=== PATIENT | female | born 1960 | race Caucasian/White ===

== ENCOUNTER 2023-06-15 08:54 | Day surgery (SDC) | payer BC, SELFPAY ==
[2023-06-15] VITALS (7 sets, daily range): BP systolic 131–166; BP diastolic 68–108; PULSE 77–81; RESP 16–18; TEMP 36.8–36.9; O2SAT 99–100; BMI 26.9
[2023-06-15] MEDS: Lactated Ringers 1,000 ML 15 ML IV ×2 (10:00→12:01)
[2023-06-15] MEDS: Vancomycin IV 1,000 MG/200 ML BAG 200 MG IV (10:01)
--- NOTE | 2023-06-15 11:00 | RAD_ITS ---
STUDY: X-RAY - PELVIS REASON FOR EXAM: Female, 62 years old. Placement of right sacral epidural stimulator. TECHNIQUE: 5 intraoperative digital documentation views COMPARISON: None. FINDINGS: 5 intraoperative digital documentation views show placement of right sacral catheter. Left sacral catheter is also noted. RAD/Pelvis 1 or 2 Views IMPRESSION: Intraoperative digital documentation images. Electronically Signed: Brian Teixeira MD at 15:04 EDT ,
[2023-06-15] MEDS: Lidocaine 1% /Epi 1:100 (20ml) 20 ML Vial (11:06)
--- NOTE | 2023-06-15 12:04 | EX.PCM.DISCH ---
Discharge Instructions Diet Discharge Diet: No restrictions Activity Discharge Activity: May Not Shower May resume sexual activity in: 3 weeks Dressing / Incision Call your doctor if your incision/area has: Continuous Slow Oozing, Sudden Increased Bleeding, Increased Pain/ Swelling, Increased Redness and Foul Smelling Discharge Call your doctor if you observe: Fever of 101 or Higher, Inability to urinate and Inability to have a bowel movement Suture Line Care: Avoid Pulling/Pushing and Avoid Pinching/Bending Change Dressing in: leave in place till F/U Remove Dressing in: do not remove dressing Cleanse incision/area with: Do not get Incision Wet and Keep Dressing Clean & Dry Follow Up Care Please Follow Up With: Jacqueline Duong MD When: Next week as scheduled Test Results: Test results from this visit will be discussed in further detail at your follow-up appointment, if applicable. Discharge Plan Admission Attending Provider: Jacqueline Duong Primary Care Provider: Rose Finnegan NP Discharge Orders/Prescriptions Prescriptions: New hydrocodone-acetaminophen [hydrocodone-acetaminophen] 5-325 mg tablet 1 tab PO Q8H PRN PRN (Reason: Pain) 3 Days Qty: 10 0RF cephalexin [cephalexin] 500 mg capsule 500 mg PO Q12 3 Days Qty: 6 0RF Referrals / Follow Up: Rose Finnegan NP, LINK TRAINER MAINTENANCE MAN-C [Primary Care Provider] - Disposition Disposition (needs filled in before D/C Order can be placed): Home, Self Care
--- NOTE | 2023-06-15 13:33 | OP.PCM_ITS ---
Report of Operation Date of Procedure: 06/15/23 Pre-Operative Diagnosis: Fecal incontinence Post-Operative Diagnosis: Same Surgery/Procedure Performed:: Axonics stage I Surgeon: Jacqueline Duong Type of Anesthesia: MAC Description of Procedure: The patient is a 62-year-old female with fecal incontinence that has failed conservative management. She now presents for a trial of Axonics sacral millicent romodulation. Informed consent has been obtained. The patient was taken to the operating room and placed in a prone position on the operating room table. She was appropriately padded and secured to the table. Anesthesia monitored the head, neck, airway, IV access and vital signs throughout the case. Once anesthesia was appropriately administered, the patient was prepped and draped in usual sterile fashion. The skin overlying the S3 foramen bilaterally was infiltrated with local anesthetic. The needle was unable to be inserted into the S3 foramen on the left side however it was inserted on the right side. Stimulation revealed good arthur response and toe flexion. A small incision was made surrounding the guidewire and the dilator was then placed. The lead was inserted through the dilator into the S3 foramen. Testing was performed on all 4 leads with lead to 0 receiving the least amount of stimulation identified. The decision was made to leave the lead indwelling in this location. A pocket site was selected on the patient's left side and the skin was infiltrated with local anesthetic and an incision was made using the knife. Bovie cautery was used for hemostasis. The lead was then tunneled into this position. It was then dried and inserted into the lead extension and secured using the torque wrench. The lead extension was then tunneled to the contralateral side where it was secured using a suture and Steri-Strips. The pocket site was closed using 3-0 interrupted Vicryl suture followed by 4-0 Monocryl used in a subcuticular closure. The same closure was performed on the lead insertion site. Dermabond was then placed. The battery was then attached and once again secured using Steri-Strips. The lead extension and battery were then placed over a drain s ponge and secured using an OpSite followed by cloth tape. The patient was then awakened and taken to the recovery room in good condition. There were no complications during this procedure. Grafts/Implants Used: Axonics lead and lead extension Complications None Admit VTE Documentation VTE Present on Admission: No VTE Mechan Device Prophylaxis: None VTE Pharm Prophylaxis ordered?: No Reason prophylaxis not ordered:: Treatment Not Indicated
== END 2023-06-15 13:04 | disposition home or self-care (01) ==
LOC: SDC 09:03 → AC 09:06
PROVIDERS: PCP Nurse Practitioner Family; Referring Provider Urology; Visit Provider Urology
PROC: (CPT 64561; principal; 2023-06-15 10:40)
DX: R15.9 Full incontinence of feces (principal); Z87.891 Personal history of nicotine dependence; N39.46 Mixed incontinence; R35.1 Nocturia
CPT/HCPCS: 64561; 00300; 72170; 76000; J7120; J2405

== ENCOUNTER 2023-07-06 09:21 | Day surgery (SDC) | payer BC, SELFPAY ==
[2023-07-06] VITALS (9 sets, daily range): BP systolic 121–161; BP diastolic 72–91; PULSE 71–89; RESP 14–16; TEMP 36.3–36.9; O2SAT 97–99; BMI 26.6
[2023-07-06] MEDS: Lactated Ringers 1,000 ML 15 ML IV (09:48)
[2023-07-06] MEDS: Vancomycin IV 1,000 MG/200 ML BAG 200 MG IV (09:50)
--- NOTE | 2023-07-06 11:40 | DCINST_ITS ---
Discharge Instructions Diet Discharge Diet: No restrictions Activity Discharge Activity: Return to Normal Activity Dressing / Incision Call your doctor if your incision/area has: Continuous Slow Oozing, Sudden Increased Bleeding, Increased Pain/ Swelling, Increased Redness, Foul Smelling Discharge and Swelling at the incision site Call your doctor if you observe: Fever of 101 or Higher, Inability to urinate and Inability to have a bowel movement Additional Dressing/Incision Instructions:: leave glue in place until it falls off Follow Up Care Please Follow Up With: Jacqueline Duong MD When: the office will call her for follow up instructions Test Results: Test results from this visit will be discussed in further detail at your follow- up appointment, if applicable. Discharge Plan Admission Attending Provider: Jacqueline Duong Primary Care Provider: Rose Finnegan NP Discharge Orders/Prescriptions Prescriptions: New oxycodone-acetaminophen [Percocet] 5-325 mg tablet 1 tab PO Q8H PRN (Reason: pain) 3 Days Qty: 10 0RF cephalexin [cephalexin] 500 mg capsule 500 mg PO Q12 3 Days Qty: 6 0RF No Action NK Referrals / Follow Up: Rose Finnegan NP, SUPERVISOR ACCOUNTS RECEIVABLE-C [Primary Care Provider] - Disposition Disposition (needs filled in before D/C Order can be placed): Home, Self Care
[2023-07-06] MEDS: Cefazolin 2 GM in 0.9% Normal Saline 100 ML IV (11:43)
--- NOTE | 2023-07-06 11:43 | PCM.OPRPT ---
Problems Associated Problem List Diagnoses (1) Fecal incontinence: Report of Operation Date of Procedure: 07/06/23 Pre-Operative Diagnosis: Fecal Incontinence Post-Operative Diagnosis: same Surgery/Procedure Performed:: Axonics Stage 2 Surgeon: Jacqueline Duong Type of Anesthesia: MAC Description of Procedure: The patient is a 62-year-old female who has undergone a successful stage I Axonics trial and now presents for stage II battery implant. Informed consent was obtained. The patient was taken to the operating room and placed in a prone position on the operating room table. She was appropriately supported and secured to the table. Anesthesia monitored the head, neck, airway, IV access and vital signs throughout the case. Once anesthesia was appropriately ministered, the patient was prepped and draped in usual sterile fashion. The pocket incision was infiltrated with 1% lidocaine with epinephrine. The incision was opened using hemostats and Metzenbaums. Care was taken to avoid injury to the lead. The torque wrench was used to remove the lead from the lead extension which was then removed from the operative field. The pocket site was enlarged using a knife and Bovie cautery as well as blunt dissection. After hemostasis was obtained, the lead was dried and inserted into the battery and secured using the torque wrench. The battery was inserted into the pocket site and no impedances were identified. The pocket was closed in 2 layers first with 3-0 interrupted Vicryl girl followed by 4-0 Monocryl subcuticular closure. Skin glue was then applied to the incision and allowed to dry completely. She was then awakened and taken to the recovery room in good condition. There were no complications during this procedure. Grafts/Implants Used: Axonics battery Complications none Admit VTE Documentation VTE Present on Admission: No VTE Mechan Device Prophylaxis: None VTE Pharm Prophylaxis ordered?: No Reason prophylaxis not ordered:: Treatment Not Indicated
[2023-07-06] MEDS: Lidocaine 1% /Epi 1:100 (20ml) 20 ML Vial (12:15)
--- NOTE | 2023-07-06 13:33 | DCINST_ITS ---
Discharge Instructions Diet Discharge Diet: No restrictions Dressing / Incision Call your doctor if your incision/area has: Continuous Slow Oozing, Sudden Increased Bleeding, Increased Pain/ Swelling, Increased Redness, Foul Smelling Discharge and Swelling at the incision site Call your doctor if you observe: Fever of 101 or Higher, Inability to urinate and Inability to have a bowel movement Additional Dressing/Incision Instructions:: leave glue in place until it falls off Follow Up Care Please Follow Up With: Jacqueline Duong MD Test Results: Test results from this visit will be discussed in further detail at your follow- up appointment, if applicable. Discharge Plan Admission Attending Provider: Jacqueline Duong Primary Care Provider: Rose Finnegan NP Discharge Orders/Prescriptions Prescriptions: New oxycodone-acetaminophen [Percocet] 5-325 mg tablet 1 tab PO Q8H PRN (Reason: pain) 3 Days Qty: 10 0RF cephalexin [cephalexin] 500 mg capsule 500 mg PO Q12 3 Days Qty: 6 0RF hydrocodone-acetaminophen [hydrocodone-acetaminophen] 5-325 mg tablet 1 tab PO Q8H PRN PRN (Reason: Pain) 3 Days Qty: 10 0RF No Action NK Referrals / Follow Up: Rose Finnegan NP, SOLIDS CONTROL TECHNICIAN-C [Primary Care Provider] - Disposition Disposition (needs filled in before D/C Order can be placed): Home, Self Care
--- NOTE | 2023-07-06 13:57 | SUR.PHASEII ---
CALLED INTO PATIENT ROOM FOR BLEEDING FROM RIGHT BATTERY SITE. THE SITE HAD A SLOW OOZE/DRIP. THIS NURSE APPLIED PRESSURE TO THE SITE AND THEN APPLIED A PRESSURE DRESSING. DR. KANG CALLED TO LOOK AT THE PATIENT. NO BLEEDING NOTED ON THE DRSG I PLACED SO SHE SAID TO JUST WATCH IT. SHE WANTS TO SEE THE PATIENT ON MONDAY AND CALL IF BLEEDING STARTS AND DOESN'T STOP AFTER APPLYING PRESSURE. THIS NURSE GAVE SOME DRESSING SUPPLIES AND SHOWED FAMILY HOW TO APPLY A PRESSURE DRSG IF NEEDED.
--- NOTE | 2023-07-06 14:00 | SUR.PHASEII ---
THIS NURSE CALLED [facility] TO GET THE PERCOCET DISCONTINUED SO THAT THEY COULD FILL HER [place]. WE JUST GOT THE ORDER CHANGED ABOUT 15 MINUTES AGO SO THE PATIENT HAS BEEN WAITING TO GO HOME. PATIENT MADE AWARE OF [facility] PHONE CALL AND THIS NURSE THEN WALKED WITH HER TO DISCHARGE ENTRANCE.
== END 2023-07-06 14:18 | disposition home or self-care (01) ==
LOC: SDC 09:30 → AC 09:30
PROVIDERS: PCP Nurse Practitioner Family; Referring Provider Urology; Visit Provider Urology
PROC: (CPT 64590; principal; 2023-07-06 10:50)
DX: R15.9 Full incontinence of feces (principal); Z87.891 Personal history of nicotine dependence; N39.46 Mixed incontinence; R35.1 Nocturia
CPT/HCPCS: 64590; 00300; J7120; J2405

== ENCOUNTER 2023-07-25 12:30 | Outpatient (RCR) | payer BC, SELFPAY ==
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
--- NOTE | 2023-07-25 12:52 | HP.PTDCSUM_ITS ---
Discharge Summary D/C summary: It has been my pleasure to treat FELIX VAN referred by Dr. Jacqueline Duong MD, with the diagnosis of MIXED INCONTINENCE for a total of 9 visit(s). Discharge Date: 07/25/23 Please see the following information for a summary of their discharge status. Subjective Subjective: PATIENT CONTINUES TO REPORT SHE IS DOING GOOD AND NO LONGER HAVING UI. STATES SHE THINKS HER FECAL INCONT IS GETTING BETTER TOO. DOING HEP. Pain BACK: Pain Intensity (Out of 10): 1 Overall Improvement % Improvement: 100 Objective Objective/Function: ALL GOALS MET. FUNCTIONAL SCREEN: Incontinence Impact Questionnaire Score: 1 Urogenital Distress Inventory Score: 1 Goals Goal 1:: DECREASE URINARY LEAKAGE EPISODES TO ONE OR LESS PER DAY Goal Progress: Goal Met Goal 2:: PATIENT WILL consistently SUCCESSFULLY DELAY VOIDING FOR 30 MINUTES WHEN URGENCY OCCURS Goal Progress: Goal Met Goal 3:: PATIENT WILL DEMONSTRATE/COMMUNICATE 10 CONSISTENT AND CONSECUTIVE 10 SECOND PELVIC FLOOR MUSCLE CONTRACTIONS TO DEMONSTRATE IMPROVED PELVIC FLOOR ENDURANCE. Goal Progress: Goal Met Goal 4:: DEVELOP HEALTHY FLUID INTAKE HABITS WITH FLUID INTAKE OF ? BODY WEIGHT IN OUNCES PER DAY AND 2/3 BEING WATER. Goal Progress: Goal Met Goal 5:: NORMALIZE VOIDING FREQUENCEY TO EVERY 3-4 HOURS. Goal Progress: Goal Met Goal 6:: PATIENT WILL BE INDEP WITH A HEP/HOME INSTRUCTIONS FOR CONTINUED IM PROVEMENT ONCE FORMAL PHYSICAL THERAPY CONCLUDES. Goal Progress: Goal Met Plan Plan: D/C. PATIENT AGREEABLE. D/C Information d/c sentence: If there are questions or concerns regarding this patient's physical therapy, please feel free to call me at [phone]. Thank you for the referral of this patient. Sincerely, Niurka Mccollum, PT, Cert MDT Balance/Gait/Functional tests Improvement % Improvement: 100
== END 2023-07-25 19:00 | disposition home or self-care (01) ==
LOC: PT 12:30
PROVIDERS: Referring Provider Urology; Visit Provider Urology
DX: N39.46 Mixed incontinence (principal); R15.9 Full incontinence of feces
CPT/HCPCS: 97162; 97530

== ENCOUNTER 2025-06-16 11:00 | Outpatient (RCR) | payer MEDICARE, OTHER, SELFPAY ==
--- NOTE | 2025-05-22 14:41 | HP.PTEVAL ---
Patient's Visit Information Visit Information Visit Information: FELIX VAN (SUSAN) is a 64 year old F referred to Physical Therapy by BESSY Tellez with a diagnosis of L SCIATICA. Date of Evaluation: 05/22/25 Physical Therapist: Niurka Mccollum PT, Cert MDT Visit Plan Frequency: 2-3x /Week Duration: 4-6 Weeks Plan: POSTURE CORRECTION/STRENGTHENING, INSTRUCTION IN APPROPRIATE BODY MECHANICS AND ACTIVITY MODIFICATIONS. DLS STARTING WITH A NEUTRAL SPINE PROGRESSING ROM TOLERATED. ZORAIDA LE ROM, STRETCHING AND STRENGTHENING. AQUATIC THERAPY NEEDED FOR A REDUCED WEIGHT BEARING ENVIRONMENT. (PATIENT REPORTS SHE HAS EASY ACCESS TO LOCAL [facility] AND IS INTERESTED IN LAND AND WATER EX). HEP INSTRUCTION. Subjective Subjective: Work/Leisure: RETIRED. 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 Present symptoms: L LOW BACK PAIN, L BUTTOCK, HIP, GROIN AND THIGH PAIN TO THE KNEE. INTERMITTENT LOCKING UP OF L BACK/HIP WITH BENDING. INTERMITTENT SHOOTING ELECTRICAL SHOCK RADIATING PAIN DOWN L THIGH TO KNEE. Present since: ABOUT A MONTH AGO Pain Scale: WORST 5/10, LEAST 0/10 Currently: 1/10 Is it getting better, worse or staying the same: GETTING BETTER Commenced as a result of: BENDING AND LIFTING TO GET READY FOR FLOOR REPLACEMENT. Symptoms at onset: L LATERAL HIP PAIN. Worse: BENDING > 90 DEG, STANDING TOO LONG, TWISTING TO THE LEFT, GETTING IN BED. FEELS GOOD WHEN WAKES UP THEN PAIN STARTS. Better: BACK EXTENSION IN STANDING WITH WALL LEAN AND CALF STRETCH. SITTING DOWN. ICY HOT, THERMA CARE WRAP. BETTER IN THE MORNING. VIBRATING HEATING PAD. Disturbed sleep: NOT THE LAST FEW NIGHTS. Previous history/Previous treatment: UNREMARKABLE. Treatment this episode: MEDROL DOSE PACK - PRESCRIBED BY ANGELICA MAE NP - NO EFFECT, CURRENTLY TAKING MELOXICAM PRESCRIBED 05/09/25. MASSAGE ABOUT 3 WEEKS AGO WITH TEMPORARY BENEFIT. Coughing/sneezing/straining: NEGATIVE Gait: IMPROVING BUT STILL CAN'T ALWAYS WALK ALL THE WAY STRAIGHT UP WITHOUT SHOOTING PAINS DOWN THIGH. AT THOSE TIMES IF SHE BENDS FORWARD A LITTLE BIT SHE CAN WALK WITHOUT PAIN. Bowel or Bladder Dysfunction: YES - SEE PMH BELOW. Unexplained weight loss: NO Imaging: NO PMH/Recent major surgery: ZORAIDA FOOT SX'S. Fecal incontinence - HAS IMPLANTED AXONIC DEVICE FOR INCONTINENCE AND TENS IS CONTRAINDICATED. CATARACT SX JAN 16 2025 R AND L 05/19/25. Objective Objective: Sitting/Standing Posture: FAIR. ZORAIDA ILIAC CREST GROSSLY SYMMETRICAL. DECREASED LORDOSIS. NO RELEVANT LATERAL LUMBAR SHIFT. Active Correction of posture: INCREASES C/O LBP Other Observations: INDEP GAIT INTO PT WITH DECREASED ZORAIDA STRIDE LENGTH AND MILD INCREASED TRUNK FLEXION. Sensory deficit: ZORAIDA LE LIGHT TOUCH SENSATION GROSSLY INTACT AND SYMMETRICAL ROM deficit: MILD HIP FLEXOR AND HS TIGHTNESS. ZORAIDA HIP IR TIGHTNESS L >R AND C/O L HIP PAIN AND CRAMPING SENSATION WITH L HIP IR TESTING. ALSO C/O L LATERAL HIP PAIN WITH L HIP ER TESTING BUT MORE SO WITH IR TESTING. PATIENT DENIED GROIN PAIN WITH TESTING OF LE'S THROUGHOUT. Motor deficit: R HIP 4/5, KNEE 5/5, ANKLE 5/5. L HIP FLEX 4-/5, EXT 4-/5, ABD 4-/5, ADD 4/5, IR 3-/5, ER 3-/5, KNEE 4/5, ANKLE 5/5. Reflexes: ZORAIDA QUADS 2+, ZORAIDA ACHILLES 1+ Dural Signs: POSITIVE L LE Lumbar mvmt loss: flex - MOD - INCREASES L LUMBAR AND P L BUTTOCK. - NW ext - MOD - INCREASES L LUMBAR - NW R SG - MOD - INCREASES L LUMBAR - W L SG - MIN - INCREASES L LUMBAR - NW Core strength: FAIR Palpation: NO ACUTE LUMBAR, SACRAL OR HIP TENDERNESS. TREATMENT: NEUROMUSCULAR REEDUCATION - RETRAINING OF MVMT AND POSTURE FOR SITTING, LYING AND STANDING ACTIVITIES. Balance/Special Test Scores Oswestry Low Back Score: 15 Goals Goal 1:: DECREASE C/O BACK AND L LE SYMPTOMS BY AT LEAST 50% TO EASE ADL'S. Goal Time Frame: 4-6 Weeks Goal 2:: IMPROVE PERSONAL CARE, LIFTING, WALKING, STANDING, SLEEP, SOCIAL LIFE, TRAVEL AND WORK/HOMEMAKING FUNCTION WITH AT LEAST 5 POINT IMPROVEMENT IN BACK OSWESTRY SCORE. Goal Time Frame: 4-6 Weeks Goal 3:: INSTRUCT IN PROPHYLAXIS Goal Time Frame: 4-6 Weeks Rehabilitation Potential Physical Therapy Diagnosis: CORE AND LE WEAKNESS AND STIFFNESS WITH LLE PAIN LIMITING MOBILITY AND ADL'S. Rehabilitation Potential: Good Anticipated Interventions Patient/Client Instruction: Educate patient on: Condition, Plan of Care and Risk Factors For the Purpose of:: To improve self management Therapeutic Exercise to Include: Strength training, Body mechanics, Postural training, Flexibilty training, Neuromotor development, In an aquatic setting and Dynamic Lumbar Stabilization For the Purpose of:: To decrease pain, To improve muscle performance and motor function, To increase tolerance to activity/condition/position, To improve ability of physical actions for home/community/work/leisure and To increase flexibility/ROM Ultrasound (thermal/non thermal): Yes For the Purpose of:: To decrease pain and To improve nutrient delivery to tissue Text: Thank you for the opportunity to evaluate your patient. For Medicare and Medicare HMO plans, please review the plan of care and approve it. It will need to be FAXED BACK to us at [phone] for Medicare purposes. For Medicare only, by signing this I certify the plan of care. Please let me know if there are questions or concerns regarding this plan of care. Physician Signature: Date:
--- NOTE | 2025-06-16 11:53 | HP.PTDCSUM ---
Discharge Summary D/C summary: It has been my pleasure to treat FELIX VAN referred by BESSY Tellez, with the diagnosis of L SCIATICA for a total of 8 visit(s). Discharge Date: 06/16/25 Please see the following information for a summary of their discharge status. Subjective Subjective: PATIENT REPORTS HER BACK IS STILL DOING A LOT BETTER. I THINK AT THIS POINT IF I WATCH HOW I SIT AND CONTINUE TO DO THE EX'S IT WILL BE GOOD. PATIENT REPORTS GETTING STUNG BY 6 YELLOW JACKETS YESTERDAY AFTERNOON BUT NOT ALLERGIC. SURGERY STILL A GO PLANNED FOR R HAND. PATIENT REPORTS NEW EX'S LAST VISIT DEFINATELY HELPED. STATES THE PAIN HAS MOVED CLOSER TO HER SPINE AND IT IS DEFINATELY NO LONGER OUT INTO HER L HIP, LOCKING UP OR GOING DOWN HER L LEG AND FEELS EVEN A LITTLE BETTER THAN LAST VISIT. I WISH I WOULD HAVE KNOWN THESE EX'S THE FIRST TIME THIS HAPPENED. PATIENT STATES I FEEL MUCH STRONGER AND I DON'T FEEL LIKE I LIMP OR LIKE I HAVE TO BABY IT AT ALL. Pain L LB: Pain Intensity (Out of 10): 1 Overall Improvement % Improvement: 97 Objective Objective/Function: PATIENT WAS SEEN TODAY FOR RE-ASSESSMENT OF PROGRESS TOWARD THE SET PT GOALS AND THE NEED FOR FURTHER PHYSICAL THERAPY VS READINESS FOR DISCHARGE. THIS PATIENT HAS RESPONDED REALLY WELL TO PT AND IS APPROPRIATE FOR AND AGREEABLE TO DISCHAREGE. UPON EXAM TODAY: Motor deficit: 5/5 ZORAIDA LE'S. Dural Signs: NEGATIVE ZORAIDA LE'S. Lumbar mvmt loss: flex - MIN ext - MIN TO MOD R SG - NIL L SG - NIL - PRODUCES CENTRAL LBP - NW Goals Goal 1:: DECREASE C/O BACK AND L LE SYMPTOMS BY AT LEAST 50% TO EASE ADL'S. Goal Progress: Goal Met Goal 2:: IMPROVE PERSONAL CARE, LIFTING, WALKING, STANDING, SLEEP, SOCIAL LIFE, TRAVEL AND WORK/HOMEMAKING FUNCTION WITH AT LEAST 5 POINT IMPROVEMENT IN BACK OSWESTRY SCORE. Goal Progress: Goal Met Goal 3:: INSTRUCT IN PROPHYLAXIS Goal Progress: Goal Met Plan Plan: D/C TO [facility]NA[facility]EMENT. PATIENT AGREEABLE. D/C Information d/c sentence: If there are questions or concerns regarding this patient's physical therapy, please feel free to call me at [phone]. Thank you for the referral of this patient. Sincerely, Niurka Mccollum, PT, Cert MDT Balance/Gait/Functional tests Balance/Special Test Scores Oswestry Low Back Score: 2 Improvement % Improvement: 97
== END 2025-06-16 19:00 | disposition home or self-care (01) ==
LOC: PT 11:00
PROVIDERS: PCP Nurse Practitioner Family; Referring Provider Nurse Practitioner Family; Visit Provider Nurse Practitioner Family
DX: M54.32 Sciatica, left side (principal)
CPT/HCPCS: 97112; 97113; 97162; 97530

== ENCOUNTER 2025-06-17 05:41 | Day surgery (SDC) | payer MEDICARE, OTHER, SELFPAY ==
--- NOTE | 2025-06-11 21:14 | PAT.ANE_ITS ---
Pre-Assessment Diagnosis/Proposed Procedure Planned Operative Procedure(s): (R) Right ring finger A1 kathy release Anesthesia History Anesthesia History - plaster helper: Anesthesia History - plaster helper Hx Hospitalization No 06/11/25 15:19 Any Problems With Anesthesia No 06/11/25 15:19 Cholinesterase deficiency No 06/11/25 15:19 You/Your Family Experience No 06/11/25 15:19 fever (hyperthermia) with Relationship Recent Exposure to Contagious No 07/06/23 09:41 Disease Does patient have nerve Yes: AXONIC STAGE IMPLANT 06/11/25 15:19 stimulator Patient instructed to have device shut off --Does patient have Pacemaker or ICD? When Was Last Pacemaker Check QUESTION #4 FULL TEXT: You/Your Family Experience fever (hyperthermia) with Anesthesia Last Oral Intake Last Oral intake: Last Oral Intake NPO since Meds taken in AM with sips of water? Meds patient instructed to take am of surgery PONV PONV - plaster helper: PONV - plaster helper Female Yes 06/11/25 15:19 HX of Motion Sickness No 06/11/25 15:19 HX of N/V After Surgery No 06/11/25 15:19 Non-Smoker Yes 06/11/25 15:19 Duration of Surgery greater No 06/11/25 15:19 than 60 minutes Number of Risk Factors 2 06/11/25 15:19 PONV Score Moderate Risk 06/11/25 15:19 Height & Weight Height & Weight: Anesthesia: Height & Weight Height 5 ft 1 in 09/23/24 08:51 Respiratory Assessment Respiratory Assessment - plaster helper: Respiratory Tract Infection Hx - plaster helper Hx Respiratory Tract Infection No 06/11/25 15:19 STOP Sleep Apnea STOP Sleep Apnea - plaster helper: STOP Sleep Apnea - plaster helper Hx Hypertension No 06/11/25 15:19 Hx Sleep Apnea No 06/11/25 15:19 CPAP BIPAP Do you snore loudly (louder No 06/11/25 15:19 than talking or can be heard Do you often feel tired/ No 06/11/25 15:19 fatigued/ sleepy during daytime? Has anyone observed you stop No 06/11/25 15:19 breathing during sleep? STOP Results Negative 06/11/25 15:19 QUESTION #5 FULL TEXT : Do you snore loudly (louder than talking or can be heard through closed doors)? Tobacco Use History Tobacco Use History - plaster helper: Tobacco Use History - plaster helper Tobacco Use Smoking Status Former smoker 06/11/25 15:19 Hx Tobacco Use No 06/11/25 15:19 Years Smoking Packs Smoked per Day Smoking Cessation Date was Yes - quit smoking within 15 06/11/25 15:19 within the last 15 years years Hx Smoking Cessation Date 08/27/11 06/11/25 15:19 Hx Smoking Cessation Counseling Hematologic Medial History Hematologic Hx - plaster helper: Hematologic Medical Hx - treatment counselor Hx of Blood Transfusion No 06/11/25 15:19 Hx of Transfusion in last 3 No 06/11/25 15:19 Months Date of Last Transfusion (if within last 3 months) Ever experience any problems No 06/11/25 15:19 with transfusion(s)? Specify any problems Hx of Preganancy in last 3 No 06/11/25 15:19 Months Nurse Filling Out Transfusion [email or web address] 06/11/25 15:19 & Questions: Date: 06/11/25 06/11/25 15:19 Time: 15:29 06/11/25 15:19 Patient unable to answer at this time (ie. confused, unrespo /Reproduction History /Reproductive History - plaster helper: /Reproductive Hx- plaster helper Hx Now No 06/11/25 15:19 Gestational Age (in weeks): EDC: Hx Hx Para Hx Section SAB No 06/11/25 15:19 PFSH Medical History (Updated 06/11/25 @ 15:29 by Dana Dugan) Bladder disease High cholesterol COPD (chronic obstructive pulmonary disease) Cardiology follow-up encounter Fecal incontinence Wears glasses Post-menopausal Alcohol use Easy bruising Former smoker [facility] Medications ?Medication ?Instructions ?Recorded ?Last Taken ?Type rrfamafq-[id number]-pngm 8 mg-folic 400 1 tab PO QDAY Unknown History mcg-K 50 mcg-lutein 300 mcg tablet (Centrum Silver Women) krill 1 cap PO DAILY 06/11/25 Unkn own History [id number]-hb4-bcp-qsb-[id number]-lwu-astax 1,500 mg-165 mg-67.5 mg capsule (Krill Oil ([place] 3 and 6)) Allergy/AdvReac Type Severity Reaction Status Date / Time vancomycin Allergy Mild Itching Verified 06/11/25 15:17 Sulfa (Sulfonamide Allergy Hives Verified 06/11/25 15:17 Antibiotics) acetaminophen (From Percocet) AdvReac Intermediate Vomiting Verified 06/11/25 15:17 oxycodone (From Percocet) AdvReac Intermediate Vomiting Verified 06/11/25 15:17 ciprofloxacin AdvReac Mild Diarrhea Verified 06/11/25 15:17 Surgical History (Updated 06/11/25 @ 15:19 by Dana Dugan) History of bilateral cataract extraction Status post right foot surgery S/P foot surgery, left Hx of surgical procedure Hx of tonsillectomy H/O tubal ligation H/O hand surgery Social History Smoking Status: Former smoker Audit: Pertinent Findings HISTORY of Pertinent Findings History of Pertinent Findings: Patient was seen by per diem clerk due to coronary calcifications seen on a CT scan of the chest. Per the note patient has no history of cardiac issues and she denies chest pain, chest pressure, dizziness, diaphoresis and syncope. At this visit they discuss lifestyle changes and given that she was asymptomatic no further workup was necessary. Recommendation Anesthesia Recommendation Anesthesia recommendation: OPTIMIZED for anesthesia
[2025-06-17] VITALS (7 sets, daily range): BP systolic 126–157; BP diastolic 64–97; PULSE 80–87; RESP 16; TEMP 36.4–36.6; O2SAT 98–100; BMI 27.8
--- OUTSIDE RECORDS SUMMARY | 2025-06-17 05:44 | XMS RPT_ITS | CCD ---
Author Organization [facility] Inform ion Partnership [facility] Care Team Providers Care Optometric Technician Name Role Phone ROSE WESTON Primary Care Physician ROSE FINNEGAN Primary Care Unavailable JUAN COOPER MD Attending Unavailable ROSE FINNEGAN Primary Care Unavailable MAG LARSEN MD Attending Unavailable Unavailable Primary Care Provider Unavailabl e MINIACI-COXHEAD, LUCILLE IGNACIO Attending Unavai lable MINIACI-COXHEAD, LUCILLE IGNACIO Admitting Unavai lable MINIACI-COXHEAD, LUCILLE IGNACIO Attending Unavai lable MINIACI-COXHEAD, LUCILLE IGNACIO Admitting Unavai lable Unavailable Primary Care Provider Unavailabl e MINIACI-COXHEAD, LUCILLE IGNACIO Referring Unavai lable THOENNES, MCKENA Attending Unavailable LAO, ELODIA Referring Unavailable THOENNES, VINAY Attending Unavailable LAO, ELODIA Referring Unavailable THOENNES, VINAY Attending Unavailable LAO, ELODIA Referring Unavailable THOENNES, VINAY Attending Unavailable LAO, ELODIA Referring Unavailable THOENNES, MCKENA Attending Unavailable LAO, ELODIA Referring Unavailable LAO, ELODIA Attending Unavailable LAO, ELODIA Referring Unavailable LAO, ELODIA Referring Unavailable MINIACI-COXHEAD, LUCILLE IGNACIO Attending Unavai lable MINIACI-COXHEAD, LUCILLE IGNACIO Attending Unavai lable LAO, ELODIA Attending Unavailable LAO, ELODIA Referring Unavailable MINIACI-COXHEAD, LUCILLE IGNACIO Referring Unavai lable MINIACI-COXHEAD, LUCILLE IGNACIO Attending Unavai lable ROSE WESTON Primary Care Physician FISH SKILLED NURSING CASE MANAGER-NAIL STICKER, ELI Attending Unavailab le FINNEGAN SKILLED NURSING CASE MANAGER-NAIL STICKER, ROSE Bernstein Primary Care Unavai lable FINNEGAN SKILLED NURSING CASE MANAGER-NAIL STICKER, ROSE L Attending Unavai lable FINNEGAN SKILLED NURSING CASE MANAGER-NAIL STICKER, ROSE L Primary Care Unavai lable FINNEGAN SKILLED NURSING CASE MANAGER-NAIL STICKER, ROSE L Attending Unavai lable FINNEGAN SKILLED NURSING CASE MANAGER-NAIL STICKER, ROSE L Primary Care Unavai lable Finnegan ELECTRICAL AND INSTRUMENT MECHANIC-C, Rose Primary Care Provider Kain ELECTRICAL AND INSTRUMENT MECHANIC-C, Rose Attending Provider [phone] Kain ELECTRICAL AND INSTRUMENT MECHANIC-C, Rose Referring Provider [phone] Dr. Dougie Thomas DO Attending Provider Dougie Thomas Attending Unavailable Finnegan, Rose Primary Care Unavailable Finnegan, Rose Referring Unavailable Dougie Thomas Attending Unavailable Dougie Thomas Referring Unavailable Finnegan, Rose Primary Care Unavailable Kain, Rose Attending Unavailable Finnegan, Rose Referring Unavailable Finnegan, Rose Primary Care Unavailable Finnegan, Rose Primary Care Unavailable Dougie Thomas Attending Unavailable Finnegan, Rose Referring Unavailable Finnegan, Rose Primary Care Unavailable Dougie Thomas Attending Unavailable Finnegan, Rose Referring Unavailable Dougie Thomas Attending Unavailable Finnegan, Rose Referring Unavailable Finnegan, Rose Primary Care Unavailable Allergies Allergy Classification Reported Allergen(s) Allergy Type Date of Onset Reaction(s) Facility (20 sources) Ciprofloxacin; Translations: [CIPROFLOXACIN] Drug Allergy 4 [facility] (20 sources) Sulfonamides (Antibiotic); Translations: [SULFA (SULFONAMIDE ANTIBIOTICS)] Drug Allergy 4 [facility] (2 sources) Acetaminophen / oxyCODONE Drug Allergy 3 Vomiting [facility] (4 sources) Sulfonamides (Antibiotic) Allergy to substance 3 [facility] (3 sources) Vancomycin Drug Allergy 3 Itching [facility] Comment on above: head itching (20 sources) Acetaminophen / oxyCODONE; Translations: [OXYCODONE-ACETAM INOPHEN] Drug Allergy 3 Vomiting [facility] (2 sources) Acetaminophen Drug Allergy 3 Vomiting [facility] (2 sources) oxyCODONE Drug Allergy 3 Vomiting [facility] (2 sources) Sulfonamide; Translations: [sulfa drugs] Drug allergy [facility] (disorder) [facility] (1 source) Acetaminophen Drug Allergy 5 [facility] (1 source) Ciprofloxacin Drug Allergy 5 [facility] (1 source) oxyCODONE Drug Allergy 5 [facility] (1 source) Sulfonamides (Antibiotic) Drug allergy (disorder) 5 [facility] (1 source) Vancomycin Drug Allergy 5 [facility] Medications Current Medications Medication Drug Class(es) Dates Sig (Normalized) Sig (Original) aspirin 325 mg oral tablet (17 sources) Platelet Aggregation Inhibitor, Nonsteroidal Anti-inflammatory Drug Start: 11-22-2023 take 1 tablet by mouth twice daily aspirin 325 mg tablet Take 1 tablet by mouth two times a day for 28 days. 56 tablet 11/22/2023 Active Start: 07-26-2023 take 1 tablet by jayson twice daily aspirin 325 mg tablet Take 1 tablet by mouth twice daily. 84 tablet 0 07/26/2023 Active Comment on above: Take 1 tablet by jayson twice daily. Take 1 tablet by jayson two times a day for 28 days. docosahexaenoic acid/epa (FI SH OIL ORAL) (20 sources) docosahexaenoic acid/epa (FISH OIL ORAL) Take by mouth. Active docosahexaenoic acid/epa (FISH OIL ORAL) Take by mouth. 0 Active Comment on above: Take by mouth. doxycycline hyclate 100 mg oral capsule (1 source) Tetracycline-class Drug Start: 07-28-2022 End: 08-07-2022 doxycycline hyclate 100 mg oral capsule Dose : 100 mg = 1 cap(s), Oral, BID, # 20 cap(s), 0 Refill(s), Cellulitis, 60.5 Start Date: 07/28/22 Stop Date: 08/07/22 Status: Ordered folic acid/multivit-min/lutein (CENTRUM SILVER ORAL) (20 sources) folic acid/multivit-min/lutein (CENTRUM SILVER ORAL) Take by mouth. Active folic acid/multi vit-min/lutein (CENTRUM SILVER ORAL) Take by mouth. 0 Active Comment on above: Take by mouth. Arfbexkx-Nxt-Uwcn-Fa-Vi t K-Lut (Centrum Silver Women) 8 mg iron-400 mcg-50 mcg tablet (1 source) Start: 09-23-20 take 1 tablet by mouth once daily Stuuitvp-Ygr-Mqsd-Fa-V it K-Lut (Centrum Silver Women) 8 mg iron-400 mcg-50 mcg tablet Active 1 {tbl} PO daily September 23, 2024 12:00am [place] (Nk) (2 sources) Start: 07-05-20 [place] (Nk) Active July 05, 2023 12:00am ondansetron 4 mg disintegrating oral tablet (14 sources) Serotonin-3 Receptor Antagonist Start: 11-22-20 take 1 tablet by mouth every eight hours as needed ondansetron orally disintegrating (ZOFRAN ODT) 4 mg disintegrating tablet Take 1 tablet by mouth every 8 hours as needed for nausea/vomiting. 30 tablet 11/22/2023 Active Start: 07-26-2023 End: 08-05-2023 take 1 tablet by mouth every eight hours as needed ondansetron orally disintegrating (ZOFRAN ODT) 4 mg disintegrating tablet Take 1 tablet by mouth every 8 hours as needed for nausea/vomiting for up to 10 days. 30 tablet 0 07/26/2023 08/05/2023 Active Comment on above: Take 1 tablet by jayson th every 8 hours as needed for nausea/vomiting for up to 10 days. Take 1 tablet by jayson th every 8 hours as needed for nausea/vomiting. Completed/Discontinued Medications Medication Drug Class(es) Dates Sig (Normalized) Sig (Original) acetaminophen 325 mg / HYDROcodone bitartrate 5 mg oral tablet (10 sources) Opioid Agonist Start: 11-22-2023 End: 11-29-2023 take 1 tablet by mouth every four hours as needed for pain HYDROcodone-acetami nophen (NORCO) 5-325 mg per tablet Indications: Valgus deformity of both great toes , Metatarsus adductus of both feet Take 1 tablet by mouth every 4 hours as needed for pain for up to 7 days. 42 tablet 11/22/2023 11/29/2023 Discontinued Start: 08-17-2023 End: 08-24-2023 take 1 tablet by mouth every six hours as needed for pain HYDROcodone-acetaminophen (NORCO) 5-325 mg per tablet Indications: Valgus deformity of both great toes , Post-op pain Take 1 tablet by mouth every 6 hours as needed for pain for up to 7 days. 28 tablet 0 08/17/2023 08/24/2023 Active Start: 07-26-2023 End: 08-17-2023 take 1 tablet by mouth every four hours as needed for pain HYDROcodone-acetaminophen (NORCO) 5-325 mg per tablet Indications: Post-op pain Take 1 tablet by mouth every 4 hours as needed for pain. 42 tablet 0 08/03/2023 08/17/2023 Discontinued Start: 07-06-2023 End: 09-23-2024 Hydrocodone-Acetaminophen 5- 325 mg tablet Discontinued 1 {tbl} PO EVERY 8 HOURS NEEDED as needed for Pain 10 3 0 July 06, 2023 September 23, 2024 8:54am Incontinence of feces Full incontinence of feces Start: 07-06-2023 take 1 tablet by jayson th every eight hours as needed Hydrocodone-Acetaminophen Active 1 TABLE T PO EVERY 8 HOURS NEEDED 10 July 06, 2023 Start: 06-15-2023 take 1 tablet by jayson th every eight hours as needed Hydrocodone-Acetaminophen Active 1 TABLE T PO EVERY 8 HOURS NEEDED 10 June 15, 2023 Comment on above: Take 1 tablet by jayson th every 4 hours as needed for pain. Take 1 tablet by jayson th every 6 hours as needed for pain for up to 7 days. acetaminophen 325 mg / oxyCODONE hydrochloride 5 mg oral tablet (3 sources) Opioid Agonist Start: 07-06-20 End: 09-23-20 Oxycodone-Acetaminop hen (Percocet) 5-325 mg tablet Discontinued 1 {tbl} PO Q8H as needed for pain 10 3 0 July 06, 2023 September 23, 2024 8:54am Incontinence of feces Full incontinence of feces cephalexin 500 mg oral capsule (4 sources) Cephalosporin Antibacterial Start: 07-06-20 End: 09-23-20 take 1 capsule by mouth every twelve hours Cephalexin 500 mg capsule Discontinued 500 mg PO EVERY 12 HOURS 6 3 0 July 06, 2023 12:00am September 23, 2024 8:54am post-operative Start: 06-15-2023 take 500 mg by mouth every twelve hours Cephalexin Active 500 MG PO EVERY 12 HOURS 6 3 June 15, 2023 12:00am docusate sodium 100 mg oral capsule (5 sources) Start: 07-26-2023 take 1 capsule by mouth twice daily docusate sodium (COLACE) 100 mg capsule Take 1 capsule by mouth twice daily. 30 capsule 0 07/26/2023 Active Comment on above: Take 1 capsule by mouth twice daily. docusate sodium 50 mg / sennosides, senior care 8.6 mg oral tablet (1 source) Start: 11-22-2023 End: 12-22-2023 take 1 tablet by mouth once daily as needed for constipation senna-docusate (SENNA-S) 8.6-50 mg per tablet Take 1 tablet by mouth once daily as needed for constipation. 30 tablet 11/22/2023 12/22/2023 Problems Active Problems Problem Classification Problem Date Documented Da te Episodic/Chronic Acquired foot deformities (20 sources) Acquired left hallux valgus; Translations: [Hallux valgus (acquired), left foot] Onset: 07-14-2023 Chronic Acquired foot deformities (20 sources) Acquired right hallux valgus; Translations: [Hallux valgus (acquired), right foot] Onset: 07-14-2023 Chronic Acquired foot deformities (1 source) Bunion; Translations: [Bunion of unspecified foot] 04-25-2023 Episodic Melanomas of skin (20 sources) Malignant melanoma; Translations: [Malignant melanoma of skin, unspecified] Onset: 07-18-2023 07-18-2023 Chronic Other aftercare (14 sources) Postoperative visit; Translations: [Encounter for other specified surgical aftercare] Onset: 01-08-2024 01-03-2024 Episodic Other bone disease and musculoskeletal deformities (1 source) Disorder of bone; Translations: [Disorder of bone, unspecified] 10-27-2023 Episodic Other congenital anomalies (20 sources) Bilateral metatarsus varus; Translations: [Congenital metatarsus adductus, right foot] Onset: 07-14-2023 Chronic Other connective tissue disease (2 sources) Triggering of digit; Translations: [Trigger finger, right ring finger] 01-27-2025 Episodic Other gastrointestinal disorders (20 sources) Incontinence of feces; Translations: [Full incontinence of feces] Onset: 06-15-2023 06-15-2023 Episodic Other gastrointestinal disorders (2 sources) Full incontinence of feces; Translations: [Full incontinence of feces] 07-06-2023 Episodic Other nervous system disorders (3 sources) Postoperative pain ; Translations: [Other acute postprocedural pain] 08-03-2023 Episodic Other screening for suspected conditions (not mental disorders or infectious disease) (2 sources) Encounter for screening mammogram for malignant neoplasm of breast; Translations: [Encounter for screening mammogram for malignant neoplasm of breast] Onset: 01-14-2025 Episodic Other skin disorders (1 source) Foot callus; Translations: [Corns and callosities] Episodic Skin and subcutaneous tissue infections (1 source) Cellulitis; Translations: [Cellulitis, unspecified] Onset: 07-28-2022 Episodic Unclassified (2 sources) Congenital metatarsus adductus, right foot; Translations: [Metatarsus adductus of both feet] Onset: 07-14-2023 Unclassified (2 sources) Congenital metatarsus adductus, left foot; Translations: [Metatarsus adductus of both feet] Onset: 07-14-2023 Past or Other Problems Problem Classification Problem Date Documented Date Episodic/Chronic Other aftercare (1 source) Encounter for other specified surgical aftercare; Translations: [Postoperative visit] Onset: 01-08-2024 Episodic Other connective tissue disease (1 source) Trigger finger, left middle finger; Translations: [Trigger finger, left middle finger] Onset: 11-06-2024 Episodic Other connective tissue disease (1 source) Trigger finger, right ring finger; Translations: [Trigger finger, right ring finger] Onset: 10-07-2024 Episodic Other nervous system disorders (1 source) Other acute postprocedural pain; Translations: [Post-op pain] Onset: 07-26-2023 Episodic Other nervous system disorders (11 sources) Abnormal gait; Translations: [Unspecified abnormalities of gait and mobility] Onset: 01-08-2024 Resolved: 02-06-2024 01-08-2024 Episodic Screening and history of mental health and substance abuse codes (20 sources) Ex-smoker; Translations: [Personal history of nicotine dependence] Onset: 07-18-2023 07-18-2023 Episodic Results Test Name Value Interpretation Reference Range Facility MR/PATCasie 06-11-2025 MR/PAT.[facility] Medical Records Department [address] [place] [address] PAT - Anesthesia 06/11/252113 MR#: [id number] Acct: [id number] Name: FELIX DOE Rep #: [id number] : 1960 64 From: Bridger Marc MD PCP: Rose Finnegan, ELECTRICAL AND INSTRUMENT MECHANIC-C Status:PRE SDC Y Race: C Location: [facility] Pre-Assessment Diagnosis/Proposed Procedure Planned Operative Procedure(s): (R) Right ring finger A1 kathy release Anesthesia History 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 When Was Last Pacemaker Check QUESTION #4 FULL TEXT: You/Your Family Experience fever (hyperthermia) with Anesthesia Last Oral Intake Last Oral intake: Last Oral Intake NPO since Meds taken in AM with sips of water? 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 Female Yes 06/11/25 15:19 HX of Motion Sickness No 06/11/25 15:19 HX of N/V After Surgery No 06/11/25 15:19 Non-Smoker Yes 06/11/25 15:19 Duration of Surgery greater No 06/11/25 15:19 than 60 minutes Number of Risk Factors 2 06/11/25 15:19 PONV Score Moderate Risk 06/11/25 15:19 Height Weight Height Weight: Anesthesia: Height Weight Height 5 ft 1 in 09/23/24 08:51 Respiratory Assessment Respiratory Assessment - material handling crew supervisor: Respiratory Tract Infection Hx - material handling crew supervisor Hx Respiratory Tract Infection No 06/11/25 15:19 STOP Sleep Apnea STOP Sleep Apnea - material handling crew supervisor: STOP Sleep Apnea - material handling crew supervisor Hx Hypertension No 06/11/25 15:19 Hx Sleep Apnea No 06/11/25 15:19 CPAP BIPAP Do you snore loudly (louder No 06/11/25 15:19 than talking or can be heard Do you often feel tired/ No 06/11/25 15:19 fatigued/ sleepy during daytime? Has anyone observed you stop No 06/11/25 15:19 breathing during sleep? STOP Results Negative 06/11/25 15:19 QUESTION #5 FULL TEXT : Do you snore loudly (louder than talking or can be heard through closed doors)? 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 Specify any problems Hx of Preganancy in last 3 No 06/11/25 15:19 Months Nurse Filling Out Transfusion [facility] 06/11/25 15:19 Questions: Date: 06/11/25 06/11/25 15:19 Time: 15:29 06/11/25 15:19 Patient unable to answer at this time (ie. confused, unrespo /Reproductio n History /Reproductiv e History - material handling crew supervisor: /Reproductiv e Hx- material handling crew supervisor Hx Now No 06/11/25 15:19 Gestational Age (in weeks): EDC: Hx Hx Para Hx Section SAB No 06/11/25 15:19 PFSH Medical History (Updated 06/11/25 @ 15:29 by Dana Dugan) Bladder disease High cholesterol COPD (chronic obstructive pulmonary disease) Cardiology follow-up encounter Fecal incontinence Wears glasses Post-menopausal Alcohol use Easy bruising Former smoker Bunion Home Medications ???Medication ???Instructions ???Recorded ???Last Taken ???Type ahxuttmy-bdcs-pwvv 8 mg-folic 400 1 tab PO QDAY 09/23/24 Unknown Hi story mcg-K 50 mcg-lutein 300 mcg tablet (Centrum Silver Women) krill 1 cap PO DAILY 06/11/25 Unknown Hi story mwg-sj2-zmp-epa-om6-l ip-astax 1,500 mg-165 mg-67.5 mg capsule (Krill Oil (Stella 3 and 6)) Allergy/AdvReac Type Severity Reaction Status Date / Time vancomycin Allergy Mild Itching Verified 06/11/25 15:17 Sulfa (Sulfonamide Allergy Hives Verified 06/11/25 15:17 Antib (more content not included)... Normal [facility] Orthopedic Visit Reporton Orthopedic Visit Report [facility] [address] [place] [address] OFFICE VISIT Date of Service: 06/04/25 MR#: [id number] Acct: [id number] Name: FELIX DOE Rep #: [id number] : 1960 Provider: Dr. Dougie christine DO Age/Sex: 64/F Location: [facility] [place] Status: Signed Intake Vital Signs 09/23/24 08:51 Height 5 ft 1 in Weight: 150 lb BMI 28.3 Intake Visit Reasons: RIGHT HAND Chief Complaint: right ring finger trigger finger Allergies vancomycin Allergy (Mild, Verified 06/04/25 13:40) Itching Sulfa (Sulfonamide Antibiotics) Allergy (Verified 06/04/25 13:40) Hives acetaminophen (From Percocet) Adverse Reaction (Intermediate, Verified 06/04/25 13:40) Vomiting oxycodone (From Percocet) Adverse Reaction (Intermediate, Verified 06/04/25 13:40) Vomiting ciprofloxacin Adverse Reaction (Mild, Verified 06/04/25 13:40) Diarrhea Medications ???Medication ???Instructions ???Recorded ???Confirmed ???Type orvqdlpy-ojkz-zbfg 8 mg-folic 400 1 tab PO QDAY 09/23/24 06/04/25 H istory mcg-K 50 mcg-lutein 300 mcg tablet (Centrum Silver Women) Have you fallen in the past year?: No PFSH Medical History Fecal incontinence Wears glasses Post-menopausal Alcohol use Easy bruising Former smoker Bunion Surgical History Status post right foot surgery S/P foot surgery, left Hx of surgical procedure Hx of tonsillectomy H/O tubal ligation H/O hand surgery Social History Smoking Status: Former smoker HPI RIGHT HAND Details: This documentation accurately reflects the service provided and the decisions made by me, Dr. Dougie Thomas, DO 06/04/25 0751. Part of today???s visit was documented by Leticia SALAS, acting as scribe. FELIX DOE is a 64 year old F here today for right ring finger trigger finger. She states that she is ready to proceed with surgery and would like to discuss today. She continues to have painful severe triggering of the right ring finger 01/27/2025 visit:here today for right ring finger trigger finger. She states the last injection she has gave her relief for 3 months but now it is locking up on her and painful. She would like to have another injection today and possibly proceed with surgery in February or March this is her second ever injection in this finger. Plan:Patient is here today for right ring finger trigger finger. I did give patient an injection back in September which gave her 3 months of relief but she does have palpable triggering on exam today. She would like to proceed with surgery later in the year so I advised patient to call the office and let us know when she would like to proceed with surgery. We did inject the finger again today upon her request. Risks again reviewed including risk of tendon rupture dimpling and fat atrophy. 11/06/2024: Patient is here today trigger finger on the left hand of the middle finger. She states that her middle finger is more stiff in the mornings and seems to catch and when it does she gets pain down into her wrist. The finger has been triggering for a few month but noticed in June/July. She states that it isn't as bad as the right hand but wants to catch it before it does. She denies any injury or trauma to the hand or finger. She take Ibuprofen or Aleve if the pain get severe enough. She would like an injection today. Plan:Patient is here today for left middle finger trigger finger. She does have palpable triggering on exam. She has been having the triggering for a few months now. She is here today requesting an injection, the one she had in her right hand resolved her symptoms. 09/23/2024 office visit: new patient here today for evaluation of trigger finger on the right hand ring finger. this has been going on for a few months and progressively worsening. reports the finger locks up multiple times per day and is interfering with some of her daily activities. She has tried sleeping in a finger brace with no relief. She has more stiffness in the morning when she braces at night. She is right hand dominant. Denies any injury. Denies any autoimmune or inflammatory conditions. She has done NSAIDs Plan: Spoke with the patient about having a trigger finger and her options- steroid injection or an A1 kathy release. She would like to proceed with a steroid injection as she hasnt tried any conservative treatment. Patient tolerated injection well. Explained that it may take 3-4 weeks to have full effect. Ortho Exam General General: Yes no acute distress and Yes well groomed Neurologic: Yes alert and Yes oriented x3 Psychologic: Yes reasonable and appropriate Right Wrist/Hand (more content not included)... Normal [facility] Inital Evaluation (1) - PTon 05-22-2025 Inital Evaluation (1) - PT [facility] Physical Therapy [facility] [address] [place] [address]. [address] [place] [address] / REHABILITATION SERVICES INITIAL EVALUATION MR#: [id number] Acct: [id number] Name: FELIX DOE) Rep #: [id number] : 1960 64 From: Niurka Mccollum PT, Cert. MDT Referring DrGael: Rose Finnegan, ELECTRICAL AND INSTRUMENT MECHANIC-C Status: REG RCR Insurance: MEDICARE PART A B [employer]IONS Patient's Visit Information Visit Information Visit Information: FELIX DOE (SUSAN) is a 64 year old F referred to Physical Therapy by BESSY Tellez with a diagnosis of L SCIATICA. Date of Evaluation: 05/22/25 Physical Therapist: Niurka Mccollum PT, Cert MDT Visit Plan Frequency: 2-3x /Week Duration: 4-6 Weeks Plan: POSTURE CORRECTION/STRENGTHEN ING, INSTRUCTION IN APPROPRIATE BODY MECHANICS AND ACTIVITY MODIFICATIONS. DLS STARTING WITH A NEUTRAL SPINE PROGRESSING ROM TOLERATED. ZORAIDA LE ROM, STRETCHING AND STRENGTHENING. AQUATIC THERAPY NEEDED FOR A REDUCED WEIGHT BEARING ENVIRONMENT. (PATIENT REPORTS SHE HAS EASY ACCESS TO LOCAL [employer] AND IS INTERESTED IN LAND AND WATER EX). HEP INSTRUCTION. Subjective Subjective: Work/Leisure: RETIRED. 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 Present symptoms: L LOW BACK PAIN, L BUTTOCK, HIP, GROIN AND THIGH PAIN TO THE KNEE. INTERMITTENT LOCKING UP OF L BACK/HIP WITH BENDING. INTERMITTENT SHOOTING ELECTRICAL SHOCK RADIATING PAIN DOWN L THIGH TO KNEE. Present since: ABOUT A MONTH AGO Pain Scale: WORST 5/10, LEAST 0/10 Currently: 1/10 Is it getting better, worse or staying the same: GETTING BETTER Commenced as a result of: BENDING AND LIFTING TO GET READY FOR FLOOR REPLACEMENT. Symptoms at onset: L LATERAL HIP PAIN. Worse: BENDING > 90 DEG, STANDING TOO LONG, TWISTING TO THE LEFT, GETTING IN BED. FEELS GOOD WHEN WAKES UP THEN PAIN STARTS. Better: BACK EXTENSION IN STANDING WITH WALL LEAN AND CALF STRETCH. SITTING DOWN. ICY HOT, THERMA CARE WRAP. BETTER IN THE MORNING. VIBRATING HEATING PAD. Disturbed sleep: NOT THE LAST FEW NIGHTS. Previous history/Previous treatment: UNREMARKABLE. Treatment this episode: MEDROL DOSE PACK - PRESCRIBED BY ROSE FINNEGAN NP - NO EFFECT, CURRENTLY TAKING MELOXICAM PRESCRIBED 05/09/25. MASSAGE ABOUT 3 WEEKS AGO WITH TEMPORARY BENEFIT. Coughing/sneezing/str aining: NEGATIVE Gait: IMPROVING BUT STILL CAN'T ALWAYS WALK ALL THE WAY STRAIGHT UP WITHOUT SHOOTING PAINS DOWN THIGH. AT THOSE TIMES IF SHE BENDS FORWARD A LITTLE BIT SHE CAN WALK WITHOUT PAIN. Bowel or Bladder Dysfunction: YES - SEE PMH BELOW. Unexplained weight loss: NO Imaging: NO PMH/Recent major surgery: ZORAIDA FOOT SX'S. Fecal incontinence - HAS IMPLANTED AXONIC DEVICE FOR INCONTINENCE AND TENS IS CONTRAINDICATED. CATARACT SX JAN 16 2025 R AND L 05/19/25. Objective Objective: Sitting/Standing Posture: FAIR. ZORAIDA ILIAC CREST GROSSLY SYMMETRICAL. DECREASED LORDOSIS. NO RELEVANT LATERAL LUMBAR SHIFT. Active Correction of posture: INCREASES C/O LBP Other Observations: INDEP GAIT INTO PT WITH DECREASED ZORAIDA STRIDE LENGTH AND MILD INCREASED TRUNK FLEXION. Sensory deficit: ZORAIDA LE LIGHT TOUCH SENSATION GROSSLY INTACT AND SYMMETRICAL ROM deficit: MILD HIP FLEXOR AND HS TIGHTNESS. ZORAIDA HIP IR TIGHTNESS L >R AND C/O L HIP PAIN AND CRAMPING SENSATION WITH L HIP IR TESTING. ALSO C/O L LATERAL HIP PAIN WITH L HIP ER TESTING BUT MORE SO WITH IR TESTING. PATIENT DENIED GROIN PAIN WITH TESTING OF LE'S THROUGHOUT. Motor deficit: R HIP 4/5, KNEE 5/5, ANKLE 5/5. L HIP FLEX 4-/5, EXT 4-/5, ABD 4-/5, ADD 4/5, IR 3- /5, ER 3-/5, KNEE 4/5, ANKLE 5/5. Reflexes: ZORAIDA QUADS 2+, ZORAIDA ACHILLES 1+ Dural Signs: POSITIVE L LE Lumbar mvmt loss: flex - MOD - INCREASES L LUMBAR AND P L BUTTOCK. - NW ext - MOD - INCREASES L LUMBAR - NW R SG - MOD - INCREASES L LUMBAR - W L SG - MIN - INCREASES L LUMBAR - NW Core strength: FAIR Palpation: NO ACUTE LUMBAR, SACRAL OR HIP TENDERNESS. TREATMENT: NEUROMUSCULAR REEDUCATION - RETRAINING OF MVMT AND POSTURE FOR SITTING, LYING AND STANDING ACTIVITIES. Balance/Special Test Scores Oswestry Low Back Score: 15 Goals Goal 1:: DECREASE C/O BACK AND L LE SYMPTOMS BY AT LEAST 50% TO EASE ADL'S. Goal Time Frame: 4-6 Weeks Goal 2:: IMPROVE PERSONAL CARE, LIFTING, WALKING, STANDING, SLEEP, SOCIAL LIFE, TRAVEL AND WORK/HOMEMAKING FUNCTION WITH AT LEAST 5 POINT IMPROVEMENT IN BACK OSWESTRY SCORE. Goal Time Frame: 4-6 Weeks Goal 3:: INSTRUCT IN PROPHYLAXIS Goal Time Frame: 4-6 Weeks Rehabilitation Potential Physical Therapy Diagnosis: CORE AND LE WEAKNESS AND STIFFNESS WITH LLE PAIN LIMITING MOBILITY AND ADL'S. Rehabilitation Potential: Good Anticipated Interventions Patient/Client Instruction: Educate patient on: Condition, Plan of Care and Risk Factors For the Purpos (more content not included)... Normal [facility] APOBon 02-08-2025 Apolipoprotein B [Mass/Vol] 91 mg/dL High <90 [facility] Comment on above: Result Comment: Maude fernandez < 90 Borderline High 90 - 99 High 100 - 130 Very High >130 ASCVD RISK THERAPEUTIC TARGET CATEGORY APO B (mg/dL) Very High Risk <80 (if extreme risk <70) High Risk <90 Moderate Risk <90 Performed At: [facility] [address] [id number] Bin Sepulveda MD Ph:[phone] Performed By: #### 1 , [id number] ####[facility] [place], [place] [address] LIPOAon 02-06-2025 Lipoprotein a [Moles/Vol] 26.3 nmol/L Normal <75.0 [facility] Comment on above: Result Comment: Note : Values greater than or equal to 75.0 nmol/L may indicate an independent risk factor for CHD, but must be evaluated with caution when applied to non- populations due to the influence of genetic factors on Lp(a) across ethnicities. Performed At: [facility] [place] [address] [place], [place] [id number] Carlos Carter PhD Ph:[phone] Performed By: #### 1 , [id number] #### [address] [address] Orthopedic Visit Reporton Orthopedic Visit Report [facility] [address] [facility] [address] [place] [id number] OFFICE VISIT Date of Service: 01/27/25 MR#: [id number] Acct: [id number] Name: FELIX DOE (NELSY) Rep #: [id number] : 1960 Provider: Dr. Dougie christine, DO Age/Sex: 64/F Location: [facility] Status: Signed Intake Vital Signs 09/23/24 08:51 Height 5 ft 1 in Weight: 150 lb BMI 28.3 Intake Visit Reasons: RIGHT HAND Allergies vancomycin Allergy (Mild, Verified 01/27/25 10:49) Itching Sulfa (Sulfonamide Antibiotics) Allergy (Verified 01/27/25 10:49) Hives acetaminophen (From Percocet) Adverse Reaction (Intermediate, Verified 01/27/25 10:49) Vomiting oxycodone (From Percocet) Adverse Reaction (Intermediate, Verified 01/27/25 10:49) Vomiting ciprofloxacin Adverse Reaction (Mild, Verified 01/27/25 10:49) Diarrhea Medications ???Medication ???Instructions ???Recorded ???Confirmed ???Type eozaushp-htgh-fhuc 8 mg-folic 400 1 tab PO QDAY 09/23/24 01/27/25 H istory mcg-K 50 mcg-lutein 300 mcg tablet (Centrum Silver Women) Have you fallen in the past year?: No PFSH Medical History Fecal incontinence Wears glasses Post-menopausal Alcohol use Easy bruising Former smoker Bunion Surgical History Status post right foot surgery S/P foot surgery, left Hx of surgical procedure Hx of tonsillectomy H/O tubal ligation H/O hand surgery Social History Smoking Status: Former smoker HPI RIGHT HAND Details: This documentation accurately reflects the service provided and the decisions made by me, Dr. Dougie Thomas, DO 01/27/25 0750. Part of today???s visit was documented by Leticia SALAS, acting as scribe. FELIX DOE (SUSAN) is a 64 year old F here today for right ring finger trigger finger. She states the last injection she has gave her relief for 3 months but now it is locking up on her and painful. She would like to have another injection today and possibly proceed with surgery in February or March this is her second ever injection in this finger. 11/06/2024: Patient is here today trigger finger on the left hand of the middle finger. She states that her middle finger is more stiff in the mornings and seems to catch and when it does she gets pain down into her wrist. The finger has been triggering for a few month but noticed in June/July. She states that it isn't as bad as the right hand but wants to catch it before it does. She denies any injury or trauma to the hand or finger. She take Ibuprofen or Aleve if the pain get severe enough. She would like an injection today. Plan:Patient is here today for left middle finger trigger finger. She does have palpable triggering on exam. She has been having the triggering for a few months now. She is here today requesting an injection, the one she had in her right hand resolved her symptoms. 09/23/2024 office visit: new patient here today for evaluation of trigger finger on the right hand ring finger. this has been going on for a few months and progressively worsening. reports the finger locks up multiple times per day and is interfering with some of her daily activities. She has tried sleeping in a finger brace with no relief. She has more stiffness in the morning when she braces at night. She is right hand dominant. Denies any injury. Denies any autoimmune or inflammatory conditions. She has done NSAIDs Plan: Spoke with the patient about having a trigger finger and her options- steroid injection or an A1 kathy release. She would like to proceed with a steroid injection as she hasnt tried any conservative treatment. Patient tolerated injection well. Explained that it may take 3-4 weeks to have full effect. Ortho Exam General General: Yes no acute distress Neurologic: Yes alert and Yes oriented x3 Psychologic: Yes reasonable and appropriate Right Wrist/Hand Skin/Wound: Yes capillary refill normal WRIST: palpable triggering ring finger with hypertrophied and tender A1 kathy there is a small cyst associated no signs of infection intact flexor and extensor tendons intact sensation light touch brisk capillary fill Coding Level of Care Code Off vis,est,level 3 Diagnoses Trigger finger, right ring finger M65.341 Assessment and Plan Assessment and Plan (1) Trigger finger, right ring finger: Status: Acute Plan Patient is here today for right ring finger trigger finger. I did give patient an injection back in September which gave her 3 months of relief but she does have palpable triggering on exam today. She would like to proceed with surgery later in the year so I advised patient to call the office and let u (more content not included)... Normal [facility] MAMMOGRAM SCREENING BILAT ERAL W/TOMOon 01-21-2025 MA MAMMOGRAM SCREENING BILATERAL W/GUILLE ORIGINAL FROM: [place] [address] [place], [place] [address] PROCEDURE FOR: FELIX DOE [address] [place] [address] Home: PID#: [id number] Exam#: [id number] : 1960 Age: 64 TO: ROSE FINNEGAN NP [place], [place] [address] EXAMINATION: SCREENING DIGITAL BILATERAL MAMMOGRAM WITH TOMOSYNTHESIS, 01/14/2025 2:42 pm TECHNIQUE: Screening mammography of the bilateral breasts was performed with tomosynthesis. 2D standard and 3D tomosynthesis combination imaging performed through both breasts in the MLO and CC projection. Computer aided detection was utilized in the interpretation of this exam. COMPARISON: 05/16/2023, 05/18/2022 HISTORY: Breast cancer screening. FINDINGS: BREAST DENSITY: The breasts are heterogeneously dense, which may obscure small masses. There are benign appearing calcifications in both breasts. There are no significant masses or calcifications. IMPRESSION: No mammographic evidence of malignancy. Continued screening with annual mammograms is recommended. Osvaldo Thomasck risk calculations, generated with the history provided, report this patient's 10 year risk and lifetime risk for developing breast cancer at 7.6% and 14.7%, respectively. Based on this assessment tool, if the patient's calculated lifetime risk is below 20%, then the patient is considered at average risk for developing breast cancer. If the patient's calculated lifetime risk is at or above 20%, then the patient is considered high risk for developing breast cancer and may be a candidate for supplemental breast MRI screening in addition to annual mammographic screening per the [place] [employer]. BIRADS: BI-RADS: 2: Benign RECALL: 1 year screening RECALL TYPE: mammo LETTER SENT: Normal BI-RADS 1 and 2 Interpreted by: Vince Santana MD Preliminary Report By: Vince Santana MD Electronically signed By Vince Santana MD Dictated Date: 01/21/2025 4:37:07 PM Prelim Date: 01/21/2025 4:38:58 PM Sign Date: 01/21/2025 4:38:58 PM Ordering Provider: ROSE FINNEGAN Public Policy Analyst: MARINA JONES RT (R)(M) letter sent: Normal BI-RADS 1 and 2 Mammogram BI-RADS: 2 Benign Normal [facility] CT THORAX SCREENING W/O CONT Bruna 01-17-2025 CT THORAX SCREENING W/O CONTRAST ORIGINAL EXAMINATION: LOW DOSE SCREENING CT OF THE CHEST WITHOUT CONTRAST01/14/2025 4:02 pm TECHNIQUE: Low dose lung cancer screening CT of the chest was performed without the administration of intravenous contrast. Multiplanar reformatted images are provided for review. Automated exposure control, iterative reconstruction, and/or weight based adjustment of the mA/kV was utilized to reduce the radiation dose to as low as reasonably achievable. COMPARISON: None. HISTORY: ORDERING SYSTEM PROVIDED HISTORY: Reason for Exam: Lung Cancer Screening FINDINGS: The heart is normal in size. No pericardial effusion. There are coronary artery calcifications and atherosclerosis in the aorta. No evidence of a thoracic aortic aneurysm. No lymphadenopathy by size criteria. The central tracheobronchial tree is patent. No pneumothorax or pleural effusion. No focal consolidation. There is a juxtapleural 5 mm solid noncalcified nodule in the right lower lobe which demonstrates smooth margins and an oval shape (axial image 78). There are a few scattered sub 4 mm pulmonary nodules, to include example nodules such as: 3 mm ground-glass nodule in the left lung apex (axial image 14) and a 3 mm ground-glass nodule mid left upper lobe (axial image 40). There are a few small calcified pulmonary nodules, sequela of prior granulomatous disease. There is mild emphysema and mild biapical pleuroparenchymal scarring. Limited low-dose noncontrast evaluation of the upper abdomen demonstrates a subcentimeter hypodensity in the superior right hepatic lobe, too small to further characterize but likely represents a cyst. There is a small hiatal hernia. No evidence of acute fracture. There are degenerative changes. The soft tissues are grossly unremarkable. IMPRESSION: 1. Small lung nodules. Lung-RADS 2 - Benign (v2022). Management recommendation: 12 month screening low-dose lung cancer screening CT chest. 2. Mild emphysema. 3. Coronary artery calcifications. Interpreted by: Bib Chowdary Preliminary Report By: Bib Chowdary Electronically signed By Bib Chowdary Dictated Date: 01/17/2025 11:11:56 AM Prelim Date: 01/17/2025 11:20:27 AM Sign Date: 01/17/2025 11:20:27 AM Ordering Provider: ROSE Daniel [facility] BD BONE DENSITY DEXA AXIAL S Pablo 01-14-2025 BD BONE DENSITY DEXA AXIAL SKELETON ORIGINAL EXAMINATION: BONE DENSITOMETRY01/14/2025 3:36 pm TECHNIQUE: Dual energy bone densitometry lumbar spine and right hip. COMPARISON: None HISTORY: Reason for Exam: Osteoporosis Screening FINDINGS: L1-L4: BMD= 0.970 g/cm2 T score= -0.7 Right femoral neck: BMD= 0.661 g/cm2 T score= -1.7 Right hip: BMD= 0.796 g/cm2 T score= -1.2 FRAX score: 10 year risk major osteoporotic fracture 16 %. 10 year risk hip fracture 1.9 %. The BHOF f/k/a NOF recommends that FDA-approved medical therapies be considered in post-menopausal women and men age >/= 50 years with a: * Hip or vertebral fracture, or * T-score of /= 20% for major osteoporotic fractures or * >/= 3% for hip fractures All treatment decisions require clinical judgement and consideration of individual patient factors, including patient preferences, comorbidities, previous drug use, risk factors not captured in the FRAX registered model (e.g., frailty, falls, vitamin D deficiency, increased bone turnover, interval significant decline in bone density) and possible under- or over-estimation of fracture risk by FRAX. IMPRESSION: Osteopenia. Interpreted by: Guille Yang MD Preliminary Report By: Guille Yang MD Electronically signed By Guille Yang MD Dictated Date: 01/14/2025 3:45:00 PM Prelim Date: 01/14/2025 3:46:30 PM Sign Date: 01/14/2025 3:46:30 PM Ordering Provider: ROSE Daniel [facility] .Auto Diffon 01-07-2025 Basophil, Absolute 0.1 10 3/mcL Normal 0.0-0.2 [facility] Comment on above: Performed By: #### A AB, CMP, LIPID, ADIFF, GFR, CBC #### [address] [address] Basophils/100 WBC (Bld) 1.8 % Normal 0.0-2.5 [facility] Comment on above: Performed By: #### A AB, CMP, LIPID, ADIFF, GFR, CBC #### [address] [address] Eosinophil, Absolute 0.3 10 3/mcL Normal 0.0-0.7 [facility] Comment on above: Performed By: #### A AB, CMP, LIPID, ADIFF, GFR, CBC #### [address] [address] Eosinophils/100 WBC (Bld) 6.6 % Normal 0.0-7.0 [facility] Comment on above: Performed By: #### A AB, CMP, LIPID, ADIFF, GFR, CBC #### [address] [address] Lymphocyte, Absolute 1.1 10 3/mcL Normal 0.9-4.3 [facility] Comment on above: Performed By: #### A AB, CMP, LIPID, ADIFF, GFR, CBC #### [address] [address] Lymphocytes/100 WBC (Bld) 23.6 % Normal 20.0-40.0 [facility] Comment on above: Performed By: #### A AB, CMP, LIPID, ADIFF, GFR, CBC #### [address] [address] Monocyte, Absolute 0.4 10 3/mcL Normal 0.1-1.4 [facility] Comment on above: Performed By: #### A AB, CMP, LIPID, ADIFF, GFR, CBC #### [address] [address] Monocytes/100 WBC (Bld) 8.3 % Normal 2.0-13.0 [facility] Comment on above: Performed By: #### A AB, CMP, LIPID, ADIFF, GFR, CBC #### [address] [address] Neutrophils/100 WBC (Bld) 59.7 % Normal 50.0-75.0 [facility] Comment on above: Performed By: #### A AB, CMP, LIPID, ADIFF, GFR, CBC #### [address] [address] .GFRon 01-07-2025 Estimated Glomerular Filtration Rate 67 ml/min/1.73sqm Normal [facility] Comment on above: Result Comment: Stages of Chronic Kidney Disease (CKD) Stage Description eGFR(ml/min/1.73 sq.m.) CKD 1 Normal kidney function or >=90 normal kindney function with possible kidney damage (ex. Proteinuria) CKD 2 Kidney damage with mild loss 60-89 of kidney function CKD 3a Mild to moderate loss of kidney 45-59 function CKD 3b Moderate to severe loss of 30-44 of kindey function CKD 4 Severe loss of kidney function 15-29 CKD 5 Kidney failure <15 Note: (go live 2024) the eGFR calculation was updated to the 2020 CKD-EPI creatinine equation without a race factor to calculate the eGFR results. Performed By: #### A AB, CMP, LIPID, ADIFF, GFR, CBC #### [address] [address] .NEUABSon 01-07-2025 Neutrophil, Absolute 2.7 10 3/mcL Normal 2.3-8.1 [facility] Comment on above: Performed By: #### A AB, CMP, LIPID, ADIFF, GFR, CBC #### [address] [address] CBCon 01-07-2025 Erythrocyte distribution width (RBC) [Ratio] 13.6 % Normal 11.5-15.5 [facility] Comment on above: Performed By: #### A AB, CMP, LIPID, ADIFF, GFR, CBC #### [address] [address] Hematocrit (Bld) [Volume fraction] 42.5 % Normal 34.0-46.0 [facility] Comment on above: Performed By: #### A AB, CMP, LIPID, ADIFF, GFR, CBC #### [place] [address] Hgb 14.3 G/dL Normal 12.0-16.0 [facility] Comment on above: Performed By: #### A AB, CMP, LIPID, ADIFF, GFR, CBC #### [place] [address] MCH (RBC) [Entitic mass] 30.2 pg Normal 27.0-33.0 [facility] Comment on above: Performed By: #### A AB, CMP, LIPID, ADIFF, GFR, CBC #### [place] [address] MCHC 33.6 G/dL Normal 32.0-36.0 [facility] Comment on above: Performed By: #### A AB, CMP, LIPID, ADIFF, GFR, CBC #### [place] [address] MCV (RBC) [Entitic vol] 89.9 fL Normal 80.0-99.0 [facility] Comment on above: Performed By: #### A AB, CMP, LIPID, ADIFF, GFR, CBC #### [place] [address] Platelet 223 10 3/mcL Normal 150-450 [facility] Comment on above: Performed By: #### A AB, CMP, LIPID, ADIFF, GFR, CBC #### [place] [address] Platelet mean volume (Bld) [Entitic vol] 8.3 fL Normal 6.6-10.5 [facility] Comment on above: Performed By: #### A AB, CMP, LIPID, ADIFF, GFR, CBC #### [place] [address] RBC 4.72 10 6/mcL Normal 4.10-5.30 [facility] Comment on above: Performed By: #### A AB, CMP, LIPID, ADIFF, GFR, CBC #### [address] [address] WBC 4.5 10 3/mcL Normal 4.5-10.8 [facility] Comment on above: Performed By: #### A AB, CMP, LIPID, ADIFF, GFR, CBC #### [address] [address] CMPon 01-07-2025 Albumin Level 4.0 G/dL Normal 3.4-4.8 [facility] Comment on above: Performed By: #### A AB, CMP, LIPID, ADIFF, GFR, CBC #### [address] [address] Albumin/Globulin [Mass ratio] 1.1 {ratio} Normal 1.1-2.5 [facility] Comment on above: Performed By: #### A AB, CMP, LIPID, ADIFF, GFR, CBC #### [address] [address] ALP [Catalytic activity/Vol] 56 U/L Normal 40-135 [facility] Comment on above: Performed By: #### A AB, CMP, LIPID, ADIFF, GFR, CBC #### [address] [address] ALT [Catalytic activity/Vol] 44 U/L Normal 14-59 [facility] Comment on above: Performed By: #### A AB, CMP, LIPID, ADIFF, GFR, CBC #### [address] [address] AST [Catalytic activity/Vol] 22 U/L Normal 10-40 [facility] Comment on above: Performed By: #### A AB, CMP, LIPID, ADIFF, GFR, CBC #### [address] [address] Bili Total 0.5 mg/dL Normal 0.2-1.0 [facility] Comment on above: Result Comment: Use of this assay is not recommended for patients undergoing treatment with eltrombopag due to the potential for falsely elevated results. Performed By: #### A AB, CMP, LIPID, ADIFF, GFR, CBC #### [address] [address] BUN/Creatinine Ratio 24 ratio Normal 7-27 [facility] Comment on above: Performed By: #### A AB, CMP, LIPID, ADIFF, GFR, CBC #### [address] [address] Calcium [Mass/Vol] 9.4 mg/dL Normal 8.4-10.2 [facility] Comment on above: Performed By: #### A AB, CMP, LIPID, ADIFF, GFR, CBC #### [place] [address] Chloride [Moles/Vol] 103 mmol/L Normal 98-107 [facility] Comment on above: Performed By: #### A AB, CMP, LIPID, ADIFF, GFR, CBC #### [place] [address] CO2 [Moles/Vol] 30 mmol/L Normal 23-31 [facility] Comment on above: Performed By: #### A AB, CMP, LIPID, ADIFF, GFR, CBC #### [place] [address] Creatinine [Mass/Vol] 0.94 mg/dL Normal 0.55-1.02 [facility] Comment on above: Result Comment: Test ing performed on Siemens Dimension EXL analyzer using a modified kinetic Hudson technique. Performed By: #### A AB, CMP, LIPID, ADIFF, GFR, CBC #### [address] [address] Electrolyte Balance 5.0 mEq/L Normal 4.0-15.0 [facility] Comment on above: Performed By: #### A AB, CMP, LIPID, ADIFF, GFR, CBC #### [address] [address] Globulin 3.8 G/dL Normal 1.5-3.8 [facility] Comment on above: Performed By: #### A AB, CMP, LIPID, ADIFF, GFR, CBC #### [address] [address] Glucose [Mass/Vol] 106 mg/dL Normal 80-115 [facility] Comment on above: Performed By: #### A AB, CMP, LIPID, ADIFF, GFR, CBC #### [address] [address] Potassium [Moles/Vol] 4.9 mmol/L Normal 3.5-5.1 [facility] Comment on above: Performed By: #### A AB, CMP, LIPID, ADIFF, GFR, CBC #### [address] [address] Sodium [Moles/Vol] 138 mmol/L Normal 136-145 [facility] Comment on above: Performed By: #### A AB, CMP, LIPID, ADIFF, GFR, CBC #### [address] [address] Total Protein 7.8 G/dL Normal 6.4-8.2 [facility] Comment on above: Performed By: #### A AB, CMP, LIPID, ADIFF, GFR, CBC #### [address] [address] Urea nitrogen [Mass/Vol] 23 mg/dL High 7-18 [facility] Comment on above: Performed By: #### A AB, CMP, LIPID, ADIFF, GFR, CBC #### [address] [address] LABORATORYOrdered By: SYSTEM SYSTEM on 01-07-2025 Albumin BCP dye [Mass/Vol] 4.0 G/dL Normal 3.4 - 4.8 G/dL AO ADM SS Albumin/Globulin [Mass ratio] 1.1 {ratio} Normal 1.1 - 2.5 ratio AO ADM SS ALP [Catalytic activity/Vol] 56 U/L Normal 40 - 135 U/L AO ADM SS ALT With P-5'-P [Catalytic activity/Vol] 44 U/L Normal 14 - 59 U/L AO ADM SS AST With P-5'-P [Catalytic activity/Vol] 22 U/L Normal 10 - 40 U/L AO ADM SS Basophils (Bld) [#/Vol] 0.1 103/mcL Normal 0.0 - 0.2 10^3/mcL AO Workflow SS Basophils/100 WBC (Bld) 1.8 % Normal 0.0 - 2.5 % AO Workflow SS Bilirubin [Mass/Vol] 0.5 mg/dL Normal 0.2 - 1 .0 mg/dL AO ADM SS Comment on above: Interpretive Data: U se of this assay is not recommended for patients undergoing treatment with eltrombopag due to the potential for falsely elevated results. Calcium [Mass/Vol] 9.4 mg/dL Normal 8.4 - 10. 2 mg/dL AO ADM SS Chloride [Moles/Vol] 103 mmol/L Normal 98 - 10 7 mmol/L AO ADM SS CO2 [Moles/Vol] 30 mmol/L Normal 23 - 31 mmol/L AO ADM SS Creatinine [Mass/Vol] 0.94 mg/dL Normal 0.55 - 1.02 mg/dL AO ADM SS Comment on above: Interpretive Data: T esting performed on Siemens Dimension EXL analyzer using a modified kinetic Hudson technique. Electrolyte Balance 5.0 mEq/L Normal 4.0 - 15 .0 mEq/L AO ADM SS Eosinophil, Absolute 0.3 103/mcL Normal 0.0 - 0 .7 10^3/mcL AO Workflow SS Eosinophils/100 WBC (Bld) 6.6 % Normal 0.0 - 7.0 % AO Workflow SS Erythrocyte distribution width (RBC) [Ratio] 13.6 % Normal 11.5 - 15.5 % AO Workflow SS Estimated Glomerular Filtration Rate 67 ml/min/1.73sqm Invalid Interpretation Code AO Chemistry S Comment on above: Interpretive Data: Stages of Chronic Kidney Disease (CKD) Stage Description eGFR(ml/min/1.73 sq.m.) CKD 1 Normal kidney function or >=90 normal kindney function with possible kidney damage (ex. Proteinuria) CKD 2 Kidney damage with mild loss 60-89 of kidney function CKD 3a Mild to moderate loss of kidney 45-59 function CKD 3b Moderate to severe loss of 30-44 of kindey function CKD 4 Severe loss of kidney function 15-29 CKD 5 Kidney failure <15 Note: (go live 2024) the eGFR calculation was updated to the 2020 CKD-EPI creatinine equation without a race factor to calculate the eGFR results. Globulin 3.8 G/dL Normal 1.5 - 3.8 G/dL AO ADM SS Glucose [Mass/Vol] 106 mg/dL Normal 80 - 115 mg/dL AO ADM SS Hematocrit (Bld) [Volume fraction] 42.5 % Normal 34.0 - 46.0 % AO Workflow SS Hemoglobin (Bld) [Mass/Vol] 14.3 G/dL Normal 12.0 - 16.0 G/dL AO Workflow SS Lymphocytes (Bld) [#/Vol] 1.1 103/mcL Normal 0.9 - 4.3 10^3/mcL AO Workflow SS Lymphocytes/100 WBC (Bld) 23.6 % Normal 20.0 - 40.0 % AO Workflow SS MCH (RBC) [Entitic mass] 30.2 pg Normal 27.0 - 33.0 pg AO Workflow SS MCHC 33.6 G/dL Normal 32.0 - 36.0 G/dL AO Workflow SS MCV (RBC) [Entitic vol] 89.9 fL Normal 80.0 - 99.0 fL AO Workflow SS Monocytes (Bld) [#/Vol] 0.4 103/mcL Normal 0.1 - 1.4 10^3/mcL AO Workflow SS Monocytes/100 WBC (Bld) 8.3 % Normal 2.0 - 13.0 % AO Workflow SS Neutrophils (Bld) [#/Vol] 2.7 103/mcL Normal 2.3 - 8.1 10^3/mcL AO Workflow SS Neutrophils/100 WBC (Bld) 59.7 % Normal 50.0 - 75.0 % AO Workflow SS Platelet mean volume (Bld) [Entitic vol] 8.3 fL Normal 6.6 - 10.5 fL AO Workflow SS Platelets (Bld) [#/Vol] 223 103/mcL Normal 150 - 450 10^3/mcL AO Workflow SS Potassium [Moles/Vol] 4.9 mmol/L Normal 3.5 - 5.1 mmol/L AO ADM SS Protein [Mass/Vol] 7.8 G/dL Normal 6.4 - 8.2 G/dL AO ADM SS RBC (Bld) [#/Vol] 4.72 106/mcL Normal 4.10 - 5.3 0 10^6/mcL AO Workflow SS Sodium [Moles/Vol] 138 mmol/L Normal 136 - 145 mmol/L AO ADM SS Urea nitrogen [Mass/Vol] 23 mg/dL High 7 - 18 mg/dL AO ADM SS Urea nitrogen/Creatinine [Mass ratio] 24 ratio Normal 7 - 27 ratio AO ADM SS WBC (Bld) [#/Vol] 4.5 103/mcL Normal 4.5 - 10.8 10^3/mcL AO Workflow SS LABORATORYOrdered By: Juana Pérez on 01-07-2025 Cholesterol [Mass/Vol] 215 mg/dL High 0 - 200 mg/dL AO ADM SS Comment on above: Interpretive Data: C holesterol Reference Interval: Less than 200 Desirable 200-239 Borderline high risk 240 and above High risk Cholesterol in HDL [Mass/Vol] 87 mg/dL High 40 - 60 mg/dL AO ADM SS Cholesterol in LDL [Mass/Vol] 112 mg/dL Normal 0 - 130 mg/dL AO ADM SS Triglyceride [Mass/Vol] 81 mg/dL Normal 0 - 150 mg/dL AO ADM SS Comment on above: Interpretive Data: T riglyceride Reference Interval: Less than 150 Normal 150-199 Borderline high risk 200-499 High risk 500 or higher Very high risk LIPIDon 01-07-2025 Cholesterol [Mass/Vol] 215 mg/dL High 0-200 [facility] Comment on above: Result Comment: Chol esterol Reference Interval: Less than 200 Desirable 200-239 Borderline high risk 240 and above High risk Performed By: #### A AB, CMP, LIPID, ADIFF, GFR, CBC #### [address] [address] Cholesterol in HDL [Mass/Vol] 87 mg/dL High 40-60 [facility] Comment on above: Performed By: #### A AB, CMP, LIPID, ADIFF, GFR, CBC #### [address] [place], [place] [address] Cholesterol in LDL [Mass/Vol] 112 mg/dL Normal 0-130 [facility] Comment on above: Performed By: #### A AB, CMP, LIPID, ADIFF, GFR, CBC #### [address] [place], [place] [address] Triglyceride [Mass/Vol] 81 mg/dL Normal 0-150 [facility] Comment on above: Result Comment: Trig lyceride Reference Interval: Less than 150 Normal 150-199 Borderline high risk 200-499 High risk 500 or higher Very high risk Performed By: #### A AB, CMP, LIPID, ADIFF, GFR, CBC #### [address] [place], [place] [address] CNOVon 11-21-2024 CNOV Office Visit (ORTHIN ) Rico DOE ([id number]) 1960 F Date Time Provider Department 11/21/24 9:45 AM LUCILLE PATINO During your visit today, we recorded the following information about you: Lucille Patino MD 11/21/2024 12:45 PM Signed Rico Doe Surgery Date: 11/22/2023 Right lapidus for bunion (CPT 41834) Right 2nd and 3rd metatarsal osteotomies Right 2nd hammertoe correction 07/26/2023 Left lapidus for bunion (CPT 06828) Left 2nd and 3rd metatarsal osteotomies Interval History: She returns today for follow up of the above surgeries. Overall doing well. Some pain under the R second metatarsal, with callous ASSESSMENT/PLAN: 1. Hallux valgus of left foot - ICD9: 735.0, ICD10: M20.12 (primary diagnosis) - BL foot XR ordered and reviewed 2. Hallux valgus of right foot - ICD9: 735.0, ICD10: M20.11 - BL foot XR ordered and reviewed Overall doing well. She will try a metatarsal pad. Discussed 2nd MT shortening osteotomy if pain does not improve. Follow up as needed Physical Exam: Well appearing female in no acute distress; Alert and oriented. Bilateral Leg: Incision is clean dry and intact. There is no erythema warmth or drainage. She has palpable pulses, sensation is intact. She is able to flex and extend their toes and ankles without difficulty Radiographs: Final results and radiologist's interpretation, available in the [facility] health record. Images were reviewed with the patient/family members in the office today. My personal interpretation of the performed imaging is healed lapiplasty, metatarsal adductus correction Medication, History, and Allergies were reviewed and updated in the medical record. Lucille Patino MD Orthopaedic Medical Decision Making (MDM) Complexity of problems: Stable chronic illness, Complexity of data: 1 unique test results reviewed, 1 unique tests ordered, Level of MDM: Low (3) Allergies As of Date: 11/21/2024 Noted Allergy Reaction CIPROFLOXACIN 07/18/2014 6 - Diarrhea PERCOCET (OXYCODONE-ACETAMINOP HEN)07/17/2023 11 - Vomiting Comments: Dry heaves SULFA (SULFONAMIDE ANTIBIOTICS) 07/18/2014 4 - Hives Date Reviewed: 11/21/2024 Reviewed by: Dana Regalado MA - Fully Assessed Reason for Visit: Established Patient [175] Cmt: Follow up valgus deformity ZORAIDA great toes Primary Visit Diagnosis:Hallux valgus of left foot [M20.12] Other Visit Diagnosis:Hallux valgus of right foot [M20.11] Prescriptions as of 11/21/2024 - aspirin 325 mg tablet Take 1 tablet by mouth two times a day for 28 days. - ondansetron orally disintegrating (ZOFRAN ODT) 4 mg disintegrating tablet Take 1 tablet by mouth every 8 hours as needed for nausea/vomiting. - docosahexaenoic acid/epa (FISH OIL ORAL) Take by mouth. - folic acid/multivit-min/lut ein (CENTRUM SILVER ORAL) Take by mouth. 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, Q66.*07/14/2023 Incontinence of feces [R15.9] 06/15/2023 Diagnosed: 07/18/2023 Former smoker [Z87.891] 07/18/2023 Melanoma (HCC) [C43.9] 07/18/2023 Hammertoe of right foot [M20.41] 01/08/2024 Postoperative visit [Z48.89] 01/08/2024 Gait abnormality [R26.9] 01/08/2024 02/06/2024 Level of Service: OFFICE/OUTPATIENT ESTABLISHED LOW [facility] 20 MIN [68626] Encounter Status:Closed by SUKUMAR LUCILLE MATEUS on 11/21/24 Normal [facility] XR FOOT 3V AP/LAT/OBL BILon 11-21-2024 XR FOOT 3V AP/LAT/OBL ZORAIDA * * *Final Report* * * DATE OF EXAM: Nov 21 2024 9:14AM CCX 5555 - XR FOOT 3V AP/LAT/OBL ZORAIDA / PROCEDURE REASON: multiple diagnoses * * * * Physician Interpretation * * * * EXAMINATION / TECHNIQUE: XR FOOT 3V AP/LAT/OBL ZORAIDA HISTORY: post op f/u Postoperative visit Hallux valgus of left foot Hallux valgus of right foot COMPARISON: 05/23/2024 RESULT: Postoperative changes of bilateral first through third TMT arthrodeses. Hardware is intact with similar mild lucency surrounding the screws on the right transfixing the third tarsometatarsal joint. There is solid osseous fusion at both first TMT and left second TMT joints. Portions of the right second and bilateral third tarsometatarsal joint lines remain visible. Bony alignment is unchanged. 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 Bilateral pes planus. Trace bilateral calcaneal enthesophytes. IMPRESSION: Postoperative and degenerative changes as described. Telecommunications Project Manager: YOVANY Transcribe Date/Time: Nov 21 2024 9:53A Dictated by : TIAN ORTEGA MD This examination was interpreted and the report reviewed and electronically signed by: TIAN ORTEGA MD on Nov 21 2024 9:59AM EST [id number] Normal [facility] XR Foot - bilateral AP and L ateral and obliqueon 11-21-2024 IMPRESSION: Postoperative and degenerative changes as described. Telecommunications Project Manager: PSCB Transcribe Date/Time: Nov 21 2024 9:53A Dictated by : TIAN ORTEGA MD This examination was interpreted and the report reviewed and electronically signed by: TIAN ORTEGA MD on Nov 21 2024 9:59AM EST DIVISION OF RADIOLOGY * * *Final Report* * * DATE OF EXAM: Nov 21 2024 9:14AM CCX 5555 - XR FOOT 3V AP/LAT/OBL ZORAIDA / PROCEDURE REASON: multiple diagnoses * * * * Physician Interpretation * * * * EXAMINATION / TECHNIQUE: XR FOOT 3V AP/LAT/OBL ZORAIDA HISTORY: post op f/u Postoperative visit Hallux valgus of left foot Hallux valgus of right foot COMPARISON: 05/23/2024 RESULT: Postoperative changes of bilateral first through third TMT arthrodeses. Hardware is intact with similar mild lucency surrounding the screws on the right transfixing the third tarsometatarsal joint. There is solid osseous fusion at both first TMT and left second TMT joints. Portions of the right second and bilateral third tarsometatarsal joint lines remain visible. Bony alignment is unchanged. 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 Bilateral pes planus. Trace bilateral calcaneal enthesophytes. DIVISION OF RADIOLOGY Provider, [facility] - 11/21/2024 * * *Final Report* * * DATE OF EXAM: Nov 21 2024 9:14AM CCX 5555 - XR FOOT 3V AP/LAT/OBL ZORAIDA / PROCEDURE REASON: multiple diagnoses * * * * Physician Interpretation * * * * EXAMINATION / TECHNIQUE: XR FOOT 3V AP/LAT/OBL ZORAIDA HISTORY: post op f/u Postoperative visit Hallux valgus of left foot Hallux valgus of right foot COMPARISON: 05/23/2024 RESULT: Postoperative changes of bilateral first through third TMT arthrodeses. Hardware is intact with similar mild lucency surrounding the screws on the right transfixing the third tarsometatarsal joint. There is solid osseous fusion at both first TMT and left second TMT joints. Portions of the right second and bilateral third tarsometatarsal joint lines remain visible. Bony alignment is unchanged. 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 Bilateral pes planus. Trace bilateral calcaneal enthesophytes. IMPRESSION IMPRESSION: Postoperative and degenerative changes as described. Telecommunications Project Manager: YOVANY Transcribe Date/Time: Nov 21 2024 9:53A Dictated by : TIAN ORTEGA MD This examination was interpreted and the report reviewed and electronically signed by: TIAN ORTEGA MD on Nov 21 2024 9:59AM EST [facility] Radiology Study observation (narrative) [facility] XR Foot - bilateral AP and L ateral and obliqueOrdered By: Ccf Provider on 11-21-2024 [facility] Orthopedic Visit Reporton Orthopedic Visit Report [facility] [address] [place] [address] [address] [place] [address] OFFICE VISIT Date of Service: 11/06/24 MR#: [id number] Acct: [id number] Name: FELIX DOE) Rep #: [id number] : 1960 Provider: Dr. Dougie Goff so, DO Age/Sex: 64/F Location: [facility] Status: Signed Intake Vital Signs 09/23/24 08:51 Height 5 ft 1 in Weight: 150 lb BMI 28.3 Intake Visit Reasons: LEFT HAND Chief Complaint: left hand middle finger trigger finger Allergies vancomycin Allergy (Mild, Verified 11/06/24 13:24) Itching Sulfa (Sulfonamide Antibiotics) Allergy (Verified 11/06/24 13:24) Hives acetaminophen (From Percocet) Adverse Reaction (Intermediate, Verified 11/06/24 13:24) Vomiting oxycodone (From Percocet) Adverse Reaction (Intermediate, Verified 11/06/24 13:24) Vomiting ciprofloxacin Adverse Reaction (Mild, Verified 11/06/24 13:24) Diarrhea Medications ???Medication ???Instructions ???Recorded ???Confirmed ???Type [id number] 8 mg-folic 400 1 tab PO QDAY 09/23/24 11/06/24 History mcg-K 50 mcg-lutein 300 mcg tablet (Centrum Silver Women) Have you fallen in the past year?: No PFSH Medical History Fecal incontinence Wears glasses Post-menopausal Alcohol use Easy bruising Former smoker Bunion Surgical History Status post right foot surgery S/P foot surgery, left Hx of surgical procedure Hx of tonsillectomy H/O tubal ligation H/O hand surgery Social History Smoking Status: Former smoker HPI LEFT HAND Details: This documentation accurately reflects the service provided and the decisions made by me, Dr. Dougie Thomas, DO 11/06/24 09. Part of today???s visit was documented by Leticia SALAS, acting as scribe. FELIX DOE (SUSAN) is a 64 year old F here today for 11/06/2024: Patient is here today trigger finger on the left hand of the middle finger. She states that her middle finger is more stiff in the mornings and seems to catch and when it does she gets pain down into her wrist. The finger has been triggering for a few month but noticed in June/July. She states that it isn't as bad as the right hand but wants to catch it before it does. She denies any injury or trauma to the hand or finger. She take Ibuprofen or Aleve if the pain get severe enough. She would like an injection today. 09/23/2024 office visit: new patient here today for evaluation of trigger finger on the right hand ring finger. this has been going on for a few months and progressively worsening. reports the finger locks up multiple times per day and is interfering with some of her daily activities. She has tried sleeping in a finger brace with no relief. She has more stiffness in the morning when she braces at night. She is right hand dominant. Denies any injury. Denies any autoimmune or inflammatory conditions. She has done NSAIDs Plan: Spoke with the patient about having a trigger finger and her options- steroid injection or an A1 kathy release. She would like to proceed with a steroid injection as she hasnt tried any conservative treatment. Patient tolerated injection well. Explained that it may take 3-4 weeks to have full effect. Ortho Exam General General: Yes no acute distress Neurologic: Yes alert and Yes oriented x3 Psychologic: Yes reasonable and appropriate Left Wrist/Hand Sensation: Radial: I, Ulnar: I and Median: I WRIST: mild triggering of the middle finger there is tenderness over the A1 kathy there is intact flexor and extensor tendons there is no sign of infection or swelling. Office Procedures Ortho Injections Injections Yes Trigger Finger Injection Left (middle finger) Is this a patient provided medication?: No Details: Obtained consent for injection. Under sterile conditions, injected the patients left middle finger with .5cc bupivacaine .5cc depo medrol. The patient tolerated the injection well without any noted complication. Patient should call our office if redness develops, pain worsens or if they have any concerns. 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 Normal [facility] Orthopedic Visit Reporton Orthopedic Visit Report [facility] [address] [place] [address] OFFICE VISIT Date of Service: 09/23/24 MR#: [id number] Acct: [id number] Name: FELIX DOE (NELSY) Rep #: [id number] : 1960 Provider: Dr. Dougie christine DO Age/Sex: 64/F Location: [facility] Status: Signed Intake Vital Signs 07/06/23 09:41 09/23/24 08:51 Height 5 ft 1 in 5 ft 1 in Weight: 150 lb BMI 28.3 Intake Visit Reasons: RIGHT HAND Chief Complaint: Right hand ring finger trigger finger Is patient in pain?: Yes (Right ring finger) Pain scale (1-10): 2 Allergies vancomycin Allergy (Mild, Verified 09/23/24 08:53) Itching Sulfa (Sulfonamide Antibiotics) Allergy (Verified 09/23/24 08:53) Hives acetaminophen (From Percocet) Adverse Reaction (Intermediate, Verified 09/23/24 08:53) Vomiting oxycodone (From Percocet) Adverse Reaction (Intermediate, Verified 09/23/24 08:53) Vomiting ciprofloxacin Adverse Reaction (Mild, Verified 09/23/24 08:53) Diarrhea Have you fallen in the past year?: No [facility] Medical History Fecal incontinence Wears glasses Post-menopausal Alcohol use Easy bruising Former smoker Bunion Surgical History (Updated 09/23/24 @ 08:57 by Nury Bowers) Status post right foot surgery S/P foot surgery, left Hx of surgical procedure Hx of tonsillectomy H/O tubal ligation H/O hand surgery Social History Smoking Status: Former smoker HPI RIGHT HAND Details: This documentation accurately reflects the service provided and the decisions made by me, Dr. Dougie Thomas, 09/23/24 5549. Part of today???s visit was documented by Nury Bowers, acting as scribe. FELIX DOE is a 64 year old F new patient here today for evaluation of trigger finger on the right hand ring finger. this has been going on for a few months and progressively worsening. reports the finger locks up multiple times per day and is interfering with some of her daily activities. She has tried sleeping in a finger brace with no relief. She has more stiffness in the morning when she braces at night. She is right hand dominant. Denies any injury. Denies any autoimmune or inflammatory conditions. She has done NSAIDs Ortho Exam General General: Yes no acute distress Neurologic: Yes alert and Yes oriented x3 Psychologic: Yes reasonable and appropriate Right Wrist/Hand Skin/Wound: No Ecchymosis, Yes nail intact and Yes capillary refill normal Sensation: Radial: I, Ulnar: I and Median: I WRIST: [place] and Joy nodes present however not tender or symptomatic, ttp A1 kathy ring digit with palpable triggering. Full finger flexion and extension Left Wrist/Hand Skin/Wound: No Ecchymosis Office Procedures Ortho Injections Injections Yes Trigger Finger Injection Right Is this a patient provided medication?: No Details: Obtained consent for injection. Under sterile conditions, injected the patients right ring A1 kathy with 1/2cc bupivacaine and 1/2cc depomedrol. The patient tolerated the injection well without any noted complication. Patient should call our office if redness develops, pain worsens or if they have any concerns. 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 ([id number]) Assessment and Plan Assessment and Plan (1) Trigger finger, right ring finger: Orders: Orders Ortho Injections Today M65.341 - Trigger finger, right ring finger Medications: Discontinued cephalexin Discontinued Reason: Pt no longer taking 500 mg PO Q12 3 days 6 CAPSULES 0RF post-operative hydrocodone-acetamino phen 5-325 mg Discontinued Reason: Pt no longer taking 1 TAB PO Q8H PRN 3 days PRN 10 TABLETS 0RF Pain R15.9 - Full incontinence of feces oxycodone-acetaminoph en 5-325 mg (Percocet) Discontinued Reason: Pt no longer taking 1 TAB PO Q8H 3 days PRN 10 tabs 0RF pain R15.9 - Full incontinence of feces Plan Spoke with the patient about having a trigger finger and her options- steroid injection or an A1 kathy release. She would like to proceed with a steroid injection as she hasnt tried any conservative treatment. Patient tolerated injection well. Explained that it may take 3-4 weeks to have full effect. Follow up on an as needed basis or sooner if alonso (more content not included)... Normal [facility] CNOVon 05-23-2024 CNOV Office Visit (JAIRO ) Rico DOE ([id number]) 1960 F Date Time Provider Department 05/23/24 9:45 AM LUCILLE PATINO During your visit today, we recorded the following information about you: Lucille Patino MD 05/28/2024 9:10 AM Signed N Kristi Doe Surgery Date: 11/22/2023 Right lapidus for bunion (CPT 90989) Right 2nd and 3rd metatarsal osteotomies Right 2nd hammertoe correction 07/26/2023 Left lapidus for bunion (CPT 76178) Left 2nd and 3rd metatarsal osteotomies Interval History: She is now 6 months since bunion surgery for R side (+ 2nd hammertoe correction) and 10 months for L side. They report that they are doing well overall. They have been weaned out of the boot on R side and walking without pain. Has been in PT which she reports has been going well. R foot - No pain. Does reports a small bump that she notes on the plantar aspect of the second toe that can be uncomfortable when walking on flat, hard ground. Also reports mild numbness on the lateral aspect of the fifth toe. No other numbness, tingling, pain or weakness. Patient also states that she notices her 2nd and 3rd toes have continued to have valgus deviation, has been wearing a toe wrap around them with improvement. L foot - No pain and no complaints. ASSESSMENT/PLAN: Z48.89 Postoperative visit (primary encounter diagnosis) M20.12 Hallux valgus of left foot M20.11 Hallux valgus of right foot Patient doing well postop. Follow up in 6 months, with films upon return. Physical Exam: Well appearing female in no acute distress; Alert and oriented. Bilateral Leg: Incision is clean dry and intact. There is no erythema warmth or drainage. She has palpable pulses, sensation is intact. She is able to flex and extend their toes and ankles without difficulty Normal gait 5/5 strength bilateral foot/ankles Mild numbness noted on lateral aspect 5th toe on R foot Radiographs: Final results and radiologist's interpretation, available in the [facility] health record. Images were reviewed with the patient/family members in the office today. My personal interpretation of the performed imaging is healing lapidus bilaterally. Medication, History, and Allergies were reviewed and updated in the medical record. COLIN Soares [facility] May 23, 2024 TEACHING PHYSICIAN NOTE OF PERSONAL INVOLVEMENT IN CARE: I have interviewed the patient and updated the medical student's PFS history, and ROS as necessary. I have re-performed the HPI, Physical Examination, Assessment and Plan as noted below. HPI: Nelsy returns for follow up of her bilateral lapiplasty procedure. Overall doing well, happy with her surgery. Exam: No pain with palpation, improved great toe position bilaterally. Imaging: healed lapiplasty ASSESSMENT/PLAN: 1. Postoperative visit - ICD9: V58.49, ICD10: Z48.89 (primary diagnosis) - XR FOOT GENERAL 3V AP/LAT/OBL BILATERAL 2. Hallux valgus of left foot - ICD9: 735.0, ICD10: M20.12 - XR FOOT GENERAL 3V AP/LAT/OBL BILATERAL 3. Hallux valgus of right foot - ICD9: 735.0, ICD10: M20.11 - XR FOOT GENERAL 3V AP/LAT/OBL BILATERAL No restrictions, follow up in 6 months w/ repeat xrays. Lucille Patino MD Orthopaedic Medical Decision Making (MDM) Complexity of problems: Stable chronic illness, Complexity of data: 1 unique test results reviewed, 1 unique tests ordered, Level of MDM: Low (3) Allergies As of Date: 05/23/2024 Noted Allergy Reaction CIPROFLOXACIN 07/18/2014 6 - Diarrhea PERCOCET (OXYCODONE-ACETAMINOP HEN)07/17/2023 11 - Vomiting Comments: Dry heaves SULFA (SULFONAMIDE ANTIBIOTICS) 07/18/2014 4 - Hives Date Reviewed: 05/23/2024 Reviewed by: Jennifer Chamorro LPN - Fully Assessed Reason for Visit: Post Op [174] Cmt: 3 month follow up Valgus deformity of both great toes Primary Visit Diagnosis:Postoperati ve visit [Z48.89] Other Visit Diagnoses:Hallux valgus of left foot [M20.12] Hallux valgus of right foot [M20.11] Order(s):XR FOOT GENERAL 3V AP/LAT/OBL BILATERAL [[id number]] Order #: [id number] FUTURE Prescriptions as of 05/28/2024 - aspirin 325 mg tablet Take 1 tablet by mouth two times a day for 28 days. - ondansetron orally disintegrating (ZOFRAN ODT) 4 mg disintegrating tablet Take 1 tablet by mouth every 8 hours as needed for nausea/vomiting. - docosahexaenoic acid/epa (FISH OIL ORAL) Take by mouth. - folic acid/multivit-min/lut ein (CENTRUM SILVER ORAL) Take by mouth. Problem List As Of Date 05/23/2024 Noted Resolved Valgus deformity of both great toes [M20.11, M2*07/14/2023 Metatarsus adductus of both feet [Q66.221, Q66.*07/14/2023 Incontinence of feces [R15.9] 06/15/2023 Former smoker [Z87.891] 07/18/2023 Melanoma (HCC) [C43.9] 07/18/2023 Hammertoe of right foot [M20.41] 01/08/2024 Postoperative visit [Z48.89] 01/08/2024 Gait abnormality [R26. (more content not included)... [facility] XR FOOT 3V AP/LAT/OBL BILon 05-23-2024 XR FOOT 3V AP/LAT/OBL ZORAIDA * * *Final Report* * * DATE OF EXAM: May 23 2024 9:20AM CCX 5555 - XR FOOT 3V AP/LAT/OBL ZORAIDA / PROCEDURE REASON: multiple diagnoses * * * * Physician Interpretation * * * * EXAMINATION / TECHNIQUE: XR FOOT 3V AP/LAT/OBL ZORAIDA HISTORY: post op Hallux valgus of left foot Hallux valgus of right foot COMPARISON: 02/13/2024. RESULT: Status post bilateral first through third TMT arthrodesis with intact hardware and good apposition of the joints. No acute fracture or dislocation in either foot. There is bilateral pes planus. Tiny calcaneal enthesophytes bilaterally. IMPRESSION: Postoperative changes with intact hardware. Telecommunications Project Manager: PSCB Transcribe Date/Time: May 23 2024 9:45A Dictated by : TIAN CHAPPELL MD This examination was interpreted and the report reviewed and electronically signed by: TIAN CHAPPELL MD on May 23 2024 9:50AM EST [id number] N [facility] XR Foot - bilateral AP and L ateral and obliqueon 05-23-2024 IMPRESSION: Postoperative changes with intact hardware. Telecommunications Project Manager: PSCB Transcribe Date/Time: May 23 2024 9:45A Dictated by : TIAN CHAPPELL MD This examination was interpreted and the report reviewed and electronically signed by: TIAN CHAPPELL MD on May 23 2024 9:50AM EST DIVISION OF RADIOLOGY * * *Final Report* * * DATE OF EXAM: May 23 2024 9:20AM CCX 5555 - XR FOOT 3V AP/LAT/OBL ZORAIDA / PROCEDURE REASON: multiple diagnoses * * * * Physician Interpretation * * * * EXAMINATION / TECHNIQUE: XR FOOT 3V AP/LAT/OBL ZORAIDA HISTORY: post op Hallux valgus of left foot Hallux valgus of right foot COMPARISON: 02/13/2024. RESULT: Status post bilateral first through third TMT arthrodesis with intact hardware and good apposition of the joints. No acute fracture or dislocation in either foot. There is bilateral pes planus. Tiny calcaneal enthesophytes bilaterally. DIVISION OF RADIOLOGY Provider, [facility] - 05/23/2024 * * *Final Report* * * DATE OF EXAM: May 23 2024 9:20AM CCX 5555 - XR FOOT 3V AP/LAT/OBL ZORAIDA / PROCEDURE REASON: multiple diagnoses * * * * Physician Interpretation * * * * EXAMINATION / TECHNIQUE: XR FOOT 3V AP/LAT/OBL ZORAIDA HISTORY: post op Hallux valgus of left foot Hallux valgus of right foot COMPARISON: 02/13/2024. RESULT: Status post bilateral first through third TMT arthrodesis with intact hardware and good apposition of the joints. No acute fracture or dislocation in either foot. There is bilateral pes planus. Tiny calcaneal enthesophytes bilaterally. IMPRESSION IMPRESSION: Postoperative changes with intact hardware. Telecommunications Project Manager: PSCB Transcribe Date/Time: May 23 2024 9:45A Dictated by : TIAN CHAPPELL MD This examination was interpreted and the report reviewed and electronically signed by: TIAN CHAPPELL MD on May 23 2024 9:50AM EST [facility] Radiology Study observation (narrative) [facility] XR Foot - bilateral AP and L ateral and obliqueOrdered By: Ccf Provider on 05-23-2024 [facility] CNOVon 02-13-2024 CNOV Office Visit (ORTHBE ) Rico DOE ([id number]) 1960 F Date Time Provider Department 02/13/24 10:45 AM LUCILLE PATINO During your visit today, we recorded the following information about you: Lucille Patino MD 02/14/2024 9:55 AM Signed Rico Doe Surgery Date: 07/26/2023 (left) AND 11/22/2023 (Right) Surgery: Lapiplasty + aductoplasty Interval History: She is now 3 months from her R sided surgery. They report no pain only that the feeling in the left foot has came back 90-95% and in the right foot a little stiff the feeling has came back about 50% at this time. She is happy with her outcomes currently. ASSESSMENT/PLAN: - Increase activity as able - Wean boot Follow up in 3 months, with bilateral foot films upon return. Physical Exam: Well appearing female in no acute distress; Alert and oriented. Bilateral Leg: Incision is clean dry and intact. There is no erythema warmth or drainage. She has palpable pulses, sensation is intact. She is able to flex and extend their toes and ankles without difficulty Radiographs: Final results and radiologist's interpretation, available in the [facility] health record. Images were reviewed with the patient/family members in the office today. My personal interpretation of the performed imaging is healing midfoot fusions Medication, History, and Allergies were reviewed and updated in the medical record. Lucille Patino MD Allergies As of Date: 02/13/2024 Noted Allergy Reaction CIPROFLOXACIN 07/18/2014 6 - Diarrhea PERCOCET (OXYCODONE-ACETAMINOP HEN)07/17/2023 11 - Vomiting Comments: Dry heaves SULFA (SULFONAMIDE ANTIBIOTICS) 07/18/2014 4 - Hives Date Reviewed: 02/13/2024 Reviewed by: Juan Pitts - Fully Assessed Reason for Visit: Pre-Op Visit [1235] Post Op [174] Primary Visit Diagnosis:Hallux valgus of left foot [M20.12] Other Visit Diagnosis:Hallux valgus of right foot [M20.11] Order(s):XR FOOT GENERAL 3V AP/LAT/OBL BILATERAL [[id number]] Order #: [id number] FUTURE Prescriptions as of 02/14/2024 - aspirin 325 mg tablet Take 1 tablet by mouth two times a day for 28 days. - ondansetron orally disintegrating (ZOFRAN ODT) 4 mg disintegrating tablet Take 1 tablet by mouth every 8 hours as needed for nausea/vomiting. - docosahexaenoic acid/epa (FISH OIL ORAL) Take by mouth. - folic acid/multivit-min/lut ein (CENTRUM SILVER ORAL) Take by mouth. Problem List As Of Date 02/13/2024 Noted Resolved Valgus deformity of both great toes [M20.11, M2*07/14/2023 Metatarsus adductus of both feet [Q66.221, Q66.*07/14/2023 Incontinence of feces [R15.9] 06/15/2023 Former smoker [Z87.891] 07/18/2023 Melanoma (HCC) [C43.9] 07/18/2023 Hammertoe of right foot [M20.41] 01/08/2024 Postoperative visit [Z48.89] 01/08/2024 Gait abnormality [R26.9] 01/08/2024 02/06/2024 Level of Service: POSTOP FOLLOW UP VISIT RELATED TO ORIGINAL PX [74375] Disposition: Return in about 3 months (around 05/15/2024) for Imaging Before Appointment. Follow-up and Disposition History for Encounter Date Provider Department Center 02/13/2024 [id number] EAD, [facility] Encounter Status:Closed by LUCILLE PATINO on 02/14/24 [facility] No Panel Informationon 02-12 [facility] XR FOOT 3V AP/LAT/OBL LTon 0 02-13-2024 XR FOOT 3V AP/LAT/OBL LT * * *Final Report* * * DATE OF EXAM: Feb 13 2024 10:45AM [address] - XR FOOT 3V AP/LAT/OBL LT / PROCEDURE REASON: multiple diagnoses * * * * Physician Interpretation * * * * EXAMINATION: XR FOOT 3V AP/LAT/OBL RT, XR FOOT 3V AP/LAT/OBL LT PATIENT/TECHNOLOGIST PROVIDED HISTORY: S/P Rt great toe (accession [id number]), S/P Lt great toe (accession [id number]) CLINICAL INFORMATION ( PROVIDED BY ORDERING CLINICIAN) : Valgus deformity of both great toes Valgus deformity of both great toes Hammertoe of right foot Postoperative visit TECHNIQUE: XR FOOT 3V AP/LAT/OBL RT, XR FOOT 3V AP/LAT/OBL LT Laterality: RIGHT (accession [id number]), LEFT (accession [id number]) Number of different views (projections): 3 M: XB_1 COMPARISON: 01/03/2024 RESULT: No acute fracture or dislocation. Postsurgical changes of first through third TMT joint arthrodesis again noted with intact hardware. Portions of the joint lines remain radiolucent. Interval removal of percutaneous pin from the right second toe with slightly increased lateral subluxation at the MTP joint. No additional interval change. IMPRESSION: Postoperative findings of the right foot as described. Telecommunications Project Manager: YOVANY Transcribe Date/Time: Feb 13 2024 12:44P Dictated by : JACI SAUCEDO MD This examination was interpreted and the report reviewed and electronically signed by: JACI SAUCEDO MD on Feb 13 2024 5:01PM EST [id number] N [facility] XR FOOT 3V AP/LAT/OBL RTon 0 02-13-2024 XR FOOT 3V AP/LAT/OBL RT * * *Final Report* * * DATE OF EXAM: Feb 13 2024 10:45AM [address] - XR FOOT 3V AP/LAT/OBL RT / PROCEDURE REASON: multiple diagnoses * * * * Physician Interpretation * * * * EXAMINATION: XR FOOT 3V AP/LAT/OBL RT, XR FOOT 3V AP/LAT/OBL LT PATIENT/TECHNOLOGIST PROVIDED HISTORY: S/P Rt great toe (accession [id number]), S/P Lt great toe (accession [id number]) CLINICAL INFORMATION ( PROVIDED BY ORDERING CLINICIAN) : Valgus deformity of both great toes Valgus deformity of both great toes Hammertoe of right foot Postoperative visit TECHNIQUE: XR FOOT 3V AP/LAT/OBL RT, XR FOOT 3V AP/LAT/OBL LT Laterality: RIGHT (accession [id number]), LEFT (accession [id number]) Number of different views (projections): 3 M: XB_1 COMPARISON: 01/03/2024 RESULT: No acute fracture or dislocation. Postsurgical changes of first through third TMT joint arthrodesis again noted with intact hardware. Portions of the joint lines remain radiolucent. Interval removal of percutaneous pin from the right second toe with slightly increased lateral subluxation at the MTP joint. No additional interval change. IMPRESSION: Postoperative findings of the right foot as described. Telecommunications Project Manager: PSCB Transcribe Date/Time: Feb 13 2024 12:44P Dictated by : JACI SAUCEDO MD This examination was interpreted and the report reviewed and electronically signed by: JACI SAUCEDO MD on Feb 13 2024 5:01PM EST [id number] N [facility] CNTHERAPYon 02-06-2024 CNTHERAPY OT/PT/Speech Visit (PTWS) Rico DOE ([id number]) 1960 F Date Time Provider Department 02/06/24 11:15 AM VINAY RODRIGUEZ PTMARLON Date Time Provider Department [facility] 02/06/2024 11:15 AM [id number], MCKENA PTWS Roselyn Hernandez Reason for Visit: PT Discharge [752] Primary Visit Diagnosis:Valgus deformity of both great toes [M20.11, M20.12] Other Visit Diagnoses:Hammertoe of right foot [M20.41] Gait abnormality [R26.9] Allergies As of Date: 02/06/2024 Noted Allergy Reaction CIPROFLOXACIN 07/18/2014 6 - Diarrhea PERCOCET (OXYCODONE-ACETAMINOP HEN)07/17/2023 11 - Vomiting Comments: Dry heaves SULFA (SULFONAMIDE ANTIBIOTICS) 07/18/2014 4 - Hives Date Reviewed: 01/03/2024 Reviewed by: Elodia Lao PA-C - Fully Assessed Prescriptions as of 02/06/2024 - aspirin 325 mg tablet Take 1 tablet by mouth two times a day for 28 days. - ondansetron orally disintegrating (ZOFRAN ODT) 4 mg disintegrating tablet Take 1 tablet by mouth every 8 hours as needed for nausea/vomiting. - docosahexaenoic acid/epa (FISH OIL ORAL) Take by mouth. - folic acid/multivit-min/lut ein (CENTRUM SILVER ORAL) Take by mouth. [employer] Consultant: Therapy (PT/OT/Speech/Resp) ID: [id number] 02/06/2024 11:54 AM Author: VINAY RODRIGUEZ Signed by VINAY RODRIGUEZ PT, DPT on 02/06/2024 at 11:54 AM Document text: Program_ID:[id number] Access Code: [email or web address] URL: [email or web address]/ Date: 02-06-2024 Prepared By: Vinay Santiago Program Notes Exercises - Long Sitting Calf Stretch with Strap - 1 x daily - 7 x weekly - 2 sets - 1 reps - Long Sitting Soleus Stretch on Bolster with Strap - 1 x daily - 7 x weekly - 2 sets - 1 reps - Seated Ankle Dorsiflexion with Resistance - 1 x daily - 7 x weekly - 2 sets - 15 reps - Long Sitting Ankle Plantar Flexion with Resistance - 1 x daily - 7 x weekly - 2 sets - 10 reps - Long Sitting Ankle Inversion with Resistance - 1 x daily - 7 x weekly - 2 sets - 15 reps - Long Sitting Ankle Eversion with Resistance - 1 x daily - 7 x weekly - 2 sets - 15 reps - Toe Extension and Flexion Caregiver PROM - 1 x daily - 7 x weekly - 2 sets - 10 reps - Toe Yoga - Alternating Great Toe and Lesser Toe Extension - 1 x daily - 7 x weekly - 2 sets - 10 reps - Standing 3-Way Leg Reach with Resistance at Ankles and Counter Support - 1 x daily - 7 x weekly - 2 sets - 10 reps - 3-Way Lunge on Slider - 1 x daily - 7 x weekly - 2 sets - 5 reps - Single Leg Heel Raise with Counter Support - 1 x daily - 7 x weekly - 2 sets - 10 reps - Heel Raise on Step - 1 x daily - 7 x weekly - 2 sets - 10 reps - Standing Gastroc Stretch on Step with Counter Support - 1 x daily - 7 x weekly - 2 sets - 2 reps ----- [facility] THERAPY NTon 02-06-2024 THERAPY NT HNO ID: [id number] Author: VINAY RODRIGUEZ, PT, DPT Service: ? Author Type: Physical Therapist Type: Therapy (PT/OT/Speech/Resp) Filed: 02/06/2024 11:54 Note Text: Program_ID:[id number] Access Code: [email or web address] URL: [email or web address]/ Date: 02-06-2024 Prepared By: Vinay Santiago Program Notes Exercises - Long Sitting Calf Stretch with Strap - 1 x daily - 7 x weekly - 2 sets - 1 reps - Long Sitting Soleus Stretch on Bolster with Strap - 1 x daily - 7 x weekly - 2 sets - 1 reps - Seated Ankle Dorsiflexion with Resistance - 1 x daily - 7 x weekly - 2 sets - 15 reps - Long Sitting Ankle Plantar Flexion with Resistance - 1 x daily - 7 x weekly - 2 sets - 10 reps - Long Sitting Ankle Inversion with Resistance - 1 x daily - 7 x weekly - 2 sets - 15 reps - Long Sitting Ankle Eversion with Resistance - 1 x daily - 7 x weekly - 2 sets - 15 reps - Toe Extension and Flexion Caregiver PROM - 1 x daily - 7 x weekly - 2 sets - 10 reps - Toe Yoga - Alternating Great Toe and Lesser Toe Extension - 1 x daily - 7 x weekly - 2 sets - 10 reps - Standing 3-Way Leg Reach with Resistance at Ankles and Counter Support - 1 x daily - 7 x weekly - 2 sets - 10 reps - 3-Way Lunge on Slider - 1 x daily - 7 x weekly - 2 sets - 5 reps - Single Leg Heel Raise with Counter Support - 1 x daily - 7 x weekly - 2 sets - 10 reps - Heel Raise on Step - 1 x daily - 7 x weekly - 2 sets - 10 reps - Standing Gastroc Stretch on Step with Counter Support - 1 x daily - 7 x weekly - 2 sets - 2 reps [facility] CNTHERAPYon 01-30-2024 CNTHERAPY OT/PT/Speech Visit (PTWS) Rico DOE ([id number]) 1960 F Date Time Provider Department 01/30/24 11:15 AM VINAY RODRIGUEZ PTMARLON Date Time Provider Department [facility] 01/30/2024 11:15 AM [id number], MCKENA PTMARLON Hernandez Reason for Visit: Physical Therapy [503] Primary Visit Diagnosis:Valgus deformity of both great toes [M20.11, M20.12] Other Visit Diagnoses:Hammertoe of right foot [M20.41] Gait abnormality [R26.9] Allergies As of Date: 01/30/2024 Noted Allergy Reaction CIPROFLOXACIN 07/18/2014 6 - Diarrhea PERCOCET (OXYCODONE-ACETAMINOP HEN)07/17/2023 11 - Vomiting Comments: Dry heaves SULFA (SULFONAMIDE ANTIBIOTICS) 07/18/2014 4 - Hives Date Reviewed: 01/03/2024 Reviewed by: Elodia Lao PA-C - Fully Assessed Prescriptions as of 01/30/2024 - aspirin 325 mg tablet Take 1 tablet by mouth two times a day for 28 days. - ondansetron orally disintegrating (ZOFRAN ODT) 4 mg disintegrating tablet Take 1 tablet by mouth every 8 hours as needed for nausea/vomiting. - docosahexaenoic acid/epa (FISH OIL ORAL) Take by mouth. - folic acid/multivit-min/lut ein (CENTRUM SILVER ORAL) Take by mouth. [facility] CNTHERAPYon 01-23-2024 CNTHERAPY OT/PT/Speech Visit (PTWS) Rico DOE ([id number]) 1960 F Date Time Provider Department 01/23/24 11:15 AM VINAY RODRIGUEZ PTMARLON Date Time Provider Department [facility] 01/23/2024 11:15 AM [id number] RODRIGUEZ Reason for Visit: Physical Therapy [503] Primary Visit Diagnosis:Valgus deformity of both great toes [M20.11, M20.12] Other Visit Diagnoses:Hammertoe of right foot [M20.41] Gait abnormality [R26.9] Allergies As of Date: 01/23/2024 Noted Allergy Reaction CIPROFLOXACIN 07/18/2014 6 - Diarrhea PERCOCET (OXYCODONE-ACETAMINOP HEN)07/17/2023 11 - Vomiting Comments: Dry helaxmi SULFA (SULFONAMIDE ANTIBIOTICS) 07/18/2014 4 - Hives Date Reviewed: 01/03/2024 Reviewed by: Elodia Lao PA-C - Fully Assessed Prescriptions as of 01/23/2024 - aspirin 325 mg tablet Take 1 tablet by mouth two times a day for 28 days. - ondansetron orally disintegrating (ZOFRAN ODT) 4 mg disintegrating tablet Take 1 tablet by mouth every 8 hours as needed for nausea/vomiting. - docosahexaenoic acid/epa (FISH OIL ORAL) Take by mouth. - folic acid/multivit-min/lut ein (CENTRUM SILVER ORAL) Take by mouth. [employer] Consultant: Addendum Therapy (PT/OT/Speech/Resp) ID: [id number] 01/23/2024 11:57 AM Author: VINAY RODRIGUEZ Signed by VINAY RODRIGUEZ PT, DPT on 01/23/2024 at 11:57 AM * * * This document replaces document [id number] * * * Document text: Program_ID:[id number] Access Code: [email or web address] URL: [email or web address]/ Date: 01-23-2024 Prepared By: Vinay Santiago Program Notes Exercises - Long Sitting Calf Stretch with Strap - 1 x daily - 7 x weekly - 2 sets - 1 reps - Long Sitting Soleus Stretch on Bolster with Strap - 1 x daily - 7 x weekly - 2 sets - 1 reps - Seated Ankle Dorsiflexion with Resistance - 1 x daily - 7 x weekly - 2 sets - 15 reps - Long Sitting Ankle Inversion with Resistance - 1 x daily - 7 x weekly - 2 sets - 15 reps - Long Sitting Ankle Eversion with Resistance - 1 x daily - 7 x weekly - 2 sets - 15 reps - Long Sitting Ankle Plantar Flexion with Resistance - 1 x daily - 7 x weekly - 2 sets - 15 reps - Toe Extension and Flexion Caregiver PROM - 1 x daily - 7 x weekly - 2 sets - 10 reps - Standing 3-Way Leg Reach with Resistance at Ankles and Counter Support - 1 x daily - 7 x weekly - 2 sets - 10 reps - Standing Heel Raise with Support - 1 x daily - 7 x weekly - 2 sets - 15 reps ----- [facility] THERAPY NTon 01-23-2024 THERAPY NT HNO ID: [id number] Author: VINAY RODRIGUEZ, PT, DPT Service: ? Author Type: Physical Therapist Type: Therapy (PT/OT/Speech/Resp) Filed: 01/23/2024 11:22 Note Text: Program_ID:[id number] Access Code: [email or web address] URL: [email or web address]/ Date: 01-23-2024 Prepared By: Vinay Santiago Program Notes Exercises - Long Sitting Calf Stretch with Strap - 1 x daily - 7 x weekly - 2 sets - 1 reps - Long Sitting Soleus Stretch on Bolster with Strap - 1 x daily - 7 x weekly - 2 sets - 1 reps - Seated Ankle Dorsiflexion with Resistance - 1 x daily - 7 x weekly - 2 sets - 15 reps - Long Sitting Ankle Inversion with Resistance - 1 x daily - 7 x weekly - 2 sets - 15 reps - Long Sitting Ankle Eversion with Resistance - 1 x daily - 7 x weekly - 2 sets - 15 reps - Long Sitting Ankle Plantar Flexion with Resistance - 1 x daily - 7 x weekly - 2 sets - 15 reps - Toe Extension and Flexion Caregiver PROM - 1 x daily - 7 x weekly - 2 sets - 10 reps - Seated Heel Raise - 1 x daily - 7 x weekly - 2 sets - 15 reps [facility] CNTHERAPYon 01-16-2024 CNTHERAPY OT/PT/Speech Visit (PTWS) Rico DOE ([id number]) 1960 F Date Time Provider Department 01/16/24 11:15 AM VINAY RODRIGUEZ Date Time Provider Department [facility] 01/16/2024 11:15 AM [id number], MCKENA PTMARLON Hernandez Reason for Visit: Physical Therapy [503] Primary Visit Diagnosis:Valgus deformity of both great toes [M20.11, M20.12] Other Visit Diagnoses:Hammertoe of right foot [M20.41] Gait abnormality [R26.9] Allergies As of Date: 01/16/2024 Noted Allergy Reaction CIPROFLOXACIN 07/18/2014 6 - Diarrhea PERCOCET (OXYCODONE-ACETAMINOP HEN)07/17/2023 11 - Vomiting Comments: Dry heaves SULFA (SULFONAMIDE ANTIBIOTICS) 07/18/2014 4 - Hives Date Reviewed: 01/03/2024 Reviewed by: Elodia Lao PA-C - Fully Assessed Prescriptions as of 01/16/2024 - aspirin 325 mg tablet Take 1 tablet by mouth two times a day for 28 days. - ondansetron orally disintegrating (ZOFRAN ODT) 4 mg disintegrating tablet Take 1 tablet by mouth every 8 hours as needed for nausea/vomiting. - docosahexaenoic acid/epa (FISH OIL ORAL) Take by mouth. - folic acid/multivit-min/lut ein (CENTRUM SILVER ORAL) Take by mouth. [employer] Consultant: Addendum Therapy (PT/OT/Speech/Resp) ID: [id number] 01/16/2024 11:50 AM Author: VINAY RODRIGUEZ Signed by VINAY RODRIGUEZ PT, DPT on 01/16/2024 at 11:50 AM * * * This document replaces document [id number] * * * Document text: Program_ID:[id number] Access Code: [email or web address] URL: [email or web address]/ Date: 01-16-2024 Prepared By: Vinay Santiago Program Notes Exercises - Long Sitting Calf Stretch with Strap - 1 x daily - 7 x weekly - 3 sets - 1 reps - Long Sitting Soleus Stretch on Bolster with Strap - 1 x daily - 7 x weekly - 3 sets - 1 reps - Seated Ankle Dorsiflexion with Resistance - 1 x daily - 7 x weekly - 3 sets - 15 reps - Long Sitting Ankle Inversion with Resistance - 1 x daily - 7 x weekly - 3 sets - 15 reps - Long Sitting Ankle Eversion with Resistance - 1 x daily - 7 x weekly - 3 sets - 15 reps - Long Sitting Ankle Plantar Flexion with Resistance - 1 x daily - 7 x weekly - 3 sets - 15 reps - Toe Extension and Flexion Caregiver PROM - 1 x daily - 7 x weekly - 3 sets - 10 reps - Seated Heel Raise - 1 x daily - 7 x weekly - 3 sets - 15 reps ----- [facility] THERAPY NTon 01-16-2024 THERAPY NT HNO ID: [id number] Author: VINAY RODRIGUEZ, PT, DPT Service: ? Author Type: Physical Therapist Type: Therapy (PT/OT/Speech/Resp) Filed: 01/16/2024 11:20 Note Text: Program_ID:[id number] Access Code: [email or web address] URL: [email or web address]/ Date: 01-16-2024 Prepared By: Vinay Santiago Program Notes Exercises - Long Sitting Calf Stretch with Strap - 1 x daily - 7 x weekly - 3 sets - 10 reps - Seated Ankle Dorsiflexion with Resistance - 1 x daily - 7 x weekly - 3 sets - 15 reps - Long Sitting Ankle Inversion with Resistance - 1 x daily - 7 x weekly - 3 sets - 15 reps - Long Sitting Ankle Eversion with Resistance - 1 x daily - 7 x weekly - 3 sets - 15 reps - Long Sitting Ankle Plantar Flexion with Resistance - 1 x daily - 7 x weekly - 3 sets - 15 reps - Toe Extension and Flexion Caregiver PROM - 1 x daily - 7 x weekly - 3 sets - 10 reps [facility] CNTHERAPYon 01-08-2024 CNTHERAPY OT/PT/Speech Visit (PTWS) Rico DOE ([id number]) 1960 F Date Time Provider Department 01/08/24 1:30 PM VINAY RODRIGUEZ PTMARLON Date Time Provider Department Center 01/08/2024 1:30 PM [id number], MCKENA PTMARLON Hernandez Reason for Visit: PT Eval [057] Patient Education [91] Primary Visit Diagnosis:Gait abnormality [R26.9] Other Visit Diagnoses:Valgus deformity of both great toes [M20.11, M20.12] Hammertoe of right foot [M20.41] Allergies As of Date: 01/08/2024 Noted Allergy Reaction CIPROFLOXACIN 07/18/2014 6 - Diarrhea PERCOCET (OXYCODONE-ACETAMINOP HEN)07/17/2023 11 - Vomiting Comments: Dry heaves SULFA (SULFONAMIDE ANTIBIOTICS) 07/18/2014 4 - Hives Date Reviewed: 01/03/2024 Reviewed by: Elodia Lao PA-C - Fully Assessed Prescriptions as of 01/08/2024 - aspirin 325 mg tablet Take 1 tablet by mouth two times a day for 28 days. - ondansetron orally disintegrating (ZOFRAN ODT) 4 mg disintegrating tablet Take 1 tablet by mouth every 8 hours as needed for nausea/vomiting. - docosahexaenoic acid/epa (FISH OIL ORAL) Take by mouth. - folic acid/multivit-min/lut ein (CENTRUM SILVER ORAL) Take by mouth. [employer] Consultant: Therapy (PT/OT/Speech/Resp) ID: [id number] 01/08/2024 2:03 PM Author: VINAY RODRIGUEZ Signed by VINAY RODRIGUEZ PT, DPT on 01/08/2024 at 2:03 PM Document text: Program_ID:[id number] Access Code: [email or web address] URL: [email or web address] Date: 01-08-2024 Prepared By: Vinay Santiago Program Notes Exercises - Long Sitting Calf Stretch with Strap - 1 x daily - 7 x weekly - 3 sets - 10 reps - Seated Ankle Dorsiflexion with Resistance - 1 x daily - 7 x weekly - 3 sets - 10 reps - Long Sitting Ankle Inversion with Resistance - 1 x daily - 7 x weekly - 3 sets - 10 reps - Long Sitting Ankle Eversion with Resistance - 1 x daily - 7 x weekly - 3 sets - 10 reps - Long Sitting Ankle Plantar Flexion with Resistance - 1 x daily - 7 x weekly - 3 sets - 10 reps - Toe Extension and Flexion Caregiver PROM - 1 x daily - 7 x weekly - 3 sets - 10 reps ----- [facility] THERAPY NTon 01-08-2024 THERAPY NT HNO ID: [id number] Author: VINAY RODRIGUEZ, PT, DPT Service: ? Author Type: Physical Therapist Type: Therapy (PT/OT/Speech/Resp) Filed: 01/08/2024 14:03 Note Text: Program_ID:[id number] Access Code: [email or web address] URL: [email or web address] Date: 01-08-2024 Prepared By: Vinay Santiago Program Notes Exercises - Long Sitting Calf Stretch with Strap - 1 x daily - 7 x weekly - 3 sets - 10 reps - Seated Ankle Dorsiflexion with Resistance - 1 x daily - 7 x weekly - 3 sets - 10 reps - Long Sitting Ankle Inversion with Resistance - 1 x daily - 7 x weekly - 3 sets - 10 reps - Long Sitting Ankle Eversion with Resistance - 1 x daily - 7 x weekly - 3 sets - 10 reps - Long Sitting Ankle Plantar Flexion with Resistance - 1 x daily - 7 x weekly - 3 sets - 10 reps - Toe Extension and Flexion Caregiver PROM - 1 x daily - 7 x weekly - 3 sets - 10 reps [facility] CNOVon 01-03-2024 CNOV Office Visit (ORTHIN ) Rico DOE ([id number]) 1960 F Date Time Provider Department 01/03/24 11:30 AM ELODIA LAO ORTHIN During your visit today, we recorded the following information about you: Elodia Lao PA-C 01/03/2024 1:15 PM Signed Rico Doe Surgery Date: 11/22/24 Surgery: Right lapidus for bunion (CPT 56447) Right 2nd and 3rd metatarsal osteotomies Right 2nd hammertoe correction Interval History: She is now 6 weeks since surgery. They report no pain. She has been partial weightbearing since our last visit. She did have to redo her bunion dressing, but she has kept it in place. Denies fever, chills, chest pain, SOB, or proximal calf pain. Assessment/Plan: Rico Doe is now 6 weeks out from the above procedure and doing well. X-rays were reviewed. Incisions were assessed. Pin pulled. Patient can start showering in 24 hours and getting incision wet. Patient to progress to full weightbearing as tolerated in boot and wean boot when comfortable. PT order placed. Follow up in 6 weeks, with Weight bearing bilateral foot films upon return. Physical Exam: Well appearing female in no acute distress; Alert and oriented. Right Leg: Incision is clean dry and intact. There is no erythema, gaping, dehiscence. Expected swelling focal to the post-op area only. Heel free of any redness/signs of pressure areas. She has palpable pulses, sensation is intact. She is able to flex and extend their toes without difficulty. She is able to dorsiflex and plantar flex at the ankle. Radiographs: Right foot films were reviewed today, and revealed hardware that is intact without complications. Medication, History, and Allergies were reviewed and updated in the medical record. This note was partially generated using [employer] logo voice recognition system, and there may be some incorrect words, spellings, and punctuation that were not noted in checking the note before saving. Elodia Lao PA-C Department of Orthopaedics Foot and Ankle Surgery Elodia Lao PA-C 01/03/2024 11:38 AM Signed You may apply weight to the extremity as tolerated in the boot, increasing weightbearing in the boot as tolerated. When you're comfortable, gradually work your way out of the boot and into a shoe that is comfortable, supportive with a sole that is fairly stiff, and not too tight. You can gently perform ankle range of motion exercises a few times daily (up and down, side to side, circles), 10-15 reps each set. You may wiggle your toes and move at the knee without restriction. Elevate as needed. Wearing a compression sock to help reduce swelling is recommended. A brand that is comfortable and provides good compression is called Rx[employer]antage. You can buy this online. Look for a 20-30mmHg stocking. Avoid taking anti-inflammatories on a regularly scheduled basis: ibuprofen, Advil, Motrin, Aleve, naproxen as these can potentially interfere with bony healing. It's okay to take these types of medications for a short period of time following your injury. We prefer acetaminophen (Tylenol) as the primary medication for pain. Do not take more than 3,000mg in a 24 hour period. You can schedule PT by calling [phone]. Allergies As of Date: 01/03/2024 Noted Allergy Reaction CIPROFLOXACIN 07/18/2014 6 - Diarrhea PERCOCET (OXYCODONE-ACETAMINOP HEN)07/17/2023 11 - Vomiting Comments: Dry heaves SULFA (SULFONAMIDE ANTIBIOTICS) 07/18/2014 4 - Hives Date Reviewed: 01/03/2024 Reviewed by: Elodia Lao PA-C - Fully Assessed Reason for Visit: Post Op [174] Cmt: 3 week follow up Valgus deformity of both great toes Primary Visit Diagnosis:Valgus deformity of both great toes [M20.11, M20.12] Other Visit Diagnoses:Hammertoe of right foot [M20.41] Postoperative visit [Z48.89] Order(s):CONSULT TO PHYSICAL THERAPY [9023] Order #: [id number]: 1 FUTURE XR FOOT GENERAL 3V AP/LAT/OBL RIGHT [[id number]] Order #: [id number] FUTURE Prescriptions as of 01/03/2024 - aspirin 325 mg tablet Take 1 tablet by mouth two times a day for 28 days. - ondansetron orally disintegrating (ZOFRAN ODT) 4 mg disintegrating tablet Take 1 tablet by mouth every 8 hours as needed for nausea/vomiting. - docosahexaenoic acid/epa (FISH OIL ORAL) Take by mouth. - folic acid/multivit-min/lut ein (CENTRUM SILVER ORAL) Take by mouth. Problem List As Of Date 01/03/2024 Noted Resolved Valgus deformity of both great toes [M20.11, M2*07/14/2023 Metatarsus adductus of both feet [Q66.221, Q66.*07/14/2023 Incontinence of feces [R15.9] 06/15/2023 Former smoker [Z87.891] 07/18/2023 Melanoma (HCC) [C43.9] 07/18/2023 Other instructions from your clinician: You may apply weight to the extremity as tolerated in the boot, increasing weightbearing in the boot as tolerated. When you're comfortable, gradually work your way out o (more content not included)... [facility] XR FOOT 3V AP/LAT/OBL RTon 0 01-03-2024 XR FOOT 3V AP/LAT/OBL RT * * *Final Report* * * DATE OF EXAM: Jan 03 2024 11:19AM CCX 5337 - XR FOOT 3V AP/LAT/OBL RT / PROCEDURE REASON: multiple diagnoses * * * * Physician Interpretation * * * * EXAMINATION / TECHNIQUE: XR FOOT 3V AP/LAT/OBL RT HISTORY: post op f/u. Valgus deformity of both great toes Valgus deformity of both great toes Hammertoe of right foot Metatarsus adductus of both feet COMPARISON: Right foot radiographs 12/12/2023 RESULT: No acute fracture or dislocation. Status post first, second, and third TMT arthrodesis with intact hardware. No periprosthetic lucency or associated fracture. Redemonstration of K wire transfixing the second toe with persistent mild lateral deviation. Correction of hallux valgus. Mild pes planus IMPRESSION: Post-operative changes. No significant change from prior. Telecommunications Project Manager: PSCB Transcribe Date/Time: Jan 03 2024 12:03P Dictated by : ARTHUR SALMERON MD This examination was interpreted and the report reviewed and electronically signed by: BLOSSOM WRIGHT MD on Jan 03 2024 3:31PM EST [id number] [facility] XR Foot - right AP and Later al and obliqueon 01-03-2024 IMPRESSION: Post-operative changes. No significant change from prior. Telecommunications Project Manager: PSCB Transcribe Date/Time: Jan 03 2024 12:03P Dictated by : ARTHUR SALMERON MD This examination was interpreted and the report reviewed and electronically signed by: BLOSSOM WRIGHT MD on Jan 03 2024 3:31PM [facility] DIVISION OF RADIOLOGY * * *Final Report* * * DATE OF EXAM: Jan 03 2024 11:19AM CCX 5337 - XR FOOT 3V AP/LAT/OBL RT / PROCEDURE REASON: multiple diagnoses * * * * Physician Interpretation * * * * EXAMINATION / TECHNIQUE: XR FOOT 3V AP/LAT/OBL RT HISTORY: post op f/u. Valgus deformity of both great toes Valgus deformity of both great toes Hammertoe of right foot Metatarsus adductus of both feet COMPARISON: Right foot radiographs 12/12/2023 RESULT: No acute fracture or dislocation. Status post first, second, and third TMT arthrodesis with intact hardware. No periprosthetic lucency or associated fracture. Redemonstration of K wire transfixing the second toe with persistent mild lateral deviation. Correction of hallux valgus. Mild pes planus DIVISION OF RADIOLOGY Provider, Janie adame [place] - 01/03/2024 * * *Final Report* * * DATE OF EXAM: Jan 03 2024 11:19AM CCX 5337 - XR FOOT 3V AP/LAT/OBL RT / PROCEDURE REASON: multiple diagnoses * * * * Physician Interpretation * * * * EXAMINATION / TECHNIQUE: XR FOOT 3V AP/LAT/OBL RT HISTORY: post op f/u. Valgus deformity of both great toes Valgus deformity of both great toes Hammertoe of right foot Metatarsus adductus of both feet COMPARISON: Right foot radiographs 12/12/2023 RESULT: No acute fracture or dislocation. Status post first, second, and third TMT arthrodesis with intact hardware. No periprosthetic lucency or associated fracture. Redemonstration of K wire transfixing the second toe with persistent mild lateral deviation. Correction of hallux valgus. Mild pes planus IMPRESSION IMPRESSION: Post-operative changes. No significant change from prior. Telecommunications Project Manager: PSCPrashant Transcribe Date/Time: Jan 03 2024 12:03P Dictated by : ARTHUR SALMERON MD This examination was interpreted and the report reviewed and electronically signed by: BLOSSOM WRIGHT MD on Jan 03 2024 3:31PM EST [facility] Radiology Study observation (narrative) [facility] XR Foot - right AP and Later al and obliqueOrdered By: [facility] Provider on 01-03-2024 [facility] CNOVon 12-12-2023 CNOV Office Visit (ORTHBE ) Rico DOE ([id number]) 1960 F Date Time Provider Department 12/12/23 1:30 PM ELODIA LAO ORTHMALCOM During your visit today, we recorded the following information about you: Elodia Lao PA-C 12/13/2023 11:37 AM Signed Rico Doe Surgery Date: 11/22/24 Surgery: Right lapidus for bunion (CPT 07758) Right 2nd and 3rd metatarsal osteotomies Right 2nd hammertoe correction Interval History: She is now 3 weeks since surgery. They report minimal pain. She has been nonweightbearing and elevating regularly. She is compliant with her aspirin. Denies fever, chills, chest pain, SOB, or proximal calf pain. Assessment/Plan: Rico Doe is now 3 weeks out from the above procedure and doing well. X-rays were reviewed. Incisions were assessed. Sutures were removed and patient placed into a bunion dressing. Dressing was applied in a way that patient can check her midfoot incision without disturbing the bunion wrap on her toes. Foot to remain dry due to pin in place. Patient placed into a tall walking boot and allowed 50% weightbearing as tolerated. Follow up in 3 weeks, with Weight bearing right foot films upon return. Physical Exam: Well appearing female in no acute distress; Alert and oriented. Right Leg: Incision is clean dry and intact. There is no erythema, gaping, dehiscence. Expected swelling focal to the post-op area only. Heel free of any redness/signs of pressure areas. She has palpable pulses, sensation is intact. She is able to flex and extend their toes (1, 3, 4, 5) without difficulty. She is able to dorsiflex and plantar flex at the ankle. Radiographs: Right foot films were reviewed today, and revealed hardware that is intact without complications. Medication, History, and Allergies were reviewed and updated in the medical record. This note was partially generated using [employer] logo voice recognition system, and there may be some incorrect words, spellings, and punctuation that were not noted in checking the note before saving. Elodia Lao PA-C Department of Orthopaedics Foot and Ankle Surgery Elodia Lao PA-C 12/12/2023 1:46 PM Addendum You may increase weight to the surgical leg up to 50% of your weight until your next visit, always wearing the boot while weightbearing. You may want to purchase a device called an even-up online which you put on the outside of your other shoe to help you walk evenly. This can help avoid knee/hip/low back pain. You must keep your dressing in place and your foot dry until your next visit with us. The dressing keeps your toes in the appropriate alignment for further healing. Elevate as needed. You can move at the knee without restriction. 3-5 times daily you can perform gentle up and down, side to side, and circles at the ankle for 10-15 reps each. Stop if the range of motion is painful. Try and avoid NSAIDs (ibuprofen, Advil, Motrin, Aleve, naproxen) on a regular basis. These medications may interfere with bony healing. Acetaminophen (Tylenol) is appropriate to use for pain control as needed and directed, but do not take more than 3,000mg of tylenol in 24 hours. Finish your 4 weeks of aspirin therapy twice daily. Call the Orthopedic Foot [facility] Ankle clinic at [phone] with any questions. Allergies As of Date: 12/12/2023 Noted Allergy Reaction CIPROFLOXACIN 07/18/2014 6 - Diarrhea PERCOCET (OXYCODONE-ACETAMINOP HEN)07/17/2023 11 - Vomiting Comments: Dry heaves SULFA (SULFONAMIDE ANTIBIOTICS) 07/18/2014 4 - Hives Date Reviewed: 12/12/2023 Reviewed by: Elodia Lao PA-C - Fully Assessed Primary Visit Diagnosis:Valgus deformity of both great toes [M20.11, M20.12] Other Visit Diagnoses:Hammertoe of right foot [M20.41] Metatarsus adductus of both feet [Q66.221, Q66.222] Order(s):XR FOOT GENERAL 3V AP/LAT/OBL RIGHT [[id number]] Order #: [id number] FUTURE Prescriptions as of 12/13/2023 - aspirin 325 mg tablet Take 1 tablet by mouth two times a day for 28 days. - ondansetron orally disintegrating (ZOFRAN ODT) 4 mg disintegrating tablet Take 1 tablet by mouth every 8 hours as needed for nausea/vomiting. - senna-docusate (SENNA-S) 8.6-50 mg per tablet Take 1 tablet by mouth once daily as needed for constipation. - docosahexaenoic acid/epa (FISH OIL ORAL) Take by mouth. - folic acid/multivit-min/lut ein (CENTRUM SILVER ORAL) Take by mouth. Problem List As Of Date 12/12/2023 Noted Resolved Valgus deformity of both great toes [M20.11, M2*07/14/2023 Metatarsus adductus of both feet [Q66.221, Q66.*07/14/2023 Incontinence of feces [R15.9] 06/15/2023 Former smoker [Z87.891] 07/18/2023 Melanoma (HCC) [C43.9] 07/18/2023 Other instructions from your clinician: You may increase weight to the surgical leg up to 50% of your weight until your next visit, always wearing the boot whi (more content not included)... [facility] CNOV Office Visit (ORTHBE ) Rico DOE ([id number]) 1960 F Date Time Provider Department 12/12/23 1:00 PM CAST TECH [facility] ORTHBE During your visit today, we recorded the following information about you: Ashely Barrow Ma 12/12/2023 3:36 PM Signed PT ASSESSMENT - CASTING ROOM N presents for cast removal. Ashely Barrow Ma Beeper: [id number] Allergies As of Date: 12/12/2023 Noted Allergy Reaction CIPROFLOXACIN 07/18/2014 6 - Diarrhea PERCOCET (OXYCODONE-ACETAMINOP HEN)07/17/2023 11 - Vomiting Comments: Dry heaves SULFA (SULFONAMIDE ANTIBIOTICS) 07/18/2014 4 - Hives Date Reviewed: 12/12/2023 Reviewed by: Elodia Lao PA-C - Fully Assessed Primary Visit Diagnosis:Postoperati ve visit [Z48.89] Prescriptions as of 12/12/2023 - aspirin 325 mg tablet Take 1 tablet by mouth two times a day for 28 days. - ondansetron orally disintegrating (ZOFRAN ODT) 4 mg disintegrating tablet Take 1 tablet by mouth every 8 hours as needed for nausea/vomiting. - senna-docusate (SENNA-S) 8.6-50 mg per tablet Take 1 tablet by mouth once daily as needed for constipation. - docosahexaenoic acid/epa (FISH OIL ORAL) Take by mouth. - folic acid/multivit-min/lut ein (CENTRUM SILVER ORAL) Take by mouth. Problem List As Of Date 12/12/2023 Noted Resolved Valgus deformity of both great toes [M20.11, M2*07/14/2023 Metatarsus adductus of both feet [Q66.221, Q66.*07/14/2023 Incontinence of feces [R15.9] 06/15/2023 Former smoker [Z87.891] 07/18/2023 Melanoma (HCC) [C43.9] 07/18/2023 Encounter Status:Closed by ASHELY BARROW MA on 12/12/23 [facility] XR FOOT 3V AP/LAT/OBL RTon 0 12-12-2023 XR FOOT 3V AP/LAT/OBL RT * * *Final Report* * * DATE OF EXAM: Dec 12 2023 1:19PM [address] - XR FOOT 3V AP/LAT/OBL RT / PROCEDURE REASON: multiple diagnoses * * * * Physician Interpretation * * * * EXAMINATION / TECHNIQUE: XR FOOT 3V AP/LAT/OBL RT HISTORY: Post-op Right foot. Valgus deformity of both great toes Valgus deformity of both great toes Hammertoe of right foot COMPARISON: 11/29/2023. RESULT: Unchanged K wires in the second digit. Status post first, second, and third TMT arthrodesis with intact hardware. Bony alignment is unchanged. No new acute bony abnormality is identified. IMPRESSION: Postoperative changes with intact hardware. Telecommunications Project Manager: PSCB Transcribe Date/Time: Dec 12 2023 1:40P Dictated by : TIAN CHAPPELL MD This examination was interpreted and the report reviewed and electronically signed by: TIAN CHAPPELL MD on Dec 12 2023 1:41PM EST [id number] [facility] CNNURSEon 11-29-2023 CNNURSE Nurse Visit (ORTHIN) Rico DOE ([id number]) 1960 F Date Time Provider Department 11/29/23 1:30 PM ADONIS REDDY During your visit today, we recorded the following information about you: Adonis Reddy, RN 11/29/2023 2:43 PM Signed ORTH CARE COORDINATION POST OPERATIVE NURSE VISIT Patient has been identified by name and date of : Yes, Patient is accompanied by: friend Surgery: Right lapidus for bunion (CPT 09737) Right 2nd and 3rd metatarsal osteotomies Right 2nd hammertoe correction Date of Surgery: 11/22/2023 Activity? NWb in cast Incision? clean, dry, intact - pin and ball intact Follow up Appointment? 2weeks cast off, nwb xrays Patient aware of goals, to return to ADL's, yes. Any barriers to achieving goal? No PAIN EVALUATION 11/29/2023 1439 Pain Level: 3 Pain Location: Foot-Right Description: Aching Duration Amount of Time: 1 Duration Units: Weeks Frequency: Continuous Intervention/Comfort measure: Medication Medication Update: Yes: Pt doing well today, pain meds refilled. Pt toes warm and taking ASA 325mg bid. Bunion dressing applied and cast with bumper applied. Pt to follow up in 2 weeks. Elodia Lao reviewed xrays. Adonis Reddy, RN Adonis Reddy, RN 11/29/2023 1:35 PM Signed Post-Operative Course: She will be Non Weight Bearing for 3 weeks. Week 1 post-op: Splint off, NWB XRs, incision check, placement into short-leg cast Week 3 post-op: Cast off, NWB XRs, sutures out, placement into tall pneumatic boot. Ok for PWB (50%). Bunion dressing (not to be removed). Week 6 post op: WB XRs. Progress to full WB, wean boot, start PT. Continue Asprin 325mg twice daily continue non weight bearing and elevating to help with pain and swelling Allergies As of Date: 11/29/2023 Noted Allergy Reaction CIPROFLOXACIN 07/18/2014 6 - Diarrhea PERCOCET (OXYCODONE-ACETAMINOP HEN)07/17/2023 11 - Vomiting Comments: Dry heaves SULFA (SULFONAMIDE ANTIBIOTICS) 07/18/2014 4 - Hives Date Reviewed: 11/29/2023 Reviewed by: Adonis Reddy, RN - Fully Assessed Reason for Visit: Post Op [174] Primary Visit Diagnosis:Valgus deformity of both great toes [M20.11, M20.12] Other Visit Diagnoses:Hammertoe of right foot [M20.41] Metatarsus adductus of both feet [Q66.221, Q66.222] Order(s):XR FOOT GENERAL 3V AP/LAT/OBL RIGHT [[id number]] Order #: [id number] FUTURE HYDROcodone-acetamino phen (NORCO) 5-325 mg per tabletTake 1 tablet by mouth every 4 hours as needed for pain for up to 7 days.Disp: 42 tabletRfl: 0 Prescriptions as of 11/29/2023 - HYDROcodone-acetamino phen (NORCO) 5-325 mg per tablet Take 1 tablet by mouth every 4 hours as needed for pain for up to 7 days. - aspirin 325 mg tablet Take 1 tablet by mouth two times a day for 28 days. - ondansetron orally disintegrating (ZOFRAN ODT) 4 mg disintegrating tablet Take 1 tablet by mouth every 8 hours as needed for nausea/vomiting. - senna-docusate (SENNA-S) 8.6-50 mg per tablet Take 1 tablet by mouth once daily as needed for constipation. - docosahexaenoic acid/epa (FISH OIL ORAL) Take by mouth. - folic acid/multivit-min/lut ein (CENTRUM SILVER ORAL) Take by mouth. Problem List As Of Date 11/29/2023 Noted Resolved Valgus deformity of both great toes [M20.11, M2*07/14/2023 Metatarsus adductus of both feet [Q66.221, Q66.*07/14/2023 Incontinence of feces [R15.9] 06/15/2023 Former smoker [Z87.891] 07/18/2023 Melanoma (HCC) [C43.9] 07/18/2023 Other instructions from your clinician: Post-Operative Course: She will be Non Weight Bearing for 3 weeks. Week 1 post-op: Splint off, NWB XRs, incision check, placement into short-leg cast Week 3 post-op: Cast off, NWB XRs, sutures out, placement into tall pneumatic boot. Ok for PWB (50%). Bunion dressing (not to be removed). Week 6 post op: WB XRs. Progress to full WB, wean boot, start PT. Continue Asprin 325mg twice daily continue non weight bearing and elevating to help with pain and swelling Prescriptions ordered this encounter Disp Refills Start End HYDROCODONE 5 MG-ACETAMINOPHEN 325 M* 42 t* 0 11/29/2023 12/06/2023 Route: ORAL Sig: Take 1 tablet by mouth every 4 hours as needed for pain for up to 7 days. Medications Discontinued During This Encounter Prescriptions - HYDROcodone-acetamino phen (NORCO) 5-325 mg per tablet (Discontinued) Take 1 tablet by mouth every 4 hours as needed for pain for up to 7 days. Disposition: Return in about 2 weeks (around 12/13/2023) for with cast off, xrays and Leticia on 12/12 [facility] or 12/14 [facility] . Follow-up and Disposition History for Encounter Date Provider Department Center 11/29/2023 [id number] REDDY [facility] Indp Encounter Status:Closed by ADONIS REDDY on 11/29/23 [facility] CNOVon 11-29-2023 CNOV Office Visit (ORTHIN ) Rico DOE ([id number]) 1960 F Date Time Provider Department 11/29/23 1:00 PM CAST TECH [facility] INDP ORTHIN During your visit today, we recorded the following information about you: Jyotsna Gomez Tech 11/29/2023 3:07 PM Signed SPLINT APPLICATION Date/Time: 11/29/2023 3:07 PM Performed by: Jyotsna Gomez Tech Authorized by: Elodia Lao PA-C Procedure details: Location: Right ankle Cast/Brace type: Short leg cast non wt bearing Post-procedure: The splinted body part was neurovascularly unchanged following the procedure Tolerance: Patient tolerated the procedure well with no immediate complications Kathleen Chen Allergies As of Date: 11/29/2023 Noted Allergy Reaction CIPROFLOXACIN 07/18/2014 6 - Diarrhea PERCOCET (OXYCODONE-ACETAMINOP HEN)07/17/2023 11 - Vomiting Comments: Dry heaves SULFA (SULFONAMIDE ANTIBIOTICS) 07/18/2014 4 - Hives Date Reviewed: 11/29/2023 Reviewed by: Adonis Reddy, RN - Fully Assessed Primary Visit Diagnosis:Valgus deformity of both great toes [M20.11, M20.12] Order(s):Splint Application [PRO87] Order #: [id number] Prescriptions as of 11/29/2023 - HYDROcodone-acetamino phen (NORCO) 5-325 mg per tablet Take 1 tablet by mouth every 4 hours as needed for pain for up to 7 days. - aspirin 325 mg tablet Take 1 tablet by mouth two times a day for 28 days. - ondansetron orally disintegrating (ZOFRAN ODT) 4 mg disintegrating tablet Take 1 tablet by mouth every 8 hours as needed for nausea/vomiting. - senna-docusate (SENNA-S) 8.6-50 mg per tablet Take 1 tablet by mouth once daily as needed for constipation. - docosahexaenoic acid/epa (FISH OIL ORAL) Take by mouth. - folic acid/multivit-min/lut ein (CENTRUM SILVER ORAL) Take by mouth. Problem List As Of Date 11/29/2023 Noted Resolved Valgus deformity of both great toes [M20.11, M2*07/14/2023 Metatarsus adductus of both feet [Q66.221, Q66.*07/14/2023 Incontinence of feces [R15.9] 06/15/2023 Former smoker [Z87.891] 07/18/2023 Melanoma (HCC) [C43.9] 07/18/2023 Encounter Status:Closed by JYOTSNA GOMEZ on 11/29/23 [facility] XR FOOT 3V AP/LAT/OBL RTon 0 11-29-2023 XR FOOT 3V AP/LAT/OBL RT * * *Final Report* * * DATE OF EXAM: Nov 29 2023 1:25PM CCX 5337 - XR FOOT 3V AP/LAT/OBL RT / PROCEDURE REASON: multiple diagnoses * * * * Physician Interpretation * * * * EXAMINATION: XR FOOT 3V AP/LAT/OBL RT HISTORY: post op f/u Valgus deformity of both great toes Valgus deformity of both great toes Hammertoe of right foot . TECHNIQUE: XR FOOT 3V AP/LAT/OBL RT Laterality: RIGHT Number of different views (projections): 3 M: XB_1 COMPARISON: 10/17/2023 RESULT/ IMPRESSION: Interval bunionectomy, first through third TMT fusion and K wire fixation of second toe. No acute fracture or bone destruction. Soft tissue swelling about the forefoot. No other significant abnormality. Telecommunications Project Manager: PSCB Transcribe Date/Time: Nov 29 2023 2:29P Dictated by : MARIOLA LAZO MD This examination was interpreted and the report reviewed and electronically signed by: MARIOLA LAZO MD on Nov 29 2023 2:31PM EST [id number] [facility] XR Foot - right AP and Later al and obliqueon 11-29-2023 IMPRESSION: Interval bunionectomy, first through third TMT fusion and K wire fixation of second toe. No acute fracture or bone destruction. Soft tissue swelling about the forefoot. No other significant abnormality. Telecommunications Project Manager: [facility] Transcribe Date/Time: Nov 29 2023 2:29P Dictated by : MARIOLA LAZO MD This examination was interpreted and the report reviewed and electronically signed by: MARIOLA LAZO MD on Nov 29 2023 2:31PM EST DIVISION OF RADIOLOGY * * *Final Report* * * DATE OF EXAM: Nov 29 2023 1:25PM CCX 5337 - XR FOOT 3V AP/LAT/OBL RT / PROCEDURE REASON: multiple diagnoses * * * * Physician Interpretation * * * * EXAMINATION: XR FOOT 3V AP/LAT/OBL RT HISTORY: post op f/u Valgus deformity of both great toes Valgus deformity of both great toes Hammertoe of right foot . TECHNIQUE: XR FOOT 3V AP/LAT/OBL RT Laterality: RIGHT Number of different views (projections): 3 M: XB_1 COMPARISON: 10/17/2023 RESULT/ DIVISION OF RADIOLOGY Provider, [facility] - 11/29/2023 * * *Final Report* * * DATE OF EXAM: Nov 29 2023 1:25PM CCX 5337 - XR FOOT 3V AP/LAT/OBL RT / PROCEDURE REASON: multiple diagnoses * * * * Physician Interpretation * * * * EXAMINATION: XR FOOT 3V AP/LAT/OBL RT HISTORY: post op f/u Valgus deformity of both great toes Valgus deformity of both great toes Hammertoe of right foot . TECHNIQUE: XR FOOT 3V AP/LAT/OBL RT Laterality: RIGHT Number of different views (projections): 3 M: XB_1 COMPARISON: 10/17/2023 RESULT/ IMPRESSION IMPRESSION: Interval bunionectomy, first through third TMT fusion and K wire fixation of second toe. No acute fracture or bone destruction. Soft tissue swelling about the forefoot. No other significant abnormality. Telecommunications Project Manager: YOVANY Transcribe Date/Time: Nov 29 2023 2:29P Dictated by : MARIOLA LAZO MD This examination was interpreted and the report reviewed and electronically signed by: MARIOLA LAZO MD on Nov 29 2023 2:31PM EST [facility] Radiology Study observation (narrative) [facility] XR Foot - right AP and Later al and obliqueOrdered By: Ccf Provider on 11-29-2023 [facility] ANES POSTPROC EVALon 023 ANES POSTPROC EVAL HNO ID: [id number] Author: Dakota Mejia MD Service: Anesthesiology Author Type: Anesthesiologist Type: Anesthesia Postprocedure Evaluation Filed: 11/22/2023 4:36 PM Note Text: POST ANESTHESIA EVALUATION NOTE : 1960 Procedure Summary Date: 11/22/23 Room / Location: [place] [address] / [facility] Anesthesia Start: 1403 Anesthesia Stop: 163 Procedures: BUNIONECTOMY W/1ST MTJ AND MCJ ARTHRODESIS,ANY METHOD (Right: Foot) CORRECTION HAMMER TOE ONE TOE UNILATERAL (Right: Toe) Diagnosis: Valgus deformity of both great toes Hammertoe of right foot (Valgus deformity of both great toes [M20.11, M20.12]) (Hammertoe of right foot [M20.41]) Surgeons: Lucille Patino MD Responsible Provider: Dakota Mejia MD Anesthesia Type: general ASA Status: 2 Anesthesia Type: general Airway Type: LMA Last Vitals Vitals Value Taken Time BP 155/83 11/22/23 1630 Temp 36.6 11/22/23 1636 Pulse 90 11/22/23 1635 Resp 13 11/22/23 1635 SpO2 97 % 11/22/23 1635 Vitals shown include unfiled device data. Post Anesthesia Patient Status Patient Evaluation: PACU. PACU/ICU Patient Condition: stable. Anticipated Disposition: phase 2 then home. Neurological Status: aware and responsive. Pulmonary Status: breathing comfortably on room air Airway Control: returned to baseline unsupported. Cardiovascular Status: stable. Pain Management: clinically adequate - multimodal analgesia pain management approach Postoperative Hydration: acceptable. Intraoperative Events: no significant anesthesia events Recommendation: continue current plan of care. Anesthesia Observations No Documentation SIGNATURE: Dakota Mejia MD PATIENT NAME: Rico Doe DATE: November 22, 2023 TIME: 4:36 PM CSN: [id number] [facility] ANES PRE-OPon 11-22-2023 ANES PRE-OP HNO ID: [id number] Author: Dakota Mejia MD Service: Anesthesiology Author Type: Anesthesiologist Type: Anesthesia Preprocedure Evaluation Filed: 11/22/2023 12:52 PM Note Text: ANESTHESIOLOGY DAY OF SURGERY NOTE : 1960 Procedure Information Date/Time: 11/22/23 1455 Procedures: BUNIONECTOMY W/1ST MTJ AND MCJ ARTHRODESIS,ANY METHOD (Right: Foot) - 1 1/2 hrs Gen, pop block big c-arm CORRECTION HAMMER TOE ONE TOE UNILATERAL (Right: Toe) [facility]: [facility] Surgeons: Lucille Patino MD Estimated body mass index is 26.45 kg/m? as calculated from the following: Height as of this encounter: 154.9 cm (5' 1). Weight as of this encounter: 63.5 kg (140 lb). Most recent hematocrit and potassium results: Hematocrit 40.3 07/17/2023 Potassium 4.7 07/17/2023 Relevant Problems No relevant active problems I - PHYSICAL EVALUATION AIRWAY Patient intubated: No. Tracheostomy tube not present Mallampati: II. TM distance: >3 FB. Neck ROM: full ROM without neurological symptoms. Mouth opening: adequate. Short neck: no. Thick neck: no Additional exam findings: no II - ANESTHESIA PLAN ASA Score: 2 Anesthetic Plan: MAC NPO Status: adequate Beta Jan Monitoring Plan Monitoring plan: standard ASA. Post Procedure Analgesic Plan Postoperative analgesic plan: parenteral or oral opioids and multimodal analgesia. Informed Consent Anesthetic risks, benefits, alternatives, personnel and consent discussed: yes. Patient / Responsible Republican agrees to proceed: yes Patient / Surrogate agrees to blood products: blood products not planned Significant changes in the patient condition since the History and Physical, not otherwise documented in primary service progress note: no. Vitals Value Taken Time BP 164/80 11/22/23 1230 Pulse 80 11/22/23 1230 Resp 16 11/22/23 1230 Temp 36.1 ?C (97 ?F) 11/22/23 1230 SpO2 99 % 11/22/23 1230 Facility-Administered Medications as of 11/22/2023 Medication Dose Route Frequency - lidocaine 10 mg/mL (1 %) 1-2 mg injection (XYLOCAINE) 0.1-0.2 mL INTRADERMAL PRN - lactated ringers iv infusion 5-30 mL/hr INTRAVENOUS CONTINUOUS - NaCl 0.9% iv flush bag 20 mL INTRAVENOUS PRN - ceFAZolin iv piggyback 2 g in D5W (iso-osmotic) 100 mL (ANCEF) 2 g INTRAVENOUS Pre-Op Once - [COMPLETED] acetaminophen 1,000 mg tab(s) (TYLENOL) 1,000 mg ORAL Pre-Op Once - midazolam (PF) 2 mg injection (VERSED) 2 mg INTRAVENOUS Pre-Op Once Followed by - midazolam (PF) 2 mg injection (VERSED) 2 mg INTRAVENOUS Pre-Op PRN Outpatient Medications as of 11/22/2023 Medication Sig - aspirin 325 mg tablet Take 1 tablet by mouth two times a day for 28 days. - HYDROcodone-acetamino phen (NORCO) 5-325 mg per tablet Take 1 tablet by mouth every 4 hours as needed for pain for up to 7 days. - ondansetron orally disintegrating (ZOFRAN ODT) 4 mg disintegrating tablet Take 1 tablet by mouth every 8 hours as needed for nausea/vomiting. - senna-docusate (SENNA-S) 8.6-50 mg per tablet Take 1 tablet by mouth once daily as needed for constipation. - docosahexaenoic acid/epa (FISH OIL ORAL) Take by mouth. - folic acid/multivit-min/lut ein (CENTRUM SILVER ORAL) Take by mouth. I have interviewed and examined the patient. I have reviewed the medical record and/or the pre-anesthesia evaluation, pertinent labs, and test results. This contains updated information obtained within 48 hours of Surgery/Procedure. SIGNATURE: Dakota Mejia MD PATIENT NAME: Rico Doe DATE: November 22, 2023 TIME: 12:51 PM CSN: [id number] [facility] BRIEF OP NOTon 11-22-2023 BRIEF OP NOT HNO ID: [id number] Author: Elodia Lao PA-C Service: Orthopaedic Surgery Author Type: Physician [employer] Type: Brief Op Note Filed: 11/22/2023 4:27 PM Note Text: Patient Name: Rico Doe Log ID: [id number] Surgery Date: 11/22/2023 Surgeon(s) and [employer]orer(s): Surgeon(s) and Role: * Lucille Patino MD - Primary * Nicholas Kessler DO - Fellow Physician [employer]orer: Elodia Lao PA-C Preoperative Diagnosis: Valgus deformity of both great toes [M20.11, M20.12] Hammertoe of right foot [M20.41] Procedures and Anesthesia: Procedure(s) and Anesthesia Type: * BUNIONECTOMY W/1ST MTJ AND MCJ ARTHRODESIS,ANY METHOD - General * CORRECTION HAMMER TOE ONE TOE UNILATERAL - General Findings: As detailed in operative report. Specimens/Implants: Implant Name Type Inv. Item Serial No. Utility Repairer Lot No. LRB No. Used Action LAPIPLASTY SPEEDPLATE RAPID COMPRESSION IMPLANT SK50 Implant [id number] Right 1 Implanted LAPIPLASTY SPEEDPLATE RAPID COMPRESSION IMPLANT SK50 Implant [id number] Right 1 Implanted WIRE ESAU 1.4IN STAINLESS STEEL 6IN FIXATION ORTHOP[employer]IC - [id number] Wire WIRE ESAU 1.4IN STAINLESS STEEL 6IN FIXATION ORTHOPEDIC [employer]G [employer] [id number] Right 1 Implanted LAPIPLASTY SPEEDPLATE RAPID COMPRESSION IMPLANT SK50 Implant [id number] Right 1 Implanted LAPIPLASTY SPEEDPLATE RAPID COMPRESSION IMPLANT SK50 Implant [id number] Right 1 Implanted Postop Diagnosis: * No post-op diagnosis entered * Estimated Blood Loss: 15cc DVT Prophylaxis: 325mg ASA twice daily starting POD1 Abx: Ancef Weight bearing: Nonweightbearing on the surgical extremity Wound Care: Keep splint intact until outpatient follow-up Pain: [place] Condition: Stable Disposition: PACU Signature: Elodia Lao PA-C Date: November 22, 2023 Time: 4:27 PM [facility] NURSING PROGon 11-22-2023 NURSING PROG HNO ID: [id number] Author: Jessica Santos RN Service: ? Author Type: Registered Nurse Type: Nursing Progress Note Filed: 11/22/2023 12:40 PM Note Text: PRE OP LEARNING ASSESSMENT PROCEDURE/SURGERY: SURGERY: right foot READINESS TO LEARN COGNITIVE ABILITY: Alert and oriented MOTIVATION TO LEARN: Eager FAMILY SUPPORT: High - Very involved in pt care PATIENT LEARNS BEST BY: Verbal Instruction FACTORS AFFECTING LEARNING: None PHYSICAL LIMITATIONS AFFECTING LEARNING: None Electronically Signed By: Jessica Santos RN In Department: [facility]BULATORY SURGERY - [facility] OPERATIVE NOon 11-22-2023 OPERATIVE NO HNO ID: [id number] Author: Lucille Patino MD Service: Orthopaedic Surgery Author Type: Physician Type: Operative Report Filed: 11/22/2023 4:42 PM Note Text: OPERATIVE/PROCEDURE REPORT LOG ID: [id number] Surgery/Procedure Date: 11/22/2023 Incision/Procedure Start Time: 2:40 PM Incision Close/Procedure End Time: 4:22 PM Surgeon(s)/Procedural ist(s) and [employer]orer(s): Surgeon(s) and Role: * Lucille Patino MD - Primary * Nciholas Kessler DO - Fellow Physician [employer]orer: Elodia Lao PA-C Procedure(s): Right lapidus for bunion (CPT 75880) Right 2nd and 3rd metatarsal osteotomies Right 2nd hammertoe correction Anesthesia: General Pre-Op/Pre-Procedure Diagnosis: Right hallux valgus, metatarsus adductus, hammertoe Post-Op/Post-Procedur e Diagnosis: Right hallux valgus, metatarsus adductus, hammertoe Estimated Blood Loss: 5 mls Specimens: None Implantable Devices: Treace speed plate x 4 Drains: None Complications: None I/primary surgeon/proceduralist performed the procedure with assistance. Indications: This is a 63 year old female who presented to clinic for evaluation of a right hallux valgus and hammertoe. I recommended operative treatment, in the form of a Right lapidus, adductoplasty and hammertoe correction. We discussed the risks and benefits of surgery, including but not limited to, bleeding, infection, damage to nerves and vessels, nonunion, malunion, hardware failure, DVT, need for further surgery, development of arthritis in the future and the risks of anesthesia. They understood all the risks, all other questions were answered, and consent was obtained. Details of Operative Procedure: The patient was met in the preanesthesia holding area. Her correct Right leg was identified and marked. She had a popliteal block performed by the anesthesiologist. She was then brought to the operating room, and transferred to the operating table. Gen. anesthesia was then induced. Patient then had a well-padded thigh tourniquet placed on the operative leg. A small bump was placed under the ipsilateral hip. The operative leg was then thoroughly cleansed with a chlorhexidine sponge and soap. The leg was then prepped and draped in the normal sterile fashion. Perioperative antibiotics were given. A timeout was then completed confirming the correct patient, operative site, participants, equipment, antibiotics. The operative extremity was then exsanguinated with an Esmarch and the tourniquet elevated to 250 mmHg. A dorsal incision was made over the 2nd and 3rd TMT joints. The skin and soft tissue was sharply incised. The joints were identified on fluoroscopy, and the joints opened. The cut block was placed, fluoroscopy confirmed placement, and the wedge cut was made. The bony fragments were removed and the bony surfaces fenestrated. The 2nd and 3rd TMT joints were then reduced and held in place. Correction was confirmed on fluoroscopy. The joints were then plated dorsally. Attention was then turned to the 1st TMT joint. A dorsal incision in the first dorsal webspace was made. The capsule was incised, and using the seam ripper tool, the lateral structures were released. Attention was then turned to the dorsal-medial aspect of the foot. A dorsal-medial longitudinal incision was made. The skin and subcutaneous tissues were sharply divided, taking care to protect the dorsal cutaneous nerve. Attention was first turned to the 1st TMT joint. The joint was exposed, and confirmed on fluoroscopy. The soft tissue was completely released off the tissue. The joystick was placed in the medial metatarsal, and the 3-in-1 cut guide from the lapiplasty system was placed in the joint. The external compression guide was placed on th medial aspect of the 1st metatarsal. The 1st metatarsal was reduced both with adduction of the 1st metatarsal as well as rotation. Once the position was acceptable, and sesamoids were reduced, everything was pinned in place. Fluoroscopy again confirmed position of the metatarsal and cuts. The metatarsal and cuneiform cuts were made. Cut guides and positioner were removed at this point. Bone cuts were removed, and the base of the metatarsal and cuneiform were fenestrated. The compression clamp was then placed on the pins, and the 1st TMT joint reduced. Fluoroscopy confirmed position of the 1st metatarsal, reduction of the hallux valgus and appropriate compression of the joint. Two wires were crossed across the joint to hold the reduction. At this point, the dorsal and medial plates were placed across the 1st TMT joint. Finally, a osteoclasis was performed of the 2nd toe, which was then straight and reduced at the MTP joint. It was then pinned to the 2nd metatarsal. Final fluoroscopic images were taken. The tourniquet was then released. The wounds were copiously irrigated. The subcutaneous tissue closed with 3-0 mon (more content not included)... [facility] XR FOOT 3V AP/LAT/OBL RTon 1 01-23-2023 XR FOOT 3V AP/LAT/OBL RT * * *Final Report* * * DATE OF EXAM: Nov 22 2023 4:07PM MMT 5337 - XR FOOT 3V AP/LAT/OBL RT / PROCEDURE REASON: BUNIONECTOMY * * * * Physician Interpretation * * * * XR FOOT 3V AP/LAT/OBL RT TECHNIQUE: 2 images: 2 views, obtained under fluoroscopic guidance Fluoroscopy time = 2:42 (minutes:seconds). COMPARISON: 04/25/2023 INDICATION: BUNIONECTOMY RESULT: Fluoroscopy is provided. Surgical materials project over the foot. - IMPRESSION: See surgeon's report for complete details of the procedure. Telecommunications Project Manager: YOVANY Transcribe Date/Time: Nov 22 2023 4:14P Dictated by : MAHIN MONSON MD This examination was interpreted and the report reviewed and electronically signed by: MAHIN MONSON MD on Nov 22 2023 4:15PM EST [id number] [facility] XR Foot - left AP and Latera l and obliqueon 09-07-2023 IMPRESSION: EXPECTED POSTOPERATIVE APPEARANCE Telecommunications Project Manager: PSCB Transcribe Date/Time: Sep 07 2023 11:20A Dictated by : BLOSSOM WRIGHT MD This examination was interpreted and the report reviewed and electronically signed by: BLOSSOM WRIGHT MD on Sep 07 2023 11:21AM [facility] DIVISION OF RADIOLOGY * * *Final Report* * * DATE OF EXAM: Sep 07 2023 10:41AM CCX 5336 - XR FOOT 3V AP/LAT/OBL LT / PROCEDURE REASON: multiple diagnoses * * * * Physician Interpretation * * * * HISTORY (as given from clinical provider): Valgus deformity of both great toes Valgus deformity of both great toes . Additional history provided by the performing technologist (if any): POST OP TECHNIQUE: XR FOOT 3V AP/LAT/OBL LT COMPARISON: 08/17/2023; 08/13/2023; 04/25/2023 RESULT: Arthrodesis of the first, second and third tarsometatarsal joints. Using surgical plates and screws. Intact hardware. Solid osseous fusion. No other significant abnormality. DIVISION OF RADIOLOGY Provider, [facility] - 09/07/2023 * * *Final Report* * * DATE OF EXAM: Sep 07 2023 10:41AM CCX 5336 - XR FOOT 3V AP/LAT/OBL LT / PROCEDURE REASON: multiple diagnoses * * * * Physician Interpretation * * * * HISTORY (as given from clinical provider): Valgus deformity of both great toes Valgus deformity of both great toes . Additional history provided by the performing technologist (if any): POST OP TECHNIQUE: XR FOOT 3V AP/LAT/OBL LT COMPARISON: 08/17/2023; 08/13/2023; 04/25/2023 RESULT: Arthrodesis of the first, second and third tarsometatarsal joints. Using surgical plates and screws. Intact hardware. Solid osseous fusion. No other significant abnormality. IMPRESSION IMPRESSION: EXPECTED POSTOPERATIVE APPEARANCE Telecommunications Project Manager: [facility] Transcribe Date/Time: Sep 07 2023 11:20A Dictated by : BLOSSOM WRIGHT MD This examination was interpreted and the report reviewed and electronically signed by: BLOSSOM WRIGHT MD on Sep 07 2023 11:21AM EST [facility] Radiology Study observation (narrative) [facility] XR Foot - left AP and Latera l and obliqueOrdered By: Ccf Provider on 09-07-2023 [facility] XR Foot - left AP and Latera l and obliqueon 08-17-2023 IMPRESSION: Status post first through third TMT joint arthrodesis without complication. Telecommunications Project Manager: PSCB Transcribe Date/Time: Aug 17 2023 1:20P Dictated by : MAURO HICKMAN MD This examination was interpreted and the report reviewed and electronically signed by: MAURO HICKMAN MD on Aug 17 2023 1:22PM EST DIVISION OF RADIOLOGY * * *Final Report* * * DATE OF EXAM: Aug 17 2023 11:14AM CCX 5336 - XR FOOT 3V AP/LAT/OBL LT / PROCEDURE REASON: multiple diagnoses * * * * Physician Interpretation * * * * HISTORY: Valgus deformity of both great toes Valgus deformity of both great toes TECHNIQUE: 3 views left foot COMPARISON: 08/03/2023 RESULT: Again seen is postsurgical change of arthrodesis at the first, second and third TMT joints. The hardware is well aligned without periprosthetic fracture or lucency. No acute fracture or dislocation. Small plantar calcaneal enthesophyte. Similar-appearing soft tissue swelling of the forefoot adjacent to the first metatarsal head medially as well as dorsally. DIVISION [facility]OLOGY [facility] * * *Final Report* * * DATE OF EXAM: Aug 17 2023 11:14AM CCX 5336 - XR FOOT 3V AP/LAT/OBL LT / PROCEDURE REASON: multiple diagnoses * * * * Physician Interpretation * * * * HISTORY: Valgus deformity of both great toes Valgus deformity of both great toes TECHNIQUE: 3 views left foot COMPARISON: 08/03/2023 RESULT: Again seen is postsurgical change of arthrodesis at the first, second and third TMT joints. The hardware is well aligned without periprosthetic fracture or lucency. No acute fracture or dislocation. Small plantar calcaneal enthesophyte. Similar-appearing soft tissue swelling of the forefoot adjacent to the first metatarsal head medially as well as dorsally. IMPRESSION IMPRESSION: Status post first through third TMT joint arthrodesis without complication. Telecommunications Project Manager: [facility] Transcribe Date/Time: Aug 17 2023 1:20P Dictated by : MAURO HICKMAN MD This examination was interpreted and the report reviewed and electronically signed by: MAURO HICKMAN MD on Aug 17 2023 1:22PM EST [facility] Radiology Study observation (narrative) [facility] XR Foot - left AP and Latera l and obliqueOrdered By: Ccf Provider on 08-17-2023 [facility] XR Foot - left AP and Latera l and obliqueon 08-03-2023 IMPRESSION: Status post first through third TMT joint arthrodesis without complication. Telecommunications Project Manager: YOVANY Transcribe Date/Time: Aug 03 2023 11:07A Dictated by : COLLEEN DUARTE DO This examination was interpreted and the report reviewed and electronically signed by: TIAN CHAPPELL MD on Aug 03 2023 1:55PM [facility] DIVISION OF RADIOLOGY * * *Final Report* * * DATE OF EXAM: Aug 03 2023 10:54AM CCX 5336 - XR FOOT 3V AP/LAT/OBL LT / PROCEDURE REASON: multiple diagnoses * * * * Physician Interpretation * * * * EXAMINATION / TECHNIQUE: XR FOOT 3V AP/LAT/OBL LT PATIENT/TECHNOLOGIST PROVIDED HISTORY: CLINICAL INFORMATION ( PROVIDED BY ORDERING CLINICIAN) : Valgus deformity of both great toes 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 COMPARISON: Bilateral feet x-ray 04/25/2023. RESULT: Status post arthrodesis at the TMT joints of toes 1-3. The hardware is well aligned without periprosthetic fracture or lucency. No acute fracture or dislocation. Pes planus deformity. Plantar calcaneal enthesophyte. 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 COMPARISON: Bilateral feet x-ray 04/25/2023. RESULT: Status post arthrodesis at the TMT joints of toes 1-3. The hardware is well aligned without periprosthetic fracture or lucency. No acute fracture or dislocation. Pes planus deformity. Plantar calcaneal enthesophyte. IMPRESSION IMPRESSION: Status post first through third TMT joint arthrodesis without complication. Telecommunications Project Manager: PSCB Transcribe Date/Time: Aug 03 2023 11:07A Dictated by : COLLEEN DUARTE DO This examination was interpreted and the report reviewed and electronically signed by: TIAN CHAPPELL MD on Aug 03 2023 1:55PM EST [facility] Radiology Study observation (narrative) [facility] XR Foot - left AP and Latera l and obliqueOrdered By: Ccf Provider on 08-03-2023 [facility] ANES POSTPROC EVALon 023 ANES POSTPROC EVAL HNO ID: [id number] Author: Lucille Cutler MD Service: Anesthesiology Author Type: Anesthesiologist Type: Anesthesia Postprocedure Evaluation Filed: 07/26/2023 1:17 PM Note Text: POST ANESTHESIA EVALUATION NOTE : 1960 Procedure Summary Date: 07/26/23 [facility] Anesthesia Start: 1005 Anesthesia Stop: 1239 Procedures: BUNIONECTOMY W/1ST MTJ AND MCJ ARTHRODESIS,ANY METHOD (Left: Foot) OSTEOTOMY METATARSAL OTHER THAN FIRST METATARSAL EACH (Left: Foot) Diagnosis: 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 (Valgus deformity of both great toes [M20.11, M20.12]) (Metatarsus adductus of both feet [Q66.221, Q66.222]) Surgeons: Lucille Patino MD Responsible Provider: Lucille Cutler MD Anesthesia Type: general, regional ASA Status: 2 Anesthesia Type: general, regional Airway Type: LMA Last Vitals Vitals Value Taken Time BP 154/71 07/26/23 1300 Temp 36.2 ?C (97.2 ?F) 07/26/23 1300 HR SpO2 80 07/26/23 1300 Resp 15 07/26/23 1300 SpO2 98 % 07/26/23 1300 Post Anesthesia Patient Status Patient Evaluation: PACU. PACU/ICU Patient Condition: stable. Anticipated Disposition: phase 2 then home. Neurological Status: aware and responsive. Pulmonary Status: breathing comfortably on room air Airway Control: returned to baseline unsupported. Cardiovascular Status: stable. Pain Management: clinically adequate - multimodal analgesia pain management approach Postoperative Hydration: acceptable. Intraoperative Events: no significant anesthesia events Recommendation: continue current plan of care. Anesthesia Observations No Documentation SIGNATURE: Lucille Cutler MD PATIENT NAME: iRco Doe DATE: July 26, 2023 TIME: 1:17 PM CSN: [id number] [facility] ANES PRE-OPon 07-26-2023 ANES PRE-OP HNO ID: [id number] Author: Lucille Cutler MD Service: Anesthesiology Author Type: Anesthesiologist Type: Anesthesia Preprocedure Evaluation Filed: 07/26/2023 8:45 AM Note Text: ANESTHESIOLOGY DAY OF SURGERY NOTE : 1960 Procedure Information Date/Time: 07/26/23 1045 Procedures: BUNIONECTOMY W/1ST MTJ AND MCJ ARTHRODESIS,ANY METHOD (Left: Foot) - left lapidus procedures, metatarsal osteotomy *General and Pop Block OSTEOTOMY METATARSAL FIRST METATARSAL (Left: Foot) [facility] Surgeons: Lucille Patino MD Estimated body mass index is 27.59 kg/m? as calculated from the following: Height as of 07/17/23: 154.9 cm (5' 1). Weight as of 07/17/23: 66.2 kg (146 lb). Most recent hematocrit and potassium results: Hematocrit 40.3 07/17/2023 Potassium 4.7 07/17/2023 Relevant Problems No relevant active problems I - PHYSICAL EVALUATION AIRWAY Patient intubated: No. Tracheostomy tube not present Mallampati: II. TM distance: >3 FB. Neck ROM: full ROM without neurological symptoms. Mouth opening: adequate. Short neck: no. Thick neck: no DENTAL Dental findings: teeth intact. Additional exam findings: no II - ANESTHESIA PLAN ASA Score: 2 Anesthetic Plan: general and regional Airway type: LMA NPO Status: adequate Anesthetic plan additional comments: Heart: regular rate and rhythm Chest: CTA bilaterally . Beta Jan Monitoring Plan Monitoring plan: Standard ASA. Post Procedure Analgesic Plan Postoperative analgesic plan: parenteral or oral opioids, peripheral nerve block and multimodal analgesia. Informed Consent Anesthetic risks, benefits, alternatives, personnel and consent discussed: yes. Patient / Responsible Republican agrees to proceed: yes Patient / Surrogate agrees to blood products: yes DNR status not reviewed with patient and/or family prior to surgery. Significant changes in the patient condition since the History and Physical, not otherwise documented in primary service progress note: no. Potential Anesthesia issues that may suggest increased risk of complications or contraindication to planned procedure: none. No vitals data found for the desired time range. Facility-Administered Medications as of 07/26/2023 Medication Dose Route Frequency - lidocaine 10 mg/mL (1 %) 1-2 mg injection (XYLOCAINE) 0.1-0.2 mL INTRADERMAL PRN - lactated ringers iv infusion 5-30 mL/hr INTRAVENOUS CONTINUOUS - NaCl 0.9% iv flush bag 20 mL INTRAVENOUS PRN - ceFAZolin iv piggyback 2 g in D5W (iso-osmotic) 100 mL (ANCEF) 2 g INTRAVENOUS Pre-Op Once - midazolam (PF) 6 mg injection (VERSED) 6 mg INTRAVENOUS ONCE No current outpatient medications on file as of 07/26/2023. I have interviewed and examined the patient. I have reviewed the medical record and/or the pre-anesthesia evaluation, pertinent labs, and test results. This contains updated information obtained within 48 hours of Surgery/Procedure. 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 Item Serial No. Utility Repairer Lot No. LRB No. Used Action FASTPITCH HIGH PITCH LOCKING SCREW 2.7MM X 12/14MM Screw [id number] Left 1 Implanted FASTPITCH HIGH PITCH LOCKING SCREW 2.7MM X 12/14MM Screw [id number] Left 1 Implanted ANATOMIC MULTIPLANAR IMPLANTS SK39 Plate [id number] Left 1 Implanted LAPIPLASTY LESSER TMT FIXATION PACK S1 PLATE W/SCREWS Screw [id number] Left 2 Implanted Estimated Blood Loss: 5 mls Specimen(s): None Drains: None Complications: none Rico Doe tolerated the procedure well and was returned to the recovery room in stable condition. Plan: PT/OT (weight bearing/ROM): NWB LLE x 6 weeks. Diet: ADAT. Young: n/a. Dressing: Adaptic, 4x4s, ABDs, webril, posterior triplane splint, NIDHI wrap. Pain Control: Multimodal. Antibiotics: Pre-op Ancef. DVT Prophylaxis: ASA 325 BID x 6 weeks. Follow up in 1 week for wound check. David Reardon DO Department of Orthopaedic Surgery Resident Physician [id number] July 26, 2023 12:39 PM [facility] NURSING PROGon 07-26-2023 NURSING PROG HNO ID: [id number] Author: Slime Hearn RN Service: ? Author Type: Registered Nurse Type: Nursing Progress Note Filed: 07/26/2023 12:41 PM Note Text: POST OP LEARNING RESPONSE INSTRUCTION PROVIDED TO: Patient and family member METHOD OF INSTRUCTION: Written instruction - handouts Verbal instruction PATIENT / FAMILY RESPONSE: Verbalizes understanding of: discharge instructions FOLLOW-UP PLAN: Patient instructed to call with any further issues SUPPLEMENTAL MATERIAL: None REFERRAL (RECOMMENDATION): None Electronically Signed By: Slime Hearn RN In Department: [facility] NURSING PROG HNO ID: [id number] Author: Flores Waters RN Service: Nursing Author Type: Registered Nurse Type: Nursing Progress Note Filed: 07/26/2023 9:12 AM Note Text: PRE OP LEARNING ASSESSMENT PROCEDURE/SURGERY: SURGERY: left foot READINESS TO LEARN COGNITIVE ABILITY: Alert and oriented MOTIVATION TO LEARN: Eager Interested FAMILY SUPPORT: High - Very involved in pt care PATIENT LEARNS BEST BY: Verbal Instruction FACTORS AFFECTING LEARNING: None PHYSICAL LIMITATIONS AFFECTING LEARNING: None Electronically Signed By: Flores Waters RN In Department: [facility] OPERATIVE NOon 07-26-2023 OPERATIVE NO HNO ID: [id number] Author: Lucille Patino MD Service: Orthopaedic Surgery Author Type: Physician Type: Operative Report Filed: 07/26/2023 9:33 PM Note Text: OPERATIVE/PROCEDURE REPORT LOG ID: [id number] Surgery/Procedure Date: 07/26/2023 Incision/Procedure Start Time: 10:37 AM Incision Close/Procedure End Time: 12:30 PM Surgeon(s)/Procedural ist(s) and [employer] Laborer(s): Surgeon(s) and Role: * Lucille Patino MD - Primary * David Reardon DO - Resident - Assisting * Charan Perez MD - Resident - Assisting * Nicholas Kessler DO - Fellow No Additional Staff Procedure(s): Left lapidus for bunion (CPT 60035) Left 2nd and 3rd metatarsal osteotomies Anesthesia: General Pre-Op/Pre-Procedure Diagnosis: Left hallux valgus, metatarsus adductus Post-Op/Post-Procedur e Diagnosis: Left hallux valgus, metatarsus adductus Estimated Blood Loss: 5 mls Specimens: None Implantable Devices: Lapiplasty, aductoplasty plates Drains: None Complications: None I/primary surgeon/proceduralist performed the procedure with assistance. Indications: This is a 63 year old female who presented to clinic for evaluation of hallux valgus and metatarsus adductus. I recommended operative treatment, in the form of a Left lapiplasty and aductoplasty. We discussed the risks and benefits of surgery, including but not limited to, bleeding, infection, damage to nerves and vessels, nonunion, malunion, hardware failure, DVT, need for further surgery, development of arthritis in the future and the risks of anesthesia. They understood all the risks, all other questions were answered, and consent was obtained. Details of Operative Procedure: The patient was met in the preanesthesia holding area. Her correct Left leg was identified and marked. She had a popliteal block performed by the anesthesiologist. She was then brought to the operating room, and transferred to the operating table. Gen. anesthesia was then induced. Patient then had a well-padded thigh tourniquet placed on the operative leg. A small bump was placed under the ipsilateral hip. The operative leg was then thoroughly cleansed with a chlorhexidine sponge and soap. The leg was then prepped and draped in the normal sterile fashion. Perioperative antibiotics were given. A timeout was then completed confirming the correct patient, operative site, participants, equipment, antibiotics. The operative extremity was then exsanguinated with an Esmarch and the tourniquet elevated to 250 mmHg. A dorsal incision was made over the 2nd and 3rd TMT joints. The skin and soft tissue was sharply incised. The joints were identified on fluoroscopy, and the joints opened. The cut block was placed, fluoroscopy confirmed placement, and the wedge cut was made. The bony fragments were removed and the bony surfaces fenestrated. The 2nd and 3rd TMT joints were then reduced and held in place. Correction was confirmed on fluoroscopy. The joints were then plated dorsally. Attention was then turned to the 1st TMT joint. A dorsal incision in the first dorsal webspace was made. The capsule was incised, and using the seam ripper tool, the lateral structures were released. Attention was then turned to the dorsal-medial aspect of the foot. A dorsal-medial longitudinal incision was made. The skin and subcutaneous tissues were sharply divided, taking care to protect the dorsal cutaneous nerve. Attention was first turned to the 1st TMT joint. The joint was exposed, and confirmed on fluoroscopy. The soft tissue was completely released off the tissue. The joystick was placed in the medial metatarsal, and the 3-in-1 cut guide from the lapiplasty system was placed in the joint. The external compression guide was placed on th medial aspect of the 1st metatarsal. The 1st metatarsal was reduced both with adduction of the 1st metatarsal as well as rotation. Once the position was acceptable, and sesamoids were reduced, everything was pinned in place. Fluoroscopy again confirmed position of the metatarsal and cuts. The metatarsal and cuneiform cuts were made. Cut guides and positioner were removed at this point. Bone cuts were removed, and the base of the metatarsal and cuneiform were fenestrated. The compression clamp was then placed on the pins, and the 1st TMT joint reduced. Fluoroscopy confirmed position of the 1st metatarsal, reduction of the hallux valgus and appropriate compression of the joint. Two wires were crossed across the joint to hold the reduction. At this point, the dorsal and lateral placed were across the 1st TMT joint. Splay test was completed, which demonstrated motion between the medial and middle cuneiforms, therefore, an intercuneiform screw was placed. Final fluoroscopic images were taken. The tourniquet was then released. The wounds were copiously irrigated. The subcutaneous tissue closed with 3-0 monocryl, and skin incisions (more content not included)... [facility] Basic metabolic 2000 panelon 07-17-2023 Anion gap [Moles/Vol] 9 mmol/L 9 - 18 mmol/L [facility] Calcium [Mass/Vol] 9.8 mg/dL 8.5 - 10. 2 mg/dL [facility] Chloride [Moles/Vol] 102 mmol/L 97 - 10 5 mmol/L [facility] CO2 [Moles/Vol] 25 mmol/L 22 - 30 mmol/L [facility] Creatinine [Mass/Vol] 0.94 mg/dL 0.58 - 0.96 mg/dL [facility] Estimated Glomerular Filtration Rate 67 mL/min/1.73m >=60 mL/min/1.73m [facility] Glucose [Mass/Vol] 114 mg/dL High 74 - 99 mg/dL [facility] Potassium [Moles/Vol] 4.7 mmol/L 3.7 - 5.1 mmol/L [facility] Sodium [Moles/Vol] 136 mmol/L 136 - 144 mmol/L [facility] Urea nitrogen [Mass/Vol] 20 mg/dL 7 - 21 mg/dL [facility] CBC W Auto Differential pane l (Bld)on 07-17-2023 Basophils (Bld) [#/Vol] 0.11 10*3/uL High <0.11 k/uL [facility] Basophils/100 WBC (Bld) 1.6 % [facility] Differential cell count method Nom (Bld) Auto [facility] Eosinophils (Bld) [#/Vol] 0.22 10*3/uL <0.46 k/uL [facility] Eosinophils/100 WBC (Bld) 3.3 % [facility] Erythrocyte distribution width (RBC) [Ratio] 12.7 % 11.5 - 15.0 % [facility] Hematocrit (Bld) [Volume fraction] 40.3 % 36.0 - 46.0 % [facility] Hemoglobin (Bld) [Mass/Vol] 13.6 g/dL 11.5 - 15.5 g/dL [facility] Immature granulocytes (Bld) [#/Vol] <0.10 k/uL [facility] Immature granulocytes/100 WBC (Bld) 0.1 % [facility] Lymphocytes (Bld) [#/Vol] 1.81 10*3/uL 1.00 - 4.00 k/uL [facility] Lymphocytes/100 WBC (Bld) 26.9 % [facility] MCH (RBC) [Entitic mass] 30.0 pg 26.0 - 34.0 pg [facility] MCHC (RBC) [Mass/Vol] 33.7 g/dL 30.5 - 36.0 g/dL [facility] MCV (RBC) [Entitic vol] 89.0 fL 80.0 - 100.0 fL [facility] Monocytes (Bld) [#/Vol] 0.39 10*3/uL <0.87 k/uL [facility] Monocytes/100 WBC (Bld) 5.8 % [facility] Neutrophils (Bld) [#/Vol] 4.19 10*3/uL 1.45 - 7.50 k/uL [facility] Neutrophils/100 WBC (Bld) 62.3 % [facility] Nucleated RBC (Bld) [#/Vol] <0.01 k/uL [facility] Nucleated RBC/100 WBC (Bld) [Ratio] 0.0 /100 WBC [facility] Platelet mean volume (Bld) [Entitic vol] 9.4 fL 9.0 - 12.7 fL [facility] Platelets (Bld) [#/Vol] 227 10*3/uL 150 - 400 k/uL [facility] RBC (Bld) [#/Vol] 4.53 10*6/uL 3.90 - 5.2 0 m/uL [facility] WBC (Bld) [#/Vol] 6.73 10*3/uL 3.70 - 11. 00 k/uL [facility] VITAMIN D 25 HYDROXYon 04-25 25-hydroxyvitamin D3 [Mass/Vol] 55.7 ng/mL 31.0 - 80.0 ng/mL [facility] XR FOOT GENERAL 3V AP/LAT/OB L BILATERALon 04-25-2023 [facility] XR HAND MINIMUM 3 VIEWS LEFT on 08-08-2022 XR HAND MINIMUM 3 VIEWS LEFT ORIGINAL EXAMINATION: THREE XRAY VIEWS OF THE LEFT HAND08/08/2022 2:54 pm COMPARISON: None HISTORY: ORDERING SYSTEM PROVIDED HISTORY: Reason for Exam: pain FINDINGS: There is no acute fracture or dislocation. There is no significant soft tissue swelling. There is no radiopaque foreign body. No subcutaneous gas. The articulations are intact. IMPRESSION: No acute finding. Interpreted by: Vince Rayo DO Preliminary Report By: Vince Rayo DO Electronically signed By Vince Rayo DO Dictated Date: 08/08/2022 2:55:48 PM Prelim Date: 08/08/2022 2:57:16 PM Sign Date: 08/08/2022 2:57:16 PM Ordering Provider: JUAN LUNDBERG Pending Sale To [facility] ([place]) Vital Signs Date Time Vital Sign Value Performing Clinician Facility 07-17-2023 10:34-0400 Body height 154.9 cm [facility] 1 Work Phone: [facility] 07-17-2023 10:34-0400 Body temperature 98.91 [degF] [facility] Work Phone: [facility] 07-17-2023 10:34-0400 Body weight 66.22 kg [facility] Work Phone: [facility] 07-17-2023 10:34-0400 Diastolic blood pressure 88 mm[Hg] [facility] Work Phone: [facility] 07-17-2023 10:34-0400 Heart rate 85 /min [facility] Work Phone: [facility] 07-17-2023 10:34-0400 Respiratory rate 16 /min [facility] Work Phone: [facility] 07-17-2023 10:34-0400 SaO2% (BldA) [Mass fraction] 98 % [facility] Work Phone: [facility] 07-17-2023 10:34-0400 Systolic blood pressure 142 mm[Hg] [facility] Work Phone: [facility] 07-06-2023 12:50-0400 Body temperature 97.8 [degF] [facility] 07-06-2023 12:50-0400 Diastolic blood pressure 85 mm[Hg] [facility] 07-06-2023 12:50-0400 Heart rate 71 /min [facility] 07-06-2023 12:50-0400 Respiratory rate 16 /min [facility] 07-06-2023 12:50-0400 SaO2% (BldA) [Mass fraction] 97 % [facility] 07-06-2023 12:50-0400 Systolic blood pressure 146 mm[Hg] [facility] 07-06-2023 09:41-0400 Body height 154.94 cm [facility] 07-06-2023 09:41-0400 Body mass index (BMI) [Ratio] 26.6 kg/m2 [facility] 07-06-2023 09:41-0400 Body weight 64 kg [facility] 06-15-2023 12:15-0400 Body temperature 98.5 [degF] [facility] 06-15-2023 12:15-0400 Diastolic blood pressure 108 mm[Hg] [facility] 06-15-2023 12:15-0400 Heart rate 79 /min [facility] 06-15-2023 12:15-0400 Respiratory rate 16 /min [facility] 06-15-2023 12:15-0400 SaO2% (BldA) [Mass fraction] 100 % [facility] 06-15-2023 12:15-0400 Systolic blood pressure 166 mm[Hg] [facility] 06-15-2023 10:04-0400 Body height 154.94 cm [facility] 06-15-2023 10:04-0400 Body mass index (BMI) [Ratio] 26.9 kg/m2 [facility] 06-15-2023 10:04-0400 Body weight 64.77 kg [facility] 07-28-2022 11:37-0400 Body height 155 cm MAG LARSEN MD [facility] 07-28-2022 11:37-0400 Body temperature 98.42 [degF] MAG LARSEN MD [facility] 07-28-2022 11:37-0400 Body weight 60.5 kg MAG LARSEN MD [facility] 07-28-2022 11:37-0400 Diastolic blood pressure 90 mm[Hg] MAG LARSEN MD [facility] 07-28-2022 11:37-0400 Heart rate 101 /min AMG LARSEN MD [facility] 07-28-2022 11:37-0400 Respiratory rate 16 /min MAG LARSEN MD [facility] 07-28-2022 11:37-0400 Systolic blood pressure 157 mm[Hg] MAG LARSEN MD [facility] Encounters Encounter Date Encounter Type Care Provider Facility Start: 06-17-2025 ambulatory Dougie Thomas Facility :[facility] Start: 06-12-2025 ambulatory Rose Finnegan Facility: [facility] Start: 06-04-2025 End: 06-04-[address] Dougie Thomas DO -[facility] Work Phone: Start: 06-04-2025 End: 06-04-2025 ambulatory Rose Finnegan ELECT[employer]UMENT [employer]IC[employer] Work Phone: -[facility] Start: 06-04-2025 Registered Recurring Rose Finnegan [facility] -Physical Therapy Work Phone: Start: 02-05-2025 End: 02-05-2025 ambulatory ELI VIOLETA SKILLED NURSING CASE MANAGER-[employer]IL [employer]ICKER Facility:[facility] Start: 01-27-2025 End: 01-27-2025 ambulatory Rose Finnegan Facility:[facility] Start: 01-14-2025 End: 01-14-2025 ambulatory ROSE FINNEGAN SKILLED NURSING CASE MANAGER-NAIL STICKER [facility] [facility] Start: 01-14-2025 End: 01-14-2025 Patient encounter procedure ROSE FINNEGAN SKILLED NURSING CASE MANAGER-NAIL STICKER [facility] Start: 01-07-2025 End: 01-07-2025 ambulatory ROSE L FINNEGAN SKILLED NURSING CASE MANAGER-NAIL STICKER Facility:[facility] Start: 01-07-2025 End: 01-07-2025 Patient encounter procedure ROSE FINNEGAN SKILLED NURSING CASE MANAGER-NAIL STICKER [facility] Start: 11-21-2024 End: 11-21-2024 Office outpatient visit 15 minutes Lucille Patino MD Work Phone: Orthopaedics Comment on above: Hallux valgus of lef t foot (Primary Dx); Hallux valgus of right foot Start: 11-21-2024 End: 11-21-2024 ambulatory LUCILLE PATINO Facility:[facility] Start: 11-21-2024 End: 11-21-2024 Subsequent hospital visit by physician Xr [facility] Work Phone: Radiology Comment on above: Postoperative visit [Z48.89] Start: 11-06-2024 End: 11-06-2024 ambulatory Rose Finnegan Facility:[facility] Start: 09-23-2024 End: 09-23-2024 ambulatory Dougie Thomas Facility:[facility] Start: 05-23-2024 End: 05-23-2024 Office outpatient visit 15 minutes Lucille Patino MD Work Phone: Orthopaedics Comment on above: Postoperative visit (Primary Dx); Hallux valgus of left foot; Hallux valgus of right foot Start: 05-23-2024 End: 05-23-2024 ambulatory LUCILLE PATINO Facility:[facility] Start: 05-23-2024 End: 05-23-2024 Subsequent hospital visit by physician Xr [facility] Work Phone: Radiology Comment on above: Hallux valgus of lef t foot [M20.12] Start: 02-13-2024 End: 02-13-2024 Postop follow up visit related to original px Lucille Patino MD Work Phone: Orthopaedics Comment on above: Hallux valgus of lef t foot (Primary Dx); Hallux valgus of right foot Start: 02-13-2024 End: 02-13-2024 ambulatory LUCILLE PATINO Facility:[facility] Start: 02-13-2024 End: 02-13-2024 Subsequent hospital visit by physician Xr [facility] Work Phone: Radiology Comment on above: Valgus deformity of both great toes [M20.11, M20.12] Start: 02-06-2024 End: 02-06-2024 ambulatory Vinay Rodriguez PT, DPT [facility] Physical Therapy Comment on above: Valgus deformity of both great toes (Primary Dx); Hammertoe of right foot; Gait abnormality Start: 01-30-2024 End: 01-30-2024 ambulatory VINAY RODRIGUEZ Facility:[facility] Start: 01-23-2024 End: 01-23-2024 ambulatory Vinay Rodriguez PT, DPT [facility] Physical Therapy Comment on above: Valgus deformity of both great toes (Primary Dx); Hammertoe of right foot; Gait abnormality Start: 01-16-2024 End: 01-16-2024 ambulatory Vinay Rodriguez PT, DPT [facility] Physical Therapy Comment on above: Valgus deformity of both great toes (Primary Dx); Hammertoe of right foot; Gait abnormality Start: 01-08-2024 End: 01-08-2024 ambulatory Vinay Rodriguez PT, DPT [facility] Physical Therapy Comment on above: Gait abnormality (Pr imary Dx); Valgus deformity of both great toes; Hammertoe of right foot Start: 01-03-2024 End: 01-03-2024 Postop follow up visit related to original px Elodia Lao PA-C Work Phone: Orthopaedics Comment on above: Valgus deformity of both great toes (Primary Dx); Hammertoe of right foot; Postoperative visit Start: 01-03-2024 End: 01-03-2024 ambulatory ELODIA LAO Facility:[facility] Start: 01-03-2024 End: 01-03-2024 Subsequent hospital visit by physician Swapnil [facility] Work Phone: Radiology Comment on above: Valgus deformity of both great toes [M20.11, M20.12] Start: 12-12-2023 End: 12-12-2023 ambulatory ELODIA LAO Facility:[facility] Start: 11-29-2023 End: 11-29-2023 ambulatory LUCILLE PATINO Facility:[facility] Start: 11-29-2023 End: 11-29-2023 Subsequent hospital visit by physician Swapnil [facility] Work Phone: Radiology Comment on above: Valgus deformity of both great toes [M20.11, M20.12] Start: 11-22-2023 End: 11-22-2023 ambulatory LUCILLE PATINO Facility:[facility] Start: 11-08-2023 Telephone encounter Lucille Patino MD Work Phone: [facility] Comment on above: Insurance Authorizat ion Start: 10-27-2023 ambulatory Lucille Patino MD Work Phone: Orthopaedics Start: 10-27-2023 Patient encounter status Lucille Patino MD Work Phone: [facility] Work Phone: Start: 10-17-2023 End: 10-17-2023 Office outpatient visit 25 minutes Lucille Patino MD Work Phone: Orthopaedics Comment on above: Valgus deformity of both great toes (Primary Dx) Start: 09-07-2023 End: 09-07-2023 Postop follow up visit related to original px Lucille Patino MD Work Phone: Orthopaedics Comment on above: Valgus deformity of both great toes (Primary Dx); Post-op pain Start: 09-07-2023 End: 09-07-2023 Subsequent hospital visit by physician Swapnil [facility] Work Phone: Radiology Comment on above: Valgus deformity of both great toes [M20.11, M20.12] Start: 08-17-2023 End: 08-17-2023 Nursing evaluation of patient and report Adonis Reddy RN Work Phone: Orthopaedics Comment on above: Valgus deformity of both great toes (Primary Dx); Post-op pain Start: 08-17-2023 End: 08-17-2023 Subsequent hospital visit by physician Swapnil [facility] Work Phone: Radiology Comment on above: Valgus deformity of both great toes [M20.11, M20.12] Start: 08-03-2023 End: 08-03-2023 Nursing evaluation of patient and report Adonis Reddy RN Work Phone: Orthopaedics Comment on above: Valgus deformity of both great toes (Primary Dx); Post-op pain Start: 08-03-2023 End: 08-03-2023 Subsequent hospital visit by physician Xr [facility] Work Phone: Radiology Comment on above: Valgus deformity of both great toes [M20.11, M20.12] Start: 07-26-2023 End: 07-26-2023 ambulatory LUCILLE ALVASauravHIPOLITO Facility:[facility] Start: 07-25-2023 End: 07-25-2023 ambulatory [facility] Work Phone: Start: 07-25-2023 End: 07-25-2023 Discharged Recurring [facility] Work Phone: Start: 07-17-2023 End: 07-17-2023 Admission to [place] [id number] Work Phone: [facility] Start: 07-17-2023 End: 07-17-2023 ambulatory [place] [address] Work Phone: Pre Anesthesia Comment on above: Pre-operative examin ation (Primary Dx); Incontinence of feces, unspecified fecal incontinence type; Former smoker; Malignant melanoma, unspecified site ([facility]) Start: 07-17-2023 End: 07-17-2023 Preprocedural examination done [place] [id number] Work Phone: [facility] Work Phone: Start: 07-14-2023 End: 07-14-2023 ambulatory Carlotta Johns PT [facility] Physical Therapy Comment on above: Valgus deformity of both great toes; Metatarsus adductus of both feet Start: 07-06-2023 End: 07-06-2023 Admission to same day surgery [facility] Start: 07-06-2023 End: 07-06-2023 ambulatory [facility] Work Phone: Start: 07-05-2023 Registered Recurring [facility] Work Phone: Start: 06-15-2023 End: 06-15-2023 Admission to same day surgery [facility] Start: 06-15-2023 End: 06-15-2023 ambulatory [facility] Work Phone: Start: 06-14-2023 Registered Recurring [facility] Work Phone: Start: 06-07-2023 ambulatory Lucille Patino MD Work Phone: Orthopaedics Start: 06-06-2023 Admission to [facility] Lucille Patino MD Work Phone: Orthopaedics Comment on above: Upcoming Surgery for Rico Doe Start: 06-06-2023 ambulatory Lucille Patino MD Work Phone: [facility] Start: 06-06-2023 Telephone encounter Lucille Patino MD Work Phone: [facility] Comment on above: Schedule Surgery Valgus deformity of both great toes (Primary Dx) Start: 06-01-2023 End: 06-01-2023 Office consultation new/estab patient 60 min Lucille Patino MD Work Phone: Orthopaedics Comment on above: Valgus deformity of both great toes (Primary Dx); Metatarsus adductus of both feet Start: 04-28-2023 Telephone encounter Lucille Patino MD Work Phone: [facility] Comment on above: Appointment Start: 04-25-2023 End: 04-25-2023 Patient encounter procedure Issa Heredia Work Phone: Podiatry Comment on above: Acquired hallux valg us of left foot (Primary Dx); Acquired hallux valgus of right foot; Callus of foot; Metatarsus adductus of both feet Start: 04-25-2023 End: 04-25-2023 Subsequent hospital visit by physician Xr [facility] Work Phone: Radiology Comment on above: Gwyn [M21.619] Start: 08-08-2022 End: 08-08-2022 Emergency department patient visit ROSE FINNEGAN Facility:[facility] Start: 07-28-2022 End: 07-28-2022 Emergency department patient visit ROSE FINNEGAN Facility:[facility] Start: 07-28-2022 End: 07-28-2022 Emergency department patient visit MAG LARSEN MD [facility] Procedures Date Procedure Procedure Detail Performing Clinician Start: 11-21-2024 Radex foot complete minimum 3 views Lucille Patino MD Work Phone: Start: 05-23-2024 Radex foot complete minimum 3 views Lucille Patino MD Work Phone: Start: 02-13-2024 Radex foot complete minimum 3 views Lucille Patino MD Work Phone: Start: 01-03-2024 Radex foot complete minimum 3 views Elodia ALMENDAREZ-C Work Phone: Start: 11-29-2023 Radex foot complete minimum 3 views Lucille Patino MD Work Phone: Start: 09-07-2023 Radex foot complete minimum 3 views Alexey Caballero PA-C Work Phone: Start: 08-17-2023 Radex foot complete minimum 3 views Lucille Patino MD Work Phone: Start: 08-03-2023 Radex foot complete minimum 3 views Lucille Patino MD Work Phone: Start: 07-06-2023 Axonics Stage 2 (Not Applicable) Start: 06-15-2023 Fluoroscopic guidance Start: 06-15-2023 Pelvis X-ray Start: 06-15-2023 Axonics Stage 1 (Not Applicable) Start: 04-25-2023 Radex foot complete minimum 3 views Issa Heredia Work Phone: Start: 11-27-2022 Excision of bunion NORM FINNEGAN SKILLED NURSING CASE MANAGER-NAIL STICKER Comment on above: right left Start: 11-27-2022 Implant, device (phy sical object) ROSE BARCENASSEY SKILLED NURSING CASE MANAGER-NAIL STICKER Comment on above: [employer]ionics incontinenc e implant Start: 10-24-2022 Lipid 1996 panel - S scott or Plasma Lucille Patino MD Work Phone: Plan of Treatment Date Care Activity Detail Author Start: 2033 RSV Vaccine (1 - 1-d ose 75+ series) RSV Vaccine (1 - 1-dose 75+ series) [facility] Start: 12-11-2029 Urine microalbumin profile DTaP,Tdap,Td Vaccine (2 - Td or Tdap) [facility] Start: 10-24-2027 Lipid 1996 panel - S scott or Plasma Lipid Screening [facility] Start: 10-24-2027 Lipid panel Lipid Screening [facility] Start: 07-17-2026 DIABETES SCREEN DIABETES SCREEN [facility] Start: 07-17-2026 Diabetes Screening Diabetes Screenin g [facility] Start: 11-21-2024 End: 11-21-2024 Patient encounter procedure Radiology Comment on above: Postoperative visit [Z48.89]; Hallux valgus of left foot [M20.12]; Hallux valgus of right foot [M20.11] XRAYS FIRST month fo llow up Valgus deformity of both great toes Start: 07-28-2024 Covid-19 Vaccine ( season) Covid-19 Vaccine ( season) [facility] Start: 07-28-2024 Covid-19 Vaccine ( season) Covid-19 Vaccine ( season) [facility] Start: 07-28-2024 Influenza vaccination Influenza Vacc ine (#1) [facility] Start: 11-27-2023 Advance Directive Discussion Advance Directive Discussion [facility] Start: 11-27-2023 Behavioral Health Screening Behavioral Health Screening [facility] Start: 11-27-2023 Depression Assessment Depression Ass essment [facility] Start: 10-27-2023 End: 03-13-2024 25-hydroxyvitamin D3 [Mass/volume] in Serum or Plasma VITAMIN D 25 HYDROXY Lab Routine Valgus deformity of both great toes Hammertoe of right foot Pre-op testing Bone disorder Expected: 10/27/2023 (Approximate), Expires: 03/13/2024 [facility] Work Phone: Comment on above: Expected: 10/27/2023 (Approximate), Expires: 03/13/2024 Start: 07-28-2023 Covid-19 Vaccine ( season) Covid-19 Vaccine () [facility] Start: 07-28-2023 Covid-19 Vaccine () Covid-19 Vaccine () [facility] Start: 07-28-2023 Influenza vaccination [facility] Start: 2023 ADVANCE DIRECTIVE DISCUSSION ADVANCE DIRECTIVE DISCUSSION [facility] Start: 2023 BONE DENSITY BONE DENSITY [facility] Start: 2023 Bone Density Screening Bone Density Screening [facility] Start: 2023 Pneumococcal Vaccine : 65+ (1 - PCV) Pneumococcal Vaccine: 65+ (1 - PCV) [facility] Start: 2023 Pneumococcal Vaccine : 65+ (2 - PPSV23 or PCV20) Pneumococcal Vaccine: 65+ (2 - PPSV23 or PCV20) [facility] Start: 2023 Pneumococcal Vaccine : 65+ (2 of 2 - PPSV23 or PCV20) Pneumococcal Vaccine: 65+ (2 of 2 - PPSV23 or PCV20) [facility] Start: 2023 PNEUMOCOCCAL: 65+ (1 - PCV) PNEUMOCOCCAL: 65+ (1 - PCV) [facility] Start: 2023 Screening for osteoporosis Bone Density Screening [facility] Start: 07-06-2023 Anes integ musc & nr v head neck&posterior trunk ANESTH HEAD/NECK/PTRUNK [facility] Start: 07-06-2023 Insertion/rplcmt peripheral/gastric npgr INSRT/REDO PN/GASTR STIMUL [facility] Start: 07-06-2023 Patient discharge [facility] Start: 06-15-2023 Anesthesia lumbar re gion nos ANESTH SPINE CORD SURGERY [facility] Start: 06-15-2023 Inc impltj neurostimulator eltrd sacral nerve OPN IMPLTJ MAC SACRAL NERVE [facility] Start: 06-15-2023 Patient discharge [facility] Start: 06-15-2023 Pelvis X-ray Pelvis 1 or 2 Views [facility] Start: 06-15-2023 XR Pelvis 1 or 2 Views [facility] Start: 11-27-2022 DEPRESSION ASSESSMENT DEPRESSION ASS ESSMENT [facility] Start: 05-01-2021 COVID-19 VACCINE (3 - Booster for Moderna series) COVID-19 VACCINE (3 - Booster for Moderna series) [facility] Start: 05-01-2021 COVID-19 VACCINE (3 - Moderna series) COVID-19 VACCINE (3 - Moderna series) [facility] Start: 2018 RSV Vaccine (1 - 1-d ose 60+ series) RSV Vaccine (1 - 1-dose 60+ series) [facility] Start: 12-20-2017 Pneumococcal Vaccine : 50+ (2 of 2 - PPSV23) Pneumococcal Vaccine: 50+ (2 of 2 - PPSV23) [facility] Start: 01-03-2017 Shingrix Vaccine (2 of 3) [place]ins grix Vaccine (2 of 3) [facility] Start: 2008 SHINGRIX VACCINE (1 of 2) [place]INS GRIX VACCINE (1 of 2) [facility] Start: 2003 COLOGUARD (FIT-DNA) COLOGUARD (FIT-D NA) [facility] Start: 2003 Colonoscopy COLONOSCOPY [facility] Start: 2003 COLORECTAL CANCER SCREENING COLORECTAL CANCER SCREENING [facility] Start: [address] COLONOGRAPHY [facility] Start: 2003 DIABETES SCREEN DIABETES SCREEN [facility] Start: 2003 FECAL OCCULT BLOOD FECAL OCCULT BLOO D [facility] Start: 2003 Lipid 1996 panel - S scott or Plasma Lipid Screening [facility] Start: 2003 LIPID SCREEN LIPID SCREEN [facility] Start: 2003 Screening for malign ant neoplasm of colon [facility] Start: 2003 SIGMOIDOSCOPY SIGMOIDOSCOPY [facility] Start: 1998 Mammography [facility] Start: 1998 Screening for malign ant neoplasm of breast Mammogram Screening [facility] Start: 1988 HPV TESTING HPV TESTING [facility] Start: 1979 PAP TESTING PAP TESTING [facility] Start: 1977 Urine microalbumin profile [facility] Start: 1976 Anxiety Screening Anxiety Screening [facility] Start: 1976 Depression Screening Depression Scre ening [facility] Start: 1976 HEPATITIS C SCREENING HEPATITIS C [facility] Start: 1976 Hepatitis C screening Hepatitis C [facility] Start: 1976 HIV SCREENING HIV SCREENING [facility] Start: 1976 HIV screening HIV Screening [facility] Patient referral [facility] Work Phone: End: 03-14-2025 XR Foot - bilateral AP and Lateral and oblique XR FOOT GENERAL 3V AP/LAT/OBL BILATERAL Radiology Routine Hallux valgus of left foot Hallux valgus of right foot 1 Occurrences starting 02/13/2024 until 03/14/2025 [facility] Work Phone: Comment on above: 1 Occurrences starti ng 02/13/2024 until 03/14/2025 End: 06-22-2025 XR Foot - bilateral AP and Lateral and oblique XR FOOT GENERAL 3V AP/LAT/OBL BILATERAL Radiology Routine Postoperative visit Hallux valgus of left foot Hallux valgus of right foot 1 Occurrences starting 05/23/2024 until 06/22/2025 [facility] Work Phone: Comment on above: 1 Occurrences starti ng 05/23/2024 until 06/22/2025 End: 07-06-2024 XR FOOT GENERAL 3V AP/LAT/OBL LEFT XR FOOT GENERAL 3V AP/LAT/OBL LEFT Radiology Routine 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 1 Occurrences starting 06/07/2023 until 07/06/2024 [facility] Work Phone: Comment on above: 1 Occurrences starti ng 06/07/2023 until 07/06/2024 End: 09-01-2024 XR FOOT GENERAL 3V AP/LAT/OBL LEFT XR FOOT GENERAL 3V AP/LAT/OBL LEFT Radiology Routine Valgus deformity of both great toes 1 Occurrences starting 08/03/2023 until 09/01/2024 [facility] Work Phone: Comment on above: 1 Occurrences starti ng 08/03/2023 until 09/01/2024 End: 09-15-2024 XR FOOT GENERAL 3V AP/LAT/OBL LEFT XR FOOT GENERAL 3V AP/LAT/OBL LEFT Radiology Routine Valgus deformity of both great toes 1 Occurrences starting 08/17/2023 until 09/15/2024 [facility] Work Phone: Comment on above: 1 Occurrences starti ng 08/17/2023 until 09/15/2024 End: 10-06-2024 XR FOOT GENERAL 3V AP/LAT/OBL LEFT XR FOOT GENERAL 3V AP/LAT/OBL LEFT Radiology Routine Valgus deformity of both great toes Post-op pain 1 Occurrences starting 09/07/2023 until 10/06/2024 [facility] Work Phone: Comment on above: 1 Occurrences starti ng 09/07/2023 until 10/06/2024 End: 11-15-2024 XR FOOT GENERAL 3V AP/LAT/OBL LEFT XR FOOT GENERAL 3V AP/LAT/OBL LEFT Radiology Routine Valgus deformity of both great toes 1 Occurrences starting 10/17/2023 until 11/15/2024 [facility] Work Phone: Comment on above: 1 Occurrences starti ng 10/17/2023 until 11/15/2024 End: 11-25-2024 XR FOOT GENERAL 3V AP/LAT/OBL RIGHT XR FOOT GENERAL 3V AP/LAT/OBL RIGHT Radiology Routine Valgus deformity of both great toes Hammertoe of right foot 1 Occurrences starting 10/27/2023 until 11/25/2024 [facility] Work Phone: Comment on above: 1 Occurrences starti ng 10/27/2023 until 11/25/2024 End: 02-01-2025 XR FOOT GENERAL 3V AP/LAT/OBL RIGHT XR FOOT GENERAL 3V AP/LAT/OBL RIGHT Radiology Routine Valgus deformity of both great toes Hammertoe of right foot Postoperative visit 1 Occurrences starting 01/03/2024 until 02/01/2025 [facility] Work Phone: Comment on above: 1 Occurrences starti ng 01/03/2024 until 02/01/2025 [facility] Immunizations Immunization Date Immunization Notes Care Provider Fa cility 08-31-2022 influenza virus vacc ine, unspecified formulation Adonis Reddy RN Work Phone: [facility] Payers Date Payer Category Payer Private Health Insurance [id number] 2024 Self-pay 2024 Private Health Insurance [id number] 2023 Medicare [id number] 2023 Medicare [id number] 2020 Unknown [id number] 2020 Unknown [id number] 1958 Unknown [id number] 1958 Unknown [id number] 1958 Unknown [id number] 1958 Unknown [id number] 1958 Unknown [id number] Unknown [facility] *DO NOT USE* [id number] Unknown [id number] Unknown [id number] Unknown [id number] Unknown [id number] Unknown [id number] Unknown [id number] Social History Date Type Detail Facility Start: 10-29-2020 Tobacco smoking status Never s moked tobacco (finding) [facility] Start: 1960 Sex Assigned At Female [facility] Start: 07-18-2014 End: 07-05-2023 Tobacco smoking status NCIS Ex-smoker [facility] End: 07-18-2011 History of tobacco use Current smoker [facility] End: 07-18-2011 History of tobacco use Cigarette Smoker [facility] Start: 04-25-2023 End: 11-21-2024 Alcohol intake Current non-drinker of alcohol (finding) [facility] Start: 1960 Sex Assigned At Not on file [facility] Start: 04-25-2023 End: 06-01-2023 History of Social function [facility] Start: 04-25-2023 End: 06-01-2023 Tobacco use panel [facility] National Score (1-100), lower number is lower risk 80 [facility] Start: 06-09-2023 End: 07-05-2023 Tobacco smoking status RUST Unknown if ever smoked [facility] Start: 07-17-2023 End: 11-21-2024 Tobacco use and exposure Smokeless tobacco non-user [facility] Sexual Orientation Hema H dani [facility] Start: 10-29-2020 Sex Female (finding) [facility] NEGATED: Highlighted row [facility] Medical Equipment Procedure Code Equipment Code Equipment Original Text Equipment Identifier Dates [id number] FDA Start: 06-15-2023 [id number] FDA Start: 06-15-2023 [id number] FDA Start: 07-06-2023 Anatomic Multipl nadine Implants [id number] Start: 07-26-2023 Lapiplasty Lesse r Tmt Fixation Pack S1 Plate W/Screws [id number] Start: 07-26-2023 Lapiplasty Speed plate Rapid Compression Implant Sk50 [id number] Start: 11-22-2023 Lapiplasty Speed plate Rapid Compression Implant Sk50 [id number] Start: 11-22-2023 Lapiplasty Speed plate Rapid Compression Implant Sk50 [id number] Start: 11-22-2023 Lapiplasty Speed plate Rapid Compression Implant Sk50 [id number] Start: 11-22-2023 Fastpitch High P itch Locking Screw 2.7mm X 12/14mm [id number] Start: 07-26-2023 Fastpitch High P itch Locking Screw 2.7mm X 12/14mm [id number] Start: 07-26-2023 Wire Esau 1 .4in Stainless Steel 6in Fixation Orthopedic - [id number] Start: 11-22-2023 [id number] FDA Start: 07-06-2023 Goals Date Patient Goal Desired Activity /State Mental Status Date Assessment Result Facility 07-06-2023 [facility] function [facility] Work Phone: 06-15-2023 Cognitive function [facility] Work Phone: Clinical Notes 07-28-2022 to 01-14-2025 Note Date & Type Note Facility 01-14-2025 Note Exam Date Time Procedure Performing Provider Status 01/14/25 3:29 PM BD Bone Density DEXA Axial Skeleton GUILLE YANG MD; Auth Verified) [id number] ORIGINAL EXAMINATION: BONE DENSITOMETRY01/14/2025 3:36 pm TECHNIQUE: Dual energy bone densitometry lumbar spine and right hip. COMPARISON: None HISTORY: Reason for Exam: Osteoporosis Screening FINDINGS: L1-L4: BMD= 0.970 g/cm2 T score= -0.7 Right femoral neck: BMD= 0.661 g/cm2 T score= -1.7 Right hip: BMD= 0.796 g/cm2 T score= -1.2 FRAX score: 10 year risk major osteoporotic fracture 16 %. 10 year risk hip fracture 1.9 %. The BHOF f/k/a NOF recommends that FDA-approved medical therapies be considered in post-menopausal women and men age >/= 50 years with a: * Hip or vertebral fracture, or * T-score of /= 20% for major osteoporotic fractures or * >/= 3% for hip fractures All treatment decisions require clinical judgement and consideration of individual patient factors, including patient preferences, comorbidities, previous drug use, risk factors not captured in the FRAX registered model (e.g., frailty, falls, vitamin D deficiency, increased bone turnover, interval significant decline in bone density) and possible under- or over-estimation of fracture risk by FRAX. IMPRESSION: Osteopenia. Interpreted by: Guille Yang MD Preliminary Report By: Guille Yang MD Electronically signed By Guille Yang MD Dictated Date: 01/14/2025 3:45:00 PM Prelim Date: 01/14/2025 3:46:30 PM Sign Date: 01/14/2025 3:46:30 PM Ordering Provider: [facility]12-26-2024 History of Present illness Narrative * Jackie-Lucille Rivas MD - 11/21/2024 9:45 AM EST [facility] Date: 11/22/2023 Right lapidus for bunion (CPT 25879) Right 2nd and 3rd metatarsal osteotomies Right 2nd hammertoe correction 07/26/2023 Left lapidus for bunion (CPT 36231) Left 2nd and 3rd metatarsal osteotomies Interval History: She returns today for follow up of the above surgeries. Overall doing well. Some pain under the R second metatarsal, with callous ASSESSMENT/PLAN: 1. Hallux valgus of left foot - ICD9: 735.0, ICD10: M20.12 (primary diagnosis) - BL foot XR ordered and reviewed 2. Hallux valgus of right foot - ICD9: 735.0, ICD10: M20.11 - BL foot XR ordered and reviewed Overall doing well. She will try a metatarsal pad. Discussed 2nd MT shortening osteotomy if pain does not improve. Follow up as needed Physical Exam: Well appearing female in no acute distress; Alert and oriented. Bilateral Leg: Incision is clean dry and intact. There is no erythema warmth or drainage. She has palpable pulses, sensation is intact. She is able to flex and extend their toes and ankles without difficulty Radiographs: Final results and radiologist's interpretation, available in the [facility] health record. Images were reviewed with the patient/family members in the office today. My personal interpretation of the performed imaging is healed lapiplasty, metatarsal adductus correction Medication, History, and Allergies were reviewed and updated in the medical record. Lucille Patino MD Orthopaedic Medical Decision Making (MDM) Complexity of problems: Stable chronic illness, Complexity of data: 1 unique test results reviewed, 1 unique tests ordered, Level of MDM: Low (3) documented in [facility] encounter[facility] NoteHNO ID: [id number] Author: LUCILLE PATINO MD Service: ? Author Type: Physician Type: Progress Notes Filed: 11/21/2024 12:45 Note Text: N S [facility] Surgery Date: 11/22/2023 Right lapidus for bunion (CPT 15060) Right 2nd and 3rd metatarsal osteotomies Right 2nd hammertoe correction 07/26/2023 Left lapidus for bunion (CPT 73856) Left 2nd and 3rd metatarsal osteotomies Interval History: She returns today for follow up of the above surgeries. Overall doing well. Some pain under the R second metatarsal, with callous ASSESSMENT/PLAN: 1. Hallux valgus of left foot - ICD9: 735.0, ICD10: M20.12 (primary diagnosis) - BL foot XR ordered and reviewed 2. Hallux valgus of right foot - ICD9: 735.0, ICD10: M20.11 - BL foot XR ordered and reviewed Overall doing well. She will try a metatarsal pad. Discussed 2nd MT shortening osteotomy if pain does not improve. Follow up as needed Physical Exam: Well appearing female in no acute distress; Alert and oriented. Bilateral Leg: Incision is clean dry and intact. There is no erythema warmth or drainage. She has palpable pulses, sensation is intact. She is able to flex and extend their toes and ankles without difficulty Radiographs: Final results and radiologist's interpretation, available in the [facility] health record. Images were reviewed with the patient/family members in the office today. My personal interpretation of the performed imaging is healed lapiplasty, metatarsal adductus correction Medication, History, and Allergies were reviewed and updated in the medical record. Lucille Patino MD Orthopaedic Medical Decision Making (MDM) Complexity of problems: Stable chronic illness, Complexity of data: 1 unique test results reviewed, 1 unique tests ordered, Level of MDM: Low (3)[facility]12-26-2024 History of Present illness Narrative* Ramsey Russo RT(R) - 11/21/2024 9:15 AM EST Radiology Service Progress Note PATIENT NAME: Rico Doe DATE OF SERVICE: November 21, 2024 TIME: 9:14 AM PATIENT IDENTITY VERIFICATION COMPLETED USING TWO (2) IDENTIFIERS: Name and Date of confirmedby patient verbally. FALL SCREENING: Has the patient had 2 falls in the last year or 1 fall with injury or currently using an Ambulatory Assistive Device (Walker, Cane, Wheelchair, Crutches, etc.)? No PATIENT GENDER DATA: Female. status: : No status: NO. PATIENT RELEVANT IMPLANT DATA REVIEWED: Not Applicable PATIENT PRESENTS WITH AN IMPLANTABLE OR ATTACHED QUALITY CONTROL LAB TECH: No RADIOLOGY DEPARTMENT: General X-ray: Exam(s) Completed: Lower Extremity X- Ray(s): Feet, Bilateral and Wt. Bearing PERIPHERAL IV DATA: Not applicable SIGNED BY: RT Christina(Ankit) November 21, 2024 9:14 AM documented in this encounterSelect [facility]12-26-2024 NoteHNO ID: [id number] Author: RAMSEY RUSSO RT(R) Service: ? Author Type: Steel Die Printer Type: Progress Notes Filed: 11/21/2024 09:14 Note Text: Radiology Service Progress Note PATIENT NAME: Rico Doe DATE OF SERVICE: November 21, 2024 TIME: 9:14 AM PATIENT IDENTITY VERIFICATION COMPLETED USING TWO (2) IDENTIFIERS: Name and Date of confirmed by patient verbally. FALL SCREENING: Has the patient had 2 falls in the last year or 1 fall with injury or currently using an Ambulatory Assistive Device (Walker, Cane, Wheelchair, Crutches, etc.)? No PATIENT GENDER DATA: Female. status: : No status: NO. PATIENT RELEVANT IMPLANT DATA REVIEWED: Not Applicable PATIENT PRESENTS WITH AN IMPLANTABLE OR ATTACHED QUALITY CONTROL LAB TECH: No RADIOLOGY DEPARTMENT: General X-ray: Exam(s) Completed: Lower Extremity X-Ray(s): Feet, Bilateral and Wt. Bearing PERIPHERAL IV DATA: Not applicable SIGNED BY: RT Christina(R) November 21, 2024 9:14 [facility]06-27-2024 History of Present illness Narrative* Lucille Patino MD - 05/23/2024 9:45 AM EDT Rico Doe Surgery Date: 11/22/2023 Right lapidus for bunion (CPT 99985) Right 2nd and 3rd metatarsal osteotomies Right 2nd hammertoe correction 07/26/2023 Left lapidus for bunion (CPT 50075) Left 2nd and 3rd metatarsal osteotomies Interval History: She is now 6 months since bunion surgery for R side (+ 2nd hammertoe correction) and 10 months for L side. They report that they are doing well overall. They have been weaned out of the boot on R side and walking without pain. Has been in PT which she reports has been going well. R foot - No pain. Does reports a small bump that she notes on the plantar aspect of the second toe that can be uncomfortable when walking on flat, hard ground. Also reports mild numbness on the lateral aspect of the fifth toe. No other numbness, tingling, pain or weakness. Patient also states that she notices her 2nd and 3rd toes have continued to have valgus deviation, has been wearing a toe wrap around them with improvement. L foot - No pain and no complaints. ASSESSMENT/PLAN: Z48.89 Postoperative visit (primary encounter diagnosis) M20.12 Hallux valgus of left foot M20.11 Hallux valgus of right foot Patient doing well postop. Follow up in 6 months, with films upon return. Physical Exam: Well appearing female in no acute distress; Alert and oriented. Bilateral Leg: Incision is clean dry and intact. There is no erythema warmth or drainage. She has palpable pulses, sensation is intact. She is able to flex and extend their toes and ankles without difficulty Normal gait 5/5 strength bilateral foot/ankles Mild numbness noted on lateral aspect 5th toe on R foot Radiographs: Final results and radiologist's interpretation, available in the [facility] health record. Images were reviewed with the patient/family members in the office today. My personal interpretation of the performed imaging is healing lapidus bilaterally. Medication, History, and Allergies were reviewed and updated in the medical record. Regino Rojas MS5 [facility] May 23, 2024 TEACHING PHYSICIAN NOTE OF PERSONAL INVOLVEMENT IN CARE: I have interviewed the patient and updated the medical student's PFS history, and ROS as necessary.I have re-performed the HPI, Physical Examination, Assessment and Plan as noted below. HPI: Nelsy returns for follow up of her bilateral lapiplasty procedure. Overall doing well, happy with her surgery. Exam: No pain with palpation, improved great toe position bilaterally. Imaging: healed lapiplasty ASSESSMENT/PLAN: 1. Postoperative visit - ICD9: V58.49, ICD10: Z48.89 (primary diagnosis) - XR FOOT GENERAL 3V AP/LAT/OBL BILATERAL 2. Hallux valgus of left foot - ICD9: 735.0, ICD10: M20.12 - XR FOOT GENERAL 3V AP/LAT/OBL BILATERAL 3. Hallux valgus of right foot - ICD9: 735.0, ICD10: M20.11 - XR FOOT GENERAL 3V AP/LAT/OBL BILATERAL No restrictions, follow up in 6 months w/ repeat xrays. Lucille Patino MD Orthopaedic Medical Decision Making (MDM) Complexity of problems: Stable chronic illness, Complexity of data: 1 unique test results reviewed, 1 unique tests ordered, Level of MDM: Low (3) documented in this encounterCleveland [id number] NoteHNO ID: [id number] Author: LUCILLE PATINO MD Service: ? Author Type: Physician Type: Progress Notes Filed: 05/28/2024 09:10 Note Text: Rico Doe Surgery Date: 11/22/2023 Right lapidus for bunion (CPT 18478) Right 2nd and 3rd metatarsal osteotomies Right 2nd hammertoe correction 07/26/2023 Left lapidus for bunion (CPT 29221) Left 2nd and 3rd metatarsal osteotomies Interval History: She is now 6 months since bunion surgery for R side (+ 2nd hammertoe correction) and 10 months for L side. They report that they are doing well overall. They have been weaned out of the boot on R side and walking without pain. Has been in PT which she reports has been going well. R foot - No pain. Does reports a small bump that she notes on the plantar aspect of the second toe that can be uncomfortable when walking on flat, hard ground. Also reports mild numbness on the lateral aspect of the fifth toe. No other numbness, tingling, pain or weakness. Patient also states that she notices her 2nd and 3rd toes have continued to have valgus deviation, has been wearing a toe wrap around them with improvement. L foot - No pain and no complaints. ASSESSMENT/PLAN: Z48.89 Postoperative visit (primary encounter diagnosis) M20.12 Hallux valgus of left foot M20.11 Hallux valgus of right foot Patient doing well postop. Follow up in 6 months, with films upon return. Physical Exam: Well appearing female in no acute distress; Alert and oriented. Bilateral Leg: Incision is clean dry and intact. There is no erythema warmth or drainage. She has palpable pulses, sensation is intact. She is able to flex and extend their toes and ankles without difficulty Normal gait 5/5 strength bilateral foot/ankles Mild numbness noted on lateral aspect 5th toe on R foot Radiographs: Final results and radiologist's interpretation, available in the [facility] health record. Images were reviewed with the patient/family members in the office today. My personal interpretation of the performed imaging is healing lapidus bilaterally. Medication, History, and Allergies were reviewed and updated in the medical record. Regino Rojas, MS5 [facility] May 23, 2024 TEACHING PHYSICIAN NOTE OF PERSONAL INVOLVEMENT IN CARE: I have interviewed the patient and updated the medical student's PFS history, and ROS as necessary. I have re-performed the HPI, Physical Examination, Assessment and Plan as noted below. HPI: Nelsy returns for follow up of her bilateral lapiplasty procedure. Overall doing well, happy with her surgery. Exam: No pain with palpation, improved great toe position bilaterally. Imaging: healed lapiplasty ASSESSMENT/PLAN: 1. Postoperative visit - ICD9: V58.49, ICD10: Z48.89 (primary diagnosis) - XR FOOT GENERAL 3V AP/LAT/OBL BILATERAL 2. Hallux valgus of left foot - ICD9: 735.0, ICD10: M20.12 - XR FOOT GENERAL 3V AP/LAT/OBL BILATERAL 3. Hallux valgus of right foot - ICD9: 735.0, ICD10: M20.11 - XR FOOT GENERAL 3V AP/LAT/OBL BILATERAL No restrictions, follow up in 6 months w/ repeat xrays. Lucille Patino MD Orthopaedic Medical Decision Making (MDM) Complexity of problems: Stable chronic illness, Complexity of data: 1 unique test results reviewed, 1 unique tests ordered, Level of MDM: Low (3)[facility]06-27-2024 History of Present illness Narrative* Ramsey Russo, RT(R) - 05/23/2024 9:15 AM EDT Radiology Service Progress Note PATIENT NAME: Rico Doe DATE OF SERVICE: May 23, 2024 TIME: 9:21 AM PATIENT IDENTITY VERIFICATION COMPLETED USING TWO (2) IDENTIFIERS: Name and Date of confirmedby patient verbally. FALL SCREENING: Has the patient had 2 falls in the last year or 1 fall with injury or currently using an Ambulatory Assistive Device (Walker, Cane, Wheelchair, Crutches, etc.)? No PATIENT GENDER DATA: Female. status: : No status: NO. PATIENT RELEVANT IMPLANT DATA REVIEWED: Not Applicable PATIENT PRESENTS WITH AN IMPLANTABLE OR ATTACHED QUALITY CONTROL LAB TECH: No RADIOLOGY DEPARTMENT: General X-ray: Exam(s) Completed: Lower Extremity X- Ray(s): Feet, Bilateral and Wt. Bearing PERIPHERAL IV DATA: Not applicable SIGNED BY: RT Christina(R) May 23, 2024 9:21 AM documented in this encounterSelect Medical [facility]06-27-2024 NoteHNO ID: [id number] Author: RAMSEY RUSSO RT(R) Service: ? Author Type: Steel Die Printer Type: Progress Notes Filed: 05/23/2024 09:21 Note Text: Radiology Service Progress Note PATIENT NAME: Rico Doe DATE OF SERVICE: May 23, 2024 TIME: 9:21 AM PATIENT IDENTITY VERIFICATION COMPLETED USING TWO (2) IDENTIFIERS: Name and Date of confirmed by patient verbally. FALL SCREENING: Has the patient had 2 falls in the last year or 1 fall with injury or currently using an Ambulatory Assistive Device (Walker, Cane, Wheelchair, Crutches, etc.)? No PATIENT GENDER DATA: Female. status: : No status: NO. PATIENT RELEVANT IMPLANT DATA REVIEWED: Not Applicable PATIENT PRESENTS WITH AN IMPLANTABLE OR ATTACHED QUALITY CONTROL LAB TECH: No RADIOLOGY DEPARTMENT: General X-ray: Exam(s) Completed: Lower Extremity X-Ray(s): Feet, Bilateral and Wt. Bearing PERIPHERAL IV DATA: Not applicable SIGNED BY: RT Christina(R) May 23, 2024 9:21 [facility]03-19-2024 History of Present illness Narrative* Lucille Patino MD - 02/13/2024 10:45 AM EDT Rico Doe Surgery Date: 07/26/2023 (left) & 11/22/2023 (Right) Surgery: Lapiplasty + aductoplasty Interval History: She is now 3 months from her R sided surgery. They report no pain only that the feeling in the leftfoot has came back 90-95% and in the right foot a little stiff the feeling has came back about 50% at this time. She is happy with her outcomes currently. ASSESSMENT/PLAN: - Increase activity as able - Wean boot Follow up in 3 months, with bilateral foot films upon return. Physical Exam: Well appearing female in no acute distress; Alert and oriented. Bilateral Leg: Incision is clean dry and intact. There is no erythema warmth or drainage. She has palpable pulses, sensation is intact. She is able to flex and extend their toes and ankles without difficulty Radiographs: Final results and radiologist's interpretation, available in the [facility] health record. Images were reviewed with the patient/family members in the office today. My personal interpretation of the performed imaging is healing midfoot fusions Medication, History, and Allergies were reviewed and updated in the medical record. Lucille Patino MD documented in this encounterSelect Medical [facility]03-19-2024 NoteHNO ID: [id number] Author: LUCILLE PATINO MD Service: ? Author Type: Physician Type: Progress Notes Filed: 02/14/2024 09:55 Note Text: Rico Kristi [facility]Fords Surgery Date: 07/26/2023 (left) AND 11/22/2023 (Right) Surgery: Lapiplasty + aductoplasty Interval History: She is now 3 months from her R sided surgery. They report no pain only that the feeling in the left foot has came back 90-95% and in the right foot a little stiff the feeling has came back about 50% at this time. She is happy with her outcomes currently. ASSESSMENT/PLAN: - Increase activity as able - Wean boot Follow up in 3 months, with bilateral foot films upon return. Physical Exam: Well appearing female in no acute distress; Alert and oriented. Bilateral Leg: Incision is clean dry and intact. There is no erythema warmth or drainage. She has palpable pulses, sensation is intact. She is able to flex and extend their toes and ankles without difficulty Radiographs: Final results and radiologist's interpretation, available in the [facility] health record. Images were reviewed with the patient/family members in the office today. My personal interpretation of the performed imaging is healing midfoot fusions Medication, History, and Allergies were reviewed and updated in the medical record. Lucille Patino, [facility]03-12-2024 History of Present illness Narrative* Vinay Rodriguez PT, DPT - 02/06/2024 11:54 AM EDT Program_ID:[id number] Access Code: [email or web address] URL: [email or web address] Date: 02-06-2024 Prepared By: Vinay Santiago Program Notes Exercises - Long Sitting Calf Stretch with Strap - 1 x daily - 7 x weekly - 2 sets - 1 reps - Long Sitting Soleus Stretch on Bolster with Strap - 1 x daily - 7 x weekly - 2 sets - 1 reps - Seated Ankle Dorsiflexion with Resistance - 1 x daily - 7 x weekly - 2 sets - 15 reps - Long Sitting Ankle Plantar Flexion with Resistance - 1 x daily - 7 x weekly - 2 sets - 10 reps - Long Sitting Ankle Inversion with Resistance - 1 x daily - 7 x weekly - 2 sets - 15 reps - Long Sitting Ankle Eversion with Resistance - 1 x daily - 7 x weekly - 2 sets - 15 reps - Toe Extension and Flexion Caregiver PROM - 1 x daily - 7 x weekly - 2 sets - 10 reps - Toe Yoga - Alternating Great Toe and Lesser Toe Extension - 1 x daily - 7 x weekly - 2 sets - 10 reps - Standing 3-Way Leg Reach with Resistance at Ankles and Counter Support - 1 x daily - 7 x weekly - 2 sets - 10 reps - 3-Way Lunge on Slider - 1 x daily - 7 x weekly - 2 sets - 5 reps - Single Leg Heel Raise with Counter Support - 1 x daily - 7 x weekly - 2 sets - 10 reps - Heel Raise on Step - 1 x daily - 7 x weekly - 2 sets - 10 reps - Standing Gastroc Stretch on Step with Counter Support - 1 x daily - 7 x weekly - 2 sets - 2 reps * Vinay Rodriguez PT, DPT - 02/06/2024 11:16 AM EDT Images from the original note were not included. Episode Visit Count: 5 Therapist That Will Accept/Oversee The Plan Of Care: Vinay Rodriguez Start of Care Date: 01/08/24 Onset Date: 11/22/23 Patient Identified by Name and Date of : Yes REHABILITATION AND SPORTS THERAPY PHYSICAL THERAPY DISCONTINUANCE OF CARE PLAN OF CARE UPDATE: Assessment: Rico Doe is discontinued from Physical Therapy services due to goal achievement and maximal benefit. Patient will benefit form continuing HEP independently at home to continue functional progress. Patient was seen for 5 visits from Start of Care Date: 01/08/24 to 02/06/2024 and treatment included: Therapeutic exercise, Neuromuscular re-education, and Manual therapy. Goals for Episode of Care: created on 01/08/24 through 02/06/24 [place] in home exercise program.--MET Patient will decrease pain to 0/10 with functional activities to allow patient return to work.--partially met Patient will increase active ROM of right ankle to symmetrical with left ankle to allow pt to improve gait mechanics / gait pattern .--MET Patient will demonstrate increase in right ankle strength to 5/5 during manual muscle testing in order to improve function for leisure / recreation skills.--partially met Patient will perform 9 SL heel raises bilaterally for improved gastroc/soleus strength.--MET Normal gait without aircast.--MET Reciprocal stair negotiation.--MET Patient Goals: Reduce stiffness SUBJECTIVE: Patient reports she is doing well. She feels the right foot's nerves are healing. HEP going well.. Functional Limitations: walking, physical activities, recreational activities (Stiffness with sitting on her heels) Pain: Pain Pain Level: 0 Pain Location: Foot - Right Post Treatment Pain Post Treatment Pain Level: No Change Post Treatment Pain Location: Foot - Right PROMIS Scales 01/08/2024 01/03/2024 11/29/2023 Higher is Better Phys Func - Score 36 (moderate dysfunction) 35 (moderate dysfunction) Phys Func - Percentile 8 7 Self-Eff Symptom - Score 53 (Average) Self-Eff Symptom - Percentile 62 T-scores: mean of general population = 50. 5 points is clinically meaningfully difference Percentiles provide an indication of how the patient's score ranks in relation to the general population. Higher percentile rankings indicate better function/quality of life. 50th percentile is the average of the general population and indicates half of respondents had a worse score. OBJECTIVE MEASURES WITH LEVEL OF FUNCTION: Ankle Observations R Incision: well heeled, 2 incisions Sensation - Lower Extremity LE Light Touch Sensation: Impaired (lateral 3 toes) LE AROM R Ankle Dorsiflexion: 10 Degrees R Ankle Plantar Flexion: 45 Degrees R Ankle Inversion: 60 R Ankle Eversion: 26 L Ankle Dorsiflexion: 10 Degrees L Ankle Plantar Flexion: 50 Degrees L Ankle Inversion: 57 L Ankle Eversion: 25 LE PROM R Toe(s): moderate impairment LE Strength R Ankle Plantarflexion Functional Strength (S1): 20 (14 through full excursion) R Ankle Inversion: 4+/5 R Ankle Eversion: 5/5 L Ankle Plantarflexion Functional Strength (S1): 20 Gait Gait Observation: WNL Stairs: WNL TREATMENT: Therapeutic Exercise: 1: Re-assessment per above 2: HEP review 3: *Standing 3 way slider reach x5 bilat each way 4: *Stair DF stretch x30 sec 5: *Stair full range heel raise bilat x10 6: *SL heel raise x10 bilat Skilled Intervention: Patient was educated in proper exercise technique and purpose for exercises. Reviewed and educated patient on additions/changes for home exercise program as above (*). Skilled judgment was used in selection of appropriate interventions. Provided written instruction for home exercise program to facilitate proper performance and compliance. Correct performance of therapeutic exercises was facilitated with verbal and visual cuing. Billing Therapeutic Exercise Treatment Minutes: 45 Skilled Treatment Time Minutes (timed and untimed codes): 45 Total Session Time (minutes): 45 Session Start Time : 1115 Session Stop Time : 1200 Vinay Rodrigeuz PT, DPT documented in this encounter[facility] NoteHNO ID: [id number] Author: VINAY RODRIGUEZ PT, DPT Service: ? Author Type: Physical Therapist Type: Progress Notes Filed: 02/06/2024 12:08 Note Text: Episode Visit Count: 5 Therapist That Will Accept/Oversee The Plan Of Care: Vinay Rodriguez Start of Care Date: 01/08/24 Onset Date: 11/22/23 Patient Identified by Name and Date of : Yes REHABILITATION AND SPORTS THERAPY PHYSICAL THERAPY DISCONTINUANCE OF CARE PLAN OF CARE UPDATE: Assessment: N Kristi Doe is discontinued from Physical Therapy services due to goal achievement and maximal benefit. Patient will benefit form continuing HEP independently at home to continue functional progress. Patient was seen for 5 visits from Start of Care Date: 01/08/24 to 02/06/2024 and treatment included: Therapeutic exercise, Neuromuscular re-education, and Manual therapy. Goals for Episode of Care: created on 01/08/24 through 02/06/24 [place] in home exercise program.--MET Patient will decrease pain to 0/10 with functional activities to allow patient return to work.--partially met Patient will increase active ROM of right ankle to symmetrical with left ankle to allow pt to improve gait mechanics / gait pattern .--MET Patient will demonstrate increase in right ankle strength to 5/5 during manual muscle testing in order to improve function for leisure / recreation skills.--partially met Patient will perform 9 SL heel raises bilaterally for improved gastroc/soleus strength.--MET Normal gait without aircast.--MET Reciprocal stair negotiation.--MET Patient Goals: Reduce stiffness SUBJECTIVE: Patient reports she is doing well. She feels the right foot's nerves are healing. HEP going well.. Functional Limitations: walking, physical activities, recreational activities (Stiffness with sitting on her heels) Pain: Pain Pain Level: 0 Pain Location: Foot - Right Post Treatment Pain Post Treatment Pain Level: No Change Post Treatment Pain Location: Foot - Right PROMIS Scales 01/08/2024 01/03/2024 11/29/2023 Higher is Better Phys Func - Score 36 (moderate dysfunction) 35 (moderate dysfunction) Phys Func - Percentile 8 7 Self-Eff Symptom - Score 53 (Average) Self-Eff Symptom - Percentile 62 T-scores: mean of general population = 50. 5 points is clinically meaningfully difference Percentiles provide an indication of how the patient's score ranks in relation to the general population. Higher percentile rankings indicate better function/quality of life. 50th percentile is the average of the general population and indicates half of respondents had a worse score. OBJECTIVE MEASURES WITH LEVEL OF FUNCTION: Ankle Observations R Incision: well heeled, 2 incisions Sensation - Lower Extremity LE Light Touch Sensation: Impaired (lateral 3 toes) LE AROM R Ankle Dorsiflexion: 10 Degrees R Ankle Plantar Flexion: 45 Degrees R Ankle Inversion: 60 R Ankle Eversion: 26 L Ankle Dorsiflexion: 10 Degrees L Ankle Plantar Flexion: 50 Degrees L Ankle Inversion: 57 L Ankle Eversion: 25 LE PROM R Toe(s): moderate impairment LE Strength R Ankle Plantarflexion Functional Strength (S1): 20 (14 through full excursion) R Ankle Inversion: 4+/5 R Ankle Eversion: 5/5 L Ankle Plantarflexion Functional Strength (S1): 20 Gait Gait Observation: WNL Stairs: WNL TREATMENT: Therapeutic Exercise: 1: Re-assessment per above 2: HEP review 3: *Standing 3 way slider reach x5 bilat each way 4: *Stair DF stretch x30 sec 5: *Stair full range heel raise bilat x10 6: *SL heel raise x10 bilat Skilled Intervention: Patient was educated in proper exercise technique and purpose for exercises. Reviewed and educated patient on additions/changes for home exercise program as above (*). Skilled judgment was used in selection of appropriate interventions. Provided written instruction for home exercise program to facilitate proper performance and compliance. Correct performance of therapeutic exercises was facilitated with verbal and visual cuing. Billing Therapeutic Exercise Treatment Minutes: 45 Skilled Treatment Time Minutes (timed and untimed codes): 45 Total Session Time (minutes): 45 Session Start Time : 1115 Session Stop Time : 1200 Vinay Rodriguez [facility] NoteHNO ID: [id number] Author: VINAY RODRIGUEZ PT, DPT Service: ? Author Type: Physical Therapist Type: Progress Notes Filed: 01/30/2024 12:19 Note Text: Episode Visit Count: 4 Therapist That Will Accept/Oversee The Plan Of Care: Vinay Rodriguez Start of Care Date: 01/08/24 Onset Date: 11/22/23 Patient Identified by Name and Date of : Yes REHABILITATION AND SPORTS THERAPY PHYSICAL THERAPY TREATMENT NOTE ASSESSMENT: Rico Doe tolerated the session with decreased symptoms. She demonstrated good challenge with introduction of toe yoga exercise. Decreased pain and swelling noted in right foot following manual therapy techniques. She demonstrates improved ankle strength in all directions overall. The patient will continue to benefit from ongoing skilled physical therapy to progress toward set goals. PLAN FOR NEXT VISIT: PN SUBJECTIVE: Patient reports she was standing in the driveway for 45 minutes before PT session, which increased her aching. HEP is going well. Pain: Pain Pain Level: 1 Pain Location: Foot - Right Post Treatment Pain Post Treatment Pain Level: Better Post Treatment Pain Location: Foot - Right OBJECTIVE MEASURES WITH LEVEL OF FUNCTION: Ankle Observations R Ankle Girth - Figure 8 (cm): 49 TREATMENT: Therapeutic Exercise: 1: *4 way ankle verse GTB inv/ever, BTB PF/DF 2x15 each way 2: *Longsitting gastroc stretch 2x30 sec hold bilat, soleus stretch 2x30 sec 3: Seated toe yoga 2x10 each 4: *Seated toe extension and flexion stretch x10 sec each way 2x10 reps Skilled Intervention: Patient was educated in proper exercise technique and purpose for exercises. Reviewed and educated patient on additions/changes for home exercise program as above (*). Skilled judgment was used in selection of appropriate interventions. Provided written instruction for home exercise program to facilitate proper performance and compliance. Correct performance of therapeutic exercises was facilitated with verbal and visual cuing. Manual Therapy: 1: Effleurage to right foot and ankle for swelling reduction and pain management. Pressure to patient's tolerance. x10 minutes Skilled Intervention: Manual skills to improve joint mobility, ROM, and decrease pain. Utilized anatomy knowledge of the therapist, and assessment of patient's response to intervention. Neuromuscular Re-Education: 1: DL heel raise, SL eccentric lower 2x10 bilat 2: Standing SL balance 2x30 sec bilat Skilled Intervention: Skilled judgment used to assess appropriate program for balance and coordination activity. Ensured patient safety with use of counter for UE support. Billing Therapeutic Exercise Treatment Minutes: 28 Manual TherapyTreatment Minutes: 10 Neuromuscular Re-Education Treatment Minutes: 5 Skilled Treatment Time Minutes (timed and untimed codes): 43 Total Session Time (minutes): 43 Session Start Time : 1114 Session Stop Time : 1157 Vinay Rodriguez PT, DPTCHol[facility]02[facility]27-[facility] History of Present illness Narrative* Vinay Rodriguez PT, DPT - 01/23/2024 11:57 AM EST Program_ID:[id number] Access Code: [email or web address] URL: [email or web address] Date: 01-23-2024 Prepared By: Vinay Santiago Program Notes Exercises - Long Sitting Calf Stretch with Strap - 1 x daily - 7 x weekly - 2 sets - 1 reps - Long Sitting Soleus Stretch on Bolster with Strap - 1 x daily - 7 x weekly - 2 sets - 1 reps - Seated Ankle Dorsiflexion with Resistance - 1 x daily - 7 x weekly - 2 sets - 15 reps - Long Sitting Ankle Inversion with Resistance - 1 x daily - 7 x weekly - 2 sets - 15 reps - Long Sitting Ankle Eversion with Resistance - 1 x daily - 7 x weekly - 2 sets - 15 reps - Long Sitting Ankle Plantar Flexion with Resistance - 1 x daily - 7 x weekly - 2 sets - 15 reps - Toe Extension and Flexion Caregiver PROM - 1 x daily - 7 x weekly - 2 sets - 10 reps - Standing 3-Way Leg Reach with Resistance at Ankles and Counter Support - 1 x daily - 7 x weekly - 2 sets - 10 reps - Standing Heel Raise with Support - 1 x daily - 7 x weekly - 2 sets - 15 reps * Vinay Rodriguez PT, DPT - 01/23/2024 11:19 AM EST Episode Visit Count: 3 Therapist That Will Accept/Oversee The Plan Of Care: Vinay Rodriguez Start of Care Date: 01/08/24 Onset Date: 11/22/23 Patient Identified by Name and Date of : Yes REHABILITATION AND SPORTS THERAPY PHYSICAL THERAPY TREATMENT NOTE ASSESSMENT: Rico Doe tolerated the session with expected muscle soreness. She demonstrated ongoing difficulty with single leg balance, right>left. Continued difficulty with active toe flexion ROM, though improving slightly. She demonstrated increased tolerance for standing heel raise compared to previous session. The patient will continue to benefit from ongoing skilled physical therapy to progress toward set goals. PLAN FOR NEXT VISIT: progress right ankle strength and ROM as able. Progress balance activities as patient tolerates. DFstretch on step, BAPS board SUBJECTIVE: Patient continues to be able to wear normal shoes. Patient reports the numnbess in her toes is not only intermittent rather than continuous. Pain: Pain Pain Level: 0 Pain Location: Foot - Right Post Treatment Pain Post Treatment Pain Level: 0 Post Treatment Pain Location: Foot - Right OBJECTIVE MEASURES WITH LEVEL OF FUNCTION: Ongoing impaired active toe flexion ROM right>left. TREATMENT: Therapeutic Exercise: 2: *Longsitting gastroc stretch 3x30 sec hold bilat, soleus stretch 3x30 sec 3: *4 way ankle verse GTB 2x15 each way 4: *Seated toe extension and flexion stretch x20 each way 5: *Standing bilat heel raise x15 Skilled Intervention: Patient was educated in proper exercise technique and purpose for exercises. Reviewed and educated patient on additions/changes for home exercise program as above (*). Skilled judgment was used in selection of appropriate interventions. Correct performance of therapeutic exercises was facilitated with verbal and visual cuing. Neuromuscular Re-Education: 1: Standing SL balance 2x30 sec bilat 2: slant board weight shifts ant/post, side to side 2x10 3: 3 way hip verse GTB at hips, mat table support 2x10 bilat, emphasis on SL balance on weight bearing leg Skilled Intervention: Skilled judgment used to assess appropriate program for balance and coordination activity. Ensured patient safety with use of mat table for support. Billing Therapeutic Exercise Treatment Minutes: 29 Neuromuscular Re-Education Treatment Minutes: 12 Skilled Treatment Time Minutes (timed and untimed codes): 41 Total Session Time (minutes): 41 Session Start Time : 1116 Session Stop Time : 1157 Vinay Rodriguez PT, DPT documented in this encounterSelect [facility] [place]24 NoteHNO ID: [id number] Author: VINAY RODRIGUEZ PT, DPT Service: ? Author Type: Physical Therapist Type: Progress Notes Filed: 01/23/2024 12:01 Note Text: Episode Visit Count: 3 Therapist That Will Accept/Oversee The Plan Of Care: Vinay Rodriguez Start of Care Date: 01/08/24 Onset Date: 11/22/23 Patient Identified by Name and Date of : Yes REHABILITATION AND SPORTS THERAPY PHYSICAL THERAPY TREATMENT NOTE ASSESSMENT: Rico Doe tolerated the session with expected muscle soreness. She demonstrated ongoing difficulty with single leg balance, right>left. Continued difficulty with active toe flexion ROM, though improving slightly. She demonstrated increased tolerance for standing heel raise compared to previous session. The patient will continue to benefit from ongoing skilled physical therapy to progress toward set goals. PLAN FOR NEXT VISIT: progress right ankle strength and ROM as able. Progress balance activities as patient tolerates. DF stretch on step, BAPS board SUBJECTIVE: Patient continues to be able to wear normal shoes. Patient reports the numnbess in her toes is not only intermittent rather than continuous. Pain: Pain Pain Level: 0 Pain Location: Foot - Right Post Treatment Pain Post Treatment Pain Level: 0 Post Treatment Pain Location: Foot - Right OBJECTIVE MEASURES WITH LEVEL OF FUNCTION: Ongoing impaired active toe flexion ROM right>left. TREATMENT: Therapeutic Exercise: 2: *Longsitting gastroc stretch 3x30 sec hold bilat, soleus stretch 3x30 sec 3: *4 way ankle verse GTB 2x15 each way 4: *Seated toe extension and flexion stretch x20 each way 5: *Standing bilat heel raise x15 Skilled Intervention: Patient was educated in proper exercise technique and purpose for exercises. Reviewed and educated patient on additions/changes for home exercise program as above (*). Skilled judgment was used in selection of appropriate interventions. Correct performance of therapeutic exercises was facilitated with verbal and visual cuing. Neuromuscular Re-Education: 1: Standing SL balance 2x30 sec bilat 2: slant board weight shifts ant/post, side to side 2x10 3: 3 way hip verse GTB at hips, mat table support 2x10 bilat, emphasis on SL balance on weight bearing leg Skilled Intervention: Skilled judgment used to assess appropriate program for balance and coordination activity. Ensured patient safety with use of mat table for support. Billing Therapeutic Exercise Treatment Minutes: 29 Neuromuscular Re-Education Treatment Minutes: 12 Skilled Treatment Time Minutes (timed and untimed codes): 41 Total Session Time (minutes): 41 Session Start Time : 1116 Session Stop Time : 1157 Vinay Rodriguez PT, [facility]CH[facility]02-20-[facility] History of Present illness Narrative* Vinay Rodriguez PT, DPT - 01/16/2024 11:50 AM EST Program_ID:[id number] Access Code: [email or web address] URL: [email or web address] Date: 01-16-2024 Prepared By: Vinay Santiago Program Notes Exercises - Long Sitting Calf Stretch with Strap - 1 x daily - 7 x weekly - 3 sets - 1 reps - Long Sitting Soleus Stretch on Bolster with Strap - 1 x daily - 7 x weekly - 3 sets - 1 reps - Seated Ankle Dorsiflexion with Resistance - 1 x daily - 7 x weekly - 3 sets - 15 reps - Long Sitting Ankle Inversion with Resistance - 1 x daily - 7 x weekly - 3 sets - 15 reps - Long Sitting Ankle Eversion with Resistance - 1 x daily - 7 x weekly - 3 sets - 15 reps - Long Sitting Ankle Plantar Flexion with Resistance - 1 x daily - 7 x weekly - 3 sets - 15 reps - Toe Extension and Flexion Caregiver PROM - 1 x daily - 7 x weekly - 3 sets - 10 reps - Seated Heel Raise - 1 x daily - 7 x weekly - 3 sets - 15 reps * Vinay Rodriguez PT, DPT - 01/16/2024 11:18 AM EST Episode Visit Count: 2 Therapist That Will Accept/Oversee The Plan Of Care: Vinay Rodriguez Start of Care Date: 01/08/24 Onset Date: 11/22/23 Patient Identified by Name and Date of : Yes REHABILITATION AND SPORTS THERAPY PHYSICAL THERAPY TREATMENT NOTE ASSESSMENT: Rico Doe tolerated the session with expected muscle soreness. She demonstrated difficulty with ankle re-education exercises using BAPS board. Foot intrinsics quick to fatigue. Difficulty noted with bilateral single leg balance. The patient will continue to benefit from ongoing skilled physical therapy to progress toward set goals. PLAN FOR NEXT VISIT: progress right ankle strength and ROM as able. Progress balance activities as patient tolerates. SUBJECTIVE: Patient presenting to PT with a normal shoe on. She states ongoing swelling, though it has decreased since previous visit. HEP is going well. Pain: Pain Pain Level: 0 Pain Location: Foot - Right Post Treatment Pain Post Treatment Pain Level: 0 (muscle fatigue) Post Treatment Pain Location: Foot - Right OBJECTIVE MEASURES WITH LEVEL OF FUNCTION: LE Strength R Ankle Plantarflexion Functional Strength (S1): 0 L Ankle Plantarflexion Functional Strength (S1): 15 TREATMENT: Therapeutic Exercise: 1: Seated bilateral heel raise 2x15 2: *Longsitting gastroc stretch 3x30 sec hold bilat, soleus stretch 3x30 sec 3: *4 way ankle verse GTB 2x15 each way 4: *Seated toe extension and flexion stretch x20 each way 5: Difficulty with toe flexion during towel scrunch, terminated Skilled Intervention: Patient was educated in proper exercise technique and purpose for exercises. Reviewed and educated patient on additions/changes for home exercise program. Skilled judgment was used in selection of appropriate interventions. Correct performance of therapeutic exercises was facilitated with verbal and visual cuing. Neuromuscular Re-Education: 1: Standing SL balance x30 sec bilat 2: BAPS board PF/DF, inv/ever, cw/ccw 2x10 each way Skilled Intervention: Skilled judgment used to assess appropriate program for balance and coordination activity. Billing Therapeutic Exercise Treatment Minutes: 30 Neuromuscular Re-Education Treatment Minutes: 10 Skilled Treatment Time Minutes (timed and untimed codes): 40 Total Session Time (minutes): 40 Session Start Time : 1116 Session Stop Time : 1156 Vinay Rodriguez PT, DPT documented in this encounterSelect [facility] [place] NoteHNO ID: [id number] Author: VINAY RODRIGUEZ PT, DPT Service: ? Author Type: Physical Therapist Type: Progress Notes Filed: 01/16/2024 11:58 Note Text: Episode Visit Count: 2 Therapist That Will Accept/Oversee The Plan Of Care: Vinay Rodriguez Start of Care Date: 01/08/24 Onset Date: 11/22/23 Patient Identified by Name and Date of : Yes REHABILITATION AND SPORTS THERAPY PHYSICAL THERAPY TREATMENT NOTE ASSESSMENT: Rico Doe tolerated the session with expected muscle soreness. She demonstrated difficulty with ankle re-education exercises using BAPS board. Foot intrinsics quick to fatigue. Difficulty noted with bilateral single leg balance. The patient will continue to benefit from ongoing skilled physical therapy to progress toward set goals. PLAN FOR NEXT VISIT: progress right ankle strength and ROM as able. Progress balance activities as patient tolerates. SUBJECTIVE: Patient presenting to PT with a normal shoe on. She states ongoing swelling, though it has decreased since previous visit. HEP is going well. Pain: Pain Pain Level: 0 Pain Location: Foot - Right Post Treatment Pain Post Treatment Pain Level: 0 (muscle fatigue) Post Treatment Pain Location: Foot - Right OBJECTIVE MEASURES WITH LEVEL OF FUNCTION: LE Strength R Ankle Plantarflexion Functional Strength (S1): 0 L Ankle Plantarflexion Functional Strength (S1): 15 TREATMENT: Therapeutic Exercise: 1: Seated bilateral heel raise 2x15 2: *Longsitting gastroc stretch 3x30 sec hold bilat, soleus stretch 3x30 sec 3: *4 way ankle verse GTB 2x15 each way 4: *Seated toe extension and flexion stretch x20 each way 5: Difficulty with toe flexion during towel scrunch, terminated Skilled Intervention: Patient was educated in proper exercise technique and purpose for exercises. Reviewed and educated patient on additions/changes for home exercise program. Skilled judgment was used in selection of appropriate interventions. Correct performance of therapeutic exercises was facilitated with verbal and visual cuing. Neuromuscular Re-Education: 1: Standing SL balance x30 sec bilat 2: BAPS board PF/DF, inv/ever, cw/ccw 2x10 each way Skilled Intervention: Skilled judgment used to assess appropriate program for balance and coordination activity. Billing Therapeutic Exercise Treatment Minutes: 30 Neuromuscular Re-Education Treatment Minutes: 10 Skilled Treatment Time Minutes (timed and untimed codes): 40 Total Session Time (minutes): 40 Session Start Time : 1116 Session Stop Time : 1156 Vinay Rodriguez PT, [facility]CH[facility]02[facility] History of Present illness Narrative* Vinay Rodriguez PT, DPT - 01/08/2024 2:03 PM EST Program_ID:[id number] Access Code: [email or web address] URL: [email or web address] Date: 01-08-2024 Prepared By: Vinay Santiago Program Notes Exercises - Long Sitting Calf Stretch with Strap - 1 x daily - 7 x weekly - 3 sets - 10 reps - Seated Ankle Dorsiflexion with Resistance - 1 x daily - 7 x weekly - 3 sets - 10 reps - Long Sitting Ankle Inversion with Resistance - 1 x daily - 7 x weekly - 3 sets - 10 reps - Long Sitting Ankle Eversion with Resistance - 1 x daily - 7 x weekly - 3 sets - 10 reps - Long Sitting Ankle Plantar Flexion with Resistance - 1 x daily - 7 x weekly - 3 sets - 10 reps - Toe Extension and Flexion Caregiver PROM - 1 x daily - 7 x weekly - 3 sets - 10 reps * Vinay Rodriguez PT, DPT - 01/08/2024 1:31 PM EST Episode Visit Count: 1 Therapist That Will Accept/Oversee The Plan Of Care: Vinay Rodriguez Start of Care Date: 01/08/24 Onset Date: 11/22/23 Patient Identified by Name and Date of : Yes REHABILITATION AND SPORTS THERAPY PHYSICAL THERAPY EVALUATION PLAN OF CARE: Assessment: Rico Doe presents with diagnosis of right bunionectomy on 11/22/2023 that interferes with walking, stair negotiation, physical activities, recreational activities, working . She presents with impairments in gait, independence in exercise, overall function, range of motion, and strength. PROMIS (Patient-Reported Outcomes Measurement Information System) scores were reviewed and physical function domain identified as a rehabilitation concern. Prognosis for therapy is Excellent due to: current objective clinical presentation, good overall health status, acuteness of condition, good support system/ coping skills . She will benefit from skilled therapy services to meet the goalsestablished for this plan of care as noted below. Goals for Episode of Care: created on 01/08/24 through 02/05/24 [place] in home exercise program. Patient will decrease pain to 0/10 with functional activities to allow patient return to work. Patient will increase active ROM of right ankle to symmetrical with left ankle to allow pt to improve gait mechanics / gait pattern . Patient will demonstrate increase in right ankle strength to 5/5 during manual muscle testing in order to improve function for leisure / recreation skills. Patient will perform 9 SL heel raises bilaterally for improved gastroc/soleus strength. Normal gait without aircast. Reciprocal stair negotiation. Patient Goals: Reduce stiffness Planned Interventions, Frequency, and Duration: Current Frequency: 1x/week Duration: 4 weeks Total Number of Visits Planned: 4 Planned Treatment Interventions: Therapeutic exercise (58123), Neuromuscular re- education (52208), Manual therapy (57700), Therapeutic activities (46834), Self- [place] [facility] management (06227), Gait Training (88671), Body Mechanics Training, Functional training, General Conditioning PLAN FOR NEXT VISIT: progress right ankle strength and ROM as able. Progress to WB out of aircast as patient tolerates (with shoe on). Patient demonstrates good understanding of plan of care and treatment. The above goals and plan of care were discussed and agreed upon by patient/family. SUBJECTIVE: Patient presenting to PT following right bunionectomy on 11/22/2023. She is full weight bearing in the walking boot as of most recent surgeon visit, able to wean to shoe as she tolerates. She had left bunionectomy in june of last year, which she did not receive PT for. She reports her foot is tooswollen to put a shoe on still. 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 Recreation / Current Exercise: 10,000 steps per day prior to surgeries Intake Information: Prescription present Previous Treatment: Surgery Falls Interview: No positive findings with falls interview Pain: Pain Pain Level: 0 Pain Location: Foot - Right Post Treatment Pain Post Treatment Pain Level: No Change Post Treatment Pain Location: Foot - Right PROMIS Scales Higher is Better 01/08/2024 01/03/2024 11/29/2023 Phys Func - Score - 36 (moderate dysfunction) 35 (moderate dysfunction) Phys Func - Percentile - 8% 7% Self-Eff Symptom - Score 53 (Average) - - Self-Eff Symptom - Percentile 62% - - T-scores: mean of general population = 50. 5 points is clinically meaningfully difference Percentiles provide an indication of how the patient's score ranks in relation to the general population. Higher percentile rankings indicate better function/quality of life. 50th percentile is the average of the general population and indicates half of respondents had a worse score. OBJECTIVE MEASURES WITH LEVEL OF FUNCTION: Posture / Alignment Posture: Forward head, Rounded shoulders Ankle Observations Weight Bearing Status: WBAT R Ankle Presents with: Swelling, Incision R Swelling: redness, more swelling at forefoot R Incision: well heeled, 2 incisions R Ankle Girth - Figure 8 (cm): 50.5 L Ankle Girth - Figure 8 (cm): 49 Ankle Brace/Support: Air cast Sensation - Lower Extremity LE Light Touch Sensation: Impaired (impaired over incisions) LE AROM R Ankle Dorsiflexion: 2 Degrees R Ankle Plantar Flexion: 45 Degrees R Ankle Inversion: 42 R Ankle Eversion: 11 L Ankle Dorsiflexion: 6 Degrees L Ankle Plantar Flexion: 54 Degrees L Ankle Inversion: 56 L Ankle Eversion: 12 LE PROM R Toe(s): (impaired R>L) L Toes(s): (impaired R>L) LE Strength R LE Strength: hip strength 5/5, see below for ankle strength L LE Strength: grossly 5/5 R Ankle Dorsiflexion (L4): 5/5 R Ankle Plantarflexion Functional Strength (S1): (deferred due to patient being in boot) R Ankle Inversion: 4/5 R Ankle Eversion: 4-/5 L Ankle Plantarflexion Functional Strength (S1): 5 Gait Gait Observation: Ambulating with mild antalgic pattern, aircast donned. No AD. Good speed. Limitedheel toe pattern. Stairs: Step-to pattern, bilateral railings. Education: Education Learning Preferences: Demonstration, Explanation, Performance, Printed Materials Barriers: None Learning/educational needs: Health promotion, Home exercise program, Plan of Care, Procedure / Surgery, Gait Training, Body Mechanics, Brace Fit Education Provided: Yes, see treatment interventions for education provided Education Provided To: Patient Education Mode/Type: Explanation/Discussion, Literature/Printed Materials, Performance Response to Education/Teach Back: States/Identifies, Return Demonstration TREATMENT: PT Treatment Interventions: Therapeutic Exercise Evaluation Therapeutic Exercise: 1: Education provided regarding rehabilitation process, timeframe for strength gains, anatomy, importance of HEP compliance, and goals for PT. 2: *Longsitting gastroc stretch 2x30 sec hold bilat 3: *4 way ankle verse GTB x15 each way 4: *Seated toe extension and flexion stretch x10 each way Skilled Intervention: Patient was educated in proper exercise technique and purpose for exercises. Skilled judgment was used in selection of appropriate interventions. Provided written instruction for home exercise program to facilitate proper performance and compliance. Correct performance of therapeutic exercises was facilitated with verbal and visual cuing. Patient education as noted. Billing * Evaluation Low Complexity: 1 Unit Therapeutic Exercise Treatment Minutes: 20 Skilled Treatment Time Minutes (timed and untimed codes): 44 Total Session Time (minutes): 44 Session Start Time : 1331 Session Stop Time : 1415 Vinay Rodriguez PT, DPT documented [facility] History of Past illness Narrative* Problem Noted Date Diagnosed Date Resolved Date Gait abnormality 01/08/2024 02/06/2024 documented as of this encounter (statuses as of 02/07/2024) [facility] History of Past illness Narrative* Problem Noted Date Diagnosed Date Resolved Date Gait abnormality 01/08/2024 02/06/2024 documented as of this encounter (statuses as of 02/14/2024) [facility] History of Past illness Narrative* Problem Noted Date Diagnosed Date Resolved Date Gait abnormality 01/08/2024 02/06/2024 documented as of this encounter (statuses as of 02/14/2024) [facility] NoteHNO ID: [id number] Author: VINAY RODRIGUEZ PT, DPT Service: ? Author Type: Physical Therapist Type: Progress Notes Filed: 01/08/2024 14:27 Note Text: Episode Visit Count: 1 Therapist That Will Accept/Oversee The Plan Of Care: Vinay Rodriguez Start of Care Date: 01/08/24 Onset Date: 11/22/23 Patient Identified by Name and Date of : Yes REHABILITATION AND SPORTS THERAPY PHYSICAL THERAPY EVALUATION PLAN OF CARE: Assessment: Rico Doe presents with diagnosis of right bunionectomy on 11/22/2023 that interferes with walking, stair negotiation, physical activities, recreational activities, working . She presents with impairments in gait, independence in exercise, overall function, range of motion, and strength. PROMIS? (Patient-Reported Outcomes Measurement Information System) scores were reviewed and physical function domain identified as a rehabilitation concern. Prognosis for therapy is Excellent due to: current objective clinical presentation, good overall health status, acuteness of condition, good support system/ coping skills . She will benefit from skilled therapy services to meet the goals established for this plan of care as noted below. Goals for Episode of Care: created on 01/08/24 through 02/05/24 [place] in home exercise program. Patient will decrease pain to 0/10 with functional activities to allow patient return to work. Patient will increase active ROM of right ankle to symmetrical with left ankle to allow pt to improve gait mechanics / gait pattern . Patient will demonstrate increase in right ankle strength to 5/5 during manual muscle testing in order to improve function for leisure / recreation skills. Patient will perform 9 SL heel raises bilaterally for improved gastroc/soleus strength. Normal gait without aircast. Reciprocal stair negotiation. Patient Goals: Reduce stiffness Planned Interventions, Frequency, and Duration: Current Frequency: 1x/week Duration: 4 weeks Total Number of Visits Planned: 4 Planned Treatment Interventions: Therapeutic exercise (31915), Neuromuscular re-education (53615), Manual therapy (47867), Therapeutic activities (83532), Self-[place] [facility] management (53262), Gait Training (86170), Body Mechanics Training, Functional training, General Conditioning PLAN FOR NEXT VISIT: progress right ankle strength and ROM as able. Progress to WB out of aircast as patient tolerates (with shoe on). Patient demonstrates good understanding of plan of care and treatment. The above goals and plan of care were discussed and agreed upon by patient/family. SUBJECTIVE: Patient presenting to PT following right bunionectomy on 11/22/2023. She is full weight bearing in the walking boot as of most recent surgeon visit, able to wean to shoe as she tolerates. She had left bunionectomy in june of last year, which she did not receive PT for. She reports her foot is too swollen to put a shoe on still. 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 Recreation / Current Exercise: 10,000 steps per day prior to surgeries Intake Information: Prescription present Previous Treatment: Surgery Falls Interview: No positive findings with falls interview Pain: Pain Pain Level: 0 Pain Location: Foot - Right Post Treatment Pain Post Treatment Pain Level: No Change Post Treatment Pain Location: Foot - Right PROMIS Scales Higher is Better 01/08/2024 01/03/2024 11/29/2023 Phys Func - Score - 36 (moderate dysfunction) 35 (moderate dysfunction) Phys Func - Percentile - 8% 7% Self-Eff Symptom - Score 53 (Average) - - Self-Eff Symptom - Percentile 62% - - T-scores: mean of general population = 50. 5 points is clinically meaningfully difference Percentiles provide an indication of how the patient's score ranks in relation to the general population. Higher percentile rankings indicate better function/quality of life. 50th percentile is the average of the general population and indicates half of respondents had a worse score. OBJECTIVE MEASURES WITH LEVEL OF FUNCTION: Posture / Alignment Posture: Forward head, Rounded shoulders Ankle Observations Weight Bearing Status: WBAT R Ankle Presents with: Swelling, Incision R Swelling: redness, more swelling at forefoot R Incision: well heeled, 2 incisions R Ankle Girth - Figure 8 (cm): 50.5 L Ankle Girth - Figure 8 (cm): 49 Ankle Brace/Support: Air cast Sensation - Lower Extremity LE Light Touch Sensation: Impaired (impaired over incisions) LE AROM R Ankle Dorsiflexion: 2 Degrees R Ankle Plantar Fl (more content not included)...[facility] 01-03-2024 Instructions* Patient Instructions* Elodia Lao PA-C - 01/03/2024 11:38 AM EST You may apply weight to the extremity as tolerated in the boot, increasing weightbearing in the boot as tolerated. When you're comfortable, gradually work your way out of the boot and into a shoe that is comfortable, supportive with a sole that is fairly stiff, and not too tight. You can gently perform ankle range of motion exercises a few times daily (up and down, side to side, circles), 10-15 reps each set. You may wiggle your toes and move at the knee without restriction. Elevate as needed. Wearing a compression sock to help reduce swelling is recommended. A brand that is comfortable and provides good compression is called [employer]. You can buy this online. Look for [id number] stocking. Avoid taking anti-inflammatories on a regularly scheduled basis: ibuprofen, Advil, Motrin, Aleve, naproxen as these can potentially interfere with bony healing. It's okay to take these types of medications for a short period of time following your injury. We prefer acetaminophen (Tylenol) as the primary medication for pain. Do not take more than 3,000mgin a 24 hour period. You can schedule PT by calling [phone]. documented in this encounterSelect [facility] NoteHNO ID: [id number] Author: ELODIA LAO PA-C Service: ? Author Type: Physician [employer] Laborer Type: Progress Notes Filed: 01/03/2024 13:15 Note Text: Rico Doe Surgery Date: 11/22/24 Surgery: Right lapidus for bunion (CPT 68786) Right 2nd and 3rd metatarsal osteotomies Right 2nd hammertoe correction Interval History: She is now 6 weeks since surgery. They report no pain. She has been partial weightbearing since our last visit. She did have to redo her bunion dressing, but she has kept it in place. Denies fever, chills, chest pain, SOB, or proximal calf pain. Assessment/Plan: Rico Doe is now 6 weeks out from the above procedure and doing well. X-rays were reviewed. Incisions were assessed. Pin pulled. Patient can start showering in 24 hours and getting incision wet. Patient to progress to full weightbearing as tolerated in boot and wean boot when comfortable. PT order placed. Follow up in 6 weeks, with Weight bearing bilateral foot films upon return. Physical Exam: Well appearing female in no acute distress; Alert and oriented. Right Leg: Incision is clean dry and intact. There is no erythema, gaping, dehiscence. Expected swelling focal to the post-op area only. Heel free of any redness/signs of pressure areas. She has palpable pulses, sensation is intact. She is able to flex and extend their toes without difficulty. She is able to dorsiflex and plantar flex at the ankle. Radiographs: Right foot films were reviewed today, and revealed hardware that is intact without complications. Medication, History, and Allergies were reviewed and updated in the medical record. This note was partially generated using [employer] logo voice recognition system, and there may be some incorrect words, spellings, and punctuation that were not noted in checking the note before saving. Elodia Lao PA-C [facility] History of Present illness Narrative* Elodia Lao PA-C - 01/03/2024 11:35 AM EST Rico Doe Surgery Date: 11/22/24 Surgery: Right lapidus for bunion (CPT 35584) Right 2nd and 3rd metatarsal osteotomies Right 2nd hammertoe correction Interval History: She is now 6 weeks since surgery. They report no pain. She has been partial weightbearing since ourlast visit. She did have to redo her bunion dressing, but she has kept it in place. Denies fever, chills, chest pain, SOB, or proximal calf pain. Assessment/Plan: Rico Doe is now 6 weeks out from the above procedure and doing well. X-rays were reviewed. Incisions were assessed. Pin pulled. Patient can start showering in 24 hours and getting incision wet. Patient to progress to full weightbearing as tolerated in boot and wean boot when comfortable. PT order placed. Follow up in 6 weeks, with Weight bearing bilateral foot films upon return. Physical Exam: Well appearing female in no acute distress; Alert and oriented. Right Leg: Incision is clean dry and intact. There is no erythema, gaping, dehiscence. Expected swelling focal to the post-op area only. Heel free of any redness/signs of pressure areas. She has palpable pulses, sensation is intact. She is able to flex and extend their toes without difficulty. She is able to dorsiflex and plantar flex at the ankle. Radiographs: Right foot films were reviewed today, and revealed hardware that is intact without complications. Medication, History, and Allergies were reviewed and updated in the medical record. This note was partially generated using [employer] logo voice recognition system, and there may be some incorrect words, spellings, and punctuation that were not noted in checking the note before saving. Elodia Lao PA-C Department of Orthopaedics Foot and Ankle Surgery documented in this encounterSelect [facility] History of Present illness Narrative* Ramsey Russo, RT(R) - 01/03/2024 11:05 AM EST Radiology Service Progress Note PATIENT NAME: Rico Doe DATE OF SERVICE: January 03, 2024 TIME: 11:20 AM PATIENT IDENTITY VERIFICATION COMPLETED USING TWO (2) IDENTIFIERS: Name and Date of confirmedby patient verbally. FALL SCREENING: Has the patient had 2 falls in the last year or 1 fall with injury or currently using an Ambulatory Assistive Device (Walker, Cane, Wheelchair, Crutches, etc.)? No PATIENT GENDER DATA: Female. status: : No status: NO. PATIENT RELEVANT IMPLANT DATA REVIEWED: Not Applicable PATIENT PRESENTS WITH AN IMPLANTABLE OR ATTACHED QUALITY CONTROL LAB TECH: No RADIOLOGY DEPARTMENT: General X-ray: Exam(s) Completed: Lower Extremity X- Ray(s): Foot, Right and Wt. Bearing PERIPHERAL IV DATA: Not applicable SIGNED BY: KELLIE Vasquez) January 03, 2024 11:20 AM documented in this encounterSelect [facility]24 NoteHNO ID: [id number] Author: RAMSEY RUSSO RT (R) Service: ? Author Type: Steel Die Printer Type: Progress Notes Filed: 01/03/2024 11:21 Note Text: Radiology Service Progress Note PATIENT NAME: Rico Doe DATE OF SERVICE: January 03, 2024 TIME: 11:20 AM PATIENT IDENTITY VERIFICATION COMPLETED USING TWO (2) IDENTIFIERS: Name and Date of confirmed by patient verbally. FALL SCREENING: Has the patient had 2 falls in the last year or 1 fall with injury or currently using an Ambulatory Assistive Device (Walker, Cane, Wheelchair, Crutches, etc.)? No PATIENT GENDER DATA: Female. status: : No status: NO. PATIENT RELEVANT IMPLANT DATA REVIEWED: Not Applicable PATIENT PRESENTS WITH AN IMPLANTABLE OR ATTACHED QUALITY CONTROL LAB TECH: No RADIOLOGY DEPARTMENT: General X-ray: Exam(s) Completed: Lower Extremity X-Ray(s): Foot, Right and Wt. Bearing PERIPHERAL IV DATA: Not applicable SIGNED BY: KELLIE Vasquez) January 03, 2024 11:20 [facility]01-16-2024 NoteHNO ID: [id number] Author: ?, ?, ? Service: ? Author Type: ? Type: Progress Notes Filed: 12/12/2023 15:36 Note Text: PT ASSESSMENT - CASTING ROOM N presents for cast removal. Ashely Barrow Ma Beeper: [id number] NoteHNO ID: [id number] Author: ELODIA LAO PA-C Service: ? Author Type: Physician [employer] Laborer Type: Progress Notes Filed: 12/13/2023 11:37 Note Text: Rico Doe Surgery Date: 11/22/24 Surgery: Right lapidus for bunion (CPT 51644) Right 2nd and 3rd metatarsal osteotomies Right 2nd hammertoe correction Interval History: She is now 3 weeks since surgery. They report minimal pain. She has been nonweightbearing and elevating regularly. She is compliant with her aspirin. Denies fever, chills, chest pain, SOB, or proximal calf pain. Assessment/Plan: Rico Doe is now 3 weeks out from the above procedure and doing well. X-rays were reviewed. Incisions were assessed. Sutures were removed and patient placed into a bunion dressing. Dressing was applied in a way that patient can check her midfoot incision without disturbing the bunion wrap on her toes. Foot to remain dry due to pin in place. Patient placed into a tall walking boot and allowed 50% weightbearing as tolerated. Follow up in 3 weeks, with Weight bearing right foot films upon return. Physical Exam: Well appearing female in no acute distress; Alert and oriented. Right Leg: Incision is clean dry and intact. There is no erythema, gaping, dehiscence. Expected swelling focal to the post-op area only. Heel free of any redness/signs of pressure areas. She has palpable pulses, sensation is intact. She is able to flex and extend their toes (1, 3, 4, 5) without difficulty. She is able to dorsiflex and plantar flex at the ankle. Radiographs: Right foot films were reviewed today, and revealed hardware that is intact without complications. Medication, History, and Allergies were reviewed and updated in the medical record. This note was partially generated using [employer] recognition system, and there may be some incorrect words, spellings, and punctuation that were not noted in checking the note before saving. Elodia Lao PA-C [facility]01-03-2024 NoteHNO ID: [id number] Author: Jyotsna Gomez Tech Service: ? Author Type: Steel Die Printer Type: Progress Notes Filed: 11/29/2023 3:07 PM Note Text: SPLINT APPLICATION Date/Time: 11/29/2023 3:07 PM Performed by: Jyotsna Gomez Tech Authorized by: Elodia Lao PA-C Procedure details: Location: Right ankle Cast/Brace type: Short leg cast non wt bearing Post-procedure: The splinted body part was neurovascularly unchanged following the procedure Tolerance: Patient tolerated the procedure well with no immediate complications [facility] NoteHNO ID: [id number] Author: Adonis Reddy RN Service: ? Author Type: Registered Nurse Type: Progress Notes Filed: 11/29/2023 2:43 PM Note Text: ORTH CARE COORDINATION POST OPERATIVE NURSE VISIT Patient has been identified by name and date of : Yes, Patient is accompanied by: friend Surgery: Right lapidus for bunion (CPT 36780) Right 2nd and 3rd metatarsal osteotomies Right 2nd hammertoe correction Date of Surgery: 11/22/2023 Activity? NWb in cast Incision? clean, dry, intact - pin and ball intact Follow up Appointment? 2weeks cast off, nwb xrays Patient aware of goals, to return to ADL's, yes. Any barriers to achieving goal? No PAIN EVALUATION 11/29/2023 1439 Pain Level: 3 Pain Location: Foot-Right Description: Aching Duration Amount of Time: 1 Duration Units: Weeks Frequency: Continuous Intervention/Comfort measure: Medication Medication Update: Yes: Pt doing well today, pain meds refilled. Pt toes warm and taking ASA 325mg bid. Bunion dressing applied and cast with bumper applied. Pt to follow up in 2 weeks. Elodia Lao reviewed xrays. [facility] Red[facility]01-[facility] History of Present illness Narrative* Ramsey Russo, RT(R) - 11/29/2023 1:15 PM EST Radiology Service Progress Note PATIENT NAME: Rico Doe DATE OF SERVICE: November 29, 2023 TIME: 1:25 PM PATIENT IDENTITY VERIFICATION COMPLETED USING TWO (2) IDENTIFIERS: Name and Date of confirmedby patient verbally. FALL SCREENING: Has the patient had 2 falls in the last year or 1 fall with injury or currently using an Ambulatory Assistive Device (Walker, Cane, Wheelchair, Crutches, etc.)? No PATIENT GENDER DATA: Female. status: : No status: NO. PATIENT RELEVANT IMPLANT DATA REVIEWED: Not Applicable RADIOLOGY DEPARTMENT: General X-ray: Exam(s) Completed: Lower Extremity X- Ray(s): Foot, Right PERIPHERAL IV DATA: Not applicable SIGNED BY: RT Christina(R) November 29, 2023 1:25 PM documented in this encounterSelect [facility]24 NoteHNO ID: [id number] Author: Ramsey Russo RT(R) Service: ? Author Type: Steel Die Printer Type: Progress Notes Filed: 11/29/2023 1:25 PM Note Text: Radiology Service Progress Note PATIENT NAME: Rico Doe DATE OF SERVICE: November 29, 2023 TIME: 1:25 PM PATIENT IDENTITY VERIFICATION COMPLETED USING TWO (2) IDENTIFIERS: Name and Date of confirmed by patient verbally. FALL SCREENING: Has the patient had 2 falls in the last year or 1 fall with injury or currently using an Ambulatory Assistive Device (Walker, Cane, Wheelchair, Crutches, etc.)? No PATIENT GENDER DATA: Female. status: : No status: NO. PATIENT RELEVANT IMPLANT DATA REVIEWED: Not Applicable RADIOLOGY DEPARTMENT: General X-ray: Exam(s) Completed: Lower Extremity X-Ray(s): Foot, Right PERIPHERAL IV DATA: Not applicable SIGNED BY: RT Christina(R) November 29, 2023 1:25 [facility]12-27-2023 NoteHNO ID: [id number] Author: Jia Diop AA Service: ? Author Type: Latent Fingerprint Examiner Type: Anesthesia Procedure Notes Filed: 11/22/2023 2:35 PM Note Text: ANESTHESIOLOGY PROCEDURE NOTE Airway General Information Procedure Start Time/Medication Administration: 11/22/2023 2:11 PM Patient location during procedure: OR Timeout Performed Pre-procedure: timeout performed Consent Obtained: Yes Patient identity confirmed: arm band, care steam table attendant and patient Staffing CAA: Jia Diop AA Indications and Patient Condition Indications for airway management: anesthesia Preoxygenated: yes anesthesia circuit Method: asleep Cricoid Pressure: No Manual In-Line Stabilization: No Difficult Mask: No Final Airway Details Final airway type: supraglottic airway Number of attempts at approach: 1 Final Supraglottic Airway: i-gel Size 3 Seal Adequate: yes Airway not difficult SIGNATURE: XOCHITL Mehta PATIENT NAME: Rico Doe DATE: November 22, 2023 TIME: 2:34 PM CSN: [id number] NoteHNO ID: [id number] Author: Dakota Mejia MD Service: Anesthesiology Author Type: Anesthesiologist Type: Anesthesia Procedure Notes Filed: 11/22/2023 1:46 PM Note Text: ANESTHESIOLOGY PROCEDURE NOTE Peripheral Nerve Block General Information Procedure Start Time/Medication Administration: 11/22/2023 1:28 PM Procedure End time: 11/22/2023 1:36 PM Patient location during procedure: pre-op Timeout Performed Pre-procedure: timeout performed Consent Obtained: Yes (via Surgical Consent) Patient identity confirmed: arm band and patient Reason for block: post-op pain management/at surgeon's request Staffing Anesthesiologist: Dakota Mejia MD Performed by: anesthesiologist Preparation Sterility Preparation: hand hygiene performed prior to procedure, sterile gloves, drapes, and procedure tray, surgical cap used, mask used, sterile drape used during line insertion, skin prep agent completely dried prior to procedure Site Prep: Chloraprep Pre-Procedure Neuro Exam Location: RLE Sensory: intact Motor: intact Procedure Details Patient Position: left lateral decubitus Monitoring: Pulse OX, NIBP and EKG Block Type Lower Extremity: popliteal Approach: popliteal fossa Laterality: right Injection Technique: single-shot Ultrasound Guided: Yes Image in Chart: yes Local Infiltration: Yes Needle Needle Type: echogenic and stimulating (Pajunk) Needle Gauge: 21 G Needle Length: 100 mm Needle Localization: ultrasound, anatomical landmarks and nerve stimulator Assessment Injection assessment: negative aspiration, no paresthesia on injection, incremental injection and local visualized surrounding nerve on ultrasound Paresthesia: none Post-Procedure Neuro Exam Expected Regional Anesthesia: Yes Medications Administered dexamethasone sodium phosphate injection (DECADRON) - peripheral nerve block 10 mg - 11/22/2023 1:28:00 PM ropivacaine (PF) 10 mg/mL (1 %) injection (NAROPIN) - INTRADERMAL 20 mL - 11/22/2023 1:28:00 PM SIGNATURE: Dakota Mejia MD PATIENT NAME: Rico Doe DATE: November 22, 2023 TIME: 1:45 PM CSN: [id number] Miscellaneous Notes* Telephone Encounter - Adonis Reddy RN - 11/08/2023 2:12 PM EST spoke with patient and let her know peer to peer set up monday 12;15 - pt made $10,000 deposit for surgery need to call monday with update * Telephone Encounter - Adonis Reddy RN - 11/08/2023 9:45 AM EST email says that Leticia is working on peer to peer * Telephone Encounter - Jodee Scott - 11/08/2023 9:34 AM EST Patient is calling to ask for the team to file for an appeal. Her insurance denied the surgery. Shewould like a P2P to get done. [employer] documented in this encounterSelect Medical [facility] Instructions* Patient Instructions* Adonis Reddy RN - 10/17/2023 10:25 AM EST Images from the original note were not included. Pre-Operative Education Lucille Patino MD Foot & Ankle / Orthopedic Surgery Appointments Direct Office Surgery Date: Surgery Location: [facility] [address] [place], [place] [id number] [facility] [id number] [place] [address] You will be contacted the afternoon before your surgery with information and the time for arrival on day of surgery. The surgery center will call you, not our office. Follow-Up/Emergency Contacts Follow-up with Dr. Lucille Patino's office 1 week after surgery for post-operative evaluation - you will be scheduled to see Dr. Patino, Leticia Loa PA-C or our nurse Adonis Reddy RN for your post-operative visit. Please call for an appointment if one has notbeen scheduled by the time of surgery. For after-hours concerns, please call , and ask for the orthopedic resident consumer marketing analyst Pre-Surgical Checklist: Pre-Anesthesia [facility] - the surgery schedulers will likely make this appointment for you, however you may call [phone] to make an appointment. This appointment must be completed within 30 days prior to the date of surgery. Lab work We test vitamin D for all of our surgical patients. Please call the lab to schedule an appointment:[phone] or walk-in is available. The pre-anesthesia consultation clinic may order additional lab work. If you choose to have the vitamin D level drawn with the labs that are ordered with the anesthesia appointment, please tell the lab to also collect the vitamin D test. Physical Therapy-Crutch/Walker Training This appointment is for learning how to use crutches/walker while you are non- weight bearing AND they may supply you with the crutches/walker you bring with on the day of surgery. This a required appointment prior to surgery. If you need a prescription for any medical equipment please contact our office. Please check with your insurance company first as many insurance companies do not cover the cost of some medical equipment. Neither Orthopedics nor PT will be able to clinical counselor you on insurance coverage questions. To schedule, call Rehabilitation and Sports Therapy: [phone] to make an appointment for the fitting and instruction in the use of crutches or a walker PRIOR to your surgery date. Again, not all PT or [facility] Orthopedic clinic locations have crutches/walkers to dispense to patients.If crutches/walker are not available at the time of your PT appointment, please contact our office ([phone]) for a prescription or you may purchase them at any drug store ([employer], [employer], [employer], etc) out of pocket. Always check with your insurance company first regarding coverage/reimbursement for medical equipment. You MUST bring your crutches or walker with you the day of surgery. If you do not have medical equipment for safe mobility following surgery, your case will likely be cancelled and rescheduled. Skin Prep Prior to Surgery (if you are not in a splint or cast prior to surgery) Please do skin checks of your surgical limb in the week prior to your surgery. If you notice any bruises, open sores, blisters or scabs please call the office to let us know Wipes may have been provided in the office, however you may purchase the cleaning soap at most pharmacies Eating & Drinking prior to surgery Please follow directions provided by anesthesia at [facility] (pre-op physical) If you were not provided instructions by anesthesia regarding eating/drinking before surgery, Do not eat or drink anything after midnight the evening before surgery (including gum or candy). Discontinue NSAIDS (Aleve, Ibuprofen, Meloxicam, Celebrex) 7 days prior to surgery. Tylenol does not need to be discontinued. Some patients who take aspirin do not need to hold this before surgery. Anesthesia will determine if this needs to be held, and it will be discussed during the pre-anesthesia clinic appointment. Day of Surgery Plan to bring crutches/walker with you to the surgery center. Wear comfortable clothing to the surgery center that is loose on the bottom to accommodate for the splint or dressing. Please arrange for a friend or family member to drive you to and from the surgery center (public transportation, taxis, and Uber/Lyft are not allowed). Do not wear any make-up. Remove toenail vincentian on the surgical foot. Do not wear contacts. Do not shave the surgical area. Bring your CPAP if you have one. Post-Operative Pain Medication Refill requests can be made Monday through Monday by calling the office, ; same day requests may not be granted. Prescriptions for pain medication will only be written for up to 6 weeks maximum If you have any questions or concerns, please call the office, General Post-Operative Instructions Cast/Splint/Dressing Care Instructions Keep cast/dressing clean and dry. May shower - but cast/dressing must remain dry. You can purchase a cast cover to keep the splint/cast dry while bathing either online or at an outpatient pharmacy like [facility] or [facility]. Should the dressing/cast become wet, you need to call your physician's clinic immediately for cast removal and replacement. Moisture can cause skin breakdown and lead to infection if left untreated. Observe for increasing pain in the extremity with the cast, finger/toe-tips turning blue/purple, ornumbness and tingling in your toes/fingers. Should any of these symptoms arise, you need to be seenimmediately for evaluation of swelling and increasing compartment pressures within your affected extremity. Keep your affected extremity elevated - Toes Above your Nose - This is serrato in the first few weeksafter surgery to minimize swelling and pain. You may ice your extremity behind your knee, being careful to prevent melting ice from saturating into the splint/cast. Activity restriction while Non-Weight Bearing No driving while on narcotic pain medication. Do not get your dressing/cast/splint wet! You must remain non-weight bearing on your operative extremity unless instructed otherwise. Use crutches or a walker for ambulation. No driving until you are otherwise instructed by your physician. This will be addressed at your first follow-up appointment. Medications You will be prescribed pain medication. You should begin taking this the day of your surgery. Do not wait until the pain is severe, as it will be difficult to catch up once this occurs. The pain medication usually reaches its full effect ~1 hour after ingesting. If you have been sent home on Colace, this medication should be taken until you are off all narcotic pain medications in order to prevent constipation. [place]/Percocet have Tylenol in their ingredients. You must be careful not to exceed 3,000mg (3 grams) of Tylenol, from all sources, within a single 24-hr period. Do NOT take Regular or Extra StrengthTylenol when taking your Percocet or [place] medications Common side effects of the narcotic pain medications are nausea and itching. Benadryl can be taken to help calm your stomach, decrease anxiety levels, and minimize itching. This can be purchased at your local pharmacy without a prescription. Please abide by the instructions as printed on the bottle. If your nausea persists, make sure to take small amounts of crackers or other finance business partner foods. You will be prescribed a course of Aspirin (325 mg twice daily) after surgery, in order to minimizethe risk of blood clots following surgery. If you have additional risks factors for developing a blood clot, you will be prescribed a prescription medication instead of using aspirin. Pre-Operative Skin Cleansing Preparing or prepping skin before surgery can reduce the risk of infection at the surgical site. Chlorhexidine Gluconate (CHG) antiseptic solution / Hibiclens has been chosen for the preoperative skin preparation. We provide the chlorhexidine wipes in clinic. If you did not receive the chlorhexidine wipes in clinic you can purchase Hibiclens soap over the counter at any pharmacy. The steps below outline the prepping process and should be carefully followed. If allergic reaction occurs, stop using. Chlorhexidine Gluconate WIPES Instructions: Prior to use: Avoid shaving or the use of any topical hair removers. Shaving/hair removal can increase the risk of infection for the patient. Once prepping begins, do not apply lotions, moisturizers or makeup. Do not use skin preparation on head, hair, face, or genital area. Keep out of eyes, ears, or mouth. If contact occurs in any of these areas, rinse with water right away. Night Before & Morning of Surgery The evening before surgery and the morning of surgery take a shower and wash as you normally would. When applying the chlorhexidine wipes, your skin should be completely dry. Six wipes are provided to use (there are 2 wipes per pack). Use 2 wipes to collectively clean your neck/chest/back/abdomen/arms and nonsurgical leg. Use 1 wipe to clean the surgical leg. Clean the surgical area vigorously back and forth for 3 minutes, completely wetting treatment area, and then discard the wipes. Allow area to air dry for one minute. Do not rinse. It is normal for the skin to have a temporary tacky feel for several minutes after the antiseptic solution is applied. Do NOT apply any moisturizers, powder, or deodorant. Dress with freshly washed clothes. documented in this encounterSelect Medical [facility]11-21-[facility]23 History of Present illness Narrative* Jackie-Lucille Rivas MD - 10/17/2023 10:15 AM EST Rico Fernandezton Surgery Date: 07/26/23 Surgery: L lapiplasty, aductoplasty Interval History: She is now 12 weeks since surgery. They report no pain. She notes slight swelling in the left foot,but otherwise is very happy with how her left foot is doing. She feels like she is ready to go ahead with surgery on the right side, which requires the same surgery, though she also requires a hammertoe correction. ASSESSMENT/PLAN: 1. Valgus deformity of both great toes - ICD9: 735.0, ICD10: M20.11, M20.12 - R foot XR reviewed - XR FOOT GENERAL 3V AP/LAT/OBL LEFT On the left Nelsy is doing incredibly well, she is fully weightbearing, with minimal pain. When it comes to the right she also has a hallux valgus deformity, with metatarsus adductus. I do think she would again benefit from a Lapiplasty with adducoplasty., However, she also has a second hammertoe which is painful, so we will also perform a second hammertoe correction. We discussed the surgery in detail, including the expected recovery, outcomes, risks and benefits. They will be Non-weight bearing for 3 weeks after surgery. They understand it will take them 12 months to fully recover from the surgery. The risks and benefits of surgery were discussed today, including, but not limited to: bleeding ,infection, damage to blood vessels and nerves, nerve pain, wound healing problems, nonunion, malunion,hardware failure, blood clots, and incomplete relief of symptoms. She understood, and agreed to go ahead. My office will begin scheduling surgery. They were provided with chlorhexidine wipes/soap and instructions in the office today. Post-op pain medication will be [place] 5/325 mg 1 tab q 4 hrs (#42) We discussed DVT Prophylaxis, and they will use ASA 325 mg BID Pre-operative antibiotics will be Ancef. AMANDO Modifiable Risk Factors (MoRF) Diabetes normal High: A1C > 8 Moderate: A1C 7-8 Normal: A1C < 7 Smoking normal High: Current smoker Normal: Non smoker Narcotics Use normal High:NarxCare >=300 Moderate: 100-299 Normal: 0-99 Physical Exam: Well appearing female in no acute distress; Alert and oriented. Left Leg: Incision is clean dry and intact. There is no erythema warmth or drainage. She has palpable pulses, sensation is intact. She is able to flex and extend their toes and ankles without difficulty Right foot: Pain over the medial eminence, pain of the second toe. Radiographs: Final results and radiologist's interpretation, available in the [facility] health record. Images were reviewed with the patient/family members in the office today. My personal interpretation of the performed imaging is on the left, healed first TMT fusion, second and third TMT fusions. Radiographs from 04/25 were reviewed today, which demonstrate significant hallux valgus deformity, with metatarsus adductus. Medication, History, and Allergies were reviewed and updated in the medical record. Lucille Patino MD Orthopaedic Medical Decision Making (MDM) Complexity of problems: Chronic condition with exacerbation or progression, Complexity of data: 1 unique test results reviewed, Risk: Decision on elective major surgery w/risk factors, Level of MDM: Moderate (4) documented in this encounterSelect Medical [facility]10-12-2023 History of Present illness Narrative* Lucille Pation MD - 09/07/2023 10:15 AM EDT Rico Doe Surgery Date: 07/26/23 Surgery: Left lapidus for bunion (CPT 12094) Left 2nd and 3rd metatarsal osteotomies Interval History: She is now 6 weeks since surgery. They report no pain today. She is happy with how she is doing ASSESSMENT/PLAN: - Wean boot - Ok to shower/bathe Follow up in 6 weeks, with Weight bearing Left foot films upon return. Physical Exam: Well appearing female in no acute distress; Alert and oriented. Left Leg: Incision is clean dry and intact. There is no erythema warmth or drainage. She has palpable pulses, sensation is intact. She is able to flex and extend their toes and ankles without difficulty Radiographs: Final results and radiologist's interpretation, available in the [facility] health record. Images were reviewed with the patient/family members in the office today. My personal interpretation of the performed imaging is healing midfoot fusion/bunion correction Medication, History, and Allergies were reviewed and updated in the medical record. Lucille Patino MD documented in this encounterSelect Medical [facility]09-21-2023 Miscellaneous Notes* Addendum Note - Alexey Caballero PA-C - 08/17/2023 2:46 PM EDTAddended by: ALEXEY CABALLERO on: 08/17/2023 02:46 PM Modules accepted: Orders * Addendum Note - Adonis Reddy RN - 08/17/2023 2:43 PM EDTAddended by: ADONIS REDDY on: 08/17/2023 02:43 PM Modules accepted: Orders documented in this [facility]09-21-[facility] Instructions* Patient Instructions* Adonis Reddy RN - 08/17/2023 11:25 AM EDT Ok to be PWB (partial weight bearing ) use crutches and boot Follow up in 3 weeks with xrays Continue Asprin 325mg twice daily documented in this [facility]09-[facility] History of Present illness Narrative* Adonis Reddy RN - 08/17/2023 11:22 AM EDT ORTH CARE COORDINATION POST OPERATIVE NURSE VISIT Patient has been identified by name and date of : Yes, Patient is accompanied by: friend/family Surgery: Left lapidus for bunion (CPT 84391) Left 2nd and 3rd metatarsal osteotomies Date of Surgery: 07/26/2023 Activity? PWB in boot w/ bunion dressing Incision? clean, dry, sutures removed Follow up Appointment? 3 weeks Patient aware of goals, to return to ADL's, yes. Any barriers to achieving goal? No PAIN EVALUATION 08/17/2023 1216 Pain Level: 3 Pain Location: Foot-Left Description: Aching Duration Amount of Time: 3 Duration Units: Weeks Frequency: Continuous Intervention/Comfort measure: Reposition;Medication Medication Update: Yes: Pt doing well today, 02/03 pain meds refilled. Sutures removed and bunion dressing placed on and to remain on until follow up. Pt given instruction on partial wt bearing and using crutches/walker. Shewas having some shoulder issues but decided walker would work downstairs and knee walker upstairs for bed. Pt toes warm and wiggle/taking asa 325mg twice daily. Xrays reviewed by TANESHA Turcios RN documented in this encounterSelect Medical [facility]-07-2023 History of Present illness Narrative* Adonis Reddy RN - 08/03/2023 11:22 AM EDT ORTH CARE COORDINATION POST OPERATIVE NURSE VISIT Patient has been identified by name and date of : Yes, Patient is accompanied by: friend Surgery Left lapidus for bunion (CPT 83733) Left 2nd and 3rd metatarsal osteotomiesery: Date of Surgery: 07/26 Activity? NWB in cast - bunion dressing placed Incision? clean, dry intact sutures - swelling Follow up Appointment? 2 weeks cast off xrays Patient aware of goals, to return to ADL's, yes. Any barriers to achieving goal? No PAIN EVALUATION No data found in the last 1 encounters. Medication Update: Yes: Pt doing well today, 12/06 . Pt taking ASA BID, toes warm able to feel has some tingling still in toes. Still has alot of swelling aware to keep elevating and NWB. Cast and bunion dressing placed today. [place] refilled. Dr Alva reviewed imaging. Ibuprofen dcd. Adonis Reddy, RN documented in this encounterSelect Medical [facility]-07-2023 Instructions* Patient Instructions* Adonis Reddy RN - 08/03/2023 11:09 AM EDT Continue to be NWB(non weight bearing) and elevate foot up above heart level - Continue ASA 325mg twice daily documented in this encounterSelect Medical [facility]08-30-2023 NoteHNO ID: [id number] Author: Lady Wilkinson APRN.TWITCHELL OPERATOR Service: ? Author Type: Nurse Inbound Sales Advisor Type: Anesthesia Procedure Notes Filed: 07/26/2023 10:22 AM Note Text: ANESTHESIOLOGY PROCEDURE NOTE Airway General Information Procedure Start Time/Medication Administration: 07/26/2023 10:11 AM Patient location during procedure: OR Timeout Performed Pre-procedure: timeout performed Consent Obtained: Yes Patient identity confirmed: arm band, care steam table attendant and patient Staffing TWITCHELL OPERATOR: Lady Wilkinson APRN.TWITCHELL OPERATOR Performed by: NAOMY Indications and Patient Condition Indications for airway management: anesthesia Preoxygenated: yes anesthesia circuit Patient position: sniffing Method: asleep Cricoid Pressure: No Manual In-Line Stabilization: No Difficult Mask: No Final Airway Details Final airway type: supraglottic airway Number of attempts at approach: 1 Final Supraglottic Airway: i-gel Size 3 Seal Adequate: yes Airway not difficult SIGNATURE: Lady Wilkinson APRN.TWITCHELL OPERATOR PATIENT NAME: Rico Doe DATE: July 26, 2023 TIME: 10:22 AM CSN: [id number] ID: [id number] Author: Lucille Cutler MD Service: Anesthesiology Author Type: Anesthesiologist Type: Anesthesia Procedure Notes Filed: 07/26/2023 9:40 AM Note Text: ANESTHESIOLOGY PROCEDURE NOTE Peripheral Nerve Block General Information Procedure Start Time/Medication Administration: 07/26/2023 9:40 AM Patient location during procedure: pre-op Timeout Performed Pre-procedure: timeout performed Consent Obtained: Yes Patient identity confirmed: arm band Reason for block: post-op pain management/at surgeon's request Staffing Anesthesiologist: Lucille Cutler MD Performed by: anesthesiologist Preparation Sterility Preparation: hand hygiene performed prior to procedure, sterile gloves, drapes, and procedure tray, surgical cap used, mask used, sterile drape used during line insertion, skin prep agent completely dried prior to procedure Site Prep: Chloraprep Pre-Procedure Neuro Exam Location: LLE Sensory: intact Motor: intact Procedure Details Patient Position: supine Monitoring: Pulse OX, EKG and NIBP Block Type Lower Extremity: distal femoral (adductor canal) Laterality: left Injection Technique: single-shot Ultrasound Guided: Yes Image in Chart: yes Local Infiltration: Yes Needle Needle Gauge: 21 G Needle Length: 83 mm Needle Localization: ultrasound Assessment Injection assessment: negative aspiration, no paresthesia on injection, incremental injection and local visualized surrounding nerve on ultrasound Post-Procedure Neuro Exam Expected Regional Anesthesia: Yes Medications Administered ropivacaine (PF) 2 mg/mL (0.2 %) injection (NAROPIN) - peripheral nerve block 10 mL - 07/26/2023 9:40:00 AM ropivacaine (PF) 5 mg/mL (0.5 %) injection (NAROPIN) - peripheral nerve block 10 mL - 07/26/2023 9:40:00 AM dexamethasone sodium phosphate injection (DECADRON) - peripheral nerve block 5 mg - 07/26/2023 9:40:00 AM SIGNATURE: Lucille Cutler MD PATIENT NAME: Rico Doe DATE: July 26, 2023 TIME: 9:40 AM CSN: [id number] ID: [id number] Author: Lucille Cutler MD Service: Anesthesiology Author Type: Anesthesiologist Type: Anesthesia Procedure Notes Filed: 07/26/2023 9:40 AM Note Text: ANESTHESIOLOGY PROCEDURE NOTE Peripheral Nerve Block General Information Procedure Start Time/Medication Administration: 07/26/2023 9:24 AM Procedure End time: 07/26/2023 9:31 AM Patient location during procedure: pre-op Timeout Performed Pre-procedure: timeout performed Consent Obtained: Yes Patient identity confirmed: arm band Reason for block: post-op pain management/at surgeon's request Staffing Anesthesiologist: Lucille Cutler MD Performed by: anesthesiologist Preparation Sterility Preparation: hand hygiene performed prior to procedure, sterile gloves, drapes, and procedure tray, surgical cap used, mask used, sterile drape used during line insertion, skin prep agent completely dried prior to procedure Site Prep: Chloraprep Pre-Procedure Neuro Exam Location: LLE Sensory: intact Motor: intact Procedure Details Patient Position: right lateral decubitus Monitoring: Pulse OX, NIBP and EKG Block Type Lower Extremity: popliteal Approach: popliteal fossa Laterality: left Injection Technique: single-shot Ultrasound Guided: Yes Image in Chart: yes Local Infiltration: Yes Needle Needle Type: echogenic (Pajunk) Needle Gauge: 21 G Needle Length: 100 mm Needle Localization: ultrasound Assessment Injection assessment: negative aspiration, no paresthesia on injection, incremental injection and local visualized surrounding nerve on ultrasound Post-Procedure Neuro Exam Expected Regional Anesthesia: Yes Medications Administered ropivacaine (PF) 2 mg/mL (0.2 %) injection (NAROPIN) - peripheral nerve block 10 mL - 07/26/2023 9:24:00 AM ropivacaine (PF) 5 mg/mL (0.5 %) injection (NAROPIN) - peripheral nerve block 10 mL - 07/26/2023 9:24:00 AM dexamethasone sodium phosphate injection (DECADRON) - peripheral nerve block 5 mg - 07/26/2023 9:24:00 AM SIGNATURE: Lucille Cutler MD PATIENT NAME: Rico Doe DATE: July 26, 2023 TIME: 9:39 AM CSN: [id number] NoteHNO ID: [id number] Author: Flores Waters RN Service: Nursing Author Type: Registered Nurse Type: Nursing Progress Note Filed: 07/26/2023 9:17 AM Note Text: Pt has a left sacral nerve implant placed June 15, 2023. Area is bruised, skin intact.[facility]08-29-2023 Discharge summary Author Niurka Mccollum [facility] July 25, 2023 12:53pm Note Date/Time July 25, 2023 12 :53pm [facility] Physical Therapy [facility] [address] [place] [address] / REHABILITATION SERVICES DISCHARGE SUMMARY MR#: [id number] Acct: [id number] Name: FELIX DOE Rep #: [id number] : 1960 63 From: Niurka Mccollum PT, Cert. MDT Referring Dr.: Dr. Jacqueline Duong MD Status: REG RCR Insurance: [employer]Y INSURANCE Discharge Summary D/C summary: It has been my pleasure to treat FELIX DOE referred by Dr. Jacqueline Duong MD, with the diagnosis of MIXED INCONTINENCE for a total of 9 visit(s). Discharge Date: 07/25/23 Please see the following information for a summary of their discharge status. Subjective Subjective: PATIENT CONTINUES TO REPORT SHE IS DOING GOOD AND NO LONGER HAVING UI. STATES SHE THINKS HER FECAL INCONT IS GETTING BETTER TOO. DOING HEP. Pain BACK: Pain Intensity (Out of 10): 1 Overall Improvement % Improvement: 100 Objective Objective/Function: ALL GOALS MET. FUNCTIONAL SCREEN: Incontinence Impact Questionnaire Score: 1 Urogenital Distress Inventory Score: 1 Goals Goal 1:: DECREASE URINARY LEAKAGE EPISODES TO ONE OR LESS PER DAY Goal Progress: Goal Met Goal 2:: PATIENT WILL consistently SUCCESSFULLY DELAY VOIDING FOR 30 MINUTES WHEN URGENCY OCCURS Goal Progress: Goal Met Goal 3:: PATIENT WILL DEMONSTRATE/COMMUNICATE 10 CONSISTENT AND CONSECUTIVE 10 SECOND PELVIC FLOOR MUSCLE CONTRACTIONS TO DEMONSTRATE IMPROVED PELVIC FLOOR ENDURANCE. Goal Progress: Goal Met Goal 4:: DEVELOP HEALTHY FLUID INTAKE HABITS WITH FLUID INTAKE OF ? BODY WEIGHT IN OUNCES PER DAY AND 2/3 BEING WATER. Goal Progress: Goal Met Goal 5:: NORMALIZE VOIDING FREQUENCEY TO EVERY 3-4 HOURS. Goal Progress: Goal Met Goal 6:: PATIENT WILL BE INDEP WITH A HEP/HOME INSTRUCTIONS FOR CONTINUED IMPROVEMENT ONCE FORMAL PHYSICAL THERAPY CONCLUDES. Goal Progress: Goal Met Plan Plan: D/C. PATIENT AGREEABLE. D/C Information d/c sentence: If there are questions or concerns regarding this patient's physical therapy, please feel free to call me at [phone]. Thank you for the referral of thispatient. Sincerely, Niurka Mccollum PT, Macho MDT Balance/Gait/Functional tests Improvement % Improvement: 100 <Electronically signed by Macho Duncan PT. T> 07/25/23 9040 CC: Dr. Jacqueline Duong MD; No Primary Care Physician ~ BRIAN Signed [facility] Work Phone: [phone]) 894-450008-21-2023 History and physical note* China De La Torre, BENNETT.NAIL STICKER - 07/17/2023 11:06 AM EDT HISTORY AND PHYSICAL EXAMINATION SERVICE DATE: 07/17/2023 SERVICE TIME: 12:26 PM PRIMARY CARE PHYSICIAN: No primary care provider on file. REASON FOR VISIT: Rico Doe is a 63 year old female who is scheduled for Procedure(s) with comments: BUNIONECTOMY W/1ST MTJ AND MCJ ARTHRODESIS,ANY METHOD (Left) - left lapidus procedures, metatarsal osteotomy *General and Pop Block OSTEOTOMY METATARSAL FIRST METATARSAL (Left) at the request of Dr. Tony Rivas, Lucille Ignacio MD for consultation. My final recommendation will be communicated back to the requesting physician by wayof shared medical record or letter. Subjective The patient has the following: ACTIVE PROBLEM LIST Valgus Deformity of Both Great Toes Metatarsus Adductus of Both Feet Incontinence of Feces Former Smoker Melanoma (Hcc) COVID-19 Immunization Status Overdue - COVID-19 VACCINE (3 - Moderna series) Overdue since 05/01/2021 03/06/2021 Imm Admin: COVID-19 original vaccine, full dose, monovalent (MODERNA) 02/06/2021 Imm Admin: COVID-19 original vaccine, full dose, monovalent (MODERNA) CHIEF COMPLAINT: Pre-op exam HPI: Rico Doe is a 63 year old seen for PAC due to scheduled above surgery because of valgus deformities of both great toes. 06/01/2023, Dr. Patino HISTORY OF PRESENT ILLNESS: This is a 62 year old female with no significant PMH who presents today with bilateral bunion pain. 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 Shereports greater pain on the L compared to the R. Pain is greatest due to rubbing between the 1st and 2nd digit of the left foot in the intermetatarsal space. She is currently covering this area with a corn cushion. Endorses intermittent numbness in both great toes depending on her footwear. Reportspain only upon palpation to the callus over the 1st metatarsal of the left foot. Denies pain in theleft foot. She is able to complete all ADLs and has not required pain medication for this issue. Patient is able to ambulate independently at baseline and has no underlying mobility issues. 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 Patient is interested pursuing a surgical option for treatment of her bilateral bunions at this time. She is not on blood thinners and is not a current smoker. No prior history of DVT and no issues with anesthesia. Location of Pain: Left foot The pain is intermittent. The pain is a 1/10 at its best, and 4/10 at its worst. They denies nocturnal pain. The pain is exacerbated by prolonged standing. The pain is improved with rest, activity modification, and ice. They report Numbness. They are able to walk 60 minutes before having to stop secondary to pain. 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 Smoking History: former: smoked 1 ppd for 22 years, quit 2010 Personal or Family Hx of DVT/PE: No Diabetic:No Last Hgba1c: No results found for: HBA1C) ASSESSMENT/PLAN: Nelsy is a 62 yo female with no significant PMH presenting with bilateral hallux valgus deformitiesand lateral deviations of the 2nd and 3rd toes with metatarsus adductus. Due to increasing pain, surgical correction was offered for her bilateral hallux valgus deformities. Patient is a good surgical candidate with no significant underlying risk factors. Due to greater pain and rubbing between the 1st and 2nd digits of the left foot, we will plan to proceed with correction of the left foot first. Procedural options including minimally invasive versus lapiplasty were discussed in the context of her known metatarsus adductus. Benefits and risks of the procedures weredicussed including infection, bleeding, hardware complications, and pain. Patient elected to sign the consent for a L lapiplasty procedure. REVIEW OF SYSTEMS: General: No weight loss, malaise or fevers. Neurological: No history of TIA's, stroke, BURNER MACHINE OPERATOR tumor, impaired sensorium, hemiplegia, paraplegia orquadraplegia. No neurological symptoms or problems. Respiratory: +former smoker 1ppd/10 years Positive for: asthma (since childhood, no issues or current rx). Negative for: COPD, pneumonia within 6 weeks, tobacco use, URI < 2 weeks and obstructive sleep apnea. Cardiovascular: No history of HTN requiring medication, no history of angina, CHF, [place], cardiac surgery or stents. Denies rest pain, gangrene or revascularization/amputation for PVD. No history of cardiovascular symptoms or problems. GI: No history of GI symptoms or problems. No history of esophageal varices, recent ascites, or ETOH greater than 2 drinks per day. : Positive for: urinary incontinence (B/B, s/p implant). Negative for: nephrolithiasis, renal failure and urinary tract infection. COMMISSION AUDITOR: Negative for abnormal vaginal bleeding, abnormal vaginal discharge. Endocrine: No history of diabetes. Has not taken steroids within the past 30 days. No history of endocrinological symptoms or problems. Hematology: No history of bleeding or clotting disorder. Patient is not taking anti-coagulation or platelet medications. No history of hematological symptoms or problems. Oncology: Melanoma s/p excision Psych: No history of psychiatric symptoms or problems. Musculoskeletal: See HPI. Skin: Negative for lesions, rash and itching. PAST MEDICAL HISTORY Diagnosis Date Seasonal asthma PAST SURGICAL HISTORY Procedure Laterality Date PT ED UROLOGY 07/06/2023 axonic implant TONSILLECTOMY & ADENOIDECTOMY <AGE 10 FAMILY HISTORY Problem Relation Age of Onset Osteoporosis Sister Social History Tobacco Use Smoking status: Former Types: Cigarettes Quit date: 07/18/2011 Years since quittin.0 Smokeless tobacco: Never Vaping Use Vaping Use: Never used Substance Use Topics Alcohol use: No Drug use: No Prior to Admission medications as of 07/17/23 1105 Medication Sig Last Dose Taking docosahexaenoic acid/epa (FISH OIL ORAL) Take by mouth. Taking Yes folic acid/multivit-min/lutein (CENTRUM SILVER ORAL) Take by mouth. Taking Yes No medication comments found. ALLERGIES Allergen Reactions Ciprofloxacin Diarrhea Percocet [Oxycodone* Vomiting Dry heaves Sulfa (Sulfonamide * Hives Objective PHYSICAL EXAM: General: alert and oriented (x3) and healthy appearance. Pertinent negatives noted - not distressed. Skin: normal color, no rash or lesions. HEENT: EOM intact and pupils equal round. Pertinent negatives noted - no carotid bruit. Cardiovascular: regular rate and rhythm, normal S1 and S2, no rub, murmurs, or gallop. Respiratory: normal breath sounds, no wheezes or crackles. No chest wall deformity or tenderness. Abdomen: soft. Pertinent negatives noted - not tender. Extremities: no deformity, no edema or tenderness, no joint swelling or clubbing. Neurological: normal cognition and motor skills. Gait normal. No weakness or sensory deficit. PAIN ASSESSMENT: VITALS: BP 142/88 Pulse 85 Temp (Src) 98.9 (Temporal) Resp 16 Ht 5' 1 (1.55m) Wt 146 lb (66.2kg) SpO2 98% BMI 27.60 kg/(m^2). Diagnostic tests reviewed for today's visit: Lab Value Units Date High Low HB 13.6 g/dL 07/17/2023 15.5 11.5 HCT 40.3 % 07/17/2023 46.0 36.0 WBC 6.73 k/uL 07/17/2023 11.00 3.70 PLT 227 k/uL 07/17/2023 400 150 NA 136 mmol/L 07/17/2023 144 136 K 4.7 mmol/L 07/17/2023 5.1 3.7 GLUC 114 mg/dL 07/17/2023 99 74 BUN 20 mg/dL 07/17/2023 21 7 CREAT 0.94 mg/dL 07/17/2023 0.96 0.58 PTSEC No results within date range. INR No results within date range. APTT No results within date range. ALT No results within date range. AST No results within date range. TBILI No results within date range. TSH No results within date range. Lab Value Units Date High Low HCGQT No results within date range. UHCG No results within date range. HCG, BODY* No results within date range. Lab Value Units Date High Low ABORHD No results within date range. ABSCREEN No results within date range. No results found for: HBA1C No results found for this or any previous visit (from the past 8760 hour(s)). No results found for this or any previous visit (from the past 54104 hour(s)). Assessment Patient has the following medical conditions which may affect finn-operative course: Incontinence of feces Assessment: B/B, s/p implant Former smoker Assessment: 1ppd/10-20 years (different time frames given in epic), denies COPD, reports hx of childhood asthma but no issues as an adult or tx Melanoma (HCC) Assessment: s/p excision, LE Sousa Activity Status Index: METS: Climb a flight of stairs or walk up a hill (5.50 METs) DASI Score: 5.5 Patient denies any chest pain or undue shortness of breath with the above physical activity. Clinical Frailty Scale: 2. Well STOP-Bang Score: Patient over 50 years old Denies snoring loudly Denies feeling tired, fatigued, or sleepy during the daytime Has not been observed to stop breathing or choking/gasping during sleep Denies having high blood pressure BMI less than or equal to 35 kg/m^2 Does not have a large neck Non-male patient STOP-Bang Score: 1 [id number] Score: Age: 65-74 Sex: female CHF history: No Hypertension history: No Stroke/TIA/thromboembolism history: No Vascular disease history: No Diabetes history: No [id number] Score: 2 ARISCAT Score: Age: 51-80 Preoperative SpO2: >=96% Respiratory infection in the last month: No Preoperative anemia: No Surgical incision: peripheral Duration of surgery: 2-3 hrs Emergency procedure: No ARISCAT Score: 19 ASA Class: 2 ANESTHESIA FINDINGS: Intubation History: No history of difficult intubation Significant Anesthesia Considerations: none Airway History: No history of difficult airway I - PHYSICAL EVALUATION AIRWAY Patient intubated: No. Tracheostomy tube not present Mallampati: III. TM distance: >3 FB. Neck ROM: full ROM without neurological symptoms. Mouth opening: adequate. Short neck: no. Thick neck: no Smith present: no Lip Bite Test: II Microretrognathia/Micronagthia/Recessed Chin: No DENTAL Dental findings: teeth intact. Additional comments: +crowns/back. II - ANESTHESIA PLAN ASA Score: 2 Anesthetic Plan: other Anesthetic plan additional comments: *PACC/TCI - anesthesia choice. Beta Jan Monitoring Plan Post Procedure Analgesic Plan Informed Consent Anesthetic risks, benefits, alternatives, personnel and consent discussed: yes. Patient / Responsible Republican agrees to proceed: yes Patient / Surrogate agrees to blood products: blood products not planned Discussed the possibility of lip / dental damage: yes Prepared for Surgery: optimally prepared for surgery, pending [see comment]. labs CONSULTS: Patient does not require consults for optimization at this time Planned Anesthetic: other anesthesia choice The Following Tests/Procedures Have Been Initiated: Orders Placed This Encounter >CBC + AUTO DIFF Standing Status: Future Number of Occurrences: 1 Standing Expiration Date: 09/16/2023 >BMP Standing Status: Future Number of Occurrences: 1 Standing Expiration Date: 09/16/2023 docosahexaenoic acid/epa (FISH OIL ORAL) Sig: Take by mouth. folic acid/multivit-min/lutein (CENTRUM SILVER ORAL) Sig: Take by mouth. Instructions Given to Patient: Instructions located in the after visit summary. Patient given verbal and written preop instructions and voices comprehension and compliance. SIGNATURE: China De La Torre APRN.CNP PATIENT NAME: Rico Doe DATE: July 17, 2023 TIME: 11:06 AM PAGER/CONTACT #: documented in this encounterSelect Medical [facility]-21-[facility] Instructions* Patient Instructions* China De La Torre APRN.CNP - 07/17/2023 11:06 AM EDT PATIENT PREOPERATIVE INSTRUCTIONS No ref. provider found has scheduled you for your procedure at this surgery center: [facility]: [phone] --[address] [place] [address]. Please read below carefully for your personalized instructions. Dietary Restrictions: - No solid food after midnight. - You may have 12 ounces of clear liquids (water, clear juices such as apple juice or gatorade, carbonated beverages, clear tea, black coffee, jello) until 2 hours before scheduled arrival at facility. No red/purple coloring and no creamer/sugar Medications: Unless instructed differently below, stay on all of your medications until your surgery. Approved medications to take the morning of surgery with a sip of water: NONE If you start any new medications after today's visit, please contact the surgeon's office. Blood Thinning Medications: - Stop NSAIDS (Ibuprofen, Advil, Aleve, Motrin, Celebrex, Mobic, etc.) 7 days before surgery, as directed by your surgeon. - Stop Aspirin 7 days before surgery, as directed by your surgeon. - Stop Vitamin E, ALL multi-vitamins, herbals and dietary supplements 7 days before surgery. - You may take Tylenol (Acetaminophen) or any of your pain medications that do not contain aspirin or NSAIDS as needed. Important Reminders: - Candy, mints, and tobacco products are NOT permitted the morning of surgery. - Hearing aids, dentures and glasses may be worn the morning of surgery. - NO jewelry, body piercings, makeup, hairpins or contacts are to be worn the day of surgery. If you develop symptoms such as a fever, cold, or flu, or have other changes to your health within TWO DAYS of scheduled surgery or the morning of surgery, please contact the surgery center above. Personal Belongings: -Please have photo ID and insurance cards. -If you do not have a copy of advance directives on file with us, please bring a copy with you on the day of surgery. - Leave ALL valuables and money at home or with family members. For Outpatient Procedures: - YOU MUST HAVE A RESPONSIBLE SEPTIC TANK INSTALLER TAKE YOU HOME. A [employer] RETAILER SALES CONSULTANT OR PROFESSOR OF ENGINEERING CANNOT BE MADE A RESPONSIBLE SEPTIC TANK INSTALLER. - We recommend that a responsible person stays with you overnight to take care of you. - You cannot stay in a hotel alone after outpatient surgery. You will not be permitted to have yoursurgery, if you do not have someone to take care of you. Arrival Time for Surgery: - The Surgery Center or hospital where you are having surgery will call the afternoon before surgery (or Monday for Monday surgery) with a scheduled arrival time. - If you have not heard by 4 pm, please contact the surgery center above. Please be aware that emergency situations arise, which may delay or change your surgical time. If this happens, we will notify you as soon as possible and regret any inconvenience. If you already have an Advance Directive, please fax a copy to [phone] or email to for it to be added to your chart. If you do not have an Advance Directive, you can find the appropriate form and more information at [email or web address]. We recommend that youcomplete the Advance Directive form found on the website and bring it with you the day of your surgery. It can be witnessed and scanned into your chart that day. China De La Torre APRN.KRYS documented in this encounterSelect Medical [facility]08-18-2023 History of Present illness Narrative* Carlotta Johns, PT - 07/14/2023 5:49 PM EDT Episode Visit Count: 1 Start of Care Date: 07/14/23 Patient Identified by Name and Date of : Yes REHABILITATION AND SPORTS THERAPY PHYSICAL THERAPY DISCONTINUANCE OF CARE PLAN OF CARE UPDATE: Assessment: Rico Kristi Doe is discontinued from Physical Therapy services due to goal achievement..Patient was seen for 1 visits from Start of Care Date: 07/14/23 to 07/14/2023 and treatment included: Gait training. No specialty comments available. SUBJECTIVE: Pt has a knee scooter that she will use on first floor, a rollator walker upstairs to use, and crutches to use anywhere else.. Intake Information: Prescription present Pain: Pain Pain Level: 0 PROMIS Scales T-scores: mean of general population = 50. 5 points is clinically meaningfully difference Percentiles provide an indication of how the patient's score ranks in relation to the general population. Higher percentile rankings indicate better function/quality of life. 50th percentile is the average of the general population and indicates half of respondents had a worse score. OBJECTIVE MEASURES WITH LEVEL OF FUNCTION: TREATMENT: Gait Trainin: Pt was fit with standard crutches that she brought with her to use. Educated in ambulation NWB LLE for level surfaces, curb step and stairs with railing. Educated pt on safety tips and car and tub/shower chair transfers as well. Pt demosntrated correct and independent return demonstrations on all activities and had no further questions. Illustrated handout was provided for future reference. Skilled Intervention: Patient was provided supervision, independence during pre- gait/gait training to prevent falls and insure safety. Facilitated proper gait cycle with the use of verbal and visual cues for correction of gait deviations identified in the objective section above. Gait belt utilized during session for safety. Skilled judgment used to assess proper sizing and proper use of assistive device. Education provided to patient regarding the proper sequence for stair and curb negotiation. Provided written instruction for home program to facilitate proper performance and compliance. Billing Gait Training Treatment Minutes: 40 Total Treatment Time Minutes (timed/untimed): 40 Session Start Time : 1120 Session Stop Time : 1200 Carlotta Johns PT documented in this encounterSelect Medical [facility]08-10-2023 Discharge summary Author Jacqueline Duong [facility] July 06, 2023 11:42am Note Date/Time July 06, 2023 11 :41am [facility] Medical Records Department [address] [place] [address] Instructions for Home/Discharge Instructions 07/06/23 1140 MR#: [id number] Acct: [id number] Name: FELIX DOE Rep #:[id number] : 1960 62 From: Jacqueline aRmirez PCP: BESSY Tellez Status:REG SD C Discharge Instructions Diet Discharge Diet: No restrictions Activity Discharge Activity: Return to Normal Activity Dressing / Incision Call your doctor if your incision/area has: Continuous Slow Oozing, Sudden Increased Bleeding, Increased Pain/ Swelling, Increased Redness, Foul Smelling Discharge and Swelling at the incision site Call your doctor if you observe: Fever of 101 or Higher, Inability to urinate and Inability to have a bowel movement Additional Dressing/Incision Instructions:: leave glue in place until it falls off Follow Up Care Please Follow Up With: Jacqueline Duong MD When: the office will call her for follow up instructions Test Results: Test results from this visit will be discussed in further detail at your follow- up appointment, if applicable. Discharge Plan Admission Attending Provider: Jacqueline Duong Primary Care Provider: Rose Finnegan NP Discharge Orders/Prescriptions Prescriptions: New oxycodone-acetaminophen [Percocet] 5-325 mg tablet 1 tab PO Q8H PRN (Reason: pain) 3 Days Qty: 10 0RF cephalexin [cephalexin] 500 mg capsule 500 mg PO Q12 3 Days Qty: 6 0RF No Action NK Referrals / Follow Up: Rose Finnegan NP, ELECTRICAL AND INSTRUMENT MECHANIC-C [Primary Care Provider] - Disposition Disposition (needs filled in before D/C Order can be placed): Home, Self Care 07/06/23 1142<Electronically signed by Jacqueline Duong MD>Jacqueline Duong MD CC: ELECTRICAL AND INSTRUMENT MECHANIC-C Rose Finnegan ~ Signed [facility] Work Phone: 1(322) 683-245408-10-2023 Procedure [facility] 06-06-2023 Miscellaneous Notes* Telephone Encounter - Adonis Reddy RN - 06/06/2023 10:55 AM EDT Call went to [facility] again. left another message - * Telephone Encounter - Jodee Scott - 06/06/2023 10:37 AM EDT Patient is requesting a call from Adonis to discuss some questions about surgery. Ph.[phone] documented in this encounterSelect Medical [facility]07-06-2023 Instructions* Patient Instructions* Adonis Reddy RN - 06/01/2023 2:08 PM EDT Images from the original note were not included. Pre-Operative Education MD Jyotsna Doe PA-C Foot & Ankle / Orthopedic Surgery Appointments Direct Office Surgery Date: Surgery Location: [facility] / [place] [id number] [facility] [id number] [place] [address] You will be contacted the afternoon before your surgery with information and the time for arrival on day of surgery. The surgery center will call you, not our office. Follow-Up/Emergency Contacts Follow-up with Dr. Lucille Patino's office 1 week after surgery for post-operative evaluation - you will be scheduled to see Dr. Patino, Leticia Lao PA-C or our nurse for your post-operative visit. Please call for an appointment if one has not been scheduled bythe time of surgery. If you have any concerns, please call during regular business hours. For after-hoursconcerns, please call , and ask for the orthopedic resident consumer marketing analyst Pre-Surgical Checklist: Pre-Anesthesia Physical Exam Appointment '[facility]' (Pre-Anesthesia Consultation Clinic) - the surgery schedulers will likely make this appointment for you, however you may call [phone] to make an appointment. This appointment must be completed within 30 days prior to the date of surgery. Lab work We test vitamin D for all of our surgical patients. Please call the lab to schedule an appointment:[phone] or walk-in is available. The pre-anesthesia consultation clinic may order additional lab work. If you choose to have the vitamin D level drawn with the labs that are ordered with the anesthesia appointment, please tell the lab to also collect the vitamin D test. Physical Therapy-Crutch/Walker Training This appointment is for learning how to use crutches/walker while you are non- weight bearing AND they may supply you with the crutches/walker you bring with on the day of surgery. This a required appointment prior to surgery. If you need a prescription for any medical equipment please contact our office. Please check with your insurance company first as many insurance companies do not cover the cost of some medical equipment. Neither Orthopedics nor PT will be able to clinical counselor you on insurance coverage questions. To schedule, call Rehabilitation and Sports Therapy: [phone] to make an appointment for the fitting and instruction in the use of crutches or a walker PRIOR to your surgery date. Again, not all PT or [facility] clinic locations have crutches/walkers to dispense to patients.If crutches/walker are not available at the time of your PT appointment, please contact our office ([phone]) for a prescription or you may purchase them at any drug store ([employer], [employer], [employer], etc) out of pocket. Always check with your insurance company first regarding coverage/reimbursement for medical equipment. Plan ahead: shortages of some medical equipment items has beenan ongoing issue. You MUST bring your crutches or walker with you the day of surgery. If you do not have medical equipment for safe mobility following surgery, your case will likely be cancelled and rescheduled. Skin Prep Prior to Surgery (if you are not in a splint or cast prior to surgery) Please do skin checks of your surgical limb in the week prior to your surgery. If you notice any bruises, open sores, blisters or scabs please call the office to let us know Wipes may have been provided in the office, however you may purchase the cleaning soap at most pharmacies Eating & Drinking prior to surgery Please follow directions provided by anesthesia at [facility] (pre-op physical) If you were not provided instructions by anesthesia regarding eating/drinking before surgery, Do not eat or drink anything after midnight the evening before surgery (including gum or candy). Discontinue NSAIDS (Aleve, Ibuprofen, Meloxicam, Celebrex) 7 days prior to surgery. Tylenol does not need to be discontinued. Some patients who take aspirin do not need to hold this before surgery. Anesthesia will determine if this needs to be held, and it will be discussed during the pre-anesthesia clinic appointment. Day of Surgery Plan to bring crutches/walker with you to the surgery center. Wear comfortable clothing to the surgery center that is loose on the bottom to accommodate for the splint or dressing. Please arrange for a friend or family member to drive you to and from the surgery center (public transportation, taxis, and Uber/Lyft are not allowed). Do not wear any make-up. Remove toenail vincentian on the surgical foot. Do not wear contacts. Do not shave the surgical area. Bring your CPAP if you have one. Post-Operative Pain Medication You will be prescribed [place] (Acetaminophen-Hydrocodone 5-325 mg), 1 tablet every 4-6 hours for 7 days per the [facility] Board of Pharmacy restriction, unless otherwise discussed with Dr. Patino Refill requests can be made Monday through Monday by calling the office, ; same day requests may not be granted. Prescriptions for pain medication will only be written for up to 6 weeks maximum If you have any questions or concerns, please call the office, General Post-Operative Instructions Cast/Splint/Dressing Care Instructions Keep cast/dressing clean and dry. May shower - but cast/dressing must remain dry. You can purchase a cast cover to keep the splint/cast dry while bathing either online or at an outpatient pharmacy like [employer]. Should the dressing/cast become wet, you need to call your physician's clinic immediately for cast removal and replacement. Moisture can cause skin breakdown and lead to infection if left untreated. Observe for increasing pain in the extremity with the cast, finger/toe-tips turning blue/purple, ornumbness and tingling in your toes/fingers. Should any of these symptoms arise, you need to be seenimmediately for evaluation of swelling and increasing compartment pressures within your affected extremity. Keep your affected extremity elevated - Toes Above your Nose - This is serrato in the first few weeksafter surgery to minimize swelling and pain. You may ice your extremity behind your knee, being careful to prevent melting ice from saturating into the splint/cast. Activity restriction while Non-Weight Bearing No driving while on narcotic pain medication. Do not get your dressing/cast/splint wet! You must remain non-weight bearing on your operative extremity unless instructed otherwise. Use crutches or a walker for ambulation. No driving until you are otherwise instructed by your physician. This will be addressed at your first follow-up appointment. Medications You will be prescribed pain medication. You should begin taking this the day of your surgery. Do not wait until the pain is severe, as it will be difficult to catch up once this occurs. The pain medication usually reaches its full effect ~1 hour after ingesting. If you have been sent home on Colace, this medication should be taken until you are off all narcotic pain medications in order to prevent constipation. [place]/Percocet have Tylenol in their ingredients. You must be careful not to exceed 3,000mg (3 grams) of Tylenol, from all sources, within a single 24-hr period. Do NOT take Regular or Extra StrengthTylenol when taking your Percocet or [place] (Vicodin) medications Common side effects of the narcotic pain medications are nausea and itching. Benadryl can be taken to help calm your stomach, decrease anxiety levels, and minimize itching. This can be purchased at your local pharmacy without a prescription. Please abide by the instructions as printed on the bottle. If your nausea persists, make sure to take small amounts of crackers or other finance business partner foods. You will be prescribed a 28 day course of Aspirin (325 mg twice daily) after surgery, in order to minimize the risk of blood clots following surgery. If you have additional risks factors for developing a blood clot, you will be prescribed a prescription medication instead of using aspirin. Pre-Operative Skin Cleansing Preparing or prepping skin before surgery can reduce the risk of infection at the surgical site. Chlorhexidine Gluconate (CHG) antiseptic solution / Hibiclens has been chosen for the preoperative skin preparation. We provide the chlorhexidine wipes in clinic. If you did not receive the chlorhexidine wipes in clinic you can purchase Hibiclens soap over the counter at any pharmacy. The steps below outline the prepping process and should be carefully followed. If allergic reaction occurs, stop using. Chlorhexidine Gluconate WIPES Instructions: Prior to use: Do not remove any hair. Avoid shaving or the use of any topical hair removers. Shaving/hair removal can increase the risk of infection for the patient. Once prepping begins, do not apply lotions, moisturizers or makeup. Do not use skin preparation on head, hair, face, or genital area. Keep out of eyes, ears, or mouth. If contact occurs in any of these areas, rinse with water right away. Night Before & Morning of Surgery The evening before surgery and the morning of surgery take a shower. Shampoo hair with your normal shampoo and rinse well. Wash your body with your normal bath soap and rinse well. Pat yourself dry with a clean towel. After each shower, use the chlorhexidine wipes as outlined below. When applying the chlorhexidine wipes, your skin should be completely dry. Six wipes are provided to use (there are 2 wipes per pack). Use 2 wipes to collectively clean your neck/chest/back/abdomen/arms and nonsurgical leg. Use 1 wipe to clean the surgical leg. Clean the surgical area vigorously back and forth for 3 minutes, completely wetting treatment area, and then discard the wipes. Allow area to air dry for one minute. Do not rinse. It is normal for the skin to have a temporary tacky feel for several minutes after the antiseptic solution is applied. Do NOT apply any moisturizers, powder, or deodorant. Dress with freshly washed clothes. Hibiclens Instructions: Prior to use: Do not remove any hair. Avoid shaving or the use of any topical hair removers. Shaving/hair removal can increase the risk of infection for the patient. Once prepping begins, do not apply lotions, moisturizers or makeup. Do not use skin preparation on head, hair, face, or genital area. Keep out of eyes, ears, or mouth. If contact occurs in any of these areas, rinse with water right away. Night Before & Morning of Surgery The evening before surgery and the morning of surgery take a shower. Shampoo hair with your normal shampoo and rinse well. Wash your body with your normal bath soap and rinse well. Wash with the Hibiclens soap from the neck down, avoiding your face and private parts, keeping the soap on your skin for 1 minute and then rinsing. Thoroughly dry with a clean towel. Do NOT apply any moisturizers, powder or deodorant. Dress with freshly washed clothes. documented in this encounter[facility] History of Present illness Narrative* Lucille Patino MD - 06/01/2023 1:30 PM EDT Rico Berry Fords Consultation requested by Issa Heredia DPM for an opinion regarding Ms. Rico Doe, and myfinal recommendations will be communicated back to the requesting physician by way of shared medical record or letter via US mail. CHIEF COMPLAINT: Patient presents with: New Patient Evaluation: Bunion Consult Metatarsals on Right foot turned, xrays in epic HISTORY OF PRESENT ILLNESS: This is a 62 year old female with no significant PMH who presents today with bilateral bunion pain. 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 Shereports greater pain on the L compared to the R. Pain is greatest due to rubbing between the 1st and 2nd digit of the left foot in the intermetatarsal space. She is currently covering this area with a corn cushion. Endorses intermittent numbness in both great toes depending on her footwear. Reportspain only upon palpation to the callus over the 1st metatarsal of the left foot. Denies pain in theleft foot. She is able to complete all ADLs and has not required pain medication for this issue. Patient is able to ambulate independently at baseline and has no underlying mobility issues. 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 Patient is interested pursuing a surgical option for treatment of her bilateral bunions at this time. She is not on blood thinners and is not a current smoker. No prior history of DVT and no issues with anesthesia. Location of Pain: Left foot The pain is intermittent. The pain is a 1/10 at its best, and 4/10 at its worst. They denies nocturnal pain. The pain is exacerbated by prolonged standing. The pain is improved with rest, activity modification, and ice. They report Numbness. They are able to walk 60 minutes before having to stop secondary to pain. 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 Smoking History: former: smoked 1 ppd for 22 years, quit 2010 Personal or Family Hx of DVT/PE: No Diabetic:No Last Hgba1c: No results found for: HBA1C) ASSESSMENT/PLAN: Nelsy is a 62 yo female with no significant PMH presenting with bilateral hallux valgus deformitiesand lateral deviations of the 2nd and 3rd toes with metatarsus adductus. Due to increasing pain, surgical correction was offered for her bilateral hallux valgus deformities. Patient is a good surgical candidate with no significant underlying risk factors. Due to greater pain and rubbing between the 1st and 2nd digits of the left foot, we will plan to proceed with correction of the left foot first. Procedural options including minimally invasive versus lapiplasty were discussed in the context of her known metatarsus adductus. Benefits and risks of the procedures weredicussed including infection, bleeding, hardware complications, and pain. Patient elected to sign the consent for a L lapiplasty procedure. Thank you for the opportunity to participate in this patient's care. PHYSICAL EXAMINATION: Bilateral Lower Extremity: Gait Cycle: Normal Yes, Limp: none. Inspection: Alignment: hallux valgus grossly intact ROM and strength, obvious bilateral hallux valgus deformities with overlying skin callous Symmetry: Swelling: yes. Redness: yes. Ecchymosis: no Effusion: 0 Palpation: Warmth: no, Tenderness:No and Yes: Foot 1st Metatarsal Phlangeal mild tenderness with deep palpation ROM: Foot- Normal. Great Toe- normal. No pain with ankle or great toe flexion/extension or great toe rotation Strength: 5/5 ankle and great toe flexion/extension and eversion/inversion. 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 Vascular Status: Posterior Tibial: 2+ Bilateral Dorsalis Pedis: 2+ Bilateral Skin: skin calluses over the bilateral hallux valgus deformities with mild erythema, mild callous formation between the 1st and 2nd digits of the left foot IMAGING: Previous imaging performed on 04/25/23 and available in the [facility] health record, showed bilateral hallux valgus deformities with metatarsus adductus of the 2nd and 3rd toe bilaterally.Final results andradiologist's interpretation, available in the [facility] health record. Ivone James, M4 TEACHING PHYSICIAN NOTE OF PERSONAL INVOLVEMENT IN CARE: I have interviewed the patient and updated the medical student's PFS history, and ROS as necessary.I have re-performed the HPI, Physical Examination, Assessment and Plan as noted below. HPI: 62 year old female, with bilateral halux valgus and metatarsus adductus. Presents to discuss surgical correction Exam: Hallux valgus, hypermobile 1st TMT joint Imaging: hallux valgus, metatarsus adductus ASSESSMENT/PLAN: 1. Valgus deformity of both great toes - ICD9: 735.0, ICD10: M20.11, M20.12 (primary diagnosis) - BL foot XR reviewed 2. Metatarsus adductus of both feet - ICD9: 754.53, ICD10: Q66.221, Q66.222 BL foot XR reviewed Nelsy and I discussed her feet - and I proposed a lapiplasty with metatarsus adductus correction, on the left side.. We discussed the surgery in detail, including the expected recovery, outcomes, risks and benefits. They will be Non-weight bearing for 6 weeks after surgery. They understand it will take them 12 months to fully recover from the surgery. The risks and benefits of surgery were discussed today, including, but not limited to: bleeding ,infection, damage to blood vessels and nerves, nerve pain, wound healing problems, bunion recurrence, nonunion, malunion, hardware failure, blood clots, and incomplete relief of symptoms. She understood, and agreed to go ahead. My office will begin scheduling surgery. They were provided with chlorhexidine wipes/soap and instructions in the office today. Post-op pain medication will be [place] 5/325 mg 1 tab q 4 hrs (#42) We discussed DVT Prophylaxis, and they will use ASA 325 mg BID x 6 weeks Pre-operative antibiotics will be Ancef. AMANDO Modifiable Risk Factors (MoRF) Diabetes normal High: A1C > 8 Moderate: A1C 7-8 Normal: A1C < 7 Smoking normal High: Current smoker Normal: Non smoker Narcotics Use normal High:NarxCare >=300 Moderate: 100-299 Normal: 0-99 Lucille Patino MD Orthopaedic Medical Decision Making (MDM) Complexity of problems: Chronic condition with exacerbation or progression, Complexity of data: 1 unique test results reviewed, Risk: Decision on elective major surgery w/risk factors, Level of MDM: Moderate (4) documented in this encounterSelect [facility] Miscellaneous Notes* Telephone Encounter - Jodee Scott - 04/28/2023 9:06 AM EDT Called patient to schedule consult with [facility] No answer, LVSaurav HUTCHISON large bunion desiring lapiplasty documented in this encounterSelect [facility]-30-[facility] History of Present illness Narrative* Issa Heredia - 04/25/2023 9:12 AM EDT Images from the original note were not included. Initial Podiatric Office Visit: Chief Complaint: This 62 year old female who presents with chief complaint:painful bunions with bunions rubbing in to 2nd toe HPI Patient presents to clinic with complaint of bunion of both feet. Her primary issue is pain in the bunion but also pain with the 2nd toe rubbing on the great toe. Patient currently treats the toe with gel padding between the toes to relieve rubbing. She sometimes feels the pain is worse however because of the rubbing She is here to discuss options She has interest in lapiplasty. PAIN EVALUATION 04/21/2023 1643 Pain Level: 1 Pain Location: Foot-Left Description: Pressure;Sore Duration Amount of Time: 16 Duration Units: Hours Frequency: Continuous Intervention/Comfort measure: Other: See comment Comments: Use a corn sleeve to alleviate rubbing and cause of pain No results found for: HBA1C PCP: No primary care provider on file. No past medical history on file. No current outpatient medications on file. No current facility-administered medications for this visit. ALLERGIES Allergen Reactions Ciprofloxacin Diarrhea Sulfa (Sulfonamide * Hives No past surgical history on file. FAMILY HISTORY Problem Relation Age of Onset Osteoporosis Sister Social History Tobacco Use Smoking status: Former Types: Cigarettes Quit date: 07/18/2011 Years since quittin.7 Substance Use Topics Alcohol use: No Drug use: No REVIEW OF SYSTEMS GENERAL: Negative for Malaise, significant weight loss, fever RESPIRATORY: Negative for cough, wheezing and shortness of breath CARDIOVASCULAR: Negative for chest pain, leg swelling and palpitations GI: Negative for abdominal discomfort, blood in stools or black stools and change in bowel habits : Negative for dysuria, frequency and incontinence MUSCULOSKELETAL: Negative for joint pain or swelling, back pain, and muscle pain. SKIN: Negative for lesions, rash, and itching. HEMATOLOGY/LYMPHOLOGY Negative for prolonged bleeding, bruising easily, and swollen nodes. ENDOCRINE: Negative for cold or heat intolerance, polyuria, polydipsia and goiter. NEURO: negative Physical Exam: Constitutional: Pt is a well developed 62 year old female who is alert, oriented and cooperative Eyes: Following during examination. No redness or drainage. Respiratory: RR normal and nonlabored. Even breathing. No evidence of distress or shortness of breath. Psychology: Patient is engaged during conversation. Normal affect and mood. Does not appear depressed or anxious during encounter. Vascular: Dorsalis pedis and posterior tibial pulses palpable as b/l Capillary Fill time < 5 seconds to digits 1-5 b/l Skin temperature warm to warm proximal to distal b/l Hair growth present to digits Neurological: intact light touch/epicritic sensation b/l intact protective sensation no significant neurological deficits Dermatological: Nails 1-5 b/l appear normal. Webspaces clean and dry 1-4 b/l. Skin appears well hydrated and supple. good color, texture, turgor. No open lesions present. Callus present to left 2nd toe medial aspect Musculoskeletal/Orthopaedic: Patient has pain to palpation of medial eminence of b/l bunion deformity. There is fairly large bunion b/l with hypermobility of first metatarsal cuneiform joint. There is lateral deviation of left 2nd and 3rd toe Foot type is pronated structurally AJ ROM is full with knee extended and flexed 1st MPJ is slightly decreased when loaded and no pain or crepitus are noted with ROM. MTJ, STJ are full and free of pain and crepitus. +5/5 muscle strength dorsiflexion, plantarflexion, inversion, eversion b/l Radiographs: 3 views b/l foot ordered April 25, 2023: I have personally reviewed and interpreted these XR myself: large hallux valgus deformity noted b/l. There is subchondral cyst formation of b/l 1stmetatarsal. Lateral deviation of 2nd and 3rd toe with metatarsus adductus. ASSESSMENT: (M20.12) Acquired hallux valgus of left foot (primary encounter diagnosis) (M20.11) Acquired hallux valgus of right foot (L84) Callus of foot (Q66.221, Q66.222) Metatarsus adductus of both feet PLAN: 1. History and physical examination performed. 2. XR reviewed with patient and interpreted today 3. Discussed bunion of both feet. She does have large bunion in the presence of metatarsus adductus. Informed patient that her bunion is quite significant given the metatarsus adductus. 4. From a conservative standpoint, wider shoes and padding between toes to prevent rubbing are options. It is important to protect the 2nd toe from rubbing otherwise, she is at risk of developing callus which could develop into ulceration. 5. She is interested in surgery. I discussed various surgical options. Her xrays do show some mild arthritic changes in the first mtpj as evidence by subchondral cyst formation. She assures me she has no pain in the first mtpj. If she were having pain in the first mtpj, I do feel first mtpj fusion would be a great option to not only correct the bunion but also address any underlying arthritic changes to the first mtpj. She is more interested in lapiplasty as she does not have any pain in the first mtpj. In my opinion, the only way to perform a lapidus bunionectomy is to correct the metatarsusadductus. I do not feel correction of the first ray is possible unless the 2nd and 3rd rays are brought into a more rectus position. For this reason, if she is set on pursuing lapiplasty, I do feel midfoot reconstruction is necessary. I am going to have this patient see one of our foot and ankle colleagues for 2nd opinion as I am not one that has large experience in metatarsus addcutus correction. 6. Will check vitamin d 7. Callus reduced today with dremmel. Issa Heredia DPM Podiatry [address] [facility] [address] Dept: [phone] Dept * Krysta Baca LPN - 04/25/2023 8:42 AM EDT AMB ROOMING INTAKE FLOWSHEET DATA Risk Screening Do you have concerns about personal safety or safety in the home?: No Pain Pain Level: 1 Pain Location: Foot-Left Description: Pressure, Sore Duration Amount of Time: 16 Duration Units: Hours Frequency: Continuous Intervention/Comfort measure: Other: See comment Comments: Use a corn sleeve to alleviate rubbing and cause of pain Patient presents with: Left Foot - New, Pain, Bunion Patient presents to office to discuss bunions. Patient states she is interested in labioplasty. Krysta Baca LPN documented in this encounterSelect Medical [facility]-30-[facility] History of Present illness Narrative* Carlotta Harvey, RT(R) - 04/25/2023 8:20 AM EDT Radiology Service Progress Note PATIENT NAME: Rico Doe DATE OF SERVICE: April 25, 2023 TIME: 8:35 AM PATIENT IDENTITY VERIFICATION COMPLETED USING TWO (2) IDENTIFIERS: Name and Date of confirmedby patient verbally. PATIENTS VERIFIED FIRST NAME FELIX WHITTINGTON FALL SCREENING: Has the patient had 2 falls in the last year or 1 fall with injury or currently using an Ambulatory Assistive Device (Walker, Cane, Wheelchair, Crutches, etc.)? No PATIENT GENDER DATA: Female. status: : No status: NO. PATIENT RELEVANT IMPLANT DATA REVIEWED: Not Applicable RADIOLOGY DEPARTMENT: General X-ray: Exam(s) Completed: Lower Extremity X- Ray(s): Feet, Bilateral and Wt. Bearing PERIPHERAL IV DATA: Not applicable SIGNED BY: RT Enrique(R) April 25, 2023 8:35 AM [facility] Discharge instructions Patient Education 07/28/2022 12:22:37 Cellulitis Skin Infection Cellulitis Cellulitis is an infection of the deep layers of skin. A break in the skin, such as a cut or scratch, can let bacteria under the skin. If the bacteria get to deep layers of the skin, it can be serious. If not treated, cellulitis can get into the bloodstream and lymph nodes. The infection can then spread throughout the body. This causes serious illness. Cellulitis causes the affected skin to become red, swollen, warm, and sore. The reddened areas havea visible border. An open sore may leak fluid (pus). You may have a fever, chills, and pain. Cellulitis is treated with antibiotics taken for 7 to 10 days. An open sore may be cleaned and covered with cool wet gauze. Symptoms should get better 1 to 2 days after treatment is started. Make sure to take all the antibiotics for the full number of days until they are gone. Keep taking the medicine even if your symptoms go away. Home care Follow these tips: Limit the use of the part of your body with cellulitis. If the infection is on your leg, keep your leg raised while sitting. This will help to reduce swelling. Take all of the antibiotic medicine exactly as directed until it is gone. Do not miss any doses, especially during the first 7 days. Don t stop taking the medicine when your symptoms get better. Keep the affected area clean and dry. Wash your hands with soap and warm water before and after touching your skin. Anyone else who touches your skin should also wash his or her hands. Don't share towels. Follow-up care Follow up with your healthcare provider, or as advised. If your infection does not go away on the first antibiotic, your healthcare provider will prescribe a different one. When to seek medical advice Call your healthcare provider right away if any of these occur: Red areas that spread Swelling or pain that gets worse Fluid leaking from the skin (pus) Fever higher of 100.4 F (38.0 C) or higher after 2 days on antibiotics 5372-2711 [employer]. [address] [place] [address]. All rights reserved. This information is not intended as a substitute for professional medical care. Always follow yourhealthcare professional's instructions. Follow Up Care 07/28/2022 11:33:10 With:ROSE FINNEGAN Address: [address] [place] [address] When:2-4 days [facility] 09-01-2022 Emergency department Discharge summary Discharge Instructions Thank you for allowing [facility] to assist you with your healthcare needs. The following is importantdischarge information regarding your hospital visit. Diagnosis from Today's Visit Cellulitis Wound infection - uncomplicated What to Do Next Instructions from Your Care Team No qualifying data available. Post Acute Orders No qualifying data available. You Need to Schedule the Following Appointments Follow Up with ROSE FINNEGAN When Within 2-4 days Where: [address] [place] [address] Allergies NKA Medications Please ask your primary doctor or pharmacist before taking any other medication not listed, including over the counter drugs, herbal medications, vitamins and or supplements as they may interact withyour home medications. What How Much When Why Instructions Last Dose New doxycycline (doxycycline hyclate 100 mg oral capsule) 1 cap by mouth Two (2) times a day Cellulitis Duration: 10 Days Printed Prescription Please take this list to your next doctor s visit. Bring all medications you take, including over the counter medications, herbals and other supplements with you to your doctor s visit. Patients and families are reminded to discard old lists and to update any records with all medication providers or retail pharmacies. Education Materials Cellulitis Cellulitis is an infection of the deep layers of skin. A break in the skin, such as a cut or scratch, can let bacteria under the skin. If the bacteria get to deep layers of the skin, it can be serious. If not treated, cellulitis can get into the bloodstream and lymph nodes. The infection can then spread throughout the body. This causes serious illness. Cellulitis causes the affected skin to become red, swollen, warm, and sore. The reddened areas havea visible border. An open sore may leak fluid (pus). You may have a fever, chills, and pain. Cellulitis is treated with antibiotics taken for 7 to 10 days. An open sore may be cleaned and covered with cool wet gauze. Symptoms should get better 1 to 2 days after treatment is started. Make sure to take all the antibiotics for the full number of days until they are gone. Keep taking the medicine even if your symptoms go away. Home care Follow these tips: Limit the use of the part of your body with cellulitis. If the infection is on your leg, keep your leg raised while sitting. This will help to reduce swelling. Take all of the antibiotic medicine exactly as directed until it is gone. Do not miss any doses, especially during the first 7 days. Don t stop taking the medicine when your symptoms get better. Keep the affected area clean and dry. Wash your hands with soap and warm water before and after touching your skin. Anyone else who touches your skin should also wash his or her hands. Don't share towels. Follow-up care Follow up with your healthcare provider, or as advised. If your infection does not go away on the first antibiotic, your healthcare provider will prescribe a different one. When to seek medical advice Call your healthcare provider right away if any of these occur: Red areas that spread Swelling or pain that gets worse Fluid leaking from the skin (pus) Fever higher of 100.4 F (38.0 C) or higher after 2 days on antibiotics 5123-0971 [employer]. [address] [place] [address], [place] [address]. All rights reserved. This information is not intended as a substitute for professional medical care. Always follow yourhealthcare professional's instructions. Additional Information VACCINATE! IT SAVES LIVES! Members of the community who have not yet received the COVID-19 vaccine and would like to receive it can visit one of [facility] vaccine clinics. There are many vaccine clinic locations within the [facility]. For locations and available times, please visit [email or web address]. It is important to note that some COVID mobile vaccine clinics are held outdoors and may be canceled in rainy orstormy conditions. To learn more about pediatric vaccinations (ages 5-11), we invite you to visit the [facility] webpage. [email or web address]/[email or web address]-[email or web address]-[email or web address]-[email or web address] [email or web address].htmlTo learn more about the COVID-19 vaccine, we invite you to visit the [facility] website for a list of frequently asked questions. [email or web address] _[email or web address]-Questions.pdf [facility] Patient Portal Access Instructions: Stay connected with your healthcare team and access your personal medical information anytime with the [facility] Patient Portal. If you would like a full copy of your medical records please contact the [facility] Medical Records Department Monday through Monday between 8a.m. and 4:30p.m. Please follow the directions below to access the portal: 1.Access the email account you provided upon registration to the hospital.2.Look for an invitation email from [facility].3.Open the email and access the invitation link: Accept Invitation to [facility]4.Fill in the required mackey to create your account. Sign into [email or web address] with your username and password that you created in the above steps to stay up to date. You can then view a summary of results, a summary of your visits, and the ability to download your summaries to your computer or send the information securely to a physician. Remember that your healthcare information is confidential, so carefully consider who you will allow to register on the [facility] Patient Portal for access to your information. You can also access the [facility] Patient Portal on the [employer] nely. Simply click on Health Records under [employer] and then click on the Curse logo. HOW TO SAFELY DISPOSE OF PRESCRIPTION MEDICATIONS Please use one of the following methods to safely dispose of your unused medications. 1.Use a drug disposal kit: the drug disposal pouch allows you to safely discard your old and unuseddrugs. Ask your nurse to give you one when you are discharged.2.Visit a local take-back location: Many local pharmacies and police departments have programs that collect old and unwanted prescriptiondrugs. Call your local pharmacy or go to http://YouMail.Zoobean/9I5Ix0b to find one close to you.3.Make use of household items: Use cat litter or old coffee grounds to dispose medications if other options arenot available. Mix your drugs with these household products, seal them in an airtight container andthrow it into the garbage. Call [facility]: [phone] to be sure your drugs can be disposed of in this way. Some medicines may require a different approach.4.Never flush your medications down the toilet. IF YOU HAVE BEEN PRESCRIBED AN OPIOIDS FOR PAIN If you have been prescribed an opioid (such as hydrocodone, oxycodone or morphine), it is critical to understand the possible side effects and risks of opioid pain medications. Even when taken as directed, opioids can have several side effects including: Tolerance, meaning you might need to take more of a medication for the same pain relief. Nausea, vomiting and/or constipation. Sleepiness, dizziness, dry mouth, confusion, depression or itching. Physical dependence, meaning you have withdrawal symptoms when a medication is stopped ? this can develop within a few days. KNOW YOUR RESPONSIBILITIES It is important to know exactly how much and how often to take the opioid pain medications you are prescribed. Never take opioids in higher amounts or more often than prescribed. Do not combine opioids with alcohol or other drugs that cause drowsiness, such as benzodiazepines, also known as benzos,including diazepam and alprazolam, muscle relaxants or sleep aids. Never sell or share prescriptionopioids. This is illegal. Store opioids in a secure place and out of reach of others (including children, family, friends and visitors). The last page(s) of this document has been signed and retained as a CHART COPY Signatures Patient Education Materials Cellulitis Skin Infection Medication Leaflets My discharge plan and instructions have been reviewed and explained to me and I,FARHANFELIX LLOYDd my current condition and have read and understand these discharge instructions. I have received a written copy of the plan/instructions. If I have questions, I am aware that I should contact my doctor. 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: Date/Time: Relationship to Patient: Witness Name/Signature: Date/Time: [facility] summary Author Jacqueline Duong [facility] June 15, 2023 12:07pm Note Date/Time June 15, 2023 12:0 5pm [facility] Medical Records Department [address] [place] [id number] Instructions for Home/Discharge Instructions 06/15/23 1204 MR#: [id number] Acct: [id number] Name: FELIX DOE Rep #:[id number] : 1960 62 From: Jacqueline Ramirez PCP: BESSY Tellez Status:REG SD C Discharge Instructions Diet Discharge Diet: No restrictions Activity Discharge Activity: May Not Shower May resume sexual activity in: 3 weeks Dressing / Incision Call your doctor if your incision/area has: Continuous Slow Oozing, Sudden Increased Bleeding, Increased Pain/ Swelling, Increased Redness and Foul Smelling Discharge Call your doctor if you observe: Fever of 101 or Higher, Inability to urinate and Inability to have a bowel movement Suture Line Care: Avoid Pulling/Pushing and Avoid Pinching/Bending Change Dressing in: leave in place till F/U Remove Dressing in: do not remove dressing Cleanse incision/area with: Do not get Incision Wet and Keep Dressing Clean & Dry Follow Up Care Please Follow Up With: Jacqueline Duong MD When: Next week as scheduled Test Results: Test results from this visit will be discussed in further detail at your follow- up appointment, if applicable. Discharge Plan Admission Attending Provider: Jacqueline Duong Primary Care Provider: Rose Finnegan NP Discharge Orders/Prescriptions Prescriptions: New hydrocodone-acetaminophen [hydrocodone-acetaminophen] 5-325 mg tablet 1 tab PO Q8H PRN PRN (Reason: Pain) 3 Days Qty: 10 0RF cephalexin [cephalexin] 500 mg capsule 500 mg PO Q12 3 Days Qty: 6 0RF Referrals / Follow Up: Rose Finnegan NP, ELECTRICAL AND INSTRUMENT MECHANIC-C [Primary Care Provider] - Disposition Disposition (needs filled in before D/C Order can be placed): Home, Self Care 06/15/23 1207<Electronically signed by Jacqueline Duong MD>Jacqueline Duong MD CC: ELECTRICAL AND INSTRUMENT MECHANIC-C Rose Finnegan ~ Signed [facility] Work Phone: Discharge summary Author Jacqueline Duong [facility] July 06, 2023 1:35pm Note Date/Time July 06, 2023 1: 35pm [facility] Medical Records Department [address] [place] [id number] Instructions for Home/Discharge Instructions 07/06/23 1333 MR#: [id number] Acct: [id number] Name: FELIX DOE Rep #:[id number] : 1960 62 From: Jacqueline Ramirez PCP: BESSY Tellez Status:REG SD C Discharge Instructions Diet Discharge Diet: No restrictions Dressing / Incision Call your doctor if your incision/area has: Continuous Slow Oozing, Sudden Increased Bleeding, Increased Pain/ Swelling, Increased Redness, Foul Smelling Discharge and Swelling at the incision site Call your doctor if you observe: Fever of 101 or Higher, Inability to urinate and Inability to have a bowel movement Additional Dressing/Incision Instructions:: leave glue in place until it falls off Follow Up Care Please Follow Up With: Jacqueline Duong MD Test Results: Test results from this visit will be discussed in further detail at your follow- up appointment, if applicable. Discharge Plan Admission Attending Provider: Jacqueline Duong Primary Care Provider: Rose Finnegan NP Discharge Orders/Prescriptions Prescriptions: New oxycodone-acetaminophen [Percocet] 5-325 mg tablet 1 tab PO Q8H PRN (Reason: pain) 3 Days Qty: 10 0RF cephalexin [cephalexin] 500 mg capsule 500 mg PO Q12 3 Days Qty: 6 0RF hydrocodone-acetaminophen [hydrocodone-acetaminophen] 5-325 mg tablet 1 tab PO Q8H PRN PRN (Reason: Pain) 3 Days Qty: 10 0RF No Action NK Referrals / Follow Up: Rose Finnegan NP, ELECTRICAL AND INSTRUMENT MECHANIC-C [Primary Care Provider] - Disposition Disposition (needs filled in before D/C Order can be placed): Home, Self Care 07/06/23 1335<Electronically signed by Jacqueline Duong MD>Jacqueline Duong MD CC: ELECTRICAL AND INSTRUMENT MECHANIC-C Rose Finnegan ~ Signed [facility] Work Phone: Evaluation + Plan note No data available for this section [facility] Evaluation + Plan note Future Appointments Appointment Date:01/14/2025 03:00:00 PM Scheduled Provider: Location:RAD Appointment Type:BD Bone Density DEXA Axial Skeleton Appointment Date:01/14/2025 03:30:00 PM Scheduled Provider: Location:RAD Appointment Type:MA Mammogram Screening Bilateral w/ Guille Appointment Date:01/14/2025 04:00:00 PM Scheduled Provider: Location:RAD Appointment Type:CT Thorax Screening w/o Contrast Future Scheduled Tests Radiology* CT Low Dose Lung Cancer Screening (LDCT) 01/14/25 * MA Mammo Screening Bilateral w/ Guille 01/14/25 * BD Bone Density DEXA Axial Skeleton Adult (21 yrs or older) 01/14/25 [facility] Evaluation note* Diagnosis Acquired hallux valgus of left foot- Primary Hallux valgus (acquired) Acquired hallux valgus of right foot Hallux valgus (acquired) Callus of foot Corns and callosities Metatarsus adductus of both feet [facility] Diagnosis Valgus deformity of both great toes- Primary Metatarsus adductus of both feet [facility] Diagnosis Valgus deformity of both great toes- Primary [facility] Valgus deformity of both great toes- Primary Metatarsus adductus of both feet 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 documented in this [facility] noteNo assessment information [facility] Work Phone: Evaluation note* Diagnosis Onset Date Resolution Status Fecal incontinence acute [facility] Work Phone: Evaluation note* Diagnosis 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 [facility] [place] [facility]* Diagnosis Pre-operative examination- Primary Preoperative examination, unspecified Incontinence of feces, unspecified fecal incontinence type Former smoker Personal history of tobacco use, presenting hazards to health Malignant melanoma, unspecified site (HCC) 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 [facility] Diagnosis Valgus deformity of both great toes- Primary Post-op pain Other acute postoperative pain [facility] Diagnosis Valgus deformity of both great toes- Primary Post-op pain Other acute postoperative pain [facility] Diagnosis Valgus deformity of both great toes- Primary Post-op pain Other acute postoperative pain [facility] Diagnosis Bunion [facility] Diagnosis Valgus deformity of both great toes- Primary [facility] Diagnosis Valgus deformity of both great toes- Primary Hammertoe of right foot Pre-op testing Preoperative examination, unspecified Bone disorder Disorder of bone and cartilage, unspecified Valgus deformity of both great toes Hammertoe of right foot [facility]* Diagnosis Valgus deformity of both great toes- Primary Hammertoe of right foot Postoperative visit Other specified aftercare following surgery [facility] [place] [facility] Diagnosis Gait abnormality- Primary Abnormality of gait Valgus deformity of both great toes Hammertoe of right foot [facility] [place] [facility]* Diagnosis Valgus deformity of both great toes- Primary Hammertoe of right foot Gait abnormality Abnormality of gait [facility] [place] [facility] Diagnosis Valgus deformity of both great toes- Primary Hammertoe of right foot Gait abnormality Abnormality of gait [facility] [place] [facility] Diagnosis Valgus deformity of both great toes- Primary Hammertoe of right foot Gait abnormality Abnormality of gait [facility] [place] [facility] Diagnosis Valgus deformity of both great toes Hammertoe of right foot Postoperative visit Other specified aftercare following surgery [facility] [place] [facility]* Diagnosis Hallux valgus of left foot- Primary Hallux valgus of right foot [facility] [place] [facility]* Diagnosis Postoperative visit- Primary Other specified aftercare following surgery Hallux valgus of left foot Hallux valgus of right foot [facility] [place] [facility]* Diagnosis Pre-operative examination- Primary Preoperative examination, unspecified Incontinence of feces, unspecified fecal incontinence type Former smoker Personal history of tobacco use, presenting hazards to health Malignant melanoma, unspecified site (HCC) Pre-operative examination- Primary Preoperative examination, unspecified Former smoker Personal history of tobacco use, presenting hazards to health Incontinence of feces, unspecified fecal incontinence type Malignant melanoma, unspecified site (HCC) Hallux valgus of left foot Hallux valgus of right foot documented in this encounter [facility] note* Diagnosis Pre-operative examination- Primary Preoperative examination, unspecified Incontinence of feces, unspecified fecal incontinence type Former smoker Personal history of tobacco use, presenting hazards to health Malignant melanoma, unspecified site (HCC) Pre-operative examination- Primary Preoperative examination, unspecified Former smoker Personal history of tobacco use, presenting hazards to health Incontinence of feces, unspecified fecal incontinence type Malignant melanoma, unspecified site (HCC) Valgus deformity of both great toes Hammertoe of right foot Metatarsus adductus of both feet [facility] [place] [facility]* Diagnosis Pre-operative examination- Primary Preoperative examination, unspecified Incontinence of feces, unspecified fecal incontinence type Former smoker Personal history of tobacco use, presenting hazards to health Malignant melanoma, unspecified site (HCC) Pre-operative examination- Primary Preoperative examination, unspecified Former smoker Personal history of tobacco use, presenting hazards to health Incontinence of feces, unspecified fecal incontinence type Malignant melanoma, unspecified site (HCC) Valgus deformity of both great toes Hammertoe of right foot documented in this encounter [facility] note* Diagnosis Pre-operative examination- Primary Preoperative examination, unspecified Incontinence of feces, unspecified fecal incontinence type Former smoker Personal history of tobacco use, presenting hazards to health Malignant melanoma, unspecified site (HCC) Valgus deformity of both great toes Pre-operative examination- Primary Preoperative examination, unspecified Former smoker Personal history of tobacco use, presenting hazards to health Incontinence of feces, unspecified fecal incontinence type Malignant melanoma, unspecified site (HCC) documented in this encounter [facility] note* Diagnosis Pre-operative examination- Primary Preoperative examination, unspecified Incontinence of feces, unspecified fecal incontinence type Former smoker Personal history of tobacco use, presenting hazards to health Malignant melanoma, unspecified site (HCC) 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 Pre-operative examination- Primary Preoperative examination, unspecified Former smoker Personal history of tobacco use, presenting hazards to health Incontinence of feces, unspecified fecal incontinence type Malignant melanoma, unspecified site (HCC) documented in this encounter [facility] note* Diagnosis Pre-operative examination- Primary Preoperative examination, unspecified Incontinence of feces, unspecified fecal incontinence type Former smoker Personal history of tobacco use, presenting hazards to health Malignant melanoma, unspecified site (HCC) Pre-operative examination- Primary Preoperative examination, unspecified Former smoker Personal history of tobacco use, presenting hazards to health Incontinence of feces, unspecified fecal incontinence type Malignant melanoma, unspecified site (HCC) Hallux valgus of left foot- Primary Hallux valgus of right foot documented in this encounter [facility] note* Diagnosis Pre-operative examination- Primary Preoperative examination, unspecified Incontinence of feces, unspecified fecal incontinence type Former smoker Personal history of tobacco use, presenting hazards to health Malignant melanoma, unspecified site (HCC) Pre-operative examination- Primary Preoperative examination, unspecified Former smoker Personal history of tobacco use, presenting hazards to health Incontinence of feces, unspecified fecal incontinence type Malignant melanoma, unspecified site (HCC) Postoperative visit Other specified aftercare following surgery Hallux valgus of left foot Hallux valgus of right foot documented in this encounter [facility] Discharge instructions Additional Instructions [facility] Discharge instructions No data available for this section [facility] Progress note No data available for this section [facility] Reason for referral (narrative)* Diagnostic Procedure Only (Routine) - Authorized Specialty Diagnoses / Procedures Referred By Contac t Referred To Contact XR IMAGING Diagnoses Valgus deformity of both great toes Procedures XR FOOT GENERAL 3V AP/LAT/OBL LEFT RADEX FOOT COMPLETE MINIMUM 3 VIEWS Lucille Patino MD [address] [place], [place] [id number] Xr Imaging [facility]95 Referral ID Status Reason Start Date Expiration Date Visits Requested Visits Authorized [id number] Authorized Auto-Generat ed Referral 08/03/2023 09/01/2024 1 1 T [facility] for referral (narrative)* Diagnostic Procedure Only (Routine) - Authorized Specialty Diagnoses / Procedures Referred By Contac t Referred To Contact XR IMAGING Diagnoses Valgus deformity of both great toes Procedures XR FOOT GENERAL 3V AP/LAT/OBL LEFT RADEX FOOT COMPLETE MINIMUM 3 VIEWS Alexey Caballero PA-C [address] [facility] [address] [place] [phone] Xr Imaging [facility]95 Referral ID Status Reason Start Date Expiration Date Visits Requested Visits Authorized [id number] Authorized Auto-Generat ed Referral 08/17/2023 09/15/2024 1 1 T [facility] for referral (narrative)* Diagnostic Procedure Only (Routine) - Authorized Specialty Diagnoses / Procedures Referred By Contac t Referred To Contact XR IMAGING Diagnoses Valgus deformity of both great toes Post-op pain Procedures XR FOOT GENERAL 3V AP/LAT/OBL LEFT RADEX FOOT COMPLETE MINIMUM 3 VIEWS Lucille Patino MD [address] [place] [address] [place] [address] Referral ID Status Reason Start Date Expiration Date Visits Requested Visits Authorized [id number] Authorized Auto-Generat ed Referral 3 10/06/2024 1 1 [facility] for referral (narrative)* Diagnostic Procedure Only (Routine) - Closed Specialty Diagnoses / Procedures Referred By Contac t Referred To Contact XR IMAGING Diagnoses Bunion Procedures XR FOOT GENERAL 3V AP/LAT/OBL BILATERAL RADEX FOOT COMPLETE MINIMUM 3 VIEWS Issa Heredia [address] [place] [address] [place] [address] Referral ID Status Reason Start Date Expiration Date V isits Requested Visits Authorized [id number] Closed Auto-Generate d Referral 04/20/2023 05/19/2024 1 1 [facility] for referral (narrative)* Diagnostic Procedure Only (Routine) - Pending Review Specialty Diagnoses / Procedures Referred By Contac t Referred To Contact XR IMAGING Diagnoses Valgus deformity of both great toes Procedures XR FOOT GENERAL 3V AP/LAT/OBL LEFT RADEX FOOT COMPLETE MINIMUM 3 VIEWS Lucille Patino MD [address] [place] [address] [place] [address] Referral ID Status Reason Start Date Expiration Date Visits Requested Visits Authorized [id number] Pending Review Auto-Generat ed Referral 3 11/15/2024 1 1 [facility] for referral (narrative)* Diagnostic Procedure Only (Routine) - Pending Review Specialty Diagnoses / Procedures Referred By Contac t Referred To Contact XR IMAGING Diagnoses Valgus deformity of both great toes Hammertoe of right foot Procedures XR FOOT GENERAL 3V AP/LAT/OBL RIGHT RADEX FOOT COMPLETE MINIMUM 3 VIEWS Lucille Patino MD [address] [place] [address] [place] [address] Referral ID Status Reason Start Date Expiration Date Visits Requested Visits Authorized [id number] Pending Review Auto-Generat ed Referral 10/27/2023 11/25/2024 1 1 * Consult, Test, Treat (Routine) - Authorized Specialty Diagnoses / Procedures Referred By Rosalee garcia Referred To Contact Diagnoses Valgus deformity of both great toes Hammertoe of right foot Pre-op testing Procedures REFER TO [facility] - PRE ANESTHESIA CONSULTATION CLINIC OFFICE/OUTPATIENT [facility] 60-74 MINUTES Lucille Patino MD [address] [place], [place] [phone] Referral ID Status Reason Start Date Expiration Date Visits Requested Visits Authorized [id number] Authorized PCP Requested Referral 10/27/2023 10/26/2024 1 1 [facility] for referral (narrative)* Diagnostic Procedure Only (Routine) - Authorized Specialty Diagnoses / Procedures Referred By Rosalee t Referred To Contact XR IMAGING Diagnoses Valgus deformity of both great toes Hammertoe of right foot Postoperative visit Procedures XR FOOT GENERAL 3V AP/LAT/OBL RIGHT RADEX FOOT COMPLETE MINIMUM 3 VIEWS Elodia Lao PA-C [address] [place] [address] [place] [address] Referral ID Status Reason Start Date Expiration Date Visits Requested Visits Authorized [id number] Authorized Auto-Generat ed Referral 01/03/2024 02/01/2025 1 1 * Physical Therapy (Routine) - Authorized Specialty Diagnoses / Procedures Referred By Contac t Referred To Contact [facility] Diagnoses Valgus deformity of both great toes Hammertoe of right foot Postoperative visit Procedures CONSULT TO PHYSICAL THERAPY PHYSICAL THERAPY EVALUATION HIGH COMPLEX 45 MINS Elodia Lao PA-C [address] [place] [address] [facility] [place] [address] [place] [address] Referral ID Status Reason Start Date Expiration Date Visits Requested Visits Authorized [id number] Authorized Auto-Generat ed Referral 11/27/2023 11/26/2024 60 60 [facility] for referral (narrative)* Diagnostic Procedure Only (Routine) - Closed Specialty Diagnoses / Procedures Referred By Rosalee garcia Referred To Contact XR IMAGING Diagnoses Valgus deformity of both great toes Procedures XR FOOT GENERAL 3V AP/LAT/OBL LEFT RADEX FOOT COMPLETE MINIMUM 3 VIEWS Lucille Patino MD [address] [place] [phone] [place] [address] Referral ID Status Reason Start Date Expiration Date V isits Requested Visits Authorized [id number] Closed Auto-Generate d Referral 10/17/2023 11/15/2024 1 1 * Diagnostic Procedure Only (Routine) - Closed Specialty Diagnoses / Procedures Referred By Rosalee garcia Referred To Contact XR IMAGING Diagnoses Valgus deformity of both great toes Hammertoe of right foot Postoperative visit Procedures XR FOOT GENERAL 3V AP/LAT/OBL RIGHT RADEX FOOT COMPLETE MINIMUM 3 VIEWS Elodia Lao PA-C [address] [place] [address] [place] [address] Referral ID Status Reason Start Date Expiration Date V isits Requested Visits Authorized [id number] Closed Auto-Generate d Referral 01/03/2024 02/01/2025 1 1 [facility] for referral (narrative)* Diagnostic Procedure Only (Routine) - Authorized Specialty Diagnoses / Procedures Referred By Contac t Referred To Contact XR IMAGING Diagnoses Hallux valgus of left foot Hallux valgus of right foot Procedures XR FOOT GENERAL 3V AP/LAT/OBL BILATERAL RADEX FOOT COMPLETE MINIMUM 3 VIEWS Lucille Patino MD [address] [place] [address], [place] [address] [place] [address] Referral ID Status Reason Start Date Expiration Date Visits Requested Visits Authorized [id number] Authorized Auto-Generat ed Referral 02/13/2024 03/14/2025 1 1 T [facility] for referral (narrative)* Diagnostic Procedure Only (Routine) - Authorized Specialty Diagnoses / Procedures Referred By Contac t Referred To Contact XR IMAGING Diagnoses Postoperative visit Hallux valgus of left foot Hallux valgus of right foot Procedures XR FOOT GENERAL 3V AP/LAT/OBL BILATERAL RADEX FOOT COMPLETE MINIMUM 3 VIEWS Lucille Patino MD [address] [place] [address], [place] [address] [place] [address] Referral ID Status Reason Start Date Expiration Date Visits Requested Visits Authorized [id number] Authorized Auto-Generat ed Referral 05/23/2024 06/22/2025 1 1 T [facility] for referral (narrative)* Diagnostic Procedure Only (Routine) - Closed Specialty Diagnoses / Procedures Referred By Contac t Referred To Contact XR IMAGING Diagnoses Hallux valgus of left foot Hallux valgus of right foot Procedures XR FOOT GENERAL 3V AP/LAT/OBL BILATERAL RADEX FOOT COMPLETE MINIMUM 3 VIEWS Lucille Patino MD [address] [place] [address], [place] [address] [place] [address] Referral ID Status Reason Start Date Expiration Date V isits Requested Visits Authorized [id number] Closed Auto-Generate d Referral 02/13/2024 03/14/2025 1 1 [facility] for referral (narrative)* Diagnostic Procedure Only (Routine) - Closed Specialty Diagnoses / Procedures Referred By Rosalee t Referred To Contact XR IMAGING Diagnoses Valgus deformity of both great toes Hammertoe of right foot Metatarsus adductus of both feet Procedures XR FOOT GENERAL 3V AP/LAT/OBL RIGHT RADEX FOOT COMPLETE MINIMUM 3 VIEWS Elodia Lao PA-C [address] [place] [address] [place] [address] Referral ID Status Reason Start Date Expiration Date V isits Requested Visits Authorized [id number] Closed Auto-Generate d Referral 12/12/2023 01/10/2025 1 1 [facility] for referral (narrative)* Diagnostic Procedure Only (Routine) - Closed Specialty Diagnoses / Procedures Referred By Rosalee t Referred To Contact XR IMAGING Diagnoses Valgus deformity of both great toes Hammertoe of right foot Procedures XR FOOT GENERAL 3V AP/LAT/OBL RIGHT RADEX FOOT COMPLETE MINIMUM 3 VIEWS Lucille Patino MD [address] [place] [address] [place] [address] Referral ID Status Reason Start Date Expiration Date V isits Requested Visits Authorized [id number] Closed Auto-Generate d Referral 10/27/2023 11/25/2024 1 1 [facility] for referral (narrative)* Diagnostic Procedure Only (Routine) - Closed Specialty Diagnoses / Procedures Referred By Contac t Referred To Contact XR IMAGING Diagnoses Valgus deformity of both great toes Procedures XR FOOT GENERAL 3V AP/LAT/OBL LEFT RADEX FOOT COMPLETE MINIMUM 3 VIEWS Lucille Patino MD [address] [place] [address] [place] [address] Referral ID Status Reason Start Date Expiration Date V isits Requested Visits Authorized [id number] Closed Auto-Generate d Referral 08/03/2023 09/01/2024 1 1 [facility] for referral (narrative)* Diagnostic Procedure Only (Routine) - Closed Specialty Diagnoses / Procedures Referred By Contac t Referred To Contact XR IMAGING Diagnoses Valgus deformity of both great toes Procedures XR FOOT GENERAL 3V AP/LAT/OBL LEFT RADEX FOOT COMPLETE MINIMUM 3 VIEWS Alexey Caballero PA-C [address] [place] [address] [place] [address] Referral ID Status Reason Start Date Expiration Date V isits Requested Visits Authorized [id number] Closed Auto-Generate d Referral 08/17/2023 09/15/2024 1 1 T [facility] for referral (narrative)* Diagnostic Procedure Only (Routine) - Closed Specialty Diagnoses / Procedures Referred By Contac t Referred To Contact XR IMAGING Diagnoses 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 Procedures XR FOOT GENERAL 3V AP/LAT/OBL LEFT RADEX FOOT COMPLETE MINIMUM 3 VIEWS Lucille Patino MD [address] [place] [address] [place] [address] Referral ID Status Reason Start Date Expiration Date V isits Requested Visits Authorized [id number] Closed Auto-Generate d Referral 06/07/2023 07/06/2024 1 1 T [facility] for referral (narrative)* Diagnostic Procedure Only (Routine) - Closed Specialty Diagnoses / Procedures Referred By Contac t Referred To Contact XR IMAGING Diagnoses Postoperative visit Hallux valgus of left foot Hallux valgus of right foot Procedures XR FOOT GENERAL 3V AP/LAT/OBL BILATERAL RADEX FOOT COMPLETE MINIMUM 3 VIEWS Lucille Patino MD [address] [place] [phone] [place] [address] Referral ID Status Reason Start Date Expiration Date V isits Requested Visits Authorized [id number] Closed Auto-Generate d Referral 05/23/2024 06/22/2025 1 1 [facility] for referral (narrative)No reason for referral [facility] Narrative* Diagnostic Procedure Only (Routine) - Closed Specialty Diagnoses / Procedures Referred By Contac t Referred To Contact XR IMAGING Diagnoses Bunion Procedures XR FOOT GENERAL 3V AP/LAT/OBL BILATERAL RADEX FOOT COMPLETE MINIMUM 3 VIEWS Issa Heredia [address] [place] [address] [place] [address] Referral ID Status Reason Start Date Expiration Date V isits Requested Visits Authorized [id number] Closed Auto-Generate d Referral 04/20/2023 05/19/2024 1 1 [facility] for visit Narrative* Diagnostic Procedure Only (Routine) - Closed Specialty Diagnoses / Procedures Referred By Contac t Referred To Contact XR IMAGING Diagnoses Valgus deformity of both great toes Hammertoe of right foot Postoperative visit Procedures XR FOOT GENERAL 3V AP/LAT/OBL RIGHT RADEX FOOT COMPLETE MINIMUM 3 VIEWS Elodia Lao PA-C [address] [place] [phone] Xr Imaging [facility]95 Referral ID Status Reason Start Date Expiration Date V isits Requested Visits Authorized [id number] Closed Auto-Generate d Referral 01/03/2024 02/01/2025 1 1 [facility] for visit Narrative* Diagnostic Procedure Only (Routine) - Closed Specialty Diagnoses / Procedures Referred By Contac t Referred To Contact XR IMAGING Diagnoses Hallux valgus of left foot Hallux valgus of right foot Procedures XR FOOT GENERAL 3V AP/LAT/OBL BILATERAL RADEX FOOT COMPLETE MINIMUM 3 VIEWS Sukumar, Lucille Ignacio MD [address] [place] [phone] [place] [address] Referral ID Status Reason Start Date Expiration Date V isits Requested Visits Authorized [id number] Closed Auto-Generate d Referral 02/13/2024 03/14/2025 1 1 [facility] for visit Narrative* Diagnostic Procedure Only (Routine) - Closed Specialty Diagnoses / Procedures Referred By Contac t Referred To Contact XR IMAGING Diagnoses Valgus deformity of both great toes Hammertoe of right foot Metatarsus adductus of both feet Procedures XR FOOT GENERAL 3V AP/LAT/OBL RIGHT RADEX FOOT COMPLETE MINIMUM 3 VIEWS Elodia Lao PA-C [address] [place] [address] [place] [address] Referral ID Status Reason Start Date Expiration Date V isits Requested Visits Authorized [id number] Closed Auto-Generate d Referral 12/12/2023 01/10/2025 1 1 [facility] for visit Narrative* Diagnostic Procedure Only (Routine) - Closed Specialty Diagnoses / Procedures Referred By Contac t Referred To Contact XR IMAGING Diagnoses Valgus deformity of both great toes Hammertoe of right foot Procedures XR FOOT GENERAL 3V AP/LAT/OBL RIGHT RADEX FOOT COMPLETE MINIMUM 3 VIEWS Lucille Patino MD [address] [place], [place] [phone] [place] [address] Referral ID Status Reason Start Date Expiration Date V isits Requested Visits Authorized [id number] Closed Auto-Generate d Referral 10/27/2023 11/25/2024 1 1 [facility] for visit Narrative* Diagnostic Procedure Only (Routine) - Closed Specialty Diagnoses / Procedures Referred By Contac t Referred To Contact XR IMAGING Diagnoses Valgus deformity of both great toes Procedures XR FOOT GENERAL 3V AP/LAT/OBL LEFT RADEX FOOT COMPLETE MINIMUM 3 VIEWS Lucille Patino MD [address] [place] [address] [place] [address] Referral ID Status Reason Start Date Expiration Date V isits Requested Visits Authorized [id number] Closed Auto-Generate d Referral 08/03/2023 09/01/2024 1 1 [facility] for visit Narrative* Diagnostic Procedure Only (Routine) - Closed Specialty Diagnoses / Procedures Referred By Contac t Referred To Contact XR IMAGING Diagnoses Valgus deformity of both great toes Procedures XR FOOT GENERAL 3V AP/LAT/OBL LEFT RADEX FOOT COMPLETE MINIMUM 3 VIEWS Alexey Caballero PA-C [address] [place] [address] [place] [address] Referral ID Status Reason Start Date Expiration Date V isits Requested Visits Authorized [id number] Closed Auto-Generate d Referral 08/17/2023 09/15/2024 1 1 [facility] for visit Narrative* Diagnostic Procedure Only (Routine) - Closed Specialty Diagnoses / Procedures Referred By Contac t Referred To Contact XR IMAGING Diagnoses 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 Procedures XR FOOT GENERAL 3V AP/LAT/OBL LEFT RADEX FOOT COMPLETE MINIMUM 3 VIEWS Lucille Patino MD [address] [place] [phone] [place] [address] Referral ID Status Reason Start Date Expiration Date V isits Requested Visits Authorized [id number] Closed Auto-Generate d Referral 06/07/2023 07/06/2024 1 1 [facility] for visit Narrative* Diagnostic Procedure Only (Routine) - Closed Specialty Diagnoses / Procedures Referred By Contac t Referred To Contact XR IMAGING Diagnoses Postoperative visit Hallux valgus of left foot Hallux valgus of right foot Procedures XR FOOT GENERAL 3V AP/LAT/OBL BILATERAL RADEX FOOT COMPLETE MINIMUM 3 VIEWS Lucille Patino MD [address] [place] [address] [place] [address] Referral ID Status Reason Start Date Expiration Date V isits Requested Visits Authorized [id number] Closed Auto-Generate d Referral 05/23/2024 06/22/2025 1 1 [facility] Summary Purpose Family History No Family History Records FoundNo Family History Records FoundNo Family History Records Found No data available for this section No data available for this section No Family History Records FoundNo Family History Records Found Advance Directives No Advanced Directives Records Found Advance Directive Response Recorded Date/ Time Living Will No June 09, 2023 2:41pm Power of Call Center Operator No June 09 2:41pm Advance Directive Response Recorded Date/ Time Living Will No July 05, 2023 9:36am Power of Call Center Operator No July 05 9:36am Reason for Referral Specialty Diagnoses / Procedures Referred By Contac t Referred To Contact [facility] Diagnoses 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 Procedures CONSULT TO PHYSICAL THERAPY PHYSICAL THERAPY EVALUATION HIGH COMPLEX 45 MINS Lucille Patino MD [address] [place] [address] [facility] [place] [id number] [place] [address] Referral ID Status Reason Start Date Expiration Date Visits Requested Visits Authorized [id number] Pending Review Auto-Generat ed Referral 06/07/2023 06/06/2024 1 1 Specialty Diagnoses / Procedures Referred By Contac t Referred To Contact XR IMAGING Diagnoses 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 Procedures XR FOOT GENERAL 3V AP/LAT/OBL LEFT RADEX FOOT COMPLETE MINIMUM 3 VIEWS Lucille Patino MD [address] [place] [address] [facility] Referral ID Status Reason Start Date Expiration Date Visits Requested Visits Authorized [id number] Pending Review Auto-Generat ed Referral 06/07/2023 07/06/2024 1 1 Specialty Diagnoses / Procedures Referred By Contac t Referred To Contact Diagnoses 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 RX HER E AXONICS STAGE 1 Chief Complaint AXONICS STAGE 1 MIXED INCONT. RX HERE Reason for Visit Fecal incontinence Chief Complaint Admit Date LEFT SIDED SCIATICA, RX HERE June 04 12:00pm RIGHT HAND June 04, 2025 1:37p m Additional Source Comments Care Team (unrecognized sect ion and content) Care Team Personnel Name: ROSE FINNEGAN SKILLED NURSING CASE MANAGER-NAIL STICKER Member Role: Primary Care Physician Address: Address: [address] [place] [id number] Name: MAG LARSEN MD Position: ED Physician Member Role: ED Physician Address: Address: [address] [place] [id number] Name: Simon Moreno RN Position: AO RN Member Role: ED RN INFORMATION SOURCE (unrecogn ized section and content) DATE CREATED AUTHOR 08/27/2022 [facility]) DATE CREATED AUTHOR AUTHOR'S ORGANIZ ATION 11/24/2023 [facility] DATE CREATED AUTHOR AUTHOR'S ORGANIZ ATION 11/22/2024 [facility] DATE CREATED AUTHOR AUTHOR'S ORGANIZ ATION 02/10/2025 [facility] DATE CREATED AUTHOR AUTHOR'S ORGANIZ ATION 06/13/2025 [facility] Source Comments (unrecognize d section and content) In the event this informatio n is protected by the Federal Confidentiality of Alcohol and Drug Abuse Patient Records regulations: The Federal rules restrict any use of the information to criminally investigate or prosecute any alcohol or drug abuse patient.[facility] the event this information is protected by the Federal Confidentiality of Alcohol and Drug Abuse Patient Records regulations: The Federal rules restrict any use of the information to criminally investigate or prosecute any alcohol or drug abuse patient.[facility] the event this information is protected by the Federal Confidentiality of Alcohol and Drug Abuse Patient Records regulations: The Federal rules restrict any use of the information to criminally investigate or prosecute any alcohol or drug abuse patient.[facility] the event this information is protected by the Federal Confidentiality of Alcohol and Drug Abuse Patient Records regulations: The Federal rules restrict any use of the information to criminally investigate or prosecute any alcohol or drug abuse patient.[facility] the event this information is protected by the Federal Confidentiality of Alcohol and Drug Abuse Patient Records regulations: The Federal rules restrict any use of the information to criminally investigate or prosecute any alcohol or drug abuse patient.[facility] the event this information is protected by the Federal Confidentiality of Alcohol and Drug Abuse Patient Records regulations: The Federal rules restrict any use of the information to criminally investigate or prosecute any alcohol or drug abuse patient.[facility] the event this information is protected by the Federal Confidentiality of Alcohol and Drug Abuse Patient Records regulations: The Federal rules restrict any use of the information to criminally investigate or prosecute any alcohol or drug abuse patient.[facility] DublinIn the event this information is protected by the Federal Confidentiality of Alcohol and Drug Abuse Patient Records regulations: The Federal rules restrict any use of the information to criminally investigate or prosecute any alcohol or drug abuse patient.[facility] DublinIn the event this information is protected by the Federal Confidentiality of Alcohol and Drug Abuse Patient Records regulations: The Federal rules restrict any use of the information to criminally investigate or prosecute any alcohol or drug abuse patient.[facility] DublinIn the event this information is protected by the Federal Confidentiality of Alcohol and Drug Abuse Patient Records regulations: The Federal rules restrict any use of the information to criminally investigate or prosecute any alcohol or drug abuse patient.[facility] DublinIn the event this information is protected by the Federal Confidentiality of Alcohol and Drug Abuse Patient Records regulations: The Federal rules restrict any use of the information to criminally investigate or prosecute any alcohol or drug abuse patient.[facility] DublinIn the event this information is protected by the Federal Confidentiality of Alcohol and Drug Abuse Patient Records regulations: The Federal rules restrict any use of the information to criminally investigate or prosecute any alcohol or drug abuse patient.[facility] DublinIn the event this information is protected by the Federal Confidentiality of Alcohol and Drug Abuse Patient Records regulations: The Federal rules restrict any use of the information to criminally investigate or prosecute any alcohol or drug abuse patient.[facility] DublinIn the event this information is protected by the Federal Confidentiality of Alcohol and Drug Abuse Patient Records regulations: The Federal rules restrict any use of the information to criminally investigate or prosecute any alcohol or drug abuse patient.[facility] DublinIn the event this information is protected by the Federal Confidentiality of Alcohol and Drug Abuse Patient Records regulations: The Federal rules restrict any use of the information to criminally investigate or prosecute any alcohol or drug abuse patient.[facility] DublinIn the event this information is protected by the Federal Confidentiality of Alcohol and Drug Abuse Patient Records regulations: The Federal rules restrict any use of the information to criminally investigate or prosecute any alcohol or drug abuse patient.[facility] DublinIn the event this information is protected by the Federal Confidentiality of Alcohol and Drug Abuse Patient Records regulations: The Federal rules restrict any use of the information to criminally investigate or prosecute any alcohol or drug abuse patient.[facility] DublinIn the event this information is protected by the Federal Confidentiality of Alcohol and Drug Abuse Patient Records regulations: The Federal rules restrict any use of the information to criminally investigate or prosecute any alcohol or drug abuse patient.[facility] DublinIn the event this information is protected by the Federal Confidentiality of Alcohol and Drug Abuse Patient Records regulations: The Federal rules restrict any use of the information to criminally investigate or prosecute any alcohol or drug abuse patient.[facility] DublinIn the event this information is protected by the Federal Confidentiality of Alcohol and Drug Abuse Patient Records regulations: The Federal rules restrict any use of the information to criminally investigate or prosecute any alcohol or drug abuse patient.[facility] DublinIn the event this information is protected by the Federal Confidentiality of Alcohol and Drug Abuse Patient Records regulations: The Federal rules restrict any use of the information to criminally investigate or prosecute any alcohol or drug abuse patient.[facility] DublinIn the event this information is protected by the Federal Confidentiality of Alcohol and Drug Abuse Patient Records regulations: The Federal rules restrict any use of the information to criminally investigate or prosecute any alcohol or drug abuse patient.[facility] DublinIn the event this information is protected by the Federal Confidentiality of Alcohol and Drug Abuse Patient Records regulations: The Federal rules restrict any use of the information to criminally investigate or prosecute any alcohol or drug abuse patient.[facility] DublinIn the event this information is protected by the Federal Confidentiality of Alcohol and Drug Abuse Patient Records regulations: The Federal rules restrict any use of the information to criminally investigate or prosecute any alcohol or drug abuse patient.[facility] DublinIn the event this information is protected by the Federal Confidentiality of Alcohol and Drug Abuse Patient Records regulations: The Federal rules restrict any use of the information to criminally investigate or prosecute any alcohol or drug abuse patient.[facility] DublinIn the event this information is protected by the Federal Confidentiality of Alcohol and Drug Abuse Patient Records regulations: The Federal rules restrict any use of the information to criminally investigate or prosecute any alcohol or drug abuse patient.[facility] DublinIn the event this information is protected by the Federal Confidentiality of Alcohol and Drug Abuse Patient Records regulations: The Federal rules restrict any use of the information to criminally investigate or prosecute any alcohol or drug abuse patient.[facility] DublinIn the event this information is protected by the Federal Confidentiality of Alcohol and Drug Abuse Patient Records regulations: The Federal rules restrict any use of the information to criminally investigate or prosecute any alcohol or drug abuse patient.[facility] DublinIn the event this information is protected by the Federal Confidentiality of Alcohol and Drug Abuse Patient Records regulations: The Federal rules restrict any use of the information to criminally investigate or prosecute any alcohol or drug abuse patient.[facility] DublinIn the event this information is protected by the Federal Confidentiality of Alcohol and Drug Abuse Patient Records regulations: The Federal rules restrict any use of the information to criminally investigate or prosecute any alcohol or drug abuse patient.[facility] DublinIn the event this information is protected by the Federal Confidentiality of Alcohol and Drug Abuse Patient Records regulations: The Federal rules restrict any use of the information to criminally investigate or prosecute any alcohol or drug abuse patient.[facility] DublinIn the event this information is protected by the Federal Confidentiality of Alcohol and Drug Abuse Patient Records regulations: The Federal rules restrict any use of the information to criminally investigate or prosecute any alcohol or drug abuse patient.[facility] Reason for Visit (unrecogniz ed section and content) Reason Comments PT Discharge Specialty Diagnoses / Procedures Referred By Rosalee t Referred To Contact [facility] Diagnoses Valgus deformity of both great toes Hammertoe of right foot Postoperative visit Procedures CONSULT TO PHYSICAL THERAPY PHYSICAL THERAPY EVALUATION HIGH COMPLEX 45 MINS Elodia Lao PA-C [address] [place] [address] [facility] [address] [address] Referral ID Status Reason Start Date Expiration Date Visits Requested Visits Authorized [id number] Authorized Auto-Generat ed Referral 11/27/2023 11/26/2024 60 60 Reason Comments New Pain Bunion Reason Comments Appointment Reason Comments New Patient Evaluation Bunion ConsultMet atarsals on Right foot turned, xrays in epic Reason Comments Schedule Surgery Reason Comments Physical Therapy Specialty Diagnoses / Procedures Referred By Rosalee garcia Referred To Contact [facility] Diagnoses 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 M20.11,M20.12 (ICD-10-CM) - Valgus deformity of both great toes Q66.221,Q66.222 (ICD-10-CM) - Metatarsus adductus of both feet Procedures CONSULT TO PHYSICAL THERAPY PHYSICAL THERAPY EVALUATION HIGH COMPLEX 45 MINS Lucille Patino MD [address] [place] [address] [facility] [address] [address] Referral ID Status Reason Start Date Expiration Date Visits Requested Visits Authorized [id number] Authorized Auto-Generat ed Referral 11/27/2022 11/26/2023 60 60 Reason Comments Consult Reason Comments Post Op Reason Comments Post Op Follow Up Reason Comments Insurance Authorization Reason Comments Post Op 3 week follow up [place] peace deformity of both great toes Reason Comments PT Eval Patient Education Reason Comments Pre-Op Visit Post Op Reason Comments Post Op 3 month follow up [place] lgus deformity of both great toes Reason Comments Established Patient Follow up valgus def ormity ZORAIDA great toes Care Teams (unrecognized sec tion and content) Team Status: Active Member Role Status Dates No Primary Care Physician Family Provider Active Rose Finnegan ELECTRICAL AND INSTRUMENT MECHANIC, ELECTRICAL AND INSTRUMENT MECHANIC-C Primary Care Provider Active Team Status: Active Member Role Status Dates No Primary Care Physician Primary Care Provider Active Dr. Jacqueline Duong MD Attending Provider, Referring P rovider Active Team Status: Inactive Member Role Status Dates Dr. Jacqueline Duong MD Attending Provider, Referring P rovider Active Rose Finnegan ELECTRICAL AND INSTRUMENT MECHANIC, ELECTRICAL AND INSTRUMENT MECHANIC-C Primary Care Provider Active Team Status: Inactive Member Role Status Dates No Primary Care Physician Primary Care Provider Active Dr. Jacqueline Duong MD Attending Provider, Referring P rovider Active Team Status: Active Member Role/Relationship Status Dates Rose Finnegan ELECTRICAL AND INSTRUMENT MECHANIC, ELECTRICAL AND INSTRUMENT MECHANIC-C Primary Care Provider Active Team Status: Active Member Role/Relationship Status Dates Rose Finnegan ELECTRICAL AND INSTRUMENT MECHANIC, ELECTRICAL AND INSTRUMENT MECHANIC-C Primary Care Provider Active Start: June 04, 2025 Rose Finnegan ELECTRICAL AND INSTRUMENT MECHANIC, ELECTRICAL AND INSTRUMENT MECHANIC-C Attending Provider Active Start: June 04, 2025 Rose Finnegan ELECTRICAL AND INSTRUMENT MECHANIC, ELECTRICAL AND INSTRUMENT MECHANIC-C Referring Provider Active Start: June 04, 2025 Team Status: Inactive Member Role/Relationship Status Dates Rose Finnegan ELECTRICAL AND INSTRUMENT MECHANIC, ELECTRICAL AND INSTRUMENT MECHANIC-C Primary Care Provider Active Start: June 04, 2025 End: June 04, 2025 Rose Finnegan ELECTRICAL AND INSTRUMENT MECHANIC, ELECTRICAL AND INSTRUMENT MECHANIC-C Referring Provider Active Start: June 04, 2025 End: June 04, 2025 Dr. Dougie Thomas , Attending Provider Active Start: June 04, 2025 End: June 04, 2025 Goals (unrecognized section and content) Goals may be documented in a n alternate section FOR RECORDS PERTAINING TO PATIENTS WHO ARE OR HAVE BEEN ENROLLED IN A CHEMICAL DEPENDENCY/SUBSTANCEABUSE PROGRAM, SOME INFORMATION MAY BE OMITTED. This clinical summary was aggregated from multiple sources. Caution should be exercised in using it in the provision of clinical care. This summary normalizes information from multiple sources, and as a consequence, information in this document may materially change the coding, format and clinical context of patient data. In addition, data may be omitted in some cases. CLINICAL DECISIONS SHOULD BE BASED ON THE PRIMARY CLINICAL RECORDS. [facility] [employer] provides no warranty or guarantee of the accuracy or completeness of information in this document.
[2025-06-17] MEDS: Lactated Ringers 1,000 ML 15 ML IV (06:16)
--- NOTE | 2025-06-17 06:34 | PCM.PRE.AN2 ---
ASA Classification* ASA Classification ASA Classification: 2 Assessment & Plan Anesthesia* Anesthesia Assessment Anesthesia Assessment: Discussed sedation and/or anesthesia options, risks, benefits, and alternatives with patient/parents/legal guardian/POA. Questions invited. The patient/parents/legal guardian/POA seems to understand and agrees to proceed with anesthesia plan. Reviewed the physical assessment, medical history, allergy history and patient home medications list prior to surgery/procedure/anesthetic and documented any changes. Performed airway and anesthesia risk assessments. 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 When Was Last Pacemaker Check QUESTION #4 FULL TEXT: You/Your Family Experience fever (hyperthermia) with Anesthesia Last Oral Intake Last Oral intake: Last Oral Intake NPO since 00:00 06/17/25 06:13 Meds taken in AM with sips of water? Meds patient instructed to take am of surgery PONV PONV - mid level project manager: PONV - mid level project manager Female Yes 06/11/25 15:19 HX of Motion Sickness No 06/11/25 15:19 HX of N/V After Surgery No 06/11/25 15:19 Non-Smoker Yes 06/11/25 15:19 Duration of Surgery greater No 06/11/25 15:19 than 60 minutes Number of Risk Factors 2 06/11/25 15:19 PONV Score Moderate Risk 06/11/25 15:19 Height & Weight Height & Weight: Anesthesia: Height & Weight Height 5 ft 1 in 06/17/25 06:13 Weight: 66.8 kg 06/17/25 06:13 Body Mass Index (BMI) 27.8 06/17/25 06:13 Respiratory Assessment Respiratory Assessment - mid level project manager: Respiratory Tract Infection Hx - mid level project manager Hx Respiratory Tract Infection No 06/11/25 15:19 STOP Sleep Apnea STOP Sleep Apnea - mid level project manager: STOP Sleep Apnea - mid level project manager Hx Hypertension No 06/11/25 15:19 Hx Sleep Apnea No 06/11/25 15:19 CPAP BIPAP Do you snore loudly (louder No 06/11/25 15:19 than talking or can be heard Do you often feel tired/ No 06/11/25 15:19 fatigued/ sleepy during daytime? Has anyone observed you stop No 06/11/25 15:19 breathing during sleep? STOP Results Negative 06/11/25 15:19 QUESTION #5 FULL TEXT : Do you snore loudly (louder than talking or can be heard through closed doors)? 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 Specify any problems Hx of Preganancy in last 3 No 06/11/25 15:19 Months Nurse Filling Out Transfusion VLEHGLENBROOK 06/11/25 15:19 & Questions: Date: 06/11/25 06/11/25 15:19 Time: :06/11/25 15:19 Patient unable to answer at this time (ie. confused, unrespo /Reproduction History /Reproductive History - mid level project manager: /Reproductive Hx- mid level project manager Hx Now No 06/11/25 15:19 Gestational Age (in weeks): EDC: Hx Hx Para Hx Section SAB No 06/11/25 15:19 Active Medications Active Medications: Current Medications Generic Name Dose Route Start Last Admin Trade Name Freq PRN Reason Stop Dose Admin Cefazolin Sodium 2 gm/ Sodium 110 mls @ 200 mls/hr 06/17/25 07:30 Chloride IV 06/17/25 08:02 INTRAOP ONE Lactated Ringer's 1,000 mls @ 15 mls/hr 06/17/25 06:00 06/17/25 06:16 IV 15 mls/hr .Q48H ALLISON Administration PFSH Medical History Bladder disease High cholesterol COPD (chronic obstructive pulmonary disease) Cardiology follow-up encounter Fecal incontinence Wears glasses Post-menopausal Alcohol use Easy bruising Former smoker Bunion Home Medications ?Medication ?Instructions ?Recorded ?Last Taken ?Type [id number]-otpb-[id number] 8 mg-folic 400 1 tab PO QDAY 09/23/24 06/16/25 History mcg-K 50 mcg-lutein 300 mcg tablet (Centrum Silver Women) krill 1 cap PO DAILY 06/11/25 06/16/25 History [id number]-[id number]-wzq-qnd-jo4-ape-astax 1,500 mg-165 mg-67.5 mg capsule (Krill Oil (Stanley 3 and 6)) Allergy/AdvReac Type Severity Reaction Status Date / Time vancomycin Allergy Mild Itching Verified 06/11/25 15:17 Sulfa (Sulfonamide Allergy Hives Verified 06/11/25 15:17 Antibiotics) acetaminophen (From Percocet) AdvReac Intermediate Vomiting Verified 06/11/25 15:17 oxycodone (From Percocet) AdvReac Intermediate Vomiting Verified 06/11/25 15:17 ciprofloxacin AdvReac Mild Diarrhea Verified 06/11/25 15:17 Surgical History History of bilateral cataract extraction Status post right foot surgery S/P foot surgery, left Hx of surgical procedure Hx of tonsillectomy H/O tubal ligation H/O hand surgery Social History Smoking Status: Former smoker Review of Systems (Anesthesia) ROS Narrative System reviewed and no additional complaints, except as documented. Physical Exam Const alert and oriented x3 General Appearance: cooperative
--- NOTE | 2025-06-17 07:03 | PCM.HP.BLA ---
History and Physical Date of Admission: 06/17/25 [facility] [address] [place] [address] OFFICE VISIT Date of Service: 06/04/25 MR#: [id number] Acct: [id number] Name: FELIX VAN Rep #: [id number] : 1960 Provider: Dr. Dougie Thomas DO Age/Sex: 64/F [place] [facility] [place] Status: Signed Intake Vital Signs 09/23/2408:51 Height 5 ft 1 in Weight: 150 lb BMI 28.3 Intake Visit Reasons: RIGHT HAND Chief Complaint: right ring finger trigger finger Allergies vancomycin Allergy (Mild, Verified 06/04/25 13:40) ItchingSulfa (Sulfonamide Antibiotics) Allergy (Verified 06/04/25 13:40) Hivesacetaminophen (From Percocet) Adverse Reaction (Intermediate, Verified 06/04/25 13:40) Vomitingoxycodone (From Percocet) Adverse Reaction (Intermediate, Verified 06/04/25 13:40) Vomitingciprofloxacin Adverse Reaction (Mild, Verified 06/04/25 13:40) Diarrhea Medications ?Medication ?Instructions ?Recorded ?Confirmed ?Type [id number]-[id number] 8 mg-folic 400 1 tab PO QDAY 09/23/24 06/04/25 History mcg-K 50 mcg-lutein 300 mcg tablet (Centrum Silver Women) Have you fallen in the past year?: No PFSH Medical History Fecal incontinence Wears glasses Post-menopausal Alcohol use Easy bruising Former smoker Bunion Surgical History Status post right foot surgery S/P foot surgery, left Hx of surgical procedure Hx of tonsillectomy H/O tubal ligation H/O hand surgery Social History Smoking Status: Former smoker HPI RIGHT HAND Details: This documentation accurately reflects the service provided and the decisions made by me, Dr. Dougie Thomas, 06/04/25 0756. Part of today?s visit was documented by Leticia SALAS, acting as scribe. FELIX VAN is a 64 year old F here today for right ring finger trigger finger. She states that she is ready to proceed with surgery and would like to discuss today. She continues to have painful severe triggering of the right ring finger 01/27/2025 visit:here today for right ring finger trigger finger. She states the last injection she has gave her relief for 3 months but now it is locking up on her and painful. She would like to have another injection today and possibly proceed with surgery in February or March this is her second ever injection in this finger. Plan:Patient is here today for right ring finger trigger finger. I did give patient an injection back in September which gave her 3 months of relief but she does have palpable triggering on exam today. She would like to proceed with surgery later in the year so I advised patient to call the office and let us know when she would like to proceed with surgery. We did inject the finger again today upon her request. Risks again reviewed including risk of tendon rupture dimpling and fat atrophy. 11/06/2024: Patient is here today trigger finger on the left hand of the middle finger. She states that her middle finger is more stiff in the mornings and seems to catch and when it does she gets pain down into her wrist. The finger has been triggering for a few month but noticed in June/July. She states that it isn't as bad as the right hand but wants to catch it before it does. She denies any injury or trauma to the hand or finger. She take Ibuprofen or Aleve if the pain get severe enough. She would like an injection today. Plan:Patient is here today for left middle finger trigger finger. She does have palpable triggering on exam. She has been having the triggering for a few months now. She is here today requesting an injection, the one she had in her right hand resolved her symptoms. 09/23/2024 office visit: new patient here today for evaluation of trigger finger on the right hand ring finger. this has been going on for a few months and progressively worsening. reports the finger locks up multiple times per day and is interfering with some of her daily activities. She has tried sleeping in a finger brace with no relief. She has more stiffness in the morning when she braces at night. She is right hand dominant. Denies any injury. Denies any autoimmune or inflammatory conditions. She has done NSAIDs Plan: Spoke with the patient about having a trigger finger and her options- steroid injection or an A1 kathy release. She would like to proceed with a steroid injection as she hasnt tried any conservative treatment. Patient tolerated injection well. Explained that it may take 3-4 weeks to have full effect. Ortho Exam General General: Yes no acute distress and Yes well groomed Neurologic: Yes alert and Yes oriented x3 Psychologic: Yes reasonable and appropriate Right Wrist/Hand Skin/Wound: Yes nail intact and Yes capillary refill normal WRIST: hypertrophy of A1 kathy that is tender with palpable triggering flexor extensors intact no signs of infection. Head: Normocephalic Atraumatic Chest: symmetrical rise, non-labored breathing, no audible wheeze Abdomen: no guarding, non-rigid Supplemental Info Patient is here today for her right ring finger trigger finger. Patient has had 2 injection for the trigger finger which has helped her but at this point she would like to proceed with surgery. Spoke with patient that the surgery is right ringer finger A1 kathy release. She will have restriction of no lifting over 1/2 pound for the first 2 weeks then the 3rd week she can lift up to 5lbs. Follow up as needed or sooner if pain, swelling, numbness or associated symptoms, or concerns develop. All questions answered. Patient in agreement of plan. Coding Level of Care Code Off vis,est,level 4 Diagnoses Trigger finger, right ring finger M65.341 Assessment and Plan Assessment and Plan (1) Trigger finger, right ring finger: Status: Acute Plan Patient is here today for her right ring finger trigger finger. Patient has had 2 injection for the trigger finger which has helped her but at this point she would like to proceed with surgery. Spoke with patient that the surgery is right ringer finger A1 kathy release. Risk benefits and alternatives of surgery were reviewed including risk of recurrence bleeding nerve tissue damage stiffness postoperative expectations and restrictions. Tentative surgery date is June 17, 2025 Clinical Quality Measures Falls Risk Screening/Assistive Devices Have you fallen in the past year?: No 06/04/25 1403 <Electronically signed by Dougie Thomas DO> Date Dougie Thomas DO I have examined the patient and the H&P has been reviewed. There are no clinical changes since date of exam.
[2025-06-17] MEDS: Lidocaine 1% /Epi 1:100 (20ml) 20 ML Vial (07:42)
--- NOTE | 2025-06-17 07:46 | PCM.OPRPT ---
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 Composite Mechanic: Issa Downing Tasks completed by assisted living home director: Opening & closing and Retracting Type of Anesthesia: Local and MAC RN Documented Start/Stop Times: Operation Date: 06/17/25 07:30 Case Time Into Pre-Op 06/17/25 05:57 Out of Pre-Op 06/17/25 07:18 Anesthesia Start 06/17/25 07:21 Into Room 06/17/25 07:21 Procedure Start 06/17/25 07:37 Procedure Start Time: 07:37 Procedure Stop Time: 07:48 Select all DRAINS/GRAFTS/IMPLANTS that apply: None Estimated Blood Loss: 0 Specimen collected: No Description of surgery: Preoperative diagnosis; right fourth digit trigger finger Postoperative diagnosis; same Procedure: Right fourth digit A1 kathy release Anesthesia: Local with MAC Tourniquet time; 10 minutes 250 mm Hg Complications: None Indication for procedure; This is a 64-year-old female with symptoms consistent with trigger finger. Risks benefits and alternatives were reviewed including risks of bleeding infection nerve tendon tissue damage need for further surgery and continued pain and symptoms, hypersensitivity to scar/incision and recurrence. Procedure; The patient was met in the preoperative holding area the operative extremity was identified by both patient and physician and was marked the patient was met by anesthesia and brought back to the operating room and transferred to the operating table in the supine position. Aanesthesia was started. A well-padded tourniquet was placed on the operative upper extremity. The patient was prepped and draped in the usual sterile fashion. A timeout was called to ensure the proper patient procedure and extremity were being contemplated. 0.5 percent Marcaine was injected into the incisional area. Esmarch was used tourniquet was inflated. 15 blade scalpel was used to make a longitudinal incision directly over the A1 kathy was carried down through the subcutaneous tissue Amalia retractors placed radial and ulnar protecting the digital nerves and a Ragnell retractor was used at the apex of the incision under direct visualization a deep blade scalpel was used to release the A1 kathy. The wound was thoroughly irrigated and closed with 4-0 nylon vertical mattress edges. Dressing was applied in the form of Xeroform 4 x 4 web roll and an Edvin wrap. Patient tolerated the procedure well was brought back to the PACU in stable condition. Surgical Findings: Thickened A1 kathy Complications Complications: No
--- NOTE | 2025-06-17 07:48 | EX.PCM.DISCH ---
Discharge Instructions Diet Discharge Diet: No restrictions Activity Keep extremity elevated above heart level: Operative Extremity Dressing / Incision Call your doctor if you observe: Shortness of breath and Chest pain Additional Dressing/Incision Instructions:: Ice and elevate operative extremity next 72 hours. Keep dressing on clean and dry for 48 hours then may remove and allow warm soapy water to rinse over incision but do not submerge until sutures are out. Then apply bandaid over incision and change daily. encourage finger range of motion. Not lift more than 1/2 pound. Minimize narcotic use only as needed and directed, may use OTC NSAID and Tylenol to supplement/substitute for pain control. Follow Up Care Please Follow Up With: Dougie Thomas DO When: 2 weeks Test Results: Test results from this visit will be discussed in further detail at your follow-up appointment, if applicable. Discharge Plan Admission Primary Reason for Your Visit: Right fourth digit trigger finger Attending Provider: Dougie Thomas Primary Care Provider: Rose Finnegan NP Instructions Print Language: [place] Discharge Orders/Prescriptions Prescriptions: New hydrocodone-acetaminophen 5-325 mg tablet 1 tab PO Q4H PRN (Reason: pain) 3 Days Qty: 7 0RF No Action Centrum Silver Women 8 mg iron-400 mcg-50 mcg tablet 1 tab PO QDAY Krill Oil ([place] 3 and 6) 1,500-165-67.5 mg capsule 1 cap PO DAILY Referrals / Follow Up: Rose Finnegan NP, SUR[facility]IEF-[facility] [Primary Care Provider] - Disposition Disposition (needs filled in before D/C Order can be placed): Home, Self Care
--- NOTE | 2025-06-17 08:09 | PCM.POSTANE2 ---
Anesthesia Postop Eval I Sum Anesthesia Postop Eval I Summary Anesthesia Postop Eval I Summary: Anesthesia Postop Eval I: Assessment Summary Airway patent Spontaneous unlabored respirations Mental status nausea Vomiting Anesthesia Postop Eval I: Fluid Summary Crystalloid volume administer (ml) Colloids volume administered ( ml) Blood Product volume administered (ml) Total IV fluid infused Anesthesia Postop Eval I: Summary Notes Anesthesia Complication Anesthesia Complication Comment: Post-operative progress note Anesthesia: Postop Eval II Evaluation Mental status: Awake and Calm Pain Level: 0 nausea: No Vomiting: No Progress Note Post-operative progress note: Meets Discharge Criteria Complications Anesthesia Complication: No
--- NOTE | 2025-06-17 09:13 | PCM.POST.ANE ---
Anesthesia: Postop Eval I Current Vital Signs Temperature: 97.9 F Pulse Rate: 87 Blood Pressure: 126/64 Respiratory Rate: 16 Pulse Ox: 100 Assessment Airway patent: Yes Spontaneous unlabored respirations: Yes nausea: No Vomiting: No Anesthesia Complication: No Fluid Hydration Crystalloid volume administer (ml): 500 Total IV fluid infused: 500 Progress Note Anesthesia document: Postop Eval 1 completed: Yes
== END 2025-06-17 08:50 | disposition home or self-care (01) ==
LOC: SDC 05:42 → AC 05:43
PROVIDERS: PCP Nurse Practitioner Family; Referring Provider Orthopaedic Surgery; Visit Provider Orthopaedic Surgery
PROC: (CPT 26055; principal; 2025-06-17 07:20)
DX: M65.341 Trigger finger, right ring finger (principal); Z87.891 Personal history of nicotine dependence
CPT/HCPCS: 26055; 01810; J2405

== ENCOUNTER → 2025-09-15 | Outpatient (CLI) | payer MEDICARE, OTHER, SELFPAY ==
--- NOTE | 2025-09-15 11:03 | MRI_ITS ---
PROCEDURE: SPINE LUMBAR (ROUTINE) 09/15/2025 REASON FOR EXAM: PAIN X1.5 YEARS, RADICULOPATHY, DDD TECHNIQUE: Procedure Code: MRISPL Modality: MR Procedure: SPINE LUMBAR (ROUTINE) FINDINGS: Normal lumbar vertebral body height. No compression fracture. Normal conus. Modic type 1 changes at L3-4. No retroperitoneal mass. No paravertebral mass. At L1-2, concentric annular bulge is present without significant spinal stenosis. At L2-3 disc space narrowing and concentric annular bulge with mild canal narrowing and inferior foraminal narrowing on the left. At L3-4 minimal annular bulging and ligamentous prominence combined to produce mild acquired spinal stenosis. Asymmetric moderate right L3 foraminal stenosis from bulging disc with disc abutting the right L3 nerve. At L4-5, mild canal narrowing from broad-based concentric disc bulge without foraminal impingement. At L5-S1 degenerative disc disease with disc space narrowing and osteophytic spur. Broad-based bulge with a left paracentral protrusion on sagittal image 6 of 15 seen better on the sagittal compared with the axial images. In the region of the ligamentum flavum, there is hypointense T2 signal and hyperintense T1 signal in the midline. Possibly calcified ligamentum flavum or hemorrhagic synovial cyst MRI/Spine Lumbar (Routine) IMPRESSION: Degenerative changes as discussed above. Posterior midline epidural abnormal s ignal at L5-S1 which could be related to the synovium. Consider further evaluation with a contrasted study. Mild canal narrowing at L3-4 and L4-5. Reading Location: [facility]
== END | disposition home or self-care (01) ==
LOC: MRI 10:54
PROVIDERS: PCP Nurse Practitioner Family; Referring Provider Student in an Organized Health Care Education/Training Program; Visit Provider Student in an Organized Health Care Education/Training Program
DX: M51.362 Other intervertebral disc degeneration, lumbar region with discogenic back pain and lower extremity pain (principal); M54.16 Radiculopathy, lumbar region
CPT/HCPCS: 72148